=== PATIENT | male | born 1985 | race Caucasian/White ===

== ENCOUNTER 2017-04-20 00:50 | Outpatient (CLI) | payer SELFPAY | END 2017-04-20 00:51 | disposition critical access hospital (66) | LOC: EMS 00:50 | PROVIDERS: ATTEND Surgery | DX: R51 Headache (principal); M79.605 Pain in left leg; M79.604 Pain in right leg; R56.9 Unspecified convulsions | CPT/HCPCS: A0425; A0429 ==

== ENCOUNTER 2017-04-20 01:04 | Emergency (ER) | payer SELFPAY ==
[2017-04-20] MEDS ORDERED: THIAMINE INJ 100 MG in SODIUM CHLORIDE 0.9% 50 ML IV STA (01:14)
[2017-04-20] MEDS ORDERED: FOLIC ACID INJ 1 MG, THIAMINE INJ 100 MG, MAGNESIUM SULFATE 2 GM, MULTIVITAMIN 10 ML in... IV STA ×5 (01:14)
[2017-04-20] MEDS ORDERED: ONDANSETRON 4 MG/2 ML VIAL IVP STA (01:26)
[2017-04-20] MEDS ORDERED: THIAMINE 100 MG/1 ML 2 ML MDV ONE (01:37)
[2017-04-20] MEDS ORDERED: SODIUM CHLORIDE 0.9% 1,000 ML IV ONE (01:38)
[2017-04-20] MEDS ORDERED: ONDANSETRON 4 MG/2 ML VIAL ONE (01:38)
[2017-04-20] MEDS ORDERED: MAGNESIUM SULFATE 2 GRAM 50 ML IV ONE (01:44)
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
[2017-04-20] MEDS ORDERED: DIVALPROEX DR 125 MG TABLET PO STA (06:18)
[2017-04-20 06:58] LABS: BASOPHILS # (AUTO) 0.1 10^3/uL (0.0-0.1); BASOPHILS % (AUTO) 0.8 %; EOSINOPHILS # (AUTO) 0.1 10^3/uL (0.0-0.7); EOSINOPHILS % (AUTO) 1.4 %; HCT - HEMATOCRIT 43.3 % (42.0-52.0); HGB - HEMOGLOBIN 14.2 g/dL (14.0-18.0); LYMPHOCYTES # (AUTO) 2.9 10^3/uL (1.5-3.5); LYMPHOCYTES % (AUTO) 41.4 %; MEAN CORPUSCULAR HEMOGLOBIN 31.8 pg (27.0-31.0); MEAN CORPUSCULAR HGB CONC 32.8 g/dL (32.0-36.0); MEAN CORPUSCULAR VOLUME 96.8 fL (80.0-94.0); MEAN PLATELET VOLUME 7.3 fL (7.4-11.4); MONOCYTES # (AUTO) 0.6 10^3/uL (0.0-1.0); MONOCYTES % (AUTO) 9.3 %; NEUTROPHILS # (AUTO) 3.3 10^3/uL (1.5-6.6); NEUTROPHILS % (AUTO) 47.1 %; NUCLEATED RED BLOOD CELLS AUTO 0.2 /100WBC; RED BLOOD COUNT 4.48 10^6/uL (4.70-6.10); RED CELL DISTRIBUTION WIDTH 14.3 % (12.0-15.0); UNCORRECTED WHITE BLOOD COUNT 6.9 x10^3/uL; WHITE BLOOD COUNT 6.9 x10^3/uL (4.8-10.8)
[2017-04-20 07:06] LABS: ALBUMIN/GLOBULIN RATIO 1.5 (1.0-2.2); BILIRUBIN,TOTAL 0.3 mg/dL (0.2-1.0); BUN - BLOOD UREA NITROGEN 10 mg/dL (6-20); CALCIUM 8.3 mg/dL (8.5-10.3); CARBON DIOXIDE - CO2 25 mmol/L (21-32); CHLORIDE 108 mmol/L (101-111); CREATININE 0.7 mg/dL (0.6-1.2); GFR - MDRD 131 (>89); GLUCOSE 87 mg/dL (70-100); LIPASE 30 U/L (22-51); POTASSIUM 3.6 mmol/L (3.5-5.0); SALICYLATE < 6.0 mg/dL; SODIUM 144 mmol/L (135-145)
[2017-04-20 07:13] LABS: ACETAMINOPHEN < 10 ug/mL (10-30)
--- NOTE | 2017-04-20 13:28 | ED Physician Documentation ---
ED Addendum - Addendum Addendum: 04/20/17 13:26 He is allowed to sleep through the morning. He is awake and alert and conversant. No withdrawal symptoms at this time. He denies self-harm ideation, though is generally disgruntled about life, being homeless, without his cell phone, etc. He will be given taxi-voucher to [facility] to try to get further resources and help.
[2017-04-20 13:32] VITALS: BP 143/87
== END 2017-04-20 13:33 | disposition home or self-care (01) ==
LOC: EDUNIT# → ED 01:04
DX: F10.129 Alcohol abuse with intoxication, unspecified (principal); F17.200 Nicotine dependence, unspecified, uncomplicated
CPT/HCPCS: 36415; 80053; 80306; 80307; 80320; 80329; 83690; 84443; 85025; 96365; 96366; 96375; 99284; 99285; J3411

== ENCOUNTER 2017-07-07 18:14 | Outpatient (CLI) | payer MEDICAID | END 2017-07-07 18:15 | disposition critical access hospital (66) | LOC: EMS 18:14 | PROVIDERS: ATTEND Surgery | DX: R56.9 Unspecified convulsions (principal); Z59.0 Homelessness | CPT/HCPCS: A0425; A0429 ==

== ENCOUNTER 2017-07-07 18:48 | Emergency (ER) | payer MEDICAID ==
--- NOTE | 2017-07-07 19:13 | ED Physician Documentation ---
PD HPI SEIZURE <Torey Varela - Last Filed: 07/08/17 07:28> - History obtained from History obtained from: Patient - History of Present Illness Timing - onset: Today Witnessed: Unwitnessed (he awoke on ground after last being aware of standing up. Feels achy and had urinary incontinence. So he is sure he had a seizure ( which is reasonable). History of seizures, both regular and also with withdrawal in the past. He has been drinking today and does not feel in withdrawal.) Number of seizures: Multiple (he believes he had 2 seizures today.) Description of seizure activity: Generalized, Incontinent Injury during seizure: No: Head injury Associated symptoms: No: Headache, Chest pain, Dyspnea, Nausea / vomiting History of seizures: Known seizure disorder, Prior EtOH wdrawal sz. No: Prior TBI Contributing factors: Out of meds (had been on Depakote and ran out a month ago. ), Substance abuse (alcohol) Similar symptoms before: Diagnosis (seizures) Recently seen: Not recently seen <Torey Flores - Last Filed: 07/08/17 07:31> - Stated complaint Stated Complaint: SZ - Chief complaint Chief Complaint: Neuro Review of Systems Constitutional: denies: Fever Nose: denies: Rhinorrhea / runny nose, Congestion Throat: denies: Sore throat Cardiac: denies: Chest pain / pressure, Palpitations Respiratory: denies: Dyspnea, Cough GI: reports: Abdominal Pain (epigastric with eating.), Nausea, Bloody / black stool (he says he has had dark stools the past week or two.). denies: Vomiting , Diarrhea : denies: Dysuria, Frequency Skin: denies: Abrasion (s), Laceration (s) Musculoskeletal: denies: Neck pain, Back pain Neurologic: denies: Altered mental status, Headache Psychiatric: denies: Depressed, Suicidal Endocrine: denies: Weight loss Immunocompromised: denies: Immunocompromised <Torey Flores - Last Filed: 07/08/17 07:31> PD PAST MEDICAL HISTORY <Torey Varela - Last Filed: 07/08/17 07:28> - Past Medical History Cardiovascular: None Respiratory: None Neuro: Seizure disorder Endocrine/Autoimmune: None GI: None : None HEENT: Glaucoma Psych: None Musculoskeletal: None Derm: None - Past Surgical History Past Surgical History: Yes - Living Situation Living Situation: reports: Alone Living Arrangement: reports: Homeless (lives in [place] in tent, but has campstove and sleeping bag. ) - Social History Does the pt smoke?: Yes Smoking Status: Current every day smoker Does the pt drink ETOH?: Yes ETOH Use: Other (drinks heavily daily.) Does the pt have substance abuse?: No - Immunizations Immunizations are current?: Yes - POLST Patient has POLST: No <FloresTorey - Last Filed: 07/08/17 07:31> - Present Medications Home Medications: Ambulatory Orders Medication Instructions Recorded Confirmed Divalproex Sodium [Depakote] 500 mg PO BID #60 tablet. 04/20/17 07/07/17 Divalproex Sodium [Depakote] 500 mg PO BID #60 tablet. 07/07/17 Famotidine [Pepcid] 20 mg PO ONCE #30 tablet 07/07/17 Promethazine [Phenergan] 25 - 50 mg PO Q6H PRN #30 tab 07/07/17 chlordiazePOXIDE [Librium] 25 mg PO Q6H PRN #30 capsule 07/07/17 - Allergies Allergies/Adverse Reactions: Allergies Allergy/AdvReac Type Severity Reaction Status Date / Time iodine Allergy Severe Respiratory Verified 04/20/17 01:16 Penicillins Allergy Unknown unk Verified 04/20/17 01:16 eggs AdvReac Intermediate Emesis Uncoded 07/07/17 19:03 PD ED PE NORMAL - Vitals Vital signs reviewed: Yes - General General: Alert and oriented X 3, Well developed/nourished, Other (unkempt) - HEENT HEENT: Atraumatic, Ears normal, Pharynx benign - Neck Neck: Supple, no meningeal sign, No adenopathy - Cardiac Cardiac: RRR, No murmur - Respiratory Respiratory: Clear bilaterally - Abdomen Abdomen: Normal bowel sounds, Soft, Non distended, No organomegaly, Other ( tender epigastric without guarding) - Rectal Rectal: Deferred, Pt declined - Back Back: No CVA TTP - Derm Derm: Normal color, Warm and dry - Extremities Extremities: No deformity, No tenderness to palpate, Normal ROM s pain, No edema - Neuro Neuro: Alert and oriented X 3, No motor deficit. No: Normal speech (slight slurring and heavy smell of alcohol on breath. ) <Torey Flores - Last Filed: 07/08/17 07:31> - Vitals Vitals: Vital Signs - 24 hr 07/07/17 07/07/17 07/08/17 18:59 20:43 00:42 Temperature 37.2 C Heart Rate 81 81 69 Respiratory 16 21 20 Rate Blood Pressure 136/95 H 111/55 L 116/62 O2 Saturation 94 96 99 07/08/17 07/08/17 05:16 06:29 Temperature 37.2 C Heart Rate 64 56 L Respiratory 18 12 Rate Blood Pressure 127/77 112/72 O2 Saturation 96 97 Oxygen O2 Source Room air - Labs Labs: Laboratory Tests 07/07/17 07/07/17 19:53 19:53 WBC 5.2 RBC 4.64 L Hgb 15.6 Hct 44.7 MCV 96.4 H MCH 33.7 H MCHC 35.0 RDW 15.2 H Plt Count 179 MPV 6.8 L Neut # 2.9 Lymph # 1.8 [place] # 0.4 Eos # 0.1 Baso # 0.1 Absolute Nucleated RBC 0.00 Nucleated RBCs 0.1 Sodium 136 Potassium 3.6 Chloride 99 L Carbon Dioxide 26 Anion Gap 11.0 BUN 8 Creatinine 0.9 Estimated GFR (MDRD) 98 Glucose 96 Calcium 8.7 Magnesium 1.9 Total Bilirubin 1.6 H AST 144 H ALT 51 Alkaline Phosphatase 87 Total Protein 6.6 L Albumin 3.8 Globulin 2.8 Albumin/Globulin Ratio 1.4 Lipase 31 Ethyl Alcohol 241.4 Procedures - IVC sono (time) 0525 Bedside IVC sono: IVC measures (cm) (1.18), IVC collapsed c insp (cm) (complete) , Significant dehydration <AveryToery Echevarria - Last Filed: 07/08/17 07:28> PD MEDICAL DECISION MAKING - ED course Complexity details: reviewed old records, reviewed results, re-evaluated patient , considered differential, d/w patient <AveryTorey - Last Filed: 07/08/17 07:28> - ED course Complexity details: reviewed results, considered differential (history of seizures. Is intoxicated and not apparent withdrawal at this time. Has been off meds for a month. Given dose of Valproate here in ED. Will give him Rx for it. He has taken Librium in the past to help with alcohol cessation and asks for Rx for that, which I will give. He sleeps in the ED mainly. Will allow him to rest. CBC is good, so not apparent significant GI bleed. Will Rx Famotidine.), d /w patient <Torey Flores - Last Filed: 07/08/17 07:31> - ED course ED course: 31-year-old male who presented to the emergency department with a seizure earlier and they was intoxicated he did spend the night in the emergency department and he has metabolized his alcohol appears to be in some early signs of withdrawal and is administered 1 mg of Ativan intravenously as well as 4 mg of Zofran intravenously prior to discharge from the emergency department. He is road tested and does poorly with a lot of dizziness and ataxia. He is brought back to his bed and his volume is checked by interrogation of the IVC with the bedside ultrasound and he is still significantly dehydrated after a liter given as a banana bag. A second liter is hung. (Torey Varela) Departure <Torey Varela - Last Filed: 07/08/17 07:28> - Departure Record reviewed to determine appropriate education?: Yes <FloresTorey - Last Filed: 07/08/17 07:31> - Departure Disposition: 01 Home, Self Care Clinical Impression: Seizure Alcohol intoxication Qualifiers: Complication of substance-induced condition: uncomplicated Qualified Code(s): F10.120 - Alcohol abuse with intoxication, uncomplicated Gastritis Qualifiers: Gastritis type: alcoholic Chronicity: acute Gastritis bleeding: with bleeding Qualified Code(s): K29.21 - Alcoholic gastritis with bleeding Condition: Stable Instructions: ED Gastritis, ED Alcohol Intoxication Follow-Up: [facility] [Provider Group] [facility] [Provider Group] Prescriptions: Divalproex Sodium [Depakote] 500 mg PO BID #60 tablet. chlordiazePOXIDE [Librium] 25 mg PO Q6H PRN #30 capsule PRN Reason: Anxiety Famotidine [Pepcid] 20 mg PO ONCE #30 tablet Promethazine [Phenergan] 25 - 50 mg PO Q6H PRN #30 tab PRN Reason: Nausea / Vomiting Comments: Stop alcohol use. Use Librium every 4-6 hours as needed for withdrawal symptoms and taper down the use of it over several days to week. I presume you have some stomach irritation called gastritis and use famotidine daily for a month. Add promethazine if needed for nausea. Continue your usual seizure medicine and I wrote a prescription for the Depakote. Follow-up with local clinic, call for soonest appointment.
[2017-07-07] MEDS ORDERED: ONDANSETRON 4 MG/2 ML VIAL IVP STA (19:44)
[2017-07-07] MEDS ORDERED: SODIUM CHLORIDE 0.9% 1,000 ML IV ONE (19:44)
[2017-07-07] MEDS ORDERED: FAMOTIDINE 20 MG/50 ML 50 ML IV ONE ×2 (19:45→19:56)
[2017-07-07] MEDS ORDERED: MULTIVITAMIN 10 ML in SODIUM CHLORIDE 0.9% 1,000 ML IV STA (19:45)
[2017-07-07] MEDS ORDERED: THIAMINE INJ 100 MG, FOLIC ACID INJ 1 MG in SODIUM CHLORIDE 0.9% 100ML 100 ML IV STA (19:45)
[2017-07-07] MEDS ORDERED: MAGNESIUM SULFATE 2 GRAM 50 ML IV STA (19:45)
[2017-07-07] MEDS ORDERED: VALPROATE INJ 500 MG in SODIUM CHLORIDE 0.9% 100ML 100 ML IV STA (19:46)
[2017-07-07] MEDS ORDERED: ONDANSETRON 4 MG/2 ML VIAL ONE (19:56)
[2017-07-07 20:02] LABS: BASOPHILS # (AUTO) 0.1 10^3/uL (0.0-0.1); BASOPHILS % (AUTO) 1.2 %; EOSINOPHILS # (AUTO) 0.1 10^3/uL (0.0-0.7); EOSINOPHILS % (AUTO) 1.9 %; HCT - HEMATOCRIT 44.7 % (42.0-52.0); HGB - HEMOGLOBIN 15.6 g/dL (14.0-18.0); LYMPHOCYTES # (AUTO) 1.8 10^3/uL (1.5-3.5); LYMPHOCYTES % (AUTO) 33.9 %; MEAN CORPUSCULAR HEMOGLOBIN 33.7 pg (27.0-31.0); MEAN CORPUSCULAR VOLUME 96.4 fL (80.0-94.0); MEAN PLATELET VOLUME 6.8 fL (7.4-11.4); MONOCYTES # (AUTO) 0.4 10^3/uL (0.0-1.0); MONOCYTES % (AUTO) 7.2 %; NEUTROPHILS # (AUTO) 2.9 10^3/uL (1.5-6.6); NEUTROPHILS % (AUTO) 55.8 %; NUCLEATED RED BLOOD CELLS AUTO 0.1 /100WBC; RED BLOOD COUNT 4.64 10^6/uL (4.70-6.10); RED CELL DISTRIBUTION WIDTH 15.2 % (12.0-15.0); UNCORRECTED WHITE BLOOD COUNT 5.2 x10^3/uL; WHITE BLOOD COUNT 5.2 x10^3/uL (4.8-10.8)
[2017-07-07 20:20] LABS: ALBUMIN/GLOBULIN RATIO 1.4 (1.0-2.2); BILIRUBIN,TOTAL 1.6 mg/dL (0.2-1.0); CALCIUM 8.7 mg/dL (8.5-10.3); CREATININE 0.9 mg/dL (0.6-1.2); MAGNESIUM 1.9 mg/dL (1.7-2.8); POTASSIUM 3.6 mmol/L (3.5-5.0); TOTAL PROTEIN 6.6 g/dL (6.7-8.2)
[2017-07-07] MEDS ORDERED: THIAMINE 100 MG/1 ML 2 ML MDV ONE (20:30)
[2017-07-07] MEDS ORDERED: MAGNESIUM SULFATE 2 GRAM 50 ML IV ONE (20:30)
[2017-07-08] MEDS ORDERED: ONDANSETRON 4 MG/2 ML VIAL IVP STA (05:20)
[2017-07-08] MEDS ORDERED: LORazepam 2 MG/ML SYRINGE IVP STA ×2 (05:20→08:11)
[2017-07-08] MEDS ORDERED: LORazepam 2 MG/ML SYRINGE ONE ×2 (05:26→08:27)
[2017-07-08] MEDS ORDERED: ONDANSETRON 4 MG/2 ML VIAL ONE (05:26)
[2017-07-08] MEDS ORDERED: SODIUM CHLORIDE 0.9% 1,000 ML IV ONE ×2 (05:49→07:07)
[2017-07-08 09:15] VITALS: BP 119/54
== END 2017-07-08 09:16 | disposition home or self-care (01) ==
LOC: EDUNIT# → ED 18:48
DX: R56.9 Unspecified convulsions (principal); F10.129 Alcohol abuse with intoxication, unspecified; K29.20 Alcoholic gastritis without bleeding; Z59.0 Homelessness; F17.200 Nicotine dependence, unspecified, uncomplicated
CPT/HCPCS: 36415; 80053; 80320; 83690; 83735; 85025; 96365; 96375; 96376; 99284; 99285; J2060; J3411

== ENCOUNTER 2017-10-02 21:34 | Outpatient (CLI) | payer MEDICAID | END 2017-10-02 21:35 | disposition critical access hospital (66) | LOC: EMS 21:34 | PROVIDERS: ATTEND Surgery | DX: R56.9 Unspecified convulsions (principal) | CPT/HCPCS: A0425; A0429 ==

== ENCOUNTER 2017-10-02 21:50 | Emergency (ER) | payer MEDICAID ==
[2017-10-02 22:19] LABS: BASOPHILS % (AUTO) 0.7 %; EOSINOPHILS # (AUTO) 0.2 10^3/uL (0.0-0.7); HCT - HEMATOCRIT 42.6 % (42.0-52.0); HGB - HEMOGLOBIN 14.8 g/dL (14.0-18.0); LYMPHOCYTES % (AUTO) 35.8 %; MEAN CORPUSCULAR HEMOGLOBIN 34.4 pg (27.0-31.0); MEAN CORPUSCULAR HGB CONC 34.7 g/dL (32.0-36.0); MEAN CORPUSCULAR VOLUME 99.3 fL (80.0-94.0); MEAN PLATELET VOLUME 7.8 fL (7.4-11.4); MONOCYTES # (AUTO) 0.6 10^3/uL (0.0-1.0); MONOCYTES % (AUTO) 10.7 %; NEUTROPHILS # (AUTO) 2.7 10^3/uL (1.5-6.6); NEUTROPHILS % (AUTO) 48.8 %; RED BLOOD COUNT 4.29 10^6/uL (4.70-6.10); RED CELL DISTRIBUTION WIDTH 13.5 % (12.0-15.0); UNCORRECTED WHITE BLOOD COUNT 5.6 x10^3/uL; WHITE BLOOD COUNT 5.6 x10^3/uL (4.8-10.8)
[2017-10-02 22:30] LABS: ALBUMIN/GLOBULIN RATIO 1.5 (1.0-2.2); BILIRUBIN,TOTAL 0.9 mg/dL (0.2-1.0); CALCIUM 9.1 mg/dL (8.5-10.3); CREATININE 0.7 mg/dL (0.6-1.2); POTASSIUM 3.4 mmol/L (3.5-5.0); TOTAL PROTEIN 7.2 g/dL (6.7-8.2)
--- NOTE | 2017-10-02 22:38 | CT Preliminary Report ---
Exam: CT HEAD W/O IMPRESSION: 1. No acute intracranial process. 2. New mild left frontal scalp swelling without calvarial fracture. [facility] SITE ID: [id number]
--- NOTE | 2017-10-02 22:43 | CT Report ---
EXAM: CT HEAD EXAM DATE: 10/02/2017 10:28 PM. CLINICAL HISTORY: Seizure. COMPARISON: None. TECHNIQUE: Multiaxial CT images were obtained from the foramen magnum to the vertex. Reformats: Coron al. IV contrast: None. In accordance with CT protocol optimization, one or more of the following dose reduction techniques w ere utilized for this exam: automated exposure control, adjustment of mA and/or KV based on patient s ize, or use of iterative reconstructive technique. FINDINGS: Parenchyma: No intraparenchymal hemorrhage. No evidence of mass, midline shift, or CT findings of inf arction. Garcia-white differentiation is distinct. Extraaxial Spaces: Normal for age. No subdural or epidural collections identified. Ventricles: Normal in size and position. Sinuses and Orbits: Left maxillary sinus mucosal thickening is again seen. The orbits and mastoid sin uses are unremarkable. Bones: New mild left frontal scalp swelling is noted without an underlying calvarial fracture. IMPRESSION: 1. No acute intracranial process. 2. New mild left frontal scalp swelling without calvarial fracture. [facility] Referring Provider Line: [phone] SITE ID: [id number]
[2017-10-02] MEDS ORDERED: LORazepam 2 MG/ML SYRINGE ONE (23:29)
[2017-10-02] MEDS: LORazepam 2 MG/ML SYRINGE IVP STA (23:29)
[2017-10-02] MEDS: DIVALPROEX ER 250 MG TABLET PO SCH (23:44)
--- NOTE | 2017-10-03 00:43 | ED Physician Documentation ---
PD HPI SEIZURE - Stated complaint Stated Complaint: SZ - Chief complaint Chief Complaint: Neuro - History obtained from History obtained from: Patient, EMS - History of Present Illness Timing - onset: Today Witnessed: Witnessed Number of seizures: Single, Lasted minutes Description of seizure activity: Generalized, Tonic clonic Injury during seizure: Fell, Head injury Associated symptoms: None History of seizures: Known seizure disorder Contributing factors: Off meds, Out of meds, Substance abuse Similar symptoms before: Work up / diagnostics, Treatment Recently seen: Not recently seen - Additional information Additional information: Patient is a 31 year old male with a history of seizure disorder who is being brought in for having a seizure. [facility] a witnessed tonic clonic seizure. Patient states that he has not taken his depakote for a long time. Patient admits to drinking daily Review of Systems Constitutional: denies: Fever, Chills Eyes: denies: Decreased vision Nose: denies: Congestion Throat: denies: Dental pain / toothache Cardiac: denies: Chest pain / pressure Respiratory: denies: Cough, Wheezing GI: denies: Nausea, Vomiting : denies: Incontinent Skin: reports: Abrasion (s) Musculoskeletal: denies: Neck pain, Back pain Neurologic: reports: Seizure. denies: Generalized weakness Immunocompromised: denies: Immunocompromised PD PAST MEDICAL HISTORY - Past Medical History Cardiovascular: None Respiratory: None Neuro: Seizure disorder Endocrine/Autoimmune: None GI: None : None HEENT: Glaucoma Psych: None Musculoskeletal: None Derm: None - Past Surgical History Past Surgical History: Yes General: Other - Present Medications Home Medications: Ambulatory Orders Medication Instructions Recorded Confirmed Divalproex ER [Depakote ER] 500 mg PO DAILY #30 tablet 10/03/17 - Allergies Allergies/Adverse Reactions: Allergies Allergy/AdvReac Type Severity Reaction Status Date / Time iodine Allergy Severe Respiratory Verified 04/20/17 01:16 Penicillins Allergy Unknown unk Verified 09/23/17 20:09 eggs AdvReac Intermediate Emesis Uncoded 07/07/17 19:03 - Social History Does the pt smoke?: Yes Smoking Status: Current every day smoker Does the pt drink ETOH?: Yes Does the pt have substance abuse?: No - Immunizations Immunizations are current?: Yes - POLST Patient has POLST: No PD ED PE NORMAL - Vitals Vital signs reviewed: Yes - General General: Alert and oriented X 3, No acute distress - HEENT HEENT: PERRL, Moist mucous membranes, Dentition benign - Neck Neck: Supple, no meningeal sign, No bony TTP - Cardiac Cardiac: RRR, No murmur - Respiratory Respiratory: No respiratory distress - Abdomen Abdomen: Soft, Non distended - Derm Derm: Normal color - Extremities Extremities: No deformity - Neuro Neuro: Alert and oriented X 3, No motor deficit Eye Opening: Spontaneous Motor: Obeys Commands Verbal: Oriented GCS Score: 15 PD ED PE EXPANDED - General General: Disheveled, poorly kept Results - Vitals Vitals: Vital Signs - 24 hr 10/02/17 10/02/17 10/02/17 21:57 23:28 23:45 Temperature 36.7 C Heart Rate 101 H 85 96 Respiratory 18 16 16 Rate Blood Pressure 135/80 H 119/80 122/69 O2 Saturation 94 95 97 Oxygen O2 Source Room air - EKG (time done) 2204 Rate: Rate (enter#) (87) Rhythm: NSR Moran: Normal Intervals: Normal GA QRS: Normal Ischemia: Normal ST segments - Labs Labs: Laboratory Tests 10/02/17 10/02/17 10/02/17 22:11 22:11 22:11 WBC 5.6 RBC 4.29 L Hgb 14.8 Hct 42.6 MCV 99.3 H MCH 34.4 H MCHC 34.7 RDW 13.5 Plt Count 205 MPV 7.8 Neut # 2.7 Lymph # 2.0 [place] # 0.6 Eos # 0.2 Baso # 0.0 Absolute Nucleated RBC 0.00 Nucleated RBC % 0.0 Sodium 136 Potassium 3.4 L Chloride 102 Carbon Dioxide 23 Anion Gap 11.0 BUN 6 Creatinine 0.7 Estimated GFR (MDRD) 131 Glucose 95 Calcium 9.1 Total Bilirubin 0.9 AST 132 H ALT 64 H Alkaline Phosphatase 85 Total Protein 7.2 Albumin 4.3 Globulin 2.9 Albumin/Globulin Ratio 1.5 Last Dose Date UNK Last Dose Time UNK Valproic Acid < 10.0 - Rads (name of study) ct head Radiology: Final report received (no acute intracranial pathology) PD MEDICAL DECISION MAKING - ED course Complexity details: reviewed old records, reviewed results, re-evaluated patient , considered differential, d/w patient ED course: Patient was seen and examined at bedside. Patient had no seizure activity. iv access was gained and labs were drawn. patient was sent for imaging. when patient returned the results were reviewed. Patient was treated with depakote and ativan. Patient required no further work up and was stable for discharge with outpatient follow up. Departure - Departure Disposition: 01 Home, Self Care Clinical Impression: Seizure Condition: Good Instructions: ED Seizure Recurrent Follow-Up: primary,care provider [Other] Prescriptions: Divalproex ER [Depakote ER] 500 mg PO DAILY #30 tablet Comments: Your symptoms today are being caused by not taking your medications. It is important to take your medications as prescribed. You should also refrain from drinking so excessively. You may return to the emergency department at any time if necessary for new, worsening or uncontrollable symptoms.
[2017-10-03] MEDS: chlordiazePOXIDE 25 MG CAPSULE PO STA (01:08)
[2017-10-03 01:09] VITALS: BP 116/57
[2017-10-03] MEDS ORDERED: chlordiazePOXIDE 25 MG CAPSULE PO ONE (01:12)
== END 2017-10-03 01:20 | disposition home or self-care (01) ==
LOC: EDUNIT# → ED 21:50
DX: G40.909 Epilepsy, unspecified, not intractable, without status epilepticus (principal); T42.6X6A Underdosing of other antiepileptic and sedative-hypnotic drugs, initial encounter; F17.200 Nicotine dependence, unspecified, uncomplicated; Z91.14 Patient's other noncompliance with medication regimen
CPT/HCPCS: 36415; 70450; 80053; 80164; 85025; 93005; 96374; 99285

== ENCOUNTER 2017-10-18 12:12 | Outpatient (CLI) | payer MEDICAID | END 2017-10-18 12:13 | disposition critical access hospital (66) | LOC: EMS 12:12 | PROVIDERS: ATTEND Surgery | DX: R56.9 Unspecified convulsions (principal) | CPT/HCPCS: A0425; A0429 ==

== ENCOUNTER 2017-10-18 12:29 | Observation (INO) | payer MEDICAID ==
--- NOTE | 2017-10-18 13:25 | ED Physician Documentation ---
PD HPI SEIZURE - Stated complaint Stated Complaint: SEIZURE - History obtained from History obtained from: Patient - History of Present Illness Timing - onset: How many hours ago (1), Today Witnessed: Witnessed (Patient reportedly had seizure at bus stop, some report of witnessed, but was self limited and when awoke, he called EMS himself. He had been drinking today, which he does regularly but denies withdrawal or other medications. He does have history of seizures since teenage, and has been on Depakote in the past with moderate to good improvement if he takes it regularly , but still with some seizures periodically despite meds. More seizures if doesn 't take meds. He says he has not had Rx for the past 2 weeks.) Number of seizures: Single, Lasted minutes. No: Still seizing Description of seizure activity: Generalized Injury during seizure: Bit tongue. No: Fell, Head injury, Neck injury Associated symptoms: Headache. No: Vision changes, Chest pain, Palpitations History of seizures: Known seizure disorder, Other (chronic alcohol use) Contributing factors: Out of meds, Substance abuse (alcohol). No: Low blood sugar, Head injury Similar symptoms before: Diagnosis (seizure disorder, also has had seizures if without alcohol for short period. He says he has only has 1 prior long sober period of 6 months in the past, otherwise regular alcoholism.) Recently seen: Emergency Dept Review of Systems Constitutional: denies: Fever, Chills Nose: denies: Rhinorrhea / runny nose, Congestion Throat: reports: Dental pain / toothache. denies: Sore throat, Swollen tonsils Cardiac: denies: Chest pain / pressure, Palpitations Respiratory: denies: Dyspnea, Cough GI: denies: Abdominal Pain, Vomiting, Diarrhea Skin: denies: Rash, Lesions, Abrasion (s), Laceration (s) Musculoskeletal: denies: Neck pain, Back pain Neurologic: reports: Generalized weakness, Seizure (about every 1-2 weeks), Headache. denies: Altered mental status Endocrine: denies: Weight loss Immunocompromised: denies: Immunocompromised PD PAST MEDICAL HISTORY - Past Medical History Cardiovascular: None Respiratory: None Neuro: Seizure disorder Endocrine/Autoimmune: None GI: None : None HEENT: Glaucoma Psych: None Musculoskeletal: None Derm: None - Past Surgical History Past Surgical History: Yes General: Other - Present Medications Home Medications: Ambulatory Orders Medication Instructions Recorded Confirmed Divalproex ER [Depakote ER] 500 mg PO DAILY #30 tablet 10/03/17 - Allergies Allergies/Adverse Reactions: Allergies Allergy/AdvReac Type Severity Reaction Status Date / Time iodine Allergy Severe Respiratory Verified 10/18/17 13:38 Penicillins Allergy Unknown unk Verified 10/18/17 13:38 eggs AdvReac Intermediate Emesis Uncoded 10/18/17 13:38 - Living Situation Living Situation: reports: With friend(s) Living Arrangement: reports: At home, Homeless (sometimes) - Social History Does the pt smoke?: Yes Smoking Status: Current every day smoker Does the pt drink ETOH?: Yes Does the pt have substance abuse?: No Substance Use and Type: Marijuana - Immunizations Immunizations are current?: Yes - POLST Patient has POLST: No PD ED PE NORMAL - Vitals Vital signs reviewed: Yes - General General: No acute distress, Other (unkempt and unshaven. Poor dentition. Right upper gum with some swelling and tenderness at molar area. ) - HEENT HEENT: Pharynx benign, Other (abrasion mild left lateral tip of tongue). No: Dentition benign - Neck Neck: Supple, no meningeal sign, No adenopathy - Cardiac Cardiac: RRR, No murmur - Respiratory Respiratory: Clear bilaterally - Abdomen Abdomen: Soft, Non tender - Male Male : Deferred - Rectal Rectal: Deferred - Back Back: No CVA TTP - Derm Derm: Normal color, Warm and dry, No rash - Extremities Extremities: No deformity, No tenderness to palpate, Normal ROM s pain, No calf tenderness / cord - Neuro Neuro: Alert and oriented X 3, No motor deficit, Normal speech Eye Opening: Spontaneous Motor: Obeys Commands Verbal: Oriented GCS Score: 15 - Psych Psych: Normal mood Results - Vitals Vitals: Vital Signs - 24 hr 10/18/17 10/18/17 10/18/17 12:30 14:05 15:15 Temperature 36.5 C Heart Rate 88 71 94 Respiratory 16 13 20 Rate Blood Pressure 138/75 H 118/75 144/69 H O2 Saturation 99 96 94 10/18/17 16:02 Temperature Heart Rate 77 Respiratory 16 Rate Blood Pressure 104/77 O2 Saturation 95 Oxygen O2 Source Room air - Labs Labs: Laboratory Tests 10/18/17 10/18/17 10/18/17 12:40 12:40 12:40 WBC 6.3 RBC 5.00 Hgb 16.9 Hct 49.4 MCV 99.0 H MCH 33.9 H MCHC 34.2 RDW 13.5 Plt Count 263 MPV 7.5 Neut # 3.3 Lymph # 2.3 [place] # 0.5 Eos # 0.2 Baso # 0.1 Absolute Nucleated RBC 0.00 Nucleated RBC % 0.1 PT INR Sodium 142 Potassium 3.8 Chloride 102 Carbon Dioxide 28 Anion Gap 12.0 BUN 6 Creatinine 0.9 Estimated GFR (MDRD) 98 Glucose 93 Lactic Acid Calcium 9.1 Magnesium 2.5 Total Bilirubin 0.5 AST 165 H ALT 67 H Alkaline Phosphatase 99 Total Creatine Kinase Total Protein 8.3 H Albumin 4.5 Globulin 3.8 Albumin/Globulin Ratio 1.2 Lipase 41 TSH 1.88 Last Dose Date Last Dose Time Urine Opiates Screen Ur Oxycodone Screen Urine Methadone Screen Ur Propoxyphene Screen Ur Barbiturates Screen Valproic Acid Ur Tricyclics Screen Ur Phencyclidine Scrn Ur Amphetamine Screen U Methamphetamines Scrn U Benzodiazepines Scrn Urine Cocaine Screen U Cannabinoids Screen Ethyl Alcohol 406.3 Serum Ketones 10/18/17 10/18/17 10/18/17 12:40 12:40 14:04 WBC RBC Hgb Hct MCV MCH MCHC RDW Plt Count MPV Neut # Lymph # [place] # Eos # Baso # Absolute Nucleated RBC Nucleated RBC % PT 10.1 INR 0.9 Sodium Potassium Chloride Carbon Dioxide Anion Gap BUN Creatinine Estimated GFR (MDRD) Glucose Lactic Acid Calcium Magnesium Total Bilirubin AST ALT Alkaline Phosphatase Total Creatine Kinase Total Protein Albumin Globulin Albumin/Globulin Ratio Lipase TSH Last Dose Date UNKNOWN Last Dose Time UNKNOWN Urine Opiates Screen NEGATIVE Ur Oxycodone Screen NEGATIVE Urine Methadone Screen NEGATIVE Ur Propoxyphene Screen NEGATIVE Ur Barbiturates Screen NEGATIVE Valproic Acid < 10.0 Ur Tricyclics Screen NEGATIVE Ur Phencyclidine Scrn NEGATIVE Ur Amphetamine Screen NEGATIVE U Methamphetamines Scrn NEGATIVE U Benzodiazepines Scrn POSITIVE H Urine Cocaine Screen NEGATIVE U Cannabinoids Screen POSITIVE H Ethyl Alcohol Serum Ketones 10/18/17 10/18/17 15:19 15:19 WBC RBC Hgb Hct MCV MCH MCHC RDW Plt Count MPV Neut # Lymph # [place] # Eos # Baso # Absolute Nucleated RBC Nucleated RBC % PT INR Sodium Potassium Chloride Carbon Dioxide Anion Gap BUN Creatinine Estimated GFR (MDRD) Glucose Lactic Acid 1.8 Calcium Magnesium Total Bilirubin AST ALT Alkaline Phosphatase Total Creatine Kinase 186 Total Protein Albumin Globulin Albumin/Globulin Ratio Lipase TSH Last Dose Date Last Dose Time Urine Opiates Screen Ur Oxycodone Screen Urine Methadone Screen Ur Propoxyphene Screen Ur Barbiturates Screen Valproic Acid Ur Tricyclics Screen Ur Phencyclidine Scrn Ur Amphetamine Screen U Methamphetamines Scrn U Benzodiazepines Scrn Urine Cocaine Screen U Cannabinoids Screen Ethyl Alcohol Serum Ketones NEGATIVE PD MEDICAL DECISION MAKING - ED course Complexity details: reviewed results, re-evaluated patient (has been out of meds for couple weeks, so will be none in blood. Gave IV dose Keppra as it works a bit faster. COnsider whether to continue Depakote or change to different. He was doing okay in the ED and SW talked with him to do intake for alcohol treatment center. No beds available until tomorrow. He was still feeling okay and then had generalized seizure in ED lasting about a minute and stopped without treatment. Given Ativan IV. He awakens after several minutes, and slowly back to conversant. Repeated seizure in ED about an hour later. I talked with [facility] Neuro, who suggested to remain with Depakote for him, and he was given IV dose here. Given repeated seizures, I talked with Hospitalist to have him admitted here for antiepileptic meds and see if stabilizes. To be wary of impending alcohol withdrawal as well. ), considered differential, d/w patient Departure - Departure Disposition: ED Place in Observation Clinical Impression: Recurrent seizures, Alcoholism, Dental infection Alcohol intoxication Qualifiers: Complication of substance-induced condition: uncomplicated Qualified Code(s): F10.120 - Alcohol abuse with intoxication, uncomplicated Condition: Stable Record reviewed to determine appropriate education?: Yes Discharge Date/Time: 10/18/17 17:59
[2017-10-18] MEDS ORDERED: LORazepam 2 MG/ML VIAL IVP STA ×2 (13:42→16:01)
[2017-10-18] MEDS ORDERED: levETIRAcetam INJ 500 MG in SODIUM CHLORIDE 0.9% 100ML 100 ML IV STA (13:42)
[2017-10-18] MEDS ORDERED: SODIUM CHLORIDE 0.9% 1,000 ML IV ONE (13:42)
[2017-10-18 13:54] LABS: BASOPHILS # (AUTO) 0.1 10^3/uL (0.0-0.1); BASOPHILS % (AUTO) 1.2 %; EOSINOPHILS # (AUTO) 0.2 10^3/uL (0.0-0.7); EOSINOPHILS % (AUTO) 2.9 %; HCT - HEMATOCRIT 49.4 % (42.0-52.0); HGB - HEMOGLOBIN 16.9 g/dL (14.0-18.0); LYMPHOCYTES # (AUTO) 2.3 10^3/uL (1.5-3.5); MEAN CORPUSCULAR HEMOGLOBIN 33.9 pg (27.0-31.0); MEAN CORPUSCULAR HGB CONC 34.2 g/dL (32.0-36.0); MEAN PLATELET VOLUME 7.5 fL (7.4-11.4); MONOCYTES # (AUTO) 0.5 10^3/uL (0.0-1.0); MONOCYTES % (AUTO) 7.5 %; NEUTROPHILS # (AUTO) 3.3 10^3/uL (1.5-6.6); NEUTROPHILS % (AUTO) 51.4 %; NUCLEATED RED BLOOD CELLS AUTO 0.1 /100WBC; RED CELL DISTRIBUTION WIDTH 13.5 % (12.0-15.0); UNCORRECTED WHITE BLOOD COUNT 6.3 x10^3/uL; WHITE BLOOD COUNT 6.3 x10^3/uL (4.8-10.8)
[2017-10-18] MEDS ORDERED: LORazepam 2 MG/ML SYRINGE ONE ×2 (14:00→16:06)
[2017-10-18 14:02] LABS: ALBUMIN/GLOBULIN RATIO 1.2 (1.0-2.2); BILIRUBIN,TOTAL 0.5 mg/dL (0.2-1.0); CALCIUM 9.1 mg/dL (8.5-10.3); CREATININE 0.9 mg/dL (0.6-1.2); MAGNESIUM 2.5 mg/dL (1.7-2.8); POTASSIUM 3.8 mmol/L (3.5-5.0); TOTAL PROTEIN 8.3 g/dL (6.7-8.2)
[2017-10-18] MEDS ORDERED: VALPROATE INJ 500 MG in SODIUM CHLORIDE 0.9% 100ML 100 ML IV STA (16:48)
[2017-10-18] MEDS ORDERED: SODIUM CHLORIDE FLUSH 0.9% 10 ML SYRINGE IVP PRN (16:53)
[2017-10-18] MEDS ORDERED: ONDANSETRON 4 MG/2 ML VIAL IVP PRN (16:53)
--- NOTE | 2017-10-18 16:53 | HISTORY & PHYSICAL EXAMINATION ---
Chief Complaint - Chief Complaint Chief Complaint: seizure History of Present Illness - Admitted From Admitted From:: ER - History of Present Illness HPI Comment/Other: This is a 31-year-old male with a significant past medical history of alcohol abuse, and seizure, who present ER for evaluation of seizure. Pt is alert but medicated with Ativan, now he is at sleep, he could not answer any question. Per medical record, pt had several visits in ER with similar problem: alcohol intoxication and seizure. [facility] Pt was out of his seizure medication Depakote for quite long time. Social work was consulted. Pt was on alcohol detox program, he is now waiting for the bed. UDS reveal pt's alcohol level is over 400, positive for Benzo and Marijuana. ER provider called [facility] for consulting. The consumer services consultant recommend that pt may continue to use Depakote to control the seizure. Other lab value reveal elevated liver enzyme. Vital is stable now. Pt is admitted in observation for treatment of seizure and transferred to alcohol detox program. History - Past Medical History Cardiovascular: reports: None Respiratory: reports: None Neuro: reports: Seizure disorder Endocrine/Autoimmune: reports: None GI: reports: None : reports: None HEENT: reports: Glaucoma Psych: reports: None, Other Musculoskeletal: reports: None Derm: reports: None MRSA Hx?: Yes - Past Surgical History General: reports: Other Neuro: reports: Other - POLST Patient has POLST: No Meds/Allgy - Home Medications Home Medications: Ambulatory Orders Medication Instructions Recorded Confirmed Divalproex ER [Depakote ER] 500 mg PO DAILY #30 tablet 10/03/17 - Allergies Allergies/Adverse Reactions: Allergies Allergy/AdvReac Type Severity Reaction Status Date / Time iodine Allergy Severe Respiratory Verified 10/18/17 13:38 Penicillins Allergy Unknown unk Verified 10/18/17 13:38 eggs AdvReac Intermediate Emesis Uncoded 10/18/17 13:38 Exam - Vital Signs Reviewed Vital Signs: Yes Vital Signs: Vital Signs x48h Temp Pulse Resp BP Pulse Ox 10/18/17 16:02 77 16 104/77 95 10/18/17 15:15 94 20 144/69 H 94 10/18/17 14:05 71 13 118/75 96 10/18/17 12:30 36.5 C 88 16 138/75 H 99 - Physical Exam General Appearance: positive: No acute distress, Alert Eyes Bilateral: positive: Normal inspection, PERRL, No lid inflammation, Conjunctivae nml ENT: positive: ENT inspection nml, Pharynx nml, No signs of dehydration. negative: Purulent nasal drainage, Pharyngeal erythema Neck: positive: Nml inspection, Thyroid nml, No JVD, Trachea midline. negative : Thyromegaly, Lymphadenopathy (R), Lymphadenopathy (L), Stiff neck, Swelling/ bruising, Tracheal deviation Respiratory: positive: Chest non-tender, No respiratory distress, Breath sounds nml. negative: Wheezes, Rales, Rhonchi Cardiovascular: positive: Regular rate & rhythm, No murmur, No gallop. negative : Irregularly irregular, Extrasystoles, Tachycardia, Bradycardia, Systolic murmur, Diastolic murmur Peripheral Pulses: positive: 2+ Abdomen: positive: Non-tender, No organomegaly, Nml bowel sounds, No distention. negative: Tenderness, Guarding, Rebound Back: positive: Nml inspection. negative: CVA tenderness (R), CVA tenderness (L ) Skin: positive: Color nml, No rash, Warm, Dry. negative: Pallor Extremities: positive: Non-tender, Full ROM, Nml appearance. negative: Calf tenderness, Joint swelling, Gabby's sign/cords Neurologic/Psychiatric: negative: Sensory loss, Facial droop, Slurred/abnml speech Conclusion/Plan - Problem List (1) Alcohol intoxication Conclusion/Plan: Alcohol level over 400 in UDS CIWA protocol Multiple vit B12 IVF NC check Ammonia check Ketone check lactic acid Neuro check daily lab, vital check NPO now, pt can advance diet as needed Qualifiers: Complication of substance-induced condition: uncomplicated (2) Seizure Conclusion/Plan: ER consulted with neurologist and recommend continue with Depakote Pt has already IV 500mg Depakote in ER continue Depakote 500 mg PO BID Ativan 2mg Q2H PRN for seizure seizure precaution vital monitor (3) DVT prophylaxis Conclusion/Plan: SCD and Lovenox - Lab Results Fish Bones: 10/18/17 12:40 10/18/17 12:40 Issues/Core Measures - Anticipated LOS Anticipated Stay Length: Less than 2 midnights (expect less than 2 midnights)
[2017-10-18] MEDS ORDERED: LORazepam 2 MG/ML SYRINGE IVP PRN ×2 (17:17→17:30)
[2017-10-18] MEDS ORDERED: LORazepam 2 MG/ML VIAL IVP PRN (17:24)
[2017-10-18 17:58] LABS: INR 0.9 (0.8-1.2); PT - PROTHROMBIN TIME 10.1 secs (9.9-12.6)
[2017-10-18] MEDS: LORazepam 2 MG/ML VIAL IVP PRN ×2 (18:53→21:31)
[2017-10-18] MEDS: SODIUM CHLORIDE FLUSH 0.9% 10 ML SYRINGE IVP SCH (18:54)
[2017-10-18] MEDS: SODIUM CHLORIDE 0.9% 1,000 ML IV SCH ×2 (19:44→22:11)
--- NOTE | 2017-10-18 21:18 | CT Preliminary Report ---
Exam: CT HEAD W/O IMPRESSION: 1. Negative noncontrast CT scan of the head. No acute abnormality. (Note, MRI is more sensitive in th e evaluation of patients with seizures.) 2. Opacification of partially visualized left maxillary antrum. This is unchanged. [facility] SITE ID: [id number]
--- NOTE | 2017-10-18 21:20 | CT Report ---
EXAM: CT HEAD EXAM DATE: 10/18/2017 07:13 PM. CLINICAL HISTORY: TIA, and headache. 5 seizures today. COMPARISON: CT scan of the head 10/02/2017, 09/23/2017. TECHNIQUE: Multiaxial CT images were obtained from the foramen magnum to the vertex. Reformats: Coron al. IV contrast: None. In accordance with CT protocol optimization, one or more of the following dose reduction techniques w ere utilized for this exam: automated exposure control, adjustment of mA and/or KV based on patient s ize, or use of iterative reconstructive technique. FINDINGS: Parenchyma: No intraparenchymal hemorrhage. No evidence of mass, midline shift, or CT findings of inf arction. Garcia-white differentiation is distinct. Extraaxial Spaces: Normal for age. No subdural or epidural collections identified. Ventricles: Normal in size and position. Sinuses and Orbits: Diffuse opacification of partially visualized left maxillary antrum is noted. Min imal mucosal thickening is seen in left ethmoid and inferior frontal sinuses. The mastoid air cells a re clear. Visualized orbits are symmetric and unremarkable Bones: No evidence of fracture or calvarial defect. Other: None. IMPRESSION: 1. Negative noncontrast CT scan of the head. No acute abnormality. (Note, MRI is more sensitive in th e evaluation of patients with seizures.) 2. Opacification of partially visualized left maxillary antrum. This is unchanged. [facility] Referring Provider Line: [phone] SITE ID: [id number]
[2017-10-18] MEDS: DIVALPROEX DR 250 MG TABLET PO SCH (21:30)
[2017-10-19] MEDS: ACETAMINOPHEN 325 MG TABLET PO PRN ×2 (05:04→15:48)
[2017-10-19] MEDS: LORazepam 2 MG/ML VIAL IVP PRN ×4 (05:05→15:49)
[2017-10-19 05:27] LABS: BASOPHILS # (AUTO) 0.1 10^3/uL (0.0-0.1); BASOPHILS % (AUTO) 0.6 %; EOSINOPHILS # (AUTO) 0.2 10^3/uL (0.0-0.7); EOSINOPHILS % (AUTO) 2.1 %; HCT - HEMATOCRIT 44.5 % (42.0-52.0); HGB - HEMOGLOBIN 14.9 g/dL (14.0-18.0); LYMPHOCYTES # (AUTO) 1.3 10^3/uL (1.5-3.5); LYMPHOCYTES % (AUTO) 13.4 %; MEAN CORPUSCULAR HEMOGLOBIN 34.1 pg (27.0-31.0); MEAN CORPUSCULAR HGB CONC 33.5 g/dL (32.0-36.0); MEAN CORPUSCULAR VOLUME 101.7 fL (80.0-94.0); MEAN PLATELET VOLUME 7.2 fL (7.4-11.4); MONOCYTES # (AUTO) 0.7 10^3/uL (0.0-1.0); MONOCYTES % (AUTO) 7.4 %; NEUTROPHILS # (AUTO) 7.5 10^3/uL (1.5-6.6); NEUTROPHILS % (AUTO) 76.5 %; RED BLOOD COUNT 4.38 10^6/uL (4.70-6.10); RED CELL DISTRIBUTION WIDTH 13.7 % (12.0-15.0); UNCORRECTED WHITE BLOOD COUNT 9.8 x10^3/uL; WHITE BLOOD COUNT 9.8 x10^3/uL (4.8-10.8)
[2017-10-19 05:29] LABS: ALBUMIN/GLOBULIN RATIO 1.2 (1.0-2.2); CALCIUM 8.5 mg/dL (8.5-10.3); CREATININE 0.7 mg/dL (0.6-1.2); MAGNESIUM 1.8 mg/dL (1.7-2.8); PHOSPHORUS 3.2 mg/dL (2.5-4.6); POTASSIUM 3.9 mmol/L (3.5-5.0); TOTAL PROTEIN 6.6 g/dL (6.7-8.2)
[2017-10-19] MEDS: SODIUM CHLORIDE 0.9% 1,000 ML IV SCH (05:45)
[2017-10-19] MEDS: SODIUM CHLORIDE FLUSH 0.9% 10 ML SYRINGE IVP SCH ×3 (05:46→15:49)
[2017-10-19] MEDS ORDERED: LACTULOSE 10 GM /15 ML UDC PO SCH (08:00)
[2017-10-19] MEDS ORDERED: PRENATAL VITAMIN TABLET PO SCH (08:00)
[2017-10-19] MEDS: DIVALPROEX DR 250 MG TABLET PO SCH ×2 (08:43→16:23)
[2017-10-19] MEDS ORDERED: THIAMINE 100 MG TABLET PO SCH (09:00)
[2017-10-19] MEDS ORDERED: NICOTINE 7 MG PATCH TOP SCH (09:00)
[2017-10-19] MEDS ORDERED: ENOXAPARIN 40 MG/0.4 ML SYRINGE SUBQ SCH (09:00)
[2017-10-19] MEDS ORDERED: POLYETHYLENE GLYCOL 3350 17 GM PACKET PO SCH (09:00)
[2017-10-19] MEDS ORDERED: FAMOTIDINE 20 MG TABLET PO SCH (09:00)
[2017-10-19] MEDS ORDERED: NICOTINE 21 MG PATCH TOP SCH (10:00)
[2017-10-19 15:36] VITALS: BP 136/77
--- NOTE | 2017-10-19 16:12 | Discharge Plan ---
Discharge Plan Disposition: 01 Home, Self Care Condition: Stable Prescriptions: Divalproex Sodium [Depakote] 500 mg PO BID #20 tablet. Lactulose [Constulose] 10 gm PO DAILY #4 solution Vitamin [Trinatal Rx 1] 1 tab PO DAILYWM #10 tablet Thiamine [Vitamin B-1] 100 mg PO DAILY #10 tablet Diet: Regular Activity Restrictions: Activity as Tolerated Shower Restrictions: No Weight Bearing: Full Weight Instruction Topics: Alcoholism Get Help, Epilepsy Self Care, Epilepsy Meds Additional Instructions or Follow Up instructions: May see PCP in one week, and see neurologist in two weeks No Smoking: If you smoke, Please STOP! Call for help.
--- NOTE | 2017-10-19 16:24 | DISCHARGE SUMMARY ---
Discharge Summary Discharge Date: 10/19/17 Discharging Provider: HARMON Condition at Discharge: Stable Discharge Disposition: 01 Home, Self Care Discharge Facility Name: [facility] - DIAGNOSES Admission Diagnoses: (1) Alcohol intoxication (2) Seizure (3) medical non-compliance Discharge Diagnoses with Status of Each Condition: (1) Alcohol intoxication pt is accepted by [facility] now. pt is transferred to the program. Pt's vital stable, lab test unremarkable. pt is prescribed vitamin and B1, and Lactulose (2) Seizure no seizure in hospital. Pt is prescribed Depakote. Pt is advised to follow up PCP and neurologist for further management. (3) medical non-compliance pt is advised and educated for medical compliance - HPI History of Present Illness: please refer from my HPI on 10/18/17 as the following: This is a 31-year-old male with a significant past medical history of alcohol abuse, and seizure, who present ER for evaluation of seizure. Pt is alert but medicated with Ativan, now he is at sleep, he could not answer any question. Per medical record, pt had several visits in ER with similar problem: alcohol intoxication and seizure. Pt [facility] in [facility]. Pt was out of his seizure medication Depakote for quite long time. Social work was consulted. Pt was on alcohol detox program, he is now waiting for the bed. UDS reveal pt's alcohol level is over 400, positive for Benzo and Marijuana. ER provider called [facility] for consulting. The design sales consultant recommend that pt may continue to use Depakote to control the seizure. Other lab value reveal elevated liver enzyme. Vital is stable now. Pt is admitted in observation for treatment of seizure and transferred to alcohol detox program. - HOSPITAL COURSE Hospital Course: Pt is admitted for seizure and alcoholic intoxication. Pt has hx of seizure and medical non-compliance, and homeless unfortunately. Pt was treated with Depakote. no seizure was found in the hospital. Pt's vital is stable, lab value is unremarkable. Pt was accepted by alcoholic detox program this afternoon and transferred to this facility. - ALLERGIES Allergies/Adverse Reactions: Allergies Allergy/AdvReac Type Severity Reaction Status Date / Time iodine Allergy Severe Respiratory Verified 10/18/17 13:38 Penicillins Allergy Unknown unk Verified 10/18/17 13:38 eggs AdvReac Intermediate Emesis Uncoded 10/18/17 13:38 - MEDICATIONS Home Medications: Ambulatory Orders Medication Instructions Recorded Confirmed Divalproex Sodium [Depakote] 500 mg PO BID #20 tablet. 10/19/17 Lactulose [Constulose] 10 gm PO DAILY #4 solution 10/19/17 Vitamin [Trinatal Rx 1] 1 tab PO DAILYWM #10 tablet 10/19/17 Thiamine [Vitamin B-1] 100 mg PO DAILY #10 tablet 10/19/17 - PHYSICAL EXAM AT DISCHARGE General Appearance: positive: No acute distress, Alert. negative: Lethargic Eyes Bilateral: positive: Normal inspection, PERRL, EOMI, No lid inflammation, Conjunctivae nml ENT: positive: ENT inspection nml, Pharynx nml, No signs of dehydration. negative: Purulent nasal drainage, Pharyngeal erythema, Oral lesions, Dry mucous membranes Neck: positive: Nml inspection, Thyroid nml, No JVD, Trachea midline. negative : Thyromegaly, Lymphadenopathy (R), Lymphadenopathy (L), Stiff neck, Kernig's sign, Carotid bruit, Swelling/bruising, Tracheal deviation Respiratory: positive: Chest non-tender, No respiratory distress, Breath sounds nml. negative: Wheezes, Rales, Rhonchi Cardiovascular: positive: Regular rate & rhythm, No murmur, No gallop. negative : Irregularly irregular, Extrasystoles, Tachycardia, Bradycardia, Systolic murmur, Diastolic murmur, Decreased pulse(s), Crepitus Peripheral Pulses: positive: 2+ Abdomen: positive: Non-tender, No organomegaly, Nml bowel sounds, No distention. negative: Tenderness, Guarding, Rebound, Abnml bowel sounds Back: positive: Nml inspection. negative: CVA tenderness (R), CVA tenderness (L ) Skin: positive: Color nml, No rash, Warm, Dry. negative: Cyanosis, Diaphoresis , Pallor Extremities: positive: Non-tender, Full ROM, Nml appearance. negative: Calf tenderness, Joint swelling, Gabby's sign/cords Neurologic/Psychiatric: positive: Oriented x3, Motor nml, Sensation nml. negative: Weakness, Sensory loss, Facial droop, Slurred/abnml speech, Depressed mood/affect - LABS Result Diagrams: 10/19/17 04:58 10/19/17 04:58 - FOLLOW UP Follow Up: Pt is accepted by alcohol detox program. Pt is advised and encouraged to avoid alcohol. Pt is advised to follow up PCP and neurologist. Pt is also advised for medical compliance.
== END 2017-10-19 16:50 | disposition home or self-care (01) ==
LOC: EDUNIT# → ED 12:29 → OBS 16:53
PROVIDERS: ADMIT Nurse Practitioner Gerontology; ATTEND Nurse Practitioner Gerontology
DX: F10.129 Alcohol abuse with intoxication, unspecified (principal); R56.9 Unspecified convulsions; Y90.8 Blood alcohol level of 240 mg/100 ml or more; Z59.0 Homelessness; F17.200 Nicotine dependence, unspecified, uncomplicated; T42.6X6A Underdosing of other antiepileptic and sedative-hypnotic drugs, initial encounter; Z91.19 Patient's noncompliance with other medical treatment and regimen; H40.9 Unspecified glaucoma; Z86.14 Personal history of Methicillin resistant Staphylococcus aureus infection; Z72.89 Other problems related to lifestyle; Z79.899 Other long term (current) drug therapy
CPT/HCPCS: 36415; 70450; 80053; 80164; 80306; 80320; 82009; 82140; 82550; 83605; 83690; 83735; 84100; 84443; 85025; 85610; 96361; 96365; 96367; 96372; 96375; 96376; 99284; 99285; A9270; G0378; J1650; J2060

== ENCOUNTER 2017-11-21 12:16 | Outpatient (CLI) | payer MEDICAID | END 2017-11-21 12:17 | disposition critical access hospital (66) | LOC: EMS 12:16 | PROVIDERS: ATTEND Surgery | DX: M25.571 Pain in right ankle and joints of right foot (principal); M54.2 Cervicalgia; W17.81XA Fall down embankment (hill), initial encounter; Y93.H9 Activity, other involving exterior property and land maintenance, building and construction; Y92.007 Garden or yard of unspecified non-institutional (private) residence as the place of occurrence of the external cause | CPT/HCPCS: A0425; A0429 ==

== ENCOUNTER 2017-11-21 12:51 | Emergency (ER) | payer MEDICAID ==
[2017-11-21] MEDS ORDERED: SODIUM CHLORIDE 0.9% 1,000 ML IV ONE (12:58)
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
[2017-11-21] MEDS ORDERED: MORPHINE 2 MG/ML SYRINGE IVP STA (13:19)
[2017-11-21 13:20] LABS: BASOPHILS # (AUTO) 0.1 10^3/uL (0.0-0.1); EOSINOPHILS # (AUTO) 0.2 10^3/uL (0.0-0.7); EOSINOPHILS % (AUTO) 2.1 %; HGB - HEMOGLOBIN 17.1 g/dL (14.0-18.0); LYMPHOCYTES # (AUTO) 2.2 10^3/uL (1.5-3.5); LYMPHOCYTES % (AUTO) 30.5 %; MEAN CORPUSCULAR HEMOGLOBIN 33.6 pg (27.0-31.0); MEAN CORPUSCULAR HGB CONC 34.2 g/dL (32.0-36.0); MEAN CORPUSCULAR VOLUME 98.2 fL (80.0-94.0); MEAN PLATELET VOLUME 7.5 fL (7.4-11.4); MONOCYTES # (AUTO) 0.3 10^3/uL (0.0-1.0); MONOCYTES % (AUTO) 4.5 %; NEUTROPHILS # (AUTO) 4.5 10^3/uL (1.5-6.6); NEUTROPHILS % (AUTO) 61.9 %; PLT - PLATELET COUNT 315 10^3/uL (130-450); RED BLOOD COUNT 5.08 10^6/uL (4.70-6.10); RED CELL DISTRIBUTION WIDTH 12.9 % (12.0-15.0); WHITE BLOOD COUNT 7.2 x10^3/uL (4.8-10.8)
[2017-11-21 13:29] LABS: PT - PROTHROMBIN TIME 10.8 secs (9.9-12.6)
[2017-11-21 13:31] LABS: ALBUMIN 4.7 g/dL (3.2-5.5); ALBUMIN/GLOBULIN RATIO 1.5 (1.0-2.2); BILIRUBIN,TOTAL 0.8 mg/dL (0.2-1.0); CALCIUM 9.1 mg/dL (8.5-10.3); CREATININE 0.8 mg/dL (0.6-1.2); TOTAL PROTEIN 7.9 g/dL (6.7-8.2)
--- NOTE | 2017-11-21 14:17 | CT Report ---
EXAM: CT HEAD EXAM DATE: 11/21/2017 01:52 PM. CLINICAL HISTORY: Head inj, trauma, etoh. COMPARISON: None. TECHNIQUE: Multiaxial CT images were obtained from the foramen magnum to the vertex. Reformats: Coron al. IV contrast: None. In accordance with CT protocol optimization, one or more of the following dose reduction techniques w ere utilized for this exam: automated exposure control, adjustment of mA and/or KV based on patient s ize, or use of iterative reconstructive technique. FINDINGS: Parenchyma: No intraparenchymal hemorrhage. No evidence of mass, midline shift, or CT findings of inf arction. Garcia-white differentiation is distinct. Extraaxial Spaces: Normal for age. No subdural or epidural collections identified. Ventricles: Normal in size and position. Sinuses and Orbits: Imaged paranasal sinuses, orbits, and mastoids show no significant abnormality. Bones: No evidence of fracture or calvarial defect. Other: None. IMPRESSION: No acute intracranial abnormality. [facility] Referring Provider Line: [phone] SITE ID: [id number]
--- NOTE | 2017-11-21 14:19 | CT Report ---
EXAM: CT CERVICAL SPINE WITHOUT CONTRAST DATE: 11/21/2017 01:52 PM. HISTORY: Neck pain trauma. COMPARISONS: None. TECHNIQUE: Thin-section axial images were acquired of the cervical spine without contrast. Post-proce ssing: Coronal and sagittal reformats. Other: None. In accordance with CT protocol optimization, one or more of the following dose reduction techniques w ere utilized for this exam: automated exposure control, adjustment of mA and/or KV based on patient s ize, or use of iterative reconstructive technique. FINDINGS: Alignment: No scoliosis or spondylolisthesis. Bones: No fracture or bone lesion. Interspace Levels/Facets: C1-C2: Unremarkable. C2-C3: Unremarkable. C3-C4: Unremarkable. C4-C5: Unremarkable. C5-C6: Unremarkable. C6-C7: Unremarkable. C7-T1: Unremarkable. Musculature: Normal. No fatty atrophy. Other: The paravertebral and prevertebral soft tissues are unremarkable. The lung apices are clear. IMPRESSION: 1. No evidence for acute fracture or dislocation of the cervical spine. No soft tissue swelling noted . [facility] Referring Provider Line: [phone] SITE ID: [id number]
--- NOTE | 2017-11-21 14:32 | CT Report ---
EXAM: CT ABDOMEN AND PELVIS EXAM DATE: 11/21/2017 01:56 PM. CLINICAL HISTORY: Abd pain, trauma, contrast allergy. COMPARISONS: None. TECHNIQUE: Routine helical CT imaging was performed through the abdomen and pelvis. IV contrast: None . Enteric contrast: No. Reconstructions: Coronal and sagittal. In accordance with CT protocol optimization, one or more of the following dose reduction techniques w ere utilized for this exam: automated exposure control, adjustment of mA and/or KV based on patient s ize, or use of iterative reconstructive technique. FINDINGS: Lung Bases: Atelectasis of the lung bases. No pleural effusions. Liver: No focal liver lesions seen on noncontrast evaluation. No evidence for traumatic hepatic injur y. Gallbladder/Bile Ducts: Unremarkable. Spleen: Normal. Pancreas: Normal. Adrenal Glands: Normal. Kidneys: Normal. No masses or hydronephrosis. Peritoneal Cavity/Bowel: Normal. No free fluid, free air or adenopathy. No masses or acute inflammato ry process. The appendix is well visualized and normal. Pelvic Organs: Normal. The bladder and visualized pelvic organs are within normal limits. Vasculature: No aneurysms or other significant abnormality. Bones: Likely 1 cm bone island in the left iliac wing. No other suspicious osseous lesions. No acute fracture lines are seen Other: None. IMPRESSION: 1. No acute abnormality in the abdomen or pelvis. No evidence for traumatic injury. [facility] Referring Provider Line: [phone] SITE ID: [id number]
--- NOTE | 2017-11-21 14:38 | XRAY Report ---
EXAM: LEFT ELBOW RADIOGRAPHY EXAM DATE: 11/21/2017 01:55 PM. CLINICAL HISTORY: Injury with pain COMPARISON: None. TECHNIQUE: 3 views. FINDINGS: Bones: Normal. No fractures or bone lesions. Joints: Normal. No effusion. No subluxation. Soft Tissues: Normal. No soft tissue swelling. IMPRESSION: No fracture or subluxation. [facility] Referring Provider Line: [phone] SITE ID: [id number]
--- NOTE | 2017-11-21 14:40 | XRAY Report ---
EXAM: RIGHT ANKLE RADIOGRAPHY EXAM DATE: 11/21/2017 01:55 PM. CLINICAL HISTORY: Ankle pain. COMPARISON: None. TECHNIQUE: 3 views. FINDINGS: Bones: Normal. No fractures or bone lesions. Joints: Normal. No effusion. No subluxations. The ankle mortise is normally aligned. Soft Tissues: There is soft tissue swelling around the ankle. IMPRESSION: No fracture or subluxation. [facility] Referring Provider Line: [phone] SITE ID: [id number]
--- NOTE | 2017-11-21 14:42 | XRAY Report ---
EXAM: LEFT WRIST RADIOGRAPHY EXAM DATE: 11/21/2017 01:55 PM. CLINICAL HISTORY: Wrist inj. COMPARISON: None. TECHNIQUE: 4 views. FINDINGS: Bones: Normal. No fractures or bone lesions. Joints: Normal. No subluxations. Soft Tissues: Normal. No soft tissue swelling. IMPRESSION: No fracture or subluxation. [facility] Referring Provider Line: [phone] SITE ID: [id number]
--- NOTE | 2017-11-21 14:45 | XRAY Report ---
EXAM: RIGHT FOOT RADIOGRAPHY EXAM DATE: 11/21/2017 01:55 PM. CLINICAL HISTORY: Foot pain trauma. COMPARISON: None. TECHNIQUE: 3 views. FINDINGS: Bones: There is an accessory navicular ossicle. No cortical step-off or acute fracture. Joints: Normal. No subluxations. Soft Tissues: There is medial hindfoot and midfoot soft tissue swelling. IMPRESSION: No acute fracture. [facility] Referring Provider Line: [phone] SITE ID: [id number]
--- NOTE | 2017-11-21 14:54 | XRAY Report ---
EXAM: CHEST RADIOGRAPHY EXAM DATE: 11/21/2017 01:55 PM. CLINICAL HISTORY: Chest pain trauma. COMPARISON: None. TECHNIQUE: 2 views. FINDINGS: Lungs/Pleura: No focal opacities evident. No pleural effusion. No pneumothorax. Normal volumes. Mediastinum: Heart and mediastinal contours are unremarkable. Other: Thoracic spine is not well seen. IMPRESSION: No acute cardiopulmonary abnormality. [facility] Referring Provider Line: [phone] SITE ID: [id number]
[2017-11-21 16:03] VITALS: BP 128/74
== END 2017-11-21 16:04 | disposition home or self-care (01) ==
LOC: EDUNIT# → ED 12:51
DX: S93.401A Sprain of unspecified ligament of right ankle, initial encounter (principal); S63.502A Unspecified sprain of left wrist, initial encounter; S50.02XA Contusion of left elbow, initial encounter; S50.01XA Contusion of right elbow, initial encounter; M54.2 Cervicalgia; W17.81XA Fall down embankment (hill), initial encounter; Y93.H1 Activity, digging, shoveling and raking; F10.129 Alcohol abuse with intoxication, unspecified; R03.0 Elevated blood-pressure reading, without diagnosis of hypertension; G40.909 Epilepsy, unspecified, not intractable, without status epilepticus; Z59.0 Homelessness; F17.200 Nicotine dependence, unspecified, uncomplicated
CPT/HCPCS: 36415; 70450; 71046; 72125; 73080; 73110; 73610; 73630; 74176; 80053; 80320; 83690; 85025; 85610; 96361; 96374; 99283; 99284; J2270

== ENCOUNTER 2017-11-29 18:45 | Outpatient (CLI) | payer MEDICAID | END 2017-11-29 18:46 | disposition critical access hospital (66) | LOC: EMS 18:45 | PROVIDERS: ATTEND Surgery | DX: R56.9 Unspecified convulsions (principal); Z72.89 Other problems related to lifestyle | CPT/HCPCS: A0425; A0429 ==

== ENCOUNTER 2018-04-13 21:12 | Outpatient (CLI) | payer MEDICAID | END 2018-04-13 21:13 | disposition critical access hospital (66) | LOC: EMS 21:12 | PROVIDERS: ATTEND Surgery | DX: R56.9 Unspecified convulsions (principal); M54.9 Dorsalgia, unspecified; M25.522 Pain in left elbow; W18.39XA Other fall on same level, initial encounter; Y92.480 Sidewalk as the place of occurrence of the external cause | CPT/HCPCS: A0425; A0429 ==

== ENCOUNTER 2018-04-13 21:32 | Emergency (ER) | payer MEDICAID ==
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
[2018-04-13] MEDS ORDERED: SODIUM CHLORIDE 0.9% 1,000 ML IV STA (22:51)
--- NOTE | 2018-04-13 23:45 | XRAY Preliminary Report ---
Exam: XR LUMBAR SPINE 2 VIEW IMPRESSION: No acute bony abnormality. [facility] SITE ID: [id number]
--- NOTE | 2018-04-13 23:46 | XRAY Report ---
EXAM: LUMBOSACRAL SPINE RADIOGRAPHY EXAM DATE: 04/13/2018 11:33 PM. CLINICAL HISTORY: Upper lumbar back pain post fall COMPARISONS: Noncontrast CT abdomen/pelvis 11/21/2017. TECHNIQUE: 2 views. FINDINGS: Alignment: Minimal left convex curvature centered at L4-L5. No spondylolisthesis. Bones: Five bke-cyl-wavdarm lumbar vertebral bodies are present. No fractures or bone lesions. Disks: Normal. Disk space heights are maintained. Facets: No significant degenerative changes. Sacroiliac Joints: Unremarkable. Soft Tissues: Normal. The visualized bowel gas pattern is normal. IMPRESSION: No acute bony abnormality. [facility] Referring Provider Line: [phone] SITE ID: [id number]
--- NOTE | 2018-04-13 23:52 | CT Preliminary Report ---
Exam: CT CERVICAL SPINE W/O IMPRESSION: Normal cervical spine CT. [facility] SITE ID: [id number]
--- NOTE | 2018-04-13 23:55 | CT Report ---
EXAM: CT CERVICAL SPINE WITHOUT CONTRAST DATE: 04/13/2018 11:37 PM. HISTORY: Fall, neck pain. COMPARISONS: Cervical spine CT from 11/21/2017. TECHNIQUE: Thin-section axial images were acquired of the cervical spine without contrast. Post-proce ssing: Coronal and sagittal reformats. Other: None. In accordance with CT protocol optimization, one or more of the following dose reduction techniques w ere utilized for this exam: automated exposure control, adjustment of mA and/or KV based on patient s ize, or use of iterative reconstructive technique. FINDINGS: Alignment: No scoliosis or spondylolisthesis. Bones: No fracture or bone lesion. Interspace Levels/Facets: C1-C2: Unremarkable. C2-C3: Unremarkable. C3-C4: Unremarkable. C4-C5: Unremarkable. C5-C6: Unremarkable. C6-C7: Unremarkable. C7-T1: Unremarkable. Musculature: Normal. No fatty atrophy. Other: The paravertebral and prevertebral soft tissues are unremarkable. The lung apices are clear. IMPRESSION: Normal cervical spine CT. [facility] Referring Provider Line: [phone] SITE ID: [id number]
[2018-04-14 00:31] LABS: BASOPHILS % (AUTO) 0.4 %; EOSINOPHILS # (AUTO) 0.1 10^3/uL (0.0-0.7); EOSINOPHILS % (AUTO) 1.7 %; HGB - HEMOGLOBIN 15.7 g/dL (14.0-18.0); LYMPHOCYTES % (AUTO) 35.1 %; MEAN CORPUSCULAR HGB CONC 33.7 g/dL (32.0-36.0); MEAN CORPUSCULAR VOLUME 97.7 fL (80.0-94.0); MEAN PLATELET VOLUME 7.5 fL (7.4-11.4); MONOCYTES # (AUTO) 0.4 10^3/uL (0.0-1.0); MONOCYTES % (AUTO) 6.9 %; NEUTROPHILS # (AUTO) 3.2 10^3/uL (1.5-6.6); NEUTROPHILS % (AUTO) 55.9 %; PLT - PLATELET COUNT 178 10^3/uL (130-450); RED BLOOD COUNT 4.75 10^6/uL (4.70-6.10); RED CELL DISTRIBUTION WIDTH 14.4 % (12.0-15.0); WHITE BLOOD COUNT 5.7 x10^3/uL (4.8-10.8)
[2018-04-14 00:41] LABS: CALCIUM 8.5 mg/dL (8.5-10.3); CREATININE 0.7 mg/dL (0.6-1.2)
[2018-04-14] MEDS ORDERED: DIVALPROEX DR 125 MG TABLET PO STA (01:32)
[2018-04-14 05:12] VITALS: BP 119/58
[2018-04-14] MEDS ORDERED: DIVALPROEX DR 250 MG TABLET PO STA (05:24)
== END 2018-04-14 05:48 | disposition home or self-care (01) ==
LOC: EDUNIT# → ED 21:32
DX: F10.229 Alcohol dependence with intoxication, unspecified (principal); F17.200 Nicotine dependence, unspecified, uncomplicated
CPT/HCPCS: 36415; 72100; 72125; 80048; 80320; 85025; 96360; 96361; 99284; A9270

== ENCOUNTER 2018-05-07 | Outpatient (CLI) | END 2018-05-07 17:19 | disposition critical access hospital (66) | CPT/HCPCS: A0425; A0429 ==

== ENCOUNTER 2018-05-07 17:55 | Emergency (ER) | payer MEDICAID ==
[2018-05-07 19:41] LABS: BASOPHILS % (AUTO) 0.8 %; EOSINOPHILS # (AUTO) 0.2 10^3/uL (0.0-0.7); EOSINOPHILS % (AUTO) 3.2 %; HGB - HEMOGLOBIN 15.8 g/dL (14.0-18.0); LYMPHOCYTES # (AUTO) 1.7 10^3/uL (1.5-3.5); LYMPHOCYTES % (AUTO) 33.3 %; MEAN CORPUSCULAR HEMOGLOBIN 33.2 pg (27.0-31.0); MEAN CORPUSCULAR HGB CONC 33.6 g/dL (32.0-36.0); MEAN CORPUSCULAR VOLUME 98.8 fL (80.0-94.0); MEAN PLATELET VOLUME 7.3 fL (7.4-11.4); MONOCYTES # (AUTO) 0.5 10^3/uL (0.0-1.0); MONOCYTES % (AUTO) 9.3 %; NEUTROPHILS # (AUTO) 2.7 10^3/uL (1.5-6.6); NEUTROPHILS % (AUTO) 53.4 %; PLT - PLATELET COUNT 195 10^3/uL (130-450); RED BLOOD COUNT 4.75 10^6/uL (4.70-6.10); RED CELL DISTRIBUTION WIDTH 14.5 % (12.0-15.0)
[2018-05-07 20:02] LABS: ALBUMIN 4.1 g/dL (3.2-5.5); ALBUMIN/GLOBULIN RATIO 1.2 (1.0-2.2); ALKALINE PHOSPHATASE 99 IU/L (42-121); ALT ALANINE AMINOTRANSFERASE 101 IU/L (10-60); AST ASPARTATE AMINOTRANSFERASE 229 IU/L (10-42); BILIRUBIN,TOTAL 0.9 mg/dL (0.2-1.0); BUN - BLOOD UREA NITROGEN 6 mg/dL (6-20); CARBON DIOXIDE - CO2 24 mmol/L (21-32); CHLORIDE 102 mmol/L (101-111); CREATININE 0.9 mg/dL (0.6-1.2); GFR - MDRD 97 (>89); GLUCOSE 96 mg/dL (70-100); LIPASE 42 U/L (22-51); SALICYLATE < 6.0 mg/dL; SODIUM 139 mmol/L (135-145); TOTAL PROTEIN 7.6 g/dL (6.7-8.2)
[2018-05-07 20:07] LABS: ACETAMINOPHEN < 10 ug/mL (10-30)
--- NOTE | 2018-05-07 20:12 | ED Physician Documentation ---
History of Present Illness - Stated complaint Stated Complaint: SZ/ MHE - Chief complaint Chief Complaint: Neuro - History obtained from History obtained from: Patient - History of Present Illness Timing: Today - Additonal information Additional information: 7th [facility] ED visit since September,. the reason for his visit is frequently similar to tonight's. Patient tells me a family member recently and he was feeling suicidal with specific plan to use his knife to cut himself. He says he has a phone, but it can only call 911 and that he therefore went to the [facility] [place] to contact crisis line. He says he had a seizure while at the [facility] (amnestic for this, but was told he had a seizure), and someone called 911. Patient says "now I'm stuck here" (per patient). Review of Systems Constitutional: reports: Reviewed and negative Eyes: reports: Reviewed and negative Cardiac: reports: Reviewed and negative Respiratory: reports: Reviewed and negative GI: reports: Reviewed and negative Musculoskeletal: reports: Back pain (recurrent). denies: Neck pain Neurologic: reports: Focal weakness, Numbness (LLE), Seizure. denies: Headache , Head injury PD PAST MEDICAL HISTORY - Past Medical History Past Medical History: Yes Cardiovascular: None Respiratory: None Neuro: Seizure disorder Endocrine/Autoimmune: None GI: None : None HEENT: Glaucoma Psych: None Musculoskeletal: None Derm: None - Past Surgical History Past Surgical History: Yes General: Other Neuro: Other - Present Medications Home Medications: Ambulatory Orders Medication Instructions Recorded Confirmed Divalproex Sodium [Depakote] 500 mg PO BID 11/29/17 11/29/17 Divalproex Sodium [Depakote] 500 mg PO BID #60 tablet. 04/14/18 - Allergies Allergies/Adverse Reactions: Allergies Allergy/AdvReac Type Severity Reaction Status Date / Time iodine Allergy Severe Respiratory Verified 11/29/17 19:14 Penicillins Allergy Unknown unk Verified 11/29/17 19:14 eggs AdvReac Intermediate Emesis Uncoded 11/29/17 19:14 - Social History Does the pt smoke?: Yes Smoking Status: Current every day smoker Does the pt drink ETOH?: Yes Does the pt have substance abuse?: No - Immunizations Immunizations are current?: Yes - POLST Patient has POLST: No PD ED PE NORMAL - Vitals Vital signs reviewed: Yes - General General: Alert and oriented X 3, No acute distress, Other (disheveled, appears older than stated age) - HEENT HEENT: Atraumatic, PERRL, EOMI, Moist mucous membranes - Neck Neck: No bony TTP - Cardiac Cardiac: RRR, No murmur - Respiratory Respiratory: No respiratory distress, Clear bilaterally - Abdomen Abdomen: Soft, Non tender - Neuro Neuro: Alert and oriented X 3, net ui developer 2-12 intact, No motor deficit, No sensory deficit, Normal speech Eye Opening: Spontaneous Motor: Obeys Commands Verbal: Oriented GCS Score: 15 Results - Vitals Vitals: Vital Signs - 24 hr 05/07/18 05/07/18 05/07/18 17:57 20:08 21:12 Temperature 36.8 C Heart Rate 80 84 86 Respiratory 20 18 16 Rate Blood Pressure 151/95 H 129/73 133/83 H O2 Saturation 95 94 95 Oxygen O2 Source Room air - Labs Labs: Laboratory Tests 05/07/18 05/07/18 19:35 19:35 WBC 5.0 RBC 4.75 Hgb 15.8 Hct 46.9 MCV 98.8 H MCH 33.2 H MCHC 33.6 RDW 14.5 Plt Count 195 MPV 7.3 L Neut # (Auto) 2.7 Lymph # (Auto) 1.7 [place] # (Auto) 0.5 Eos # (Auto) 0.2 Baso # (Auto) 0.0 Absolute Nucleated RBC 0.00 Nucleated RBC % 0.1 Sodium 139 Potassium 3.4 L Chloride 102 Carbon Dioxide 24 Anion Gap 13.0 BUN 6 Creatinine 0.9 Estimated GFR (MDRD) 97 Glucose 96 Calcium 9.0 Total Bilirubin 0.9 AST 229 H ALT 101 H Alkaline Phosphatase 99 Total Protein 7.6 Albumin 4.1 Globulin 3.5 Albumin/Globulin Ratio 1.2 Lipase 42 Salicylates < 6.0 Acetaminophen < 10 L Ethyl Alcohol 278.3 PD MEDICAL DECISION MAKING - ED course Complexity details: reviewed old records, reviewed results, re-evaluated patient , considered differential, d/w patient ED course: Despite c/o numbness and weakness to LUE and LLE, I witnessed patient moving both LLE and LUE without apparent difficulty. His LTS is intact but reports subjective decrease in LLE. Within about an hour of my H+P, patient says sensation and strength have returned completely; additionally, he says he is not suicidal at this time and wants to be discharged. He says he will call 911 if he feels unsafe (if he is having feelings of harming self or others). I encouraged him to follow-up in outpatient setting. - Sepsis Event Vital Signs: Vital Signs - 24 hr 05/07/18 05/07/18 05/07/18 17:57 20:08 21:12 Temperature 36.8 C Heart Rate 80 84 86 Respiratory 20 18 16 Rate Blood Pressure 151/95 H 129/73 133/83 H O2 Saturation 95 94 95 Oxygen O2 Source Room air Departure - Departure Disposition: 01 Home, Self Care Clinical Impression: Alcoholism, Seizure Condition: Good Instructions: ED Alcohol Intoxication, ED Seizure Recurrent, ED Alcohol Abuse Follow-Up: [facility] [Provider Group] [facility] [Provider Group] Comments: Please call 911 at any time you are having thoughts of hurting yourself or others. Discharge Date/Time: 05/07/18 21:20
[2018-05-07 21:13] VITALS: BP 133/83
== END 2018-05-07 21:20 | disposition home or self-care (01) ==
LOC: EDUNIT# → ED 17:55
DX: F10.20 Alcohol dependence, uncomplicated (principal); G40.909 Epilepsy, unspecified, not intractable, without status epilepticus; F17.200 Nicotine dependence, unspecified, uncomplicated
CPT/HCPCS: 36415; 80053; 80307; 80320; 80329; 83690; 85025; 99283; 99284

== ENCOUNTER 2018-05-20 14:22 | Outpatient (CLI) | payer MEDICAID | END 2018-05-20 14:23 | disposition critical access hospital (66) | LOC: EMS 14:22 | PROVIDERS: ATTEND Surgery | DX: M54.2 Cervicalgia (principal); R07.81 Pleurodynia; M25.551 Pain in right hip; M25.552 Pain in left hip; W10.9XXA Fall (on) (from) unspecified stairs and steps, initial encounter; Y92.008 Other place in unspecified non-institutional (private) residence as the place of occurrence of the external cause | CPT/HCPCS: A0425; A0429; A0999 ==

== ENCOUNTER 2018-05-20 15:00 | Emergency (ER) | payer MEDICAID ==
[2018-05-20] MEDS ORDERED: DIVALPROEX ER 250 MG TABLET PO STA (15:16)
[2018-05-20 15:23] LABS: MUDS CUTOFF CONCENTRATIONS CUTOFF CONC BELOW:
--- NOTE | 2018-05-20 15:23 | ED Physician Documentation ---
PD HPI Fall - Stated complaint Stated Complaint: POSS SZ - Chief complaint Chief Complaint: Neuro - History obtained from History obtained from: Patient, EMS - History of Present Illness Mechanism of injury: Other (seizure) Fall distance: Standing position Where injury occurred: Other Timing - onset: Today Injury(ies) location: Neck, Chest, Abdomen, Back, Right Lower Extremity, Left Lower Extremity Quality of pain: Pain, Throbbing Associated symptoms: LOC, AMS, Amnesia, Neck pain. No: Weakness, Paresthesias, Dyspnea, Nausea / vomiting, Hematemesis, Abdominal distension Symptoms improve with: Rest, Position Worsens with: Movement, Palpation Contributing factors: Intoxicated. No: Anticoagulated Similar symptoms before: Diagnosis (seizure with alleged injury) Recently seen: Emergency Dept - Additional information Additional information: 32-year-old homeless male relates that he had a seizure today and fell down 17 steps. He states that he believes he injured both hips his back is ribs on both sides and his neck. He states he has pain everywhere and is moaning loudly in pain whenever he is examined. PD PAST MEDICAL HISTORY - Past Medical History Past Medical History: Yes Cardiovascular: None Respiratory: None Neuro: Seizure disorder Endocrine/Autoimmune: None GI: None : None HEENT: Glaucoma Psych: None Musculoskeletal: None Derm: None - Past Surgical History Past Surgical History: Yes General: Other Neuro: Other - Present Medications Home Medications: Ambulatory Orders Medication Instructions Recorded Confirmed Divalproex Sodium [Depakote] 500 mg PO BID 11/29/17 11/29/17 Divalproex Sodium [Depakote] 500 mg PO BID #60 tablet. 04/14/18 Divalproex Sodium [Depakote] 1,000 mg PO BID #30 tablet. 05/20/18 - Allergies Allergies/Adverse Reactions: Allergies Allergy/AdvReac Type Severity Reaction Status Date / Time iodine Allergy Severe Respiratory Verified 11/29/17 19:14 Penicillins Allergy Unknown unk Verified 11/29/17 19:14 eggs AdvReac Intermediate Emesis Uncoded 11/29/17 19:14 - Social History Does the pt smoke?: Yes Smoking Status: Current every day smoker Does the pt drink ETOH?: Yes Does the pt have substance abuse?: No - Immunizations Immunizations are current?: Yes - POLST Patient has POLST: No PD ED PE NORMAL - Vitals Vital signs reviewed: Yes (hypertensive) - General General: Alert and oriented X 3, Well developed/nourished, Other (32 y/o male on a clam shell in a hard collar complaining of pain everywhere with hysterical pain behavior and loud obnoxious cries of pain with light palpation anywhere. ) - HEENT HEENT: Atraumatic (full palpation of the scalp is without hematoma or area of tenderness. Seems like the only area the patient denies pain. ) - Neck Neck: Supple, no meningeal sign, Other (midline bony tenderness is exaggerated ) - Cardiac Cardiac: RRR, No murmur - Respiratory Respiratory: No respiratory distress, Clear bilaterally, Other (bony tenderness over the lower ribs bilaterally. Soft tissue tenderness below the ribs bilaterally. ) - Abdomen Abdomen: Soft, Other (tenderness is exagerated over the abdomen under the ribs. ) - Back Back: No CVA TTP, Other (point tenderness to the spine over the mid lumbar and lower thoracic area. ) - Neuro Neuro: No motor deficit, No sensory deficit, Normal speech Eye Opening: Spontaneous Motor: Obeys Commands Verbal: Oriented GCS Score: 15 - Psych Psych: Normal mood, Normal affect Results - Vitals Vitals: Vital Signs - 24 hr 05/20/18 05/20/18 05/20/18 16:49 19:00 21:45 Temperature 36.6 C Heart Rate 84 77 75 Respiratory 15 15 18 Rate Blood Pressure 129/75 116/72 121/72 O2 Saturation 93 95 96 05/21/18 03:29 Temperature Heart Rate 74 Respiratory 18 Rate Blood Pressure 136/85 H O2 Saturation 98 Oxygen O2 Source Room air - Labs Labs: Laboratory Tests 05/20/18 05/20/18 05/20/18 15:12 15:24 15:24 WBC 4.8 RBC 4.49 L Hgb 15.0 Hct 44.0 MCV 98.0 H MCH 33.5 H MCHC 34.1 RDW 14.5 Plt Count 150 MPV 7.1 L Neut # (Auto) 2.5 Lymph # (Auto) 1.8 [place] # (Auto) 0.4 Eos # (Auto) 0.1 Baso # (Auto) 0.1 Absolute Nucleated RBC 0.00 Nucleated RBC % 0.0 Sodium 140 Potassium 3.4 L Chloride 102 Carbon Dioxide 27 Anion Gap 11.0 BUN < 5 L Creatinine 0.8 Estimated GFR (MDRD) 111 Glucose 85 Calcium 8.5 Total Bilirubin 0.9 AST 171 H ALT 101 H Alkaline Phosphatase 98 Total Creatine Kinase 561 H CK-MB (CK-2) Total Protein 7.4 Albumin 4.4 Globulin 3.0 Albumin/Globulin Ratio 1.5 Lipase 53 H Urine Color LIGHT YELLOW Urine Clarity CLEAR Urine pH 6.0 Ur Specific [place] <=1.005 Urine Protein NEGATIVE Urine Glucose (UA) NEGATIVE Urine Ketones NEGATIVE Urine Occult Blood NEGATIVE Urine Nitrite NEGATIVE Urine Bilirubin NEGATIVE Urine Urobilinogen 0.2 (NORMAL) Ur Leukocyte Esterase NEGATIVE Ur Microscopic Review NOT INDICATED Urine Culture Comments NOT INDICATED Urine Opiates Screen NEGATIVE Ur Oxycodone Screen NEGATIVE Urine Methadone Screen NEGATIVE Ur Propoxyphene Screen NEGATIVE Ur Barbiturates Screen NEGATIVE Ur Tricyclics Screen NEGATIVE Ur Phencyclidine Scrn NEGATIVE Ur Amphetamine Screen NEGATIVE U Methamphetamines Scrn NEGATIVE U Benzodiazepines Scrn NEGATIVE Urine Cocaine Screen NEGATIVE U Cannabinoids Screen POSITIVE H Ethyl Alcohol 412.2 05/20/18 15:24 WBC RBC Hgb Hct MCV MCH MCHC RDW Plt Count MPV Neut # (Auto) Lymph # (Auto) Vance # (Auto) Eos # (Auto) Baso # (Auto) Absolute Nucleated RBC Nucleated RBC % Sodium Potassium Chloride Carbon Dioxide Anion Gap BUN Creatinine Estimated GFR (MDRD) Glucose Calcium Total Bilirubin AST ALT Alkaline Phosphatase Total Creatine Kinase CK-MB (CK-2) 2.9 Total Protein Albumin Globulin Albumin/Globulin Ratio Lipase Urine Color Urine Clarity Urine pH Ur Specific [place] Urine Protein Urine Glucose (UA) Urine Ketones Urine Occult Blood Urine Nitrite Urine Bilirubin Urine Urobilinogen Ur Leukocyte Esterase Ur Microscopic Review Urine Culture Comments Urine Opiates Screen Ur Oxycodone Screen Urine Methadone Screen Ur Propoxyphene Screen Ur Barbiturates Screen Ur Tricyclics Screen Ur Phencyclidine Scrn Ur Amphetamine Screen U Methamphetamines Scrn U Benzodiazepines Scrn Urine Cocaine Screen U Cannabinoids Screen Ethyl Alcohol - Rads (name of study) CT chest Radiology: Prelim report reviewed (Impression: 1. No significant acute abnormality within the chest.), EMP read indepedently, See rad report CT abdomen/pel Radiology: Prelim report reviewed, EMP read indepedently, See rad report CT cervical spine Radiology: Prelim report reviewed (Impression: No fracture or spondylolisthesis. ), EMP read indepedently, See rad report CT head without Radiology: Prelim report reviewed (Impression: 1. No acute intracranial process 2. left supraorbital hematoma.), EMP read indepedently, See rad report PD MEDICAL DECISION MAKING - ED course Complexity details: reviewed old records, reviewed results, re-evaluated patient , considered differential, d/w patient ED course: 32-year-old male with a presumed seizure resulting in a fall down 17 steps has exaggerated pain behavior that is hysterical with compression of any area of the patient's body. He is extremely intoxicated with a blood alcohol level of 412. He is administered Toradol 30 mg intravenously for pain control. A detailed radiographic examination of the patient's body head and neck are without evidence of significant injury. He is allowed to metabolize. - Sepsis Event Vital Signs: Vital Signs - 24 hr 05/20/18 05/20/18 05/20/18 16:49 19:00 21:45 Temperature 36.6 C Heart Rate 84 77 75 Respiratory 15 15 18 Rate Blood Pressure 129/75 116/72 121/72 O2 Saturation 93 95 96 05/21/18 03:29 Temperature Heart Rate 74 Respiratory 18 Rate Blood Pressure 136/85 H O2 Saturation 98 Oxygen O2 Source Room air Departure - Departure Disposition: 01 Home, Self Care Clinical Impression: Recurrent seizures Injury of head and neck Qualifiers: Encounter type: initial encounter Qualified Code(s): S09.90XA - Unspecified injury of head, initial encounter Alcohol intoxication Qualifiers: Complication of substance-induced condition: with unspecified complication Qualified Code(s): F10.929 - Alcohol use, unspecified with intoxication, unspecified Contusion, chest wall Qualifiers: Encounter type: initial encounter Laterality: unspecified laterality Qualified Code(s): S20.219A - Contusion of unspecified front wall of thorax, initial encounter Abdominal contusion Qualifiers: Encounter type: initial encounter Qualified Code(s): S30.1XXA - Contusion of abdominal wall, initial encounter Condition: Stable Instructions: ED Alcohol Intoxication, ED Head Injury Closed, ED Contusion Rib Follow-Up: [facility] [Provider Group] Prescriptions: Divalproex Sodium [Depakote] 1,000 mg PO BID #30 tablet. Discharge Date/Time: 05/21/18 03:30
[2018-05-20 15:27] LABS: BASOPHILS # (AUTO) 0.1 10^3/uL (0.0-0.1); BASOPHILS % (AUTO) 1.4 %; EOSINOPHILS # (AUTO) 0.1 10^3/uL (0.0-0.7); EOSINOPHILS % (AUTO) 2.9 %; LYMPHOCYTES # (AUTO) 1.8 10^3/uL (1.5-3.5); LYMPHOCYTES % (AUTO) 36.6 %; MEAN CORPUSCULAR HEMOGLOBIN 33.5 pg (27.0-31.0); MEAN CORPUSCULAR HGB CONC 34.1 g/dL (32.0-36.0); MEAN PLATELET VOLUME 7.1 fL (7.4-11.4); MONOCYTES # (AUTO) 0.4 10^3/uL (0.0-1.0); MONOCYTES % (AUTO) 8.1 %; NEUTROPHILS # (AUTO) 2.5 10^3/uL (1.5-6.6); PLT - PLATELET COUNT 150 10^3/uL (130-450); RED BLOOD COUNT 4.49 10^6/uL (4.70-6.10); RED CELL DISTRIBUTION WIDTH 14.5 % (12.0-15.0); WHITE BLOOD COUNT 4.8 x10^3/uL (4.8-10.8)
[2018-05-20 15:30] LABS: BILIRUBIN,URINE NEGATIVE (NEGATIVE); GLUCOSE, URINE (UA) NEGATIVE (NEGATIVE); KETONES,URINE (UA) NEGATIVE (NEGATIVE); LEUKOCYTE ESTERASE, URINE NEGATIVE (NEGATIVE); NITRITE,URINE NEGATIVE (NEGATIVE); OCCULT BLOOD,URINE NEGATIVE (NEGATIVE); PROTEIN,URINE NEGATIVE (NEGATIVE); UROBILINOGEN,URINE 0.2 (NORMAL) E.U./dL (NORMAL)
[2018-05-20 15:40] LABS: ALBUMIN 4.4 g/dL (3.2-5.5); ALBUMIN/GLOBULIN RATIO 1.5 (1.0-2.2); ALKALINE PHOSPHATASE 98 IU/L (42-121); ALT ALANINE AMINOTRANSFERASE 101 IU/L (10-60); AST ASPARTATE AMINOTRANSFERASE 171 IU/L (10-42); BILIRUBIN,TOTAL 0.9 mg/dL (0.2-1.0); BUN - BLOOD UREA NITROGEN < 5 mg/dL (6-20); CALCIUM 8.5 mg/dL (8.5-10.3); CARBON DIOXIDE - CO2 27 mmol/L (21-32); CHLORIDE 102 mmol/L (101-111); CK- CREATINE KINASE 561 IU/L (22-269); CREATININE 0.8 mg/dL (0.6-1.2); GFR - MDRD 111 (>89); GLUCOSE 85 mg/dL (70-100); LIPASE 53 U/L (22-51); SODIUM 140 mmol/L (135-145); TOTAL PROTEIN 7.4 g/dL (6.7-8.2)
[2018-05-20] MEDS ORDERED: KETOROLAC 60 MG/2 ML VIAL IVP STA (15:41)
[2018-05-20 15:48] LABS: CLARITY,URINE CLEAR (CLEAR)
[2018-05-20 15:51] LABS: AMPHETAMINE SCREEN,URINE NEGATIVE (NEGATIVE); BENZODIAZEPINES SCREEN, URINE NEGATIVE (NEGATIVE); COCAINE SCREEN URINE NEGATIVE (NEGATIVE); METHADONE SCREEN, URINE NEGATIVE (NEGATIVE); METHAMPHETAMINES SCREEN, URINE NEGATIVE (NEGATIVE); OPIATE SCREEN, URINE NEGATIVE (NEGATIVE); OXYCODONE SCREEN, URINE NEGATIVE (NEGATIVE); PROPOXYPHENE SCREEN, URINE NEGATIVE (NEGATIVE); TRICYCLIC ANTIDEPRESSANT,URINE NEGATIVE (NEGATIVE)
--- NOTE | 2018-05-20 16:00 | CT Report ---
Procedure Date: 05/20/2018 Accession Number: [id number] / [id number] Procedure: CT - Chest W/O CPT Code: FULL RESULT: EXAM: CT CHEST EXAM DATE: 05/20/2018 03:48 PM. CLINICAL HISTORY: Sz/fall down 17 steps bilateral chest pn spine pn. COMPARISONS: None. TECHNIQUE: Routine helical CT imaging was performed through the chest. IV contrast: None. Reconstructions: Coronal and sagittal. In accordance with CT protocol optimization, one or more of the following dose reduction techniques were utilized for this exam: automated exposure control, adjustment of mA and/or KV based on patient size, or use of iterative reconstructive technique. FINDINGS: Lungs/Pleura: There is mild dependent atelectasis. No consolidation or pleural effusion. Negative for pneumothorax. Mediastinum: The heart is normal in size. There is no pericardial effusion. Thoracic aorta is normal in caliber. No lymphadenopathy. Bones: No acute fracture is demonstrated. Spine appears in satisfactory alignment. Visualized Abdomen: Unremarkable. Other: None. IMPRESSION: 1. No significant acute abnormality within the chest. RADIA
--- NOTE | 2018-05-20 16:06 | CT Report ---
Procedure Date: 05/20/2018 Accession Number: [id number] / [id number] Procedure: CT - Abdomen/Pelvis W/O CPT Code: FULL RESULT: EXAM: CT ABDOMEN AND PELVIS EXAM DATE: 05/20/2018 03:48 PM. CLINICAL HISTORY: Seizure fall 17 steps LUQ pain lumbar pain. COMPARISONS: None. TECHNIQUE: Routine helical CT imaging was performed through the abdomen and pelvis. IV contrast: No. Enteric contrast: No. Reconstructions: Coronal and sagittal. In accordance with CT protocol optimization, one or more of the following dose reduction techniques were utilized for this exam: automated exposure control, adjustment of mA and/or KV based on patient size, or use of iterative reconstructive technique. FINDINGS: Lung Bases: Unremarkable. Liver: The liver parenchyma is low in density. The liver is normal in size and contour. Gallbladder/Bile Ducts: Unremarkable. Spleen: Normal in size and contour. Pancreas: Normal in contour. Adrenal Glands: Normal in size and contour. Kidneys: No urolithiasis or hydronephrosis. Kidneys normal in size. Peritoneal Cavity/Bowel: No abnormal fluid or gas collection. The bowel is normal in caliber. No hematoma. The appendix is well visualized and normal. Pelvic Organs: Normal. The bladder and visualized pelvic organs are within normal limits. Vasculature: No aneurysms or other significant abnormality. Bones: No fracture. Spine appears in satisfactory alignment. Other: None. IMPRESSION: 1. No significant acute abnormality in the abdomen or pelvis. 2. Steatosis of the liver. RADIA
--- NOTE | 2018-05-20 16:18 | CT Report ---
Procedure Date: 05/20/2018 Accession Number: [id number] / [id number] Procedure: CT - Head W/O CPT Code: FULL RESULT: EXAM: CT HEAD EXAM DATE: 05/20/2018 03:48 PM. CLINICAL HISTORY: Seizure fall head injury. COMPARISON: CT head 11/21/2017. TECHNIQUE: Multiaxial CT images were obtained from the foramen magnum to the vertex. Reformats: Coronal. IV contrast: None. In accordance with CT protocol optimization, one or more of the following dose reduction techniques were utilized for this exam: automated exposure control, adjustment of mA and/or KV based on patient size, or use of iterative reconstructive technique. FINDINGS: Parenchyma: No intraparenchymal hemorrhage. No evidence of mass, midline shift, or CT findings of infarction. Garcia-white differentiation is distinct. Extraaxial Spaces: Normal for age. No subdural or epidural collections identified. Ventricles: Normal in size and position. Sinuses and Orbits: Mucosal thickening in the inferior maxillary sinuses. Bones: No evidence of fracture or calvarial defect. Other: Left supraorbital hematoma. IMPRESSION: 1. No acute intracranial process 2. Left supraorbital hematoma RADIA
--- NOTE | 2018-05-20 16:21 | CT Report ---
Procedure Date: 05/20/2018 Accession Number: [id number] / [id number] Procedure: CT - Cervical Spine W/O CPT Code: FULL RESULT: EXAM: CT CERVICAL SPINE WITHOUT CONTRAST DATE: 05/20/2018 03:48 PM. HISTORY: Siezure fall neck pain. COMPARISONS: Cervical spine CT 04/13/2018. TECHNIQUE: Thin-section axial images were acquired of the cervical spine without contrast. Post-processing: Coronal and sagittal reformats. Other: None. In accordance with CT protocol optimization, one or more of the following dose reduction techniques were utilized for this exam: automated exposure control, adjustment of mA and/or KV based on patient size, or use of iterative reconstructive technique. FINDINGS: Alignment: No scoliosis or spondylolisthesis. Bones: No fracture or bone lesion. Interspace Levels/Facets: Preserved disk heights Musculature: Normal. No fatty atrophy. Other: The paravertebral and prevertebral soft tissues are unremarkable. The lung apices are clear. IMPRESSION: No fracture or spondylolisthesis RADIA
[2018-05-21] MEDS ORDERED: chlordiazePOXIDE 25 MG CAPSULE PO STA (03:25)
[2018-05-21 03:30] VITALS: BP 136/85
== END 2018-05-21 03:30 | disposition home or self-care (01) ==
LOC: EDUNIT# → ED 15:00
DX: G40.909 Epilepsy, unspecified, not intractable, without status epilepticus (principal); S09.90XA Unspecified injury of head, initial encounter; F10.129 Alcohol abuse with intoxication, unspecified; S20.219A Contusion of unspecified front wall of thorax, initial encounter; S30.1XXA Contusion of abdominal wall, initial encounter; S00.83XA Contusion of other part of head, initial encounter; Y90.8 Blood alcohol level of 240 mg/100 ml or more; F17.200 Nicotine dependence, unspecified, uncomplicated; Z59.0 Homelessness; W10.9XXA Fall (on) (from) unspecified stairs and steps, initial encounter
CPT/HCPCS: 70450; 71250; 72125; 74176; 80053; 80306; 80320; 81003; 82550; 82553; 83690; 85025; 96374; 99284; A9270; 81001; 87086

== ENCOUNTER 2018-08-18 17:25 | Outpatient (CLI) | payer MEDICAID | END 2018-08-18 17:26 | disposition short-term general hospital (02) | LOC: EMS 17:25 | PROVIDERS: ATTEND Surgery | DX: R10.9 Unspecified abdominal pain (principal); R11.2 Nausea with vomiting, unspecified; R19.5 Other fecal abnormalities | CPT/HCPCS: A0170; A0425; A0427; A0999 ==

== ENCOUNTER 2019-07-06 17:16 | Outpatient (CLI) | payer SELFPAY | END 2019-07-06 17:17 | disposition critical access hospital (66) | LOC: EMS 17:16 | PROVIDERS: ATTEND Surgery | DX: R10.9 Unspecified abdominal pain (principal) | CPT/HCPCS: A0425; A0429 ==

== ENCOUNTER 2019-07-06 17:31 | Observation (INO) | payer MEDICAID ==
[2019-07-06 17:59] LABS: BASOPHILS # (AUTO) 0.1 10^3/uL (0.0-0.1); BASOPHILS % (AUTO) 0.7 %; EOSINOPHILS # (AUTO) 0.1 10^3/uL (0.0-0.7); EOSINOPHILS % (AUTO) 0.7 %; HGB - HEMOGLOBIN 15.1 g/dL (14.0-18.0); LYMPHOCYTES % (AUTO) 41.8 %; MEAN CORPUSCULAR HEMOGLOBIN 30.2 pg (27.0-31.0); MEAN CORPUSCULAR HGB CONC 33.6 g/dL (32.0-36.0); MEAN PLATELET VOLUME 8.4 fL (7.4-11.4); MONOCYTES # (AUTO) 0.3 10^3/uL (0.0-1.0); MONOCYTES % (AUTO) 3.7 %; NEUTROPHILS # (AUTO) 3.8 10^3/uL (1.5-6.6); NEUTROPHILS % (AUTO) 52.8 %; PLT - PLATELET COUNT 432 10^3/uL (130-450); RED CELL DISTRIBUTION WIDTH 16.1 % (12.0-15.0); WHITE BLOOD COUNT 7.1 x10^3/uL (4.8-10.8)
[2019-07-06 18:10] LABS: BILIRUBIN,URINE NEGATIVE (NEGATIVE); CLARITY,URINE CLEAR (CLEAR); GLUCOSE, URINE (UA) NEGATIVE (NEGATIVE); KETONES,URINE (UA) NEGATIVE (NEGATIVE); LEUKOCYTE ESTERASE, URINE NEGATIVE (NEGATIVE); NITRITE,URINE NEGATIVE (NEGATIVE); OCCULT BLOOD,URINE NEGATIVE (NEGATIVE); PH,URINE 6.5 PH (5.0-7.5); PROTEIN,URINE NEGATIVE (NEGATIVE); UROBILINOGEN,URINE 0.2 (NORMAL) E.U./dL (NORMAL)
[2019-07-06 18:12] LABS: ALBUMIN 4.8 g/dL (3.2-5.5); ALBUMIN/GLOBULIN RATIO 1.3 (1.0-2.2); ALKALINE PHOSPHATASE 77 IU/L (42-121); ALT ALANINE AMINOTRANSFERASE 18 IU/L (10-60); AST ASPARTATE AMINOTRANSFERASE 29 IU/L (10-42); BILIRUBIN,TOTAL < 0.2 mg/dL (0.2-1.0); BUN - BLOOD UREA NITROGEN < 5 mg/dL (6-20); CALCIUM 9.4 mg/dL (8.5-10.3); CARBON DIOXIDE - CO2 22 mmol/L (21-32); CHLORIDE 104 mmol/L (101-111); CREATININE 0.8 mg/dL (0.6-1.2); GFR - MDRD 111 (>89); GLUCOSE 93 mg/dL (70-100); LIPASE 65 U/L (22-51); SODIUM 142 mmol/L (135-145); TOTAL PROTEIN 8.4 g/dL (6.7-8.2)
--- NOTE | 2019-07-06 19:58 | ED Physician Documentation ---
PD HPI ABD PAIN - Stated complaint Stated Complaint: ABD PX - Chief complaint Chief Complaint: Abd Pain - History obtained from History obtained from: Patient - History of Present Illness Timing - onset: How many days ago (3) Timing - duration: Days (3) Timing - details: Gradual onset, Still present (He states he has had 3 days of upper abdominal pain nausea and vomiting. The vomiting is been episodic. The pain is been steadily increasing and was severe enough today that it was doubling him over. He denied any diarrhea. He states his been unable to have any consistent fluid or food for 3 days but had been drinking alcohol still. His abdomen hurts more with any attempted food intake. He states he commonly has some chronic upper abdominal pain due to chronic pancreatitis. He states this feels like a flareup of that but also general pain as well.) Quality: Sharp, Pain Location: All over / everywhere (Some degree of pain diffusely), RUQ, Epigastric Radiation: Lower back. No: Chest Improved by: Laying still. No: Eating, Vomiting Worsened by: Eating, Moving, Palpation Associated symptoms: Nausea, Vomiting, Loss of appetite. No: Fever, Hematemesis, Diarrhea, Constipation, Chest pain Similar symptoms before: Diagnosis (pancreatitis and gastritis) Recently seen: Not recently seen Review of Systems Constitutional: denies: Fever Nose: denies: Rhinorrhea / runny nose, Congestion Throat: denies: Sore throat Cardiac: denies: Chest pain / pressure, Palpitations Respiratory: denies: Dyspnea, Cough GI: reports: Abdominal Pain, Nausea, Vomiting, Constipation. denies: Diarrhea, Hematemesis : denies: Dysuria Skin: denies: Rash Musculoskeletal: reports: Neck pain (chronic). denies: Back pain Psychiatric: denies: Depressed, Suicidal PD PAST MEDICAL HISTORY - Past Medical History Cardiovascular: None Respiratory: None Neuro: Seizure disorder Endocrine/Autoimmune: None GI: Pancreatitis (with cysts) : None HEENT: Glaucoma Psych: None Musculoskeletal: None Derm: None - Past Surgical History Past Surgical History: Yes General: Other Neuro: Other - Present Medications Home Medications: Ambulatory Orders Medication Instructions Recorded Confirmed Divalproex Sodium [Depakote] 500 mg PO BID 11/29/17 11/29/17 Divalproex Sodium [Depakote] 500 mg PO BID #60 tablet. 04/14/18 Divalproex Sodium [Depakote] 1,000 mg PO BID #30 tablet. 05/20/18 - Allergies Allergies/Adverse Reactions: Allergies Allergy/AdvReac Type Severity Reaction Status Date / Time iodine Allergy Severe Respiratory Verified 07/06/19 17:35 Penicillins Allergy Unknown unk Verified 07/06/19 17:35 eggs AdvReac Intermediate Emesis Uncoded 11/29/17 19:14 - Social History Does the pt smoke?: Yes Smoking Status: Current every day smoker Does the pt drink ETOH?: Yes Does the pt have substance abuse?: Yes Substance Use and Type: Marijuana - Immunizations Immunizations are current?: Yes - POLST Patient has POLST: No PD ED PE NORMAL - Vitals Vital signs reviewed: Yes - General General: Alert and oriented X 3, No acute distress, Well developed/nourished - HEENT HEENT: Pharynx benign - Neck Neck: Supple, no meningeal sign, No adenopathy - Cardiac Cardiac: RRR, No murmur - Respiratory Respiratory: Clear bilaterally - Abdomen Abdomen: Non distended, Other (Marked diffuse tenderness more in the upper abdomen but some diffusely. There is percussion as well as rebound tenderness.). No: Normal bowel sounds (decreased), Soft (firm but not distended) - Male Male : Deferred - Rectal Rectal: Deferred - Back Back: No CVA TTP - Derm Derm: Normal color, Warm and dry - Extremities Extremities: No edema, No calf tenderness / cord - Neuro Neuro: Alert and oriented X 3, No motor deficit, Normal speech Results - Vitals Vitals: Vital Signs - 24 hr 07/06/19 07/06/19 07/06/19 17:32 19:34 21:21 Temperature 36.9 C Heart Rate 112 H 89 86 Respiratory 19 22 18 Rate Blood Pressure 136/87 H 130/81 H 131/81 H O2 Saturation 96 98 96 Oxygen O2 Source Room air - Labs Labs: Laboratory Tests 07/06/19 07/06/19 07/06/19 17:50 17:50 17:50 WBC 7.1 RBC 5.00 Hgb 15.1 Hct 45.0 MCV 90.0 MCH 30.2 MCHC 33.6 RDW 16.1 H Plt Count 432 MPV 8.4 Neut # (Auto) 3.8 Lymph # (Auto) 3.0 [place] # (Auto) 0.3 Eos # (Auto) 0.1 Baso # (Auto) 0.1 Absolute Nucleated RBC 0.00 Nucleated RBC % 0.0 Sodium 142 Potassium 3.4 L Chloride 104 Carbon Dioxide 22 Anion Gap 16.0 H BUN < 5 L Creatinine 0.8 Estimated GFR (MDRD) 111 Glucose 93 Calcium 9.4 Magnesium 2.5 Total Bilirubin < 0.2 L AST 29 ALT 18 Alkaline Phosphatase 77 Total Protein 8.4 H Albumin 4.8 Globulin 3.7 Albumin/Globulin Ratio 1.3 Lipase 65 H Urine Color Urine Clarity Urine pH Ur Specific [place] Urine Protein Urine Glucose (UA) Urine Ketones Urine Occult Blood Urine Nitrite Urine Bilirubin Urine Urobilinogen Ur Leukocyte Esterase Ur Microscopic Review Urine Culture Comments Ethyl Alcohol 334.1 07/06/19 18:00 WBC RBC Hgb Hct MCV MCH MCHC RDW Plt Count MPV Neut # (Auto) Lymph # (Auto) [place] # (Auto) Eos # (Auto) Baso # (Auto) Absolute Nucleated RBC Nucleated RBC % Sodium Potassium Chloride Carbon Dioxide Anion Gap BUN Creatinine Estimated GFR (MDRD) Glucose Calcium Magnesium Total Bilirubin AST ALT Alkaline Phosphatase Total Protein Albumin Globulin Albumin/Globulin Ratio Lipase Urine Color YELLOW Urine Clarity CLEAR Urine pH 6.5 Ur Specific [place] <=1.005 Urine Protein NEGATIVE Urine Glucose (UA) NEGATIVE Urine Ketones NEGATIVE Urine Occult Blood NEGATIVE Urine Nitrite NEGATIVE Urine Bilirubin NEGATIVE Urine Urobilinogen 0.2 (NORMAL) Ur Leukocyte Esterase NEGATIVE Ur Microscopic Review NOT INDICATED Urine Culture Comments NOT INDICATED Ethyl Alcohol - Rads (name of study) abd CT Radiology: Prelim report reviewed (Inflammation around the pancreas. There is pancreatic cysts with one being 4 cm and another 2 cm. No free fluid.), EMP read contemporaneously, See rad report PD MEDICAL DECISION MAKING - ED course Complexity details: reviewed results, re-evaluated patient (He still having considerable pain and tenderness. He has had repeated doses of IV pain medicines and antiemetics. He is not nauseous at this time though he did feel nauseous with sips of water. I feel that he is not going to be able to maintain hydration or pain control given the still nausea with attempted oral intake and the degree of pain medicine needed. He does have pancreatic inflammation on CT scan even though his lipase is not very elevated. I would not doubt that it is on the upswing and was likely to be higher later. No other acute pathology seen. Given his symptoms, I would no doubt think there is some alcoholic gastritis as well.), considered differential, d/w patient Departure - Departure Disposition: ED Place in Observation Clinical Impression: Acute on chronic pancreatitis Vomiting Qualifiers: Vomiting type: unspecified Vomiting Intractability: non-intractable Nausea presence: with nausea Qualified Code(s): R11.2 - Nausea with vomiting, unspecified Abdominal pain Qualifiers: Abdominal location: generalized Qualified Code(s): R10.84 - Generalized abdominal pain Alcoholic gastritis Qualifiers: Chronicity: acute Gastritis bleeding: without bleeding Qualified Code(s): K29.20 - Alcoholic gastritis without bleeding Condition: Stable Record reviewed to determine appropriate education?: Yes
[2019-07-06] MEDS ORDERED: ONDANSETRON 4 MG/2 ML VIAL IVP STA (20:05)
[2019-07-06] MEDS ORDERED: SODIUM CHLORIDE 0.9% 1,000 ML IV ONE (20:05)
[2019-07-06] MEDS ORDERED: HYDROmorphone 1 MG/ML CARPUJECT IVP STA ×3 (20:05→22:30)
[2019-07-06] MEDS ORDERED: FAMOTIDINE 20 MG/2 ML VIAL IVP STA (20:05)
[2019-07-06] MEDS ORDERED: KETOROLAC 15 MG/ML VIAL IVP STA (20:06)
[2019-07-06] MEDS ORDERED: FOLIC ACID INJ 1 MG, THIAMINE INJ 100 MG, MAGNESIUM SULFATE 2 GM, MULTIVITAMIN 10 ML in... IV STA ×5 (20:06)
[2019-07-06] MEDS ORDERED: IOVERSOL 320 100 ML VIAL IVP ONE ×2 (20:20→23:42)
[2019-07-06 20:32] LABS: MAGNESIUM 2.5 mg/dL (1.7-2.8)
[2019-07-06] MEDS ORDERED: diphenhydrAMINE INJ 50 MG/ML VIAL IVP STA (20:43)
[2019-07-06] MEDS ORDERED: THIAMINE 100 MG/1 ML 2 ML MDV ONE ×2 (21:14→21:19)
--- NOTE | 2019-07-06 21:47 | CT Report ---
Reason: diffuse abd pain; h/o pancreatitis chronic Procedure Date: 07/06/2019 Accession Number: [id number] / [id number] Procedure: CT - Abdomen/Pelvis W CPT Code: FULL RESULT: EXAM: CT ABDOMEN AND PELVIS EXAM DATE: 07/06/2019 09:22 PM. CLINICAL HISTORY: Diffuse abdominal pain. History of pancreatitis. COMPARISONS: ABDOMEN/PELVIS W/O 05/20/2018 3:40 PM. TECHNIQUE: Routine helical CT imaging was performed through the abdomen and pelvis. IV contrast: 80 mL Optiray 320. Enteric contrast: No. Reconstructions: Coronal and sagittal. In accordance with CT protocol optimization, one or more of the following dose reduction techniques were utilized for this exam: automated exposure control, adjustment of mA and/or KV based on patient size, or use of iterative reconstructive technique. FINDINGS: ABDOMEN: Liver: No significant abnormality. Stomach/Distal Esophagus: Thickening as well as stranding is noted along the greater curvature of the stomach. Abutting the greater curvature of the stomach is a bilobed low-density collection measuring 4.7 x 2.9 x 2.2 cm (image 18 series 5). Surrounding inflammatory stranding is noted. These connect up to the pancreatic tail region (image 22 series 7). Gallbladder: No significant abnormality. Bile Ducts: No significant abnormality. Pancreas: There is an additional lesion within the pancreas tail, oriented inferiorly, measuring 2.3 cm with surrounding stranding and slight wall thickening. Possible internal debris. Remainder of the pancreas is without significant abnormality at this time. Spleen: No significant abnormality. Kidneys: No suspicious solid appearing lesion. No hydronephrosis. Adrenals: No significant abnormality. Bowel: No obstruction. Average fecal residual. Appendix: Normal. Lymph Nodes: No pathologically enlarged nodes. Vasculature: Normal caliber aorta. Fluid: No significant free fluid. Abdominal Wall: No significant abnormality. Other: There is stranding within the left anterior pararenal space, particularly in the left upper quadrant subdiaphragmatic location. PELVIS: Uterus and Ovaries: Surgically absent uterus. Ovaries are not visualized, possibly surgically absent as well. Bladder: No significant abnormality. Lymph Nodes: No pathologically enlarged nodes. Fluid: No significant free fluid. Other: None. BONES: No suspicious bony lesions. Small bone island within the right superior acetabulum. LOWER CHEST: No significant consolidation or effusion. IMPRESSION: 1. Stranding within the left anterior subphrenic space, probably secondary to pancreatitis. Correlation with lipase values would be helpful. 2. There is a bilobed cyst arising from the pancreas tail and involving the greater curvature of the stomach. This cyst measures 4.7 x 2.9 x 2.2 cm. 3. Additional cyst is noted within the pancreas tail oriented inferiorly, measuring 2.3 cm. There is some internal debris and wall thickening. Superimposed infection difficult to exclude with certainty. 4. There is no bowel obstruction. Appendix is normal. RADIA
[2019-07-06] MEDS ORDERED: PROMETHAZINE INJ 12.5 MG in SODIUM CHLORIDE 0.9% 50 ML IV STA (22:30)
[2019-07-06] MEDS ORDERED: ONDANSETRON 4 MG/2 ML VIAL IVP PRN (23:08)
[2019-07-06] MEDS ORDERED: SODIUM CHLORIDE FLUSH 0.9% 10 ML SYRINGE IVP PRN (23:08)
[2019-07-06 23:39] LABS: BASOPHILS % (AUTO) 0.6 %; EOSINOPHILS # (AUTO) 0.1 10^3/uL (0.0-0.7); EOSINOPHILS % (AUTO) 0.9 %; LYMPHOCYTES # (AUTO) 2.4 10^3/uL (1.5-3.5); LYMPHOCYTES % (AUTO) 36.1 %; MEAN CORPUSCULAR HGB CONC 32.7 g/dL (32.0-36.0); MEAN CORPUSCULAR VOLUME 91.5 fL (80.0-94.0); MEAN PLATELET VOLUME 8.3 fL (7.4-11.4); MONOCYTES # (AUTO) 0.3 10^3/uL (0.0-1.0); MONOCYTES % (AUTO) 4.8 %; NEUTROPHILS # (AUTO) 3.8 10^3/uL (1.5-6.6); NEUTROPHILS % (AUTO) 57.2 %; PLT - PLATELET COUNT 327 10^3/uL (130-450); RED BLOOD COUNT 4.34 10^6/uL (4.70-6.10); WHITE BLOOD COUNT 6.7 x10^3/uL (4.8-10.8)
--- NOTE | 2019-07-06 23:42 | HISTORY & PHYSICAL EXAMINATION ---
Chief Complaint - Chief Complaint Chief Complaint: abdominal pain, nausea and vomiting History of Present Illness - Admitted From Admitted From:: [facility] ED - History Obtained From Records Reviewed: yes History obtained from: patient - History of Present Illness HPI Comment/Other: Patient seen and examined on 07/06/19 at 23:00pm Patient is a 33 y/o who presents with complain of diffuse abdominal pain, nausea and vomiting. He has history of alcohol abuse and appears older than stated age. His symptoms have been going on for 5 days. He has been unable to hold anything down except alcohol and last drank alcohol earlier today. He last ate yesterday. He was trying to eat some fries but had to stop due to the pain. He has not had a bowel movement in 5 days. He currently rates his pain 5/10. At presentation to the ED it was 9/10/ He has required several doses of IV pain medication and anti-nausea medications to moderately control his pain. Work up in the ED included a CT of the abd/pelvis which raised concern for pancreatitis. His lactic acid was 65As a result of the persistence of his symptoms despite several doses of IV pain meds, he is being admitted for further management. He denied chest pain, LIDA, fever or chills. He moved to [facility] from [place] 5 days ago to be closer to his 19 y/o daughter. He resides in [place]. 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 History - Past Medical History Cardiovascular: reports: None Respiratory: reports: None Neuro: reports: Seizure disorder Endocrine/Autoimmune: reports: None GI: reports: Pancreatitis (with cysts) : reports: None HEENT: reports: Glaucoma Psych: reports: Bipolar disorder Musculoskeletal: reports: None, Chronic back pain Derm: reports: None MRSA Hx?: No - Past Surgical History General: reports: Other /APIARIST: reports: Other (bilateral hernia repair) Neuro: reports: Other - Family & Social History Family History Comment/Other: glaucoma and CVA on paternal side, cancer on maternal side of the family Social History Notes: Smokes about 8 smal cigars daily. has been smoking for 26 years. Drinks at least 3 big cans of beer daily. Denies illicit drug use. He moved to [facility] from [place] 5 days ago to be closer to his 19 y/o daughter. He resides in [place]. 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 - POLST Patient has POLST: No Meds/Allgy - Home Medications Home Medications: Ambulatory Orders Medication Instructions Recorded Confirmed Divalproex Sodium [Depakote] 500 mg PO BID 11/29/17 11/29/17 Divalproex Sodium [Depakote] 500 mg PO BID #60 tablet. 04/14/18 Divalproex Sodium [Depakote] 1,000 mg PO BID #30 tablet. 05/20/18 - Allergies Allergies/Adverse Reactions: Allergies Allergy/AdvReac Type Severity Reaction Status Date / Time iodine Allergy Severe Respiratory Verified 07/06/19 17:35 Penicillins Allergy Unknown unk Verified 07/06/19 17:35 eggs AdvReac Intermediate Emesis Uncoded 11/29/17 19:14 Review of Systems - Constitutional Constitutional: denies: Fatigue, Fever, Chills, Malaise - Eyes Eyes: denies: Pain, Amaurosis, Blurred vision, Vision loss, Dipolpia - Ears, Nose & Throat Ears, Nose & Throat: denies: Nasal pain, Nasal discharge, Dentures, Hoarseness - Cardiovascular Cariovascular: denies: Irregular heart rate, Palpitations, Chest pain, Edema, Lightheadedness, Syncope, Exertional dyspnea, Decr. exercise tolerance - Respiratory Respiratory: denies: Sputum production, Wheezing, Snoring, SOB at rest, SOB with exertion - Gastrointestinal Gastrointestinal: reports: Abdominal pain, Constipation, Nausea, Vomiting. denies: Abdominal distention, Diarrhea, Black stools, Bile emesis, Coffee grounds emesis, Reflux/heartburn - Genitourinary Genitourinary: denies: Dysuria, Frequency, Urgency, Hematuria - Musculoskeletal Musculoskeletal: reports: Back pain. denies: Muscle pain, Muscle aches, Stiffness - Integumentary Integumentary: denies: Rash, Pruritis, Lesions, Dryness - Neurological Neurological: denies: General weakness, Focal weakness, Headache, Dizziness, Numbness, Memory problems - Psychiatric Psychiatric: denies: Depression, Anxiety - Endocrine Endocrine: denies: Polyuria, Polydypsia - Hematologic/Lymphatic Hematologic/Lymphatic: denies: Anemia, Bruising, Petechiae Prior Level of Functionality: He is independent of activities of daily living. He moved to [facility] from [place] 5 days ago to be closer to his 19 y/o daughter. He resides in [place]. 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 Exam - Vital Signs Vital Signs: Vital Signs x48h Temp Pulse Resp BP Pulse Ox 07/06/19 21:21 86 18 131/81 H 96 07/06/19 19:34 89 22 130/81 H 98 07/06/19 17:32 36.9 C 112 H 19 136/87 H 96 - Physical Exam General Appearance: positive: Alert, Moderate distress, Other (disheveled) Eyes Bilateral: positive: Normal inspection, PERRL, EOMI ENT: positive: ENT inspection nml, Pharynx nml, Dry mucous membranes Neck: positive: Nml inspection, No JVD, Trachea midline Respiratory: positive: Chest non-tender, No respiratory distress, Breath sounds nml. negative: Wheezes, Rales, Rhonchi Cardiovascular: positive: Regular rate & rhythm, No murmur, No gallop Abdomen: positive: No organomegaly, Nml bowel sounds, No distention, Tenderness, Guarding, Rebound Back: positive: Nml inspection Skin: positive: Color nml, No rash, Warm Extremities: positive: Non-tender, Full ROM, Nml appearance Neurologic/Psychiatric: positive: Oriented x3, CN's nml (2-12), Motor nml, Sensation nml Conclusion/Plan - Problem List (1) Acute on chronic pancreatitis Conclusion/Plan: IV hydration with normal saline and banana bag Pain management with IV dilaudid Zofran IV for nausea NPO except for meds, sips and chips (2) Alcohol intoxication Conclusion/Plan: Patient receiving a banana bag. Will observe and when indicated place patient on CIWA Qualifiers: Complication of substance-induced condition: with unspecified complication Qualified Code(s): F10.929 - Alcohol use, unspecified with intoxication, unspecified (3) Seizure Conclusion/Plan: On Depakote (4) Bipolar disorder Conclusion/Plan: Not on any medication - Lab Results Fish Bones: 07/07/19 04:59 07/07/19 04:57 Core Measures - Anticipated LOS I expect patient to be DC'd or transferred within 96 hours.: Yes - DVT/VTE - Prophylaxis VTE/DVT Device ordered at admit?: Yes
[2019-07-06] MEDS ORDERED: SODIUM CHLORIDE 0.9% 1,000 ML IV SCH (23:45)
[2019-07-06 23:52] LABS: BUN - BLOOD UREA NITROGEN < 5 mg/dL (6-20); CALCIUM 7.8 mg/dL (8.5-10.3); CARBON DIOXIDE - CO2 23 mmol/L (21-32); CHLORIDE 107 mmol/L (101-111); CREATININE 0.7 mg/dL (0.6-1.2); GFR - MDRD 129 (>89); GLUCOSE 96 mg/dL (70-100); SODIUM 142 mmol/L (135-145)
[2019-07-07] MEDS: HYDROmorphone 1 MG/ML CARPUJECT IVP PRN ×5 (00:33→15:15)
[2019-07-07] MEDS: SODIUM CHLORIDE FLUSH 0.9% 10 ML SYRINGE IVP SCH ×2 (00:34→11:02)
[2019-07-07] MEDS: SODIUM CHLORIDE 0.9% 1,000 ML IV SCH ×2 (00:34→13:31)
[2019-07-07 05:10] LABS: BASOPHILS % (AUTO) 0.6 %; EOSINOPHILS # (AUTO) 0.1 10^3/uL (0.0-0.7); EOSINOPHILS % (AUTO) 1.7 %; HGB - HEMOGLOBIN 12.6 g/dL (14.0-18.0); LYMPHOCYTES # (AUTO) 2.7 10^3/uL (1.5-3.5); LYMPHOCYTES % (AUTO) 36.9 %; MEAN CORPUSCULAR HEMOGLOBIN 29.4 pg (27.0-31.0); MEAN CORPUSCULAR HGB CONC 31.7 g/dL (32.0-36.0); MEAN CORPUSCULAR VOLUME 92.5 fL (80.0-94.0); MEAN PLATELET VOLUME 8.5 fL (7.4-11.4); MONOCYTES # (AUTO) 0.6 10^3/uL (0.0-1.0); MONOCYTES % (AUTO) 8.1 %; NEUTROPHILS # (AUTO) 3.8 10^3/uL (1.5-6.6); NEUTROPHILS % (AUTO) 52.4 %; PLT - PLATELET COUNT 301 10^3/uL (130-450); RED BLOOD COUNT 4.29 10^6/uL (4.70-6.10); RED CELL DISTRIBUTION WIDTH 16.4 % (12.0-15.0); WHITE BLOOD COUNT 7.2 x10^3/uL (4.8-10.8)
[2019-07-07 05:32] LABS: CALCIUM 8.3 mg/dL (8.5-10.3); CREATININE 0.7 mg/dL (0.6-1.2); MAGNESIUM 2.6 mg/dL (1.7-2.8); PHOSPHORUS 3.3 mg/dL (2.5-4.6)
[2019-07-07] MEDS ORDERED: PANTOPRAZOLE 40 MG VIAL IVP SCH (07:00)
[2019-07-07] MEDS: LORazepam 2 MG/ML VIAL IVP PRN ×3 (08:32→09:57)
[2019-07-07] MEDS ORDERED: POLYETHYLENE GLYCOL 3350 17 GM PACKET PO SCH (09:00)
[2019-07-07] MEDS ORDERED: LORazepam 2 MG/ML VIAL IVP PRN ×2 (10:27→10:47)
--- NOTE | 2019-07-07 14:23 | Discharge Plan ---
Discharge Plan Problem Reviewed?: Yes Disposition: Home, Self Care Condition: Poor Prescriptions: Ondansetron HCl [Zofran] 4 mg PO Q6H PRN #15 tablet PRN Reason: Nausea / Vomiting oxyCODONE [Roxicodone] 5 mg PO Q4-6H PRN #20 tablet PRN Reason: Abdominal Pain Diet: Regular Activity Restrictions: No Restrictions Shower Restrictions: No (fall precaution) Instruction Topics: Pancreatitis, Addiction Alcohol Health Concerns: alcohol abuse, and pancreatitis. Plan of Treatment: educate and advise pt quit alcohol, and give pt some resource for quitting of alcohol. pt tolerate the regular diet. pt is prescribed zofran and Oxycodon PRN. Care Goals: stabilization and improvement of his medical conditions Assessment: assessment as the above. Additional Instructions or Follow Up instructions: you may followup your PCP in one week. Should your symptoms return or worsen, you may present ER, or call 911 for help No Smoking: If you smoke, Please STOP! Call for help.
[2019-07-07 15:42] VITALS: BP 135/79
--- NOTE | 2019-07-07 15:52 | DISCHARGE SUMMARY ---
Discharge Summary Discharge Date: 07/07/19 Discharging Provider: HARMON Condition at Discharge: Poor Discharge Disposition: 01 Home, Self Care Discharge Facility Name: home - DIAGNOSES Admission Diagnoses: (1) Acute on chronic pancreatitis (2) Alcohol intoxication (3) Seizure (4) Bipolar disorder Discharge Diagnoses with Status of Each Condition: 1) Acute on chronic pancreatitis resolved. Lipase is normal, pt report his abdominal is controlled. pt tolerate regular diet. pt request to be d/c to home today (2) Alcohol intoxication stable (3) Seizure stable/ no seizure in hospital stay (4) Bipolar disorder stable (5) medical non-compliance advise pt quit alcohol. pt report he will continue alcohol drinking. - HPI History of Present Illness: refer Dr. Weathers's HPI on 07/06/19 Patient seen and examined on 07/06/19 at 23:00pm Patient is a 33 y/o who presents with complain of diffuse abdominal pain, nausea and vomiting. He has history of alcohol abuse and appears older than stated age. His symptoms have been going on for 5 days. He has been unable to hold anything down except alcohol and last drank alcohol earlier today. He last ate yesterday. He was trying to eat some fries but had to stop due to the pain. He has not had a bowel movement in 5 days. He currently rates his pain 5/10. At presentation to the ED it was 9/10/ He has required several doses of IV pain medication and anti-nausea medications to moderately control his pain. Work up in the ED included a CT of the abd/pelvis which raised concern for pancreatitis. His lactic acid was 65As a result of the persistence of his symptoms despite several doses of IV pain meds, he is being admitted for further management. He denied chest pain, LIDA, fever or chills. He moved to [facility] from [place] 5 days ago to be closer to his 19 y/o daughter. He resides in [place]. 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 - HOSPITAL COURSE Hospital Course: pt was admitted for N/V and intractable abdominal pain. pt had over 300 high level alcohol in the test. pt was found to have slight increase of Lipase level. after treatment, pt's lipase is down to normal level. pt report his abdominal pain is resolved. pt tolerate the regular diet. pt request to be d/c to home today. 1) Acute on chronic pancreatitis resolved. Lipase is normal, pt report his abdominal is controlled. pt tolerate regular diet. pt request to be d/c to home today (2) Alcohol intoxication stable. pt request to be d/c. pt walk fast and steadily with nurse and me, pt did not present any alcohol withdrawal symptoms at this time. (3) Seizure stable/ no seizure in hospital stay (4) Bipolar disorder stable (5) medical non-compliance advise pt quit alcohol. But pt state he will continue alcohol drinking, he report he drunk alcohol when he was in his young age. - ALLERGIES Allergies/Adverse Reactions: Allergies Allergy/AdvReac Type Severity Reaction Status Date / Time iodine Allergy Severe Respiratory Verified 07/06/19 17:35 Penicillins Allergy Unknown unk Verified 07/06/19 17:35 eggs AdvReac Intermediate Emesis Uncoded 11/29/17 19:14 - MEDICATIONS Home Medications: Ambulatory Orders Medication Instructions Recorded Confirmed Cyanocobalamin (Vitamin B-12) 1,000 mcg PO DAILY 07/07/19 07/07/19 [Vitamin B-12] Folic Acid 1 mg PO DAILY 07/07/19 07/07/19 Gabapentin 300 mg PO TID 07/07/19 07/07/19 Levetiracetam [Keppra] 1,000 mg PO BID 07/07/19 07/07/19 Ondansetron HCl [Zofran] 4 mg PO Q6H PRN #15 tablet 07/07/19 Pantoprazole [Protonix] 40 mg PO DAILY 07/07/19 07/07/19 Senna [Senokot] 2 tab PO BID 07/07/19 07/07/19 Thiamine HCl [Vitamin B-1] 100 mg PO DAILY 07/07/19 07/07/19 oxyCODONE [Roxicodone] 5 mg PO Q4-6H PRN #20 tablet 07/07/19 traZODone [Desyrel] 50 mg PO DAILY PRN MDD 100 mg/24hr 07/07/19 07/07/19 - PHYSICAL EXAM AT DISCHARGE General Appearance: positive: No acute distress, Alert. negative: Lethargic Eyes Bilateral: positive: Normal inspection, PERRL, No lid inflammation, Conjunctivae nml ENT: positive: ENT inspection nml, Pharynx nml, No signs of dehydration. negative: Purulent nasal drainage, Pharyngeal erythema, Oral lesions Neck: positive: Nml inspection, Thyroid nml, No JVD, Trachea midline. negative: Thyromegaly, Lymphadenopathy (R), Lymphadenopathy (L), Stiff neck, Swelling/bruising, Tracheal deviation Respiratory: positive: Chest non-tender, No respiratory distress, Breath sounds nml. negative: Wheezes, Rales, Rhonchi Cardiovascular: positive: Regular rate & rhythm, No murmur, No gallop. negative: Irregularly irregular, Extrasystoles, Tachycardia, Bradycardia, JVD present, Systolic murmur, Diastolic murmur Peripheral Pulses: positive: 2+ Abdomen: positive: Non-tender, No organomegaly, Nml bowel sounds, No distention. negative: Tenderness, Guarding, Rebound Back: positive: Nml inspection. negative: CVA tenderness (R), CVA tenderness (L) Skin: positive: Color nml, No rash, Warm, Dry. negative: Cyanosis, Diaphoresis, Pallor Extremities: positive: Non-tender, Full ROM, Nml appearance. negative: Calf tenderness, Joint swelling, Gabby's sign/cords Neurologic/Psychiatric: positive: Oriented x3, Motor nml, Sensation nml, Mood/affect nml. negative: Weakness, Sensory loss, Facial droop, Slurred/abnml speech, Depressed mood/affect - LABS Result Diagrams: 07/07/19 04:59 07/07/19 04:57 - FOLLOW UP Follow Up: you may followup your PCP in one week. Should your symptoms return or worsen, you may present ER, or call 911 for help educate and advise pt quit alcohol, and give pt some resource for quitting of alcohol. pt tolerate the regular diet. pt is prescribed zofran PRN and Oxycodon PRN. - TIME SPENT Time Spent in Discharge (Minutes): 55
[2019-07-07] MEDS ORDERED: MULTIVITAMIN 10 ML, FOLIC ACID INJ 1 MG, THIAMINE INJ 100 MG, MAGNESIUM SULFATE 2 GM in... IV SCH ×5 (21:00)
== END 2019-07-07 16:15 | disposition home or self-care (01) ==
LOC: EDUNIT# → ED 17:31 → MS2 23:08
PROVIDERS: ADMIT Internal Medicine; ATTEND Nurse Practitioner
DX: K85.20 Alcohol induced acute pancreatitis without necrosis or infection (principal); K86.0 Alcohol-induced chronic pancreatitis; F10.129 Alcohol abuse with intoxication, unspecified; Y90.8 Blood alcohol level of 240 mg/100 ml or more; F31.9 Bipolar disorder, unspecified; F17.290 Nicotine dependence, other tobacco product, uncomplicated; G40.909 Epilepsy, unspecified, not intractable, without status epilepticus; G89.29 Other chronic pain; M54.9 Dorsalgia, unspecified; H40.9 Unspecified glaucoma; Z91.19 Patient's noncompliance with other medical treatment and regimen
CPT/HCPCS: 36415; 74177; 80048; 80053; 80320; 81003; 83690; 83735; 84100; 85025; 96361; 96365; 96375; 96376; 99284; 99285; A9270; G0378; J1170; J1200; J2060; J3411; J7040; Q9967; 81001; 87086

== ENCOUNTER 2019-07-08 18:56 | Outpatient (CLI) | payer MEDICAID | END 2019-07-08 18:57 | disposition critical access hospital (66) | LOC: EMS 18:56 | PROVIDERS: ATTEND Surgery | DX: R56.9 Unspecified convulsions (principal) | CPT/HCPCS: A0425; A0427; A0999 ==

== ENCOUNTER 2019-07-08 19:30 | Emergency (ER) | payer MEDICAID ==
[2019-07-08] MEDS ORDERED: FAMOTIDINE 20 MG/2 ML VIAL IVP STA (19:49)
--- NOTE | 2019-07-08 19:51 | ED Physician Documentation ---
History of Present Illness - Stated complaint Stated Complaint: SZ - Chief complaint Chief Complaint: Neuro - Additonal information Additional information: This is a 33-year-old male with a history of alcohol abuse, as well as a seizure disorder, who presents with abdominal pain and 2 seizures. Patient states that he was at [employer], and he began eating food very quickly, he began having abdominal pain and vomiting, his pain became severe so he asked someone to call 911. EMS arrived and he had 2 witnessed seizures, per EMS they seem somewhat exaggerated, and he had no postictal period, He did receive 5 mg of Versed IV. Patient states that he hit his head 5 times on the pavement at some point, and does complain of headaace. He also has a generalized abdominal discomfort. He states that he thinks the pain is from eating food too fast. He did drink alcohol today, unable to quantify exactly how much, but he says "not enough". 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) Neuro: Other - Present Medications Home Medications: Ambulatory Orders Medication Instructions Recorded Confirmed Cyanocobalamin (Vitamin B-12) 1,000 mcg PO DAILY 07/07/19 07/07/19 [Vitamin B-12] Folic Acid 1 mg PO DAILY 07/07/19 07/07/19 Gabapentin 300 mg PO TID 07/07/19 07/07/19 Levetiracetam [Keppra] 1,000 mg PO BID 07/07/19 07/07/19 Ondansetron HCl [Zofran] 4 mg PO Q6H PRN #15 tablet 07/07/19 Pantoprazole [Protonix] 40 mg PO DAILY 07/07/19 07/07/19 Senna [Senokot] 2 tab PO BID 07/07/19 07/07/19 Thiamine HCl [Vitamin B-1] 100 mg PO DAILY 07/07/19 07/07/19 oxyCODONE [Roxicodone] 5 mg PO Q4-6H PRN #20 tablet 07/07/19 traZODone [Desyrel] 50 mg PO DAILY PRN MDD 100 mg/24hr 07/07/19 07/07/19 - Allergies Allergies/Adverse Reactions: Allergies Allergy/AdvReac Type Severity Reaction Status Date / Time iodine Allergy Severe Respiratory Verified 07/08/19 19:40 Penicillins Allergy Unknown unk Verified 07/08/19 19:40 eggs AdvReac Intermediate Emesis Uncoded 07/08/19 19:40 - Social History Does the pt smoke?: Yes Smoking Status: Never smoker Does the pt drink ETOH?: Yes Does the pt have substance abuse?: Yes - Immunizations Immunizations are current?: Yes - POLST Patient has POLST: No PD ED PE NORMAL - Vitals Vital signs reviewed: Yes - General General: Other (Awake, alert, responding to questions. Slightly slurred speech.) - HEENT HEENT: Other (Disheveled appearance, tenderness over occiput, no step off or large hematoma.) - Neck Neck: Supple, no meningeal sign, No bony TTP - Cardiac Cardiac: RRR, No murmur - Respiratory Respiratory: Clear bilaterally - Abdomen Abdomen: Soft, Non distended, Other (Mild diffuse tenderness to palpation. 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, No motor deficit, No sensory deficit, Other (Slightly slurred speech) - Psych Psych: Other (No SI) Results - Vitals Vitals: Vital Signs - 24 hr 07/08/19 07/08/19 07/08/19 19:30 19:52 20:41 Temperature 36.0 C L Heart Rate 99 89 88 Respiratory 21 14 21 Rate Blood Pressure 126/74 119/80 119/63 O2 Saturation 95 95 94 07/08/19 07/08/19 07/09/19 21:24 23:00 00:57 Temperature Heart Rate 91 77 69 Respiratory 18 18 25 H Rate Blood Pressure 113/64 108/66 105/80 O2 Saturation 95 95 98 07/09/19 07/09/19 02:00 04:00 Temperature Heart Rate 74 65 Respiratory 21 22 Rate Blood Pressure 121/73 108/74 O2 Saturation 95 97 Oxygen O2 Source Room air - EKG (time done) 20:12 Other comments: Other comments - Labs Labs: Laboratory Tests 07/08/19 07/08/19 07/09/19 19:44 19:44 01:45 WBC 6.3 RBC 4.63 L Hgb 13.7 L Hct 42.1 MCV 90.9 MCH 29.6 MCHC 32.5 RDW 16.3 H Plt Count 320 MPV 8.8 Neut # (Auto) 3.6 Lymph # (Auto) 2.3 [place] # (Auto) 0.3 Eos # (Auto) 0.1 Baso # (Auto) 0.0 Absolute Nucleated RBC 0.00 Nucleated RBC % 0.0 Sodium 143 Potassium 3.4 L Chloride 104 Carbon Dioxide 23 Anion Gap 16.0 H BUN < 5 L Creatinine 0.6 Estimated GFR (MDRD) 154 Glucose 95 Calcium 9.0 Total Bilirubin 0.2 AST 25 ALT 15 Alkaline Phosphatase 73 Total Protein 7.4 Albumin 4.4 Globulin 3.0 Albumin/Globulin Ratio 1.5 Lipase 71 H Urine Color YELLOW Urine Clarity CLEAR Urine pH 6.0 Ur Specific [place] 1.010 Urine Protein NEGATIVE Urine Glucose (UA) NEGATIVE Urine Ketones NEGATIVE Urine Occult Blood MODERATE H Urine Nitrite NEGATIVE Urine Bilirubin NEGATIVE Urine Urobilinogen 0.2 (NORMAL) Ur Leukocyte Esterase NEGATIVE Urine RBC 0-5 Urine WBC 0-3 Ur Squamous Epith Cells RARE Squamous Urine Bacteria None Seen Urine Mucus Few Strands Ur Microscopic Review INDICATED Urine Culture Comments NOT INDICATED Urine Opiates Screen NEGATIVE Ur Oxycodone Screen NEGATIVE Urine Methadone Screen NEGATIVE Ur Propoxyphene Screen NEGATIVE Ur Barbiturates Screen POSITIVE H Ur Tricyclics Screen NEGATIVE Ur Phencyclidine Scrn NEGATIVE Ur Amphetamine Screen NEGATIVE U Methamphetamines Scrn NEGATIVE U Benzodiazepines Scrn POSITIVE H Urine Cocaine Screen NEGATIVE U Cannabinoids Screen POSITIVE H Ethyl Alcohol 313.6 - Rads (name of study) CT head Radiology: Other (No acute intracranial abnormality) PD MEDICAL DECISION MAKING - ED course Complexity details: considered differential (Pancreatitis, alcoholic gastritis, electrolyte abnormality, seizure, dysrhythmia, alcohol withdrawal seizure) ED course: Patient presents with abdominal pain, vomiting and possible seizures witnessed by EMS. On arrival he is awake, no neurologic deficit other than slightly slurred speech likely from alcohol intoxication. IV was inserted, labs are drawn, patient was placed on the monitor. CT scan of the head was obtained which shows no acute intracranial abnormality. Labs are notable for alcohol level of around 300. Given that he likely had several seizures, he was loaded with 1 g of Keppra IV. He has already received 5 mg of Versed in route. EKG shows no signs of dysrhyhmia or ischemia. Regarding his abdominal pain he has very mild generalized tenderness, more in the epigastrium, and a benign abdominal exam. He is a heavy drinker, and his pain is located in his epigastrium, this is likely alcoholic gastritis. Lipase is slightly elevated, likely secondary to his alcohol use. Patient was given famotidine, along with IV antiemetics and fluids. On repeat examination he has benign abdominal exam. GI cocktail given with further relief of symptoms. On re-evaluation at 1:30AM, he is awake, alert, with no slurred speech. His abdominal symptoms are greatly improved. He has no neurologic deficit. He has had no seizures while in the ED. I discussed the need to stop drinking, ideally in a supervised detox facility, and the risks to him if he continues, he states he will be pursuing rehab. I also discussed he needs to take his seizure medications without missing any doses. He denies SI. His vital signs are unremarkable. Patient will rest in the ED until ethanol is metabolized, and then he will discharge. He agrees with this plan and verbalized understanding of return precautions. Departure - Departure Disposition: 01 Home, Self Care Clinical Impression: Seizure Alcoholic gastritis Qualifiers: Chronicity: acute Gastritis bleeding: without bleeding Qualified Code(s): K29.20 - Alcoholic gastritis without bleeding Vomiting Qualifiers: Vomiting type: unspecified Vomiting Intractability: non-intractable Nausea presence: with nausea Qualified Code(s): R11.2 - Nausea with vomiting, unspecified Instructions: ED Seizure Recurrent Follow-Up: Your,PCP [Other] Comments: You were seen today for seizures as well as for abdominal pain and vomiting. It appears that you had some alcoholic gastritis, your alcohol intoxication probably contributed to your vomiting as well. Try to abstain from alcohol, and follow-up with your primary care provider. Return to the emergency department if you develop persistent vomiting or severe abdominal pain, or recurrent seizures, return to the ED. Discharge Date/Time: 07/09/19 04:24
[2019-07-08 19:55] LABS: BASOPHILS % (AUTO) 0.5 %; EOSINOPHILS # (AUTO) 0.1 10^3/uL (0.0-0.7); EOSINOPHILS % (AUTO) 1.1 %; HGB - HEMOGLOBIN 13.7 g/dL (14.0-18.0); LYMPHOCYTES # (AUTO) 2.3 10^3/uL (1.5-3.5); LYMPHOCYTES % (AUTO) 36.2 %; MEAN CORPUSCULAR HEMOGLOBIN 29.6 pg (27.0-31.0); MEAN CORPUSCULAR HGB CONC 32.5 g/dL (32.0-36.0); MEAN CORPUSCULAR VOLUME 90.9 fL (80.0-94.0); MEAN PLATELET VOLUME 8.8 fL (7.4-11.4); MONOCYTES # (AUTO) 0.3 10^3/uL (0.0-1.0); MONOCYTES % (AUTO) 4.4 %; NEUTROPHILS # (AUTO) 3.6 10^3/uL (1.5-6.6); NEUTROPHILS % (AUTO) 57.6 %; PLT - PLATELET COUNT 320 10^3/uL (130-450); RED BLOOD COUNT 4.63 10^6/uL (4.70-6.10); RED CELL DISTRIBUTION WIDTH 16.3 % (12.0-15.0); WHITE BLOOD COUNT 6.3 x10^3/uL (4.8-10.8)
[2019-07-08 20:06] LABS: ALBUMIN 4.4 g/dL (3.2-5.5); ALBUMIN/GLOBULIN RATIO 1.5 (1.0-2.2); ALKALINE PHOSPHATASE 73 IU/L (42-121); ALT ALANINE AMINOTRANSFERASE 15 IU/L (10-60); AST ASPARTATE AMINOTRANSFERASE 25 IU/L (10-42); BILIRUBIN,TOTAL 0.2 mg/dL (0.2-1.0); BUN - BLOOD UREA NITROGEN < 5 mg/dL (6-20); CARBON DIOXIDE - CO2 23 mmol/L (21-32); CHLORIDE 104 mmol/L (101-111); CREATININE 0.6 mg/dL (0.6-1.2); GFR - MDRD 154 (>89); GLUCOSE 95 mg/dL (70-100); LIPASE 71 U/L (22-51); SODIUM 143 mmol/L (135-145); TOTAL PROTEIN 7.4 g/dL (6.7-8.2)
--- NOTE | 2019-07-08 20:26 | CT Report ---
Reason: Seizure, head trauma Procedure Date: 07/08/2019 Accession Number: [id number] / [id number] Procedure: CT - HEAD WO CPT Code: FULL RESULT: EXAM: CT HEAD WITHOUT CONTRAST. EXAM DATE: 07/08/2019 08:05 PM. CLINICAL HISTORY: 33-year-old presenting after seizure-like activity with head trauma. Evaluate for intracranial pathology. COMPARISON: CT head 05/20/2018. TECHNIQUE: Multiaxial CT images were obtained from the foramen magnum to the vertex. Reformats: Sagittal and coronal. IV contrast: None. In accordance with CT protocol optimization, one or more of the following dose reduction techniques were utilized for this exam: automated exposure control, adjustment of mA and/or KV based on patient size, or use of iterative reconstructive technique. FINDINGS: Parenchyma: No intraparenchymal hemorrhage. No evidence of mass, midline shift, or CT findings of infarction. Garcia-white differentiation is distinct. Extraaxial Spaces: Normal for age. No subdural or epidural collections identified. Ventricles: Normal in size and position. Sinuses and Orbits: Imaged paranasal sinuses, orbits, and mastoids show no significant abnormality. Bones: No evidence of fracture or calvarial defect. Other: None. IMPRESSION: 1. No definite acute intracranial pathology seen; specifically, no acute infarct, acute intracranial hemorrhage, mass, hydrocephalus, or midline shift. 2. No definite calvarial fracture. RADIA
[2019-07-09] MEDS ORDERED: levETIRAcetam INJ 1,000 MG in SODIUM CHLORIDE 0.9% 100ML 100 ML IV STA (01:12)
[2019-07-09 02:09] LABS: MUDS CUTOFF CONCENTRATIONS CUTOFF CONC BELOW:
[2019-07-09 02:11] LABS: BILIRUBIN,URINE NEGATIVE (NEGATIVE); GLUCOSE, URINE (UA) NEGATIVE (NEGATIVE); KETONES,URINE (UA) NEGATIVE (NEGATIVE); LEUKOCYTE ESTERASE, URINE NEGATIVE (NEGATIVE); NITRITE,URINE NEGATIVE (NEGATIVE); OCCULT BLOOD,URINE MODERATE (NEGATIVE); PROTEIN,URINE NEGATIVE (NEGATIVE); UROBILINOGEN,URINE 0.2 (NORMAL) E.U./dL (NORMAL)
[2019-07-09 02:12] LABS: CLARITY,URINE CLEAR (CLEAR)
[2019-07-09 02:20] LABS: BACTERIA,URINE None Seen /HPF (None Seen); MUCUS,URINE Few Strands; RBC,URINE 0-5 /HPF (0-5); SQUAMOUS EPITHELIAL CELL,UR RARE Squamous (<= Few)
[2019-07-09 02:21] LABS: AMPHETAMINE SCREEN,URINE NEGATIVE (NEGATIVE); BENZODIAZEPINES SCREEN, URINE POSITIVE (NEGATIVE); COCAINE SCREEN URINE NEGATIVE (NEGATIVE); METHADONE SCREEN, URINE NEGATIVE (NEGATIVE); METHAMPHETAMINES SCREEN, URINE NEGATIVE (NEGATIVE); OPIATE SCREEN, URINE NEGATIVE (NEGATIVE); OXYCODONE SCREEN, URINE NEGATIVE (NEGATIVE); PROPOXYPHENE SCREEN, URINE NEGATIVE (NEGATIVE); TRICYCLIC ANTIDEPRESSANT,URINE NEGATIVE (NEGATIVE)
[2019-07-09] MEDS ORDERED: ONDANSETRON 4 MG/2 ML VIAL IVP STA (02:46)
[2019-07-09] MEDS ORDERED: MAG HYDROX/AL HYDROX/SIMETH 30 ML UDC PO STA (02:46)
[2019-07-09] MEDS ORDERED: LIDOCAINE VISCOUS 2% 15 ML UDC MM STA (02:46)
[2019-07-09 04:02] VITALS: BP 108/74
== END 2019-07-09 04:24 | disposition home or self-care (01) ==
LOC: EDUNIT# → ED 19:30
DX: G40.909 Epilepsy, unspecified, not intractable, without status epilepticus (principal); K29.20 Alcoholic gastritis without bleeding; F10.229 Alcohol dependence with intoxication, unspecified; Y90.8 Blood alcohol level of 240 mg/100 ml or more
CPT/HCPCS: 36415; 70450; 80053; 80306; 80320; 81001; 83690; 85025; 93005; 96365; 96375; 99284; A9270; 81003; 87086

== ENCOUNTER 2019-07-14 18:43 | Inpatient (IN) | payer MEDICAID ==
[2019-07-14] MEDS ORDERED: SODIUM CHLORIDE 0.9% 1,000 ML IV ONE ×3 (18:56→19:49)
[2019-07-14 19:19] LABS: GLUCOSE, URINE (UA) NEGATIVE (NEGATIVE); KETONES,URINE (UA) TRACE mg/dL (NEGATIVE); LEUKOCYTE ESTERASE, URINE NEGATIVE (NEGATIVE); NITRITE,URINE NEGATIVE (NEGATIVE); OCCULT BLOOD,URINE NEGATIVE (NEGATIVE); PROTEIN,URINE 100 mg/dL (NEGATIVE); UROBILINOGEN,URINE 1 (NORMAL) E.U./dL (NORMAL)
[2019-07-14 19:22] LABS: BILIRUBIN,URINE NEGATIVE (NEGATIVE); CLARITY,URINE CLEAR (CLEAR); ICTOTEST,URINE NEGATIVE
[2019-07-14 19:31] LABS: BACTERIA,URINE None Seen /HPF (None Seen); CASTS, URINE 3-5 Hyaline Casts /LPF; MUCUS,URINE Marked Strands; RBC,URINE None Seen /HPF (0-5); SQUAMOUS EPITHELIAL CELL,UR NONE SEEN (<= Few)
[2019-07-14 19:46] LABS: BASOPHILS % (AUTO) 0.6 %; EOSINOPHILS % (AUTO) 0.9 %; HGB - HEMOGLOBIN 13.9 g/dL (14.0-18.0); LYMPHOCYTES # (AUTO) 1.5 10^3/uL (1.5-3.5); LYMPHOCYTES % (AUTO) 32.4 %; MEAN CORPUSCULAR HEMOGLOBIN 29.4 pg (27.0-31.0); MEAN CORPUSCULAR HGB CONC 32.7 g/dL (32.0-36.0); MEAN CORPUSCULAR VOLUME 89.9 fL (80.0-94.0); MEAN PLATELET VOLUME 9.1 fL (7.4-11.4); MONOCYTES # (AUTO) 0.4 10^3/uL (0.0-1.0); MONOCYTES % (AUTO) 7.7 %; NEUTROPHILS # (AUTO) 2.7 10^3/uL (1.5-6.6); NEUTROPHILS % (AUTO) 58.2 %; PLT - PLATELET COUNT 238 10^3/uL (130-450); RED BLOOD COUNT 4.73 10^6/uL (4.70-6.10); RED CELL DISTRIBUTION WIDTH 16.9 % (12.0-15.0); WHITE BLOOD COUNT 4.7 x10^3/uL (4.8-10.8)
[2019-07-14] MEDS ORDERED: MORPHINE 2 MG/ML CARPUJECT IVP STA ×3 (19:49→21:51)
[2019-07-14] MEDS ORDERED: PANTOPRAZOLE 40 MG VIAL IVP STA (19:49)
[2019-07-14 20:00] LABS: ALBUMIN 4.2 g/dL (3.2-5.5); ALBUMIN/GLOBULIN RATIO 1.2 (1.0-2.2); BILIRUBIN,TOTAL 0.9 mg/dL (0.2-1.0); CALCIUM 9.2 mg/dL (8.5-10.3); CREATININE 0.9 mg/dL (0.6-1.2); TOTAL PROTEIN 7.8 g/dL (6.7-8.2)
--- NOTE | 2019-07-14 20:15 | ED Physician Documentation ---
PD HPI ABD PAIN - Stated complaint Stated Complaint: DIZZY/V/ABD PX - Chief complaint Chief Complaint: Abd Pain - History obtained from History obtained from: Patient - History of Present Illness Timing - onset: Today Timing - duration: Days (2) Timing - details: Gradual onset Pain level max: 7 Pain level now: 6 Quality: Aching, Pain Location: Epigastric Radiation: No: Chest, , Lower back, Left flank, Left shoulder, Right flank, Right shoulder, Upper back Improved by: Other (nothing) Worsened by: Eating, Moving, Palpation Associated symptoms: Nausea. No: Fever, Vomiting, Hematemesis, Diarrhea, Constipation, Melena, Hematochezia, Dysuria, Hematuria Recently seen: Not recently seen - Additional information Additional information: Patient with epigastric abdominal pain today. States he drinks up to a gallon of malt liquor a day. Today he was drinking hard alcohol, approximately a pint. Has had worsening abdominal pain throughout the day. No vomiting, but is unable to eat or drink currently. States he has had pancreatitis several times in the past. States that this feels similar. Nothing makes it better. Worse with alcohol Review of Systems Ten Systems: 10 systems reviewed and negative Constitutional: denies: Fever, Chills Nose: denies: Rhinorrhea / runny nose, Congestion GI: denies: Vomiting, Diarrhea, Hematemesis, Bloody / black stool : denies: Dysuria Skin: denies: Rash Musculoskeletal: denies: Neck pain, Back pain Neurologic: denies: Headache PD PAST MEDICAL HISTORY - Past Medical History Past Medical History: Yes Cardiovascular: None Respiratory: None Neuro: Seizure disorder Endocrine/Autoimmune: None GI: Pancreatitis : None HEENT: Glaucoma Psych: Bipolar disorder Musculoskeletal: None, Chronic back pain Derm: None - Past Surgical History Past Surgical History: Yes 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) Neuro: Other - Present Medications Home Medications: Ambulatory Orders Medication Instructions Recorded Confirmed Cyanocobalamin (Vitamin B-12) 1,000 mcg PO DAILY 07/07/19 07/07/19 [Vitamin B-12] Folic Acid 1 mg PO DAILY 07/07/19 07/07/19 Gabapentin 300 mg PO TID 07/07/19 07/07/19 Levetiracetam [Keppra] 1,000 mg PO BID 07/07/19 07/07/19 Ondansetron HCl [Zofran] 4 mg PO Q6H PRN #15 tablet 07/07/19 Pantoprazole [Protonix] 40 mg PO DAILY 07/07/19 07/07/19 Senna [Senokot] 2 tab PO BID 07/07/19 07/07/19 Thiamine HCl [Vitamin B-1] 100 mg PO DAILY 07/07/19 07/07/19 traZODone [Desyrel] 50 mg PO DAILY PRN MDD 100 mg/24hr 07/07/19 07/07/19 - Allergies Allergies/Adverse Reactions: Allergies Allergy/AdvReac Type Severity Reaction Status Date / Time iodine Allergy Severe Respiratory Verified 07/14/19 18:51 Penicillins Allergy Unknown unk Verified 07/14/19 18:51 eggs AdvReac Intermediate Emesis Uncoded 07/14/19 18:51 - Social History Does the pt smoke?: Yes Smoking Status: Current every day smoker Does the pt drink ETOH?: Yes Does the pt have substance abuse?: Yes - Immunizations Immunizations are current?: Yes - POLST Patient has POLST: No PD ED PE NORMAL - Vitals Vital signs reviewed: Yes - General General: Alert and oriented X 3, Other (appears in pain) - HEENT HEENT: PERRL, Moist mucous membranes, Pharynx benign - Neck Neck: Supple, no meningeal sign - Cardiac Cardiac: RRR, Strong equal pulses - Respiratory Respiratory: No respiratory distress, Clear bilaterally - Abdomen Abdomen: Soft, Non distended, Other (Diffusely tender palpation. No peritoneal signs. Worse in the epigastrium) - Back Back: No spinal TTP - Derm Derm: Warm and dry, No rash - Extremities Extremities: No edema - Neuro Neuro: Alert and oriented X 3 - Psych Psych: Normal mood, Normal affect Results - Vitals Vitals: Vital Signs - 24 hr 07/14/19 07/14/19 07/14/19 18:49 20:18 21:03 Temperature 37.0 C Heart Rate 107 H 92 89 Respiratory 19 14 14 Rate Blood Pressure 151/80 H 124/75 127/73 O2 Saturation 95 94 95 Oxygen O2 Source Room air - Labs Labs: Laboratory Tests 07/14/19 07/14/19 07/14/19 19:14 19:40 19:40 WBC 4.7 L RBC 4.73 Hgb 13.9 L Hct 42.5 MCV 89.9 MCH 29.4 MCHC 32.7 RDW 16.9 H Plt Count 238 MPV 9.1 Neut # (Auto) 2.7 Lymph # (Auto) 1.5 [place] # (Auto) 0.4 Eos # (Auto) 0.0 Baso # (Auto) 0.0 Absolute Nucleated RBC 0.00 Nucleated RBC % 0.0 Sodium 141 Potassium 3.7 Chloride 101 Carbon Dioxide 24 Anion Gap 16.0 H BUN 8 Creatinine 0.9 Estimated GFR (MDRD) 97 Glucose 103 H Calcium 9.2 Total Bilirubin 0.9 AST 34 ALT 20 Alkaline Phosphatase 74 Total Protein 7.8 Albumin 4.2 Globulin 3.6 Albumin/Globulin Ratio 1.2 Lipase 75 H Urine Color YELLOW Urine Clarity CLEAR Urine pH 6.0 Ur Specific [place] >=1.030 H Urine Protein 100 H Urine Glucose (UA) NEGATIVE Urine Ketones TRACE Urine Occult Blood NEGATIVE Urine Nitrite NEGATIVE Urine Bilirubin NEGATIVE Urine Urobilinogen 1 (NORMAL) Ur Leukocyte Esterase NEGATIVE Urine RBC None Seen Urine WBC 0-3 Ur Squamous Epith Cells NONE SEEN Urine Bacteria None Seen Urine Casts 3-5 Hyaline Casts Urine Mucus Marked Strands Ur Microscopic Review INDICATED Urine Culture Comments NOT INDICATED Ethyl Alcohol 07/14/19 19:40 WBC RBC Hgb Hct MCV MCH MCHC RDW Plt Count MPV Neut # (Auto) Lymph # (Auto) [place] # (Auto) Eos # (Auto) Baso # (Auto) Absolute Nucleated RBC Nucleated RBC % Sodium Potassium Chloride Carbon Dioxide Anion Gap BUN Creatinine Estimated GFR (MDRD) Glucose Calcium Total Bilirubin AST ALT Alkaline Phosphatase Total Protein Albumin Globulin Albumin/Globulin Ratio Lipase Urine Color Urine Clarity Urine pH Ur Specific [place] Urine Protein Urine Glucose (UA) Urine Ketones Urine Occult Blood Urine Nitrite Urine Bilirubin Urine Urobilinogen Ur Leukocyte Esterase Urine RBC Urine WBC Ur Squamous Epith Cells Urine Bacteria Urine Casts Urine Mucus Ur Microscopic Review Urine Culture Comments Ethyl Alcohol 248.2 PD MEDICAL DECISION MAKING - ED course Complexity details: reviewed results, re-evaluated patient, considered differential, d/w patient ED course: 33-year-old male with alcoholic gastritis and likely acute on chronic pancreatitis. Mild elevation of his lipase, but his pancreas may be burned out from the chronic pancreatitis. He was given 3 doses of IV pain medication along with Zofran, Protonix and a GI cocktail. Pain did improve but still unable to eat or drink. Therefore will place in observation. Given IV fluids and a banana bag. Discussed the case with Dr. Kim, hospitalist who accepts This document was made in part using voice recognition software. While efforts are made to proofread this document, sound alike and grammatical errors may occur. Departure - Departure Disposition: ED Place in Observation Clinical Impression: Alcoholism /alcohol abuse Alcoholic gastritis Qualifiers: Chronicity: acute Gastritis bleeding: without bleeding Qualified Code(s): K29.20 - Alcoholic gastritis without bleeding Pancreatitis, alcoholic, acute Qualifiers: Acute pancreatitis complication: no infection or necrosis Qualified Code(s): K85.20 - Alcohol induced acute pancreatitis without necrosis or infection Condition: Stable Discharge Date/Time: 07/14/19 22:30
[2019-07-14] MEDS ORDERED: FAMOTIDINE 20 MG TABLET PO STA (20:53)
[2019-07-14] MEDS ORDERED: MAG HYDROX/AL HYDROX/SIMETH 30 ML UDC PO STA (20:53)
[2019-07-14] MEDS ORDERED: SUCRALFATE 1 GM/10 ML UDC PO STA (20:53)
[2019-07-14] MEDS ORDERED: FOLIC ACID INJ 1 MG, THIAMINE INJ 100 MG, MAGNESIUM SULFATE 2 GM, MULTIVITAMIN 10 ML in... IV STA ×5 (21:50)
[2019-07-14] MEDS ORDERED: ONDANSETRON 4 MG/2 ML VIAL IVP STA (21:51)
[2019-07-14] MEDS ORDERED: THIAMINE 100 MG/1 ML 2 ML MDV ONE (22:05)
--- NOTE | 2019-07-14 23:26 | HISTORY & PHYSICAL EXAMINATION ---
Chief Complaint - Chief Complaint Chief Complaint: Nausea and vomiting History of Present Illness - Admitted From Admitted From:: Home - History Obtained From Records Reviewed: Yes History obtained from: Patient, EMR - History of Present Illness HPI Comment/Other: This is a 33 year old male with a past medical history significant for epilepsy and alcohol abuse who presents from home complaining of nausea and vomiting that began yesterday evening. He reports that he has multiple episodes non bloody emesis that began yesterday and is associated with severe epigastric abdominal pain. He has been unable to eat but has continued to drink alcohol as he is able to keep down liquids. He has not taken any of his home medications for the past two days. He reports his last drink was 3pm today. He normally drinks 5-9 beers a day but today he was drinking liquor. He was just admitted one week ago for similar symptoms. He reports prior history of alcohol withdrawal and episodes of pancreatitis. He did try to quite alcohol one month ago and he reports going through detox and that he was sober for about two weeks ago before beginning to drink again. In the ER, he was initially hypertensive and tachycardic. Labs were significant for a lipase of 75. He received a GI cocktail and morphine with some improvement in his pain but unfortunately he was unable to tolerate oral intake. He will be admitted for further management. History - Past Medical History Cardiovascular: reports: None Respiratory: reports: None Neuro: reports: Seizure disorder Endocrine/Autoimmune: reports: None GI: reports: Pancreatitis : reports: None HEENT: reports: Glaucoma Psych: reports: Depression, Anxiety, Bipolar disorder Musculoskeletal: reports: Chronic back pain Derm: reports: None MRSA Hx?: No - Past Surgical History General: reports: Other (Hernia repair as a child) - Family & Social History Family History Comment/Other: He reports a strong family history of alcoholism. There is a history of glaucome and stroke on his father's side. Also a history of malignancy on his mother's side. Living arrangement: At home Living Situation: Alone Social History Notes: He moved to [facility] about two weeks ago to be closer to his 19 year old daughter. He previously lived in [place] and would spend part of his time here on [facility] for his [employer] business but is now living here permanently. He smokes about 6 cigars a day and has been smoking for most of his life. He has been drinking alcohol since the age of 6. Usually drinks 5-9 beers a day. Uses marijuana every couple days. Has a prior history of cocaine, meth, and heroin use but denies recent use. - Substance History Use: Uses substance without health or social issues: Tobacco, Cannabis Dependence: Experiences withdrawal or developed tolerances: Alcohol - POLST Patient has POLST: No Meds/Allgy - Home Medications Home Medications: Ambulatory Orders Medication Instructions Recorded Confirmed Cyanocobalamin (Vitamin B-12) 1,000 mcg PO DAILY 07/07/19 07/07/19 [Vitamin B-12] Folic Acid 1 mg PO DAILY 07/07/19 07/07/19 Gabapentin 300 mg PO TID 07/07/19 07/07/19 Levetiracetam [Keppra] 1,000 mg PO BID 07/07/19 07/07/19 Ondansetron HCl [Zofran] 4 mg PO Q6H PRN #15 tablet 07/07/19 Pantoprazole [Protonix] 40 mg PO DAILY 07/07/19 07/07/19 Senna [Senokot] 2 tab PO BID 07/07/19 07/07/19 Thiamine HCl [Vitamin B-1] 100 mg PO DAILY 07/07/19 07/07/19 traZODone [Desyrel] 50 mg PO DAILY PRN MDD 100 mg/24hr 07/07/19 07/07/19 - Allergies Allergies/Adverse Reactions: Allergies Allergy/AdvReac Type Severity Reaction Status Date / Time iodine Allergy Severe Respiratory Verified 07/14/19 18:51 Penicillins Allergy Unknown unk Verified 07/14/19 18:51 acetaminophen [From Vicodin] Allergy Itching Verified 07/14/19 22:56 hydrocodone [From Vicodin] Allergy Itching Verified 07/14/19 22:56 eggs AdvReac Intermediate Emesis Uncoded 07/14/19 18:51 Review of Systems - Constitutional Constitutional: reports: Poor appetite. denies: Fatigue, Fever, Chills - Cardiovascular Cariovascular: denies: Chest pain, Exertional dyspnea, Decr. exercise tolerance - Respiratory Respiratory: denies: SOB at rest, SOB with exertion - Gastrointestinal Gastrointestinal: reports: Abdominal pain, Constipation, Nausea, Vomiting, Reflux/heartburn, Poor appetite. denies: Diarrhea, Black stools, Bloody stools, blood emesis - Genitourinary Genitourinary: denies: Dysuria, Frequency - Musculoskeletal Musculoskeletal: reports: Back pain - Neurological Neurological: denies: Focal weakness - All Other Systems All Other Systems: reports: Reviewed and negative Prior Level of Functionality: Independent with ADL's Exam - Vital Signs Reviewed Vital Signs: Yes Vital Signs: Vital Signs x48h Temp Pulse Pulse Resp BP BP Pulse Ox 07/14/19 22:53 36.6 C 86 20 138/85 H 96 07/14/19 22:29 37 C 85 16 138/86 H 95 07/14/19 21:03 89 14 127/73 95 07/14/19 20:18 92 14 124/75 94 07/14/19 18:49 37.0 C 107 H 19 151/80 H 95 - Physical Exam General Appearance: positive: Alert, Mild distress Eyes Bilateral: positive: Normal inspection, Conjunctivae nml, No scleral icterus ENT: positive: ENT inspection nml, No signs of dehydration Neck: positive: Nml inspection Respiratory: positive: No respiratory distress. negative: Wheezes, Rales, Rhonchi Cardiovascular: positive: Regular rate & rhythm, No murmur. negative: Tachycardia, Bradycardia Abdomen: positive: Nml bowel sounds, No distention, Tenderness (Epigastric), Guarding. negative: Rebound Skin: positive: Color nml, No rash, Warm, Dry Extremities: positive: Full ROM, No pedal edema Neurologic/Psychiatric: positive: Oriented x3, Motor nml, Sensation nml. negative: Disoriented to person, Disoriented to place, Disoriented to time, Weakness Conclusion/Plan - Problem List (1) Pancreatitis, alcoholic, acute Conclusion/Plan: His presenting symptoms of nausea, vomiting, and epigastric abdominal pain are consistent with pancreatitis. Lipase minimally elevated in the 70's. - Continue IV hydration with LR - Morphine IV for pain control - IV antiemetics - Clear liquid diet as tolerated Qualifiers: Acute pancreatitis complication: no infection or necrosis Qualified Code(s): K85.20 - Alcohol induced acute pancreatitis without necrosis or infection (2) Epilepsy Conclusion/Plan: He is on Keppra at home. Most recent seizure was two weeks ago and he reports seizures occurring monthly. Has not taken Keppra for past two days. - Administer dose of Keppra now and continue home dose - Monitor for seizures - Will need outpatient neurology follow up (3) Alcohol use disorder Conclusion/Plan: Severe alcohol use disorder. He continues to drink alcohol and has had a history of withdrawal. He is open to the idea of treatment for his alcohol use. Current ethyl alcohol level is 248. - Banana bag - Monitor for signs of withdrawal - He may benefit from Naltrexone in addition to psychosocial therapy - Social work consult - Lab Results Lab results reviewed: Yes Fish Bones: 07/14/19 19:40 07/14/19 19:40 Core Measures - Anticipated LOS I expect patient to be DC'd or transferred within 96 hours.: Yes - Issues Hospital Issues and Management Plan: Gastritis and mild pancreatitis. IV fluids, pain control and antiemetics. - DVT/VTE - Prophylaxis VTE/DVT Device ordered at admit?: Yes VTE/DVT Prophylaxis med ordered at admit?: Yes
[2019-07-14] MEDS: levETIRAcetam 250 MG TABLET PO SCH (23:45)
[2019-07-15] MEDS: LACTATED RINGERS 1,000 ML IV SCH ×3 (01:04→19:35)
[2019-07-15] MEDS: SODIUM CHLORIDE FLUSH 0.9% 10 ML SYRINGE IVP SCH ×3 (01:13→15:37)
[2019-07-15] MEDS: LORazepam 2 MG/ML VIAL IVP PRN ×5 (01:44→20:18)
[2019-07-15] MEDS: SODIUM CHLORIDE FLUSH 0.9% 10 ML SYRINGE IVP PRN ×2 (01:49→20:18)
[2019-07-15] MEDS: MORPHINE 2 MG/ML CARPUJECT IVP PRN ×5 (02:17→21:17)
[2019-07-15] MEDS: ONDANSETRON 4 MG/2 ML VIAL IVP PRN (05:38)
[2019-07-15 06:09] LABS: BASOPHILS % (AUTO) 0.4 %; EOSINOPHILS # (AUTO) 0.1 10^3/uL (0.0-0.7); EOSINOPHILS % (AUTO) 2.3 %; HGB - HEMOGLOBIN 11.7 g/dL (14.0-18.0); LYMPHOCYTES # (AUTO) 1.9 10^3/uL (1.5-3.5); LYMPHOCYTES % (AUTO) 39.5 %; MEAN CORPUSCULAR HEMOGLOBIN 29.9 pg (27.0-31.0); MEAN CORPUSCULAR HGB CONC 32.6 g/dL (32.0-36.0); MEAN CORPUSCULAR VOLUME 91.8 fL (80.0-94.0); MEAN PLATELET VOLUME 8.9 fL (7.4-11.4); MONOCYTES # (AUTO) 0.5 10^3/uL (0.0-1.0); MONOCYTES % (AUTO) 10.5 %; NEUTROPHILS # (AUTO) 2.3 10^3/uL (1.5-6.6); NEUTROPHILS % (AUTO) 47.1 %; PLT - PLATELET COUNT 155 10^3/uL (130-450); RED BLOOD COUNT 3.91 10^6/uL (4.70-6.10); RED CELL DISTRIBUTION WIDTH 16.6 % (12.0-15.0); WHITE BLOOD COUNT 4.8 x10^3/uL (4.8-10.8)
[2019-07-15] MEDS: PANTOPRAZOLE 40 MG TABLET PO SCH (06:12)
[2019-07-15 06:18] LABS: CALCIUM 7.7 mg/dL (8.5-10.3); CREATININE 0.6 mg/dL (0.6-1.2); MAGNESIUM 2.3 mg/dL (1.7-2.8); PHOSPHORUS 2.8 mg/dL (2.5-4.6)
[2019-07-15] MEDS: levETIRAcetam 250 MG TABLET PO SCH ×2 (08:08→20:17)
[2019-07-15] MEDS: GABAPENTIN 300 MG CAPSULE PO SCH ×3 (08:09→21:06)
[2019-07-15] MEDS: DOCUSATE SODIUM 250 MG CAPSULE PO SCH (08:09)
[2019-07-15] MEDS: SENNA 8.6 MG TABLET PO SCH (08:09)
--- NOTE | 2019-07-15 11:27 | PROVIDER PROGRESS NOTE ---
Subjective - Prog Note Date Prog Note Date: 07/15/19 - Subjective Pt reports feeling: No change Subjective: pt report he will try to eat clear liquid diet but finally he fail, he felt very nausea. he report he is willing to quit alcohol, consult for manager social media to get some help for pt. Otherwise pt denies chest pain, fever, chill, shortness of breath. Current Medications - Current Medications Current Medications: Active Medications Docusate Sodium (Colace 250mg Capsule) 250 - 500 mg PO DAILY [facility] Last Admin: 07/15/19 08:09 Dose: 250 mg Gabapentin (Neurontin) 300 mg PO TID [facility] Last Admin: 07/15/19 08:09 Dose: 300 mg Lactated Ringer's (Lr) 1,000 mls @ 100 mls/hr IV .Q10H [facility] Last Admin: 07/15/19 10:21 Dose: 100 mls/hr Multivitamins 10 ml/ Thiamine HCl 100 mg/ Folic Acid 1 mg/Potassium Chloride/Dextrose/Sod Cl 1,011.2 mls @ 100 mls/hr IV Q24H [facility] Levetiracetam (Keppra) 1,000 mg PO BID [facility] Last Admin: 07/15/19 08:08 Dose: 1,000 mg Lorazepam (Ativan Inj (Vial)) 1 mg IVP Q30M PRN; Protocol PRN Reason: CIWA >8 Last Admin: 07/15/19 08:48 Dose: 1 mg Morphine Sulfate (Morphine (Carpuject)) 2 mg IVP Q4HR PRN PRN Reason: PAIN Last Admin: 07/15/19 06:13 Dose: 2 mg Ondansetron HCl (Zofran Inj) 4 mg IVP Q6HR PRN PRN Reason: Nausea / Vomiting Last Admin: 07/15/19 05:38 Dose: 4 mg Pantoprazole Sodium (Protonix) 40 mg PO QDAC [facility] Last Admin: 07/15/19 06:12 Dose: 40 mg Senna (Senokot) 8.6 - 17.2 mg PO DAILY [facility] Last Admin: 07/15/19 08:09 Dose: 8.6 mg Sodium Chloride (Normal Saline Flush 0.9%) 10 ml IVP PRN PRN PRN Reason: NEEDED PER PROVIDER ORDERS Last Admin: 07/15/19 01:49 Dose: 10 ml Sodium Chloride (Normal Saline Flush 0.9%) 10 ml IVP 0100,0900,1700 [facility] Last Admin: 07/15/19 01:13 Dose: 10 ml Cyanocobalamin (Vitamin B-12) [Vitamin B-12] 1,000 mcg PO DAILY 07/07/19 Folic Acid 1 mg PO DAILY 07/07/19 Gabapentin 300 mg PO TID 07/07/19 Levetiracetam [Keppra] 1,000 mg PO BID 07/07/19 Pantoprazole [Protonix] 40 mg PO DAILY 07/07/19 Senna [Senokot] 1 tab PO DAILY 07/07/19 Thiamine HCl [Vitamin B-1] 100 mg PO DAILY 07/07/19 traZODone [Desyrel] 50 mg PO DAILY PRN MDD 100 mg/24hr 07/07/19 Objective - Vital Signs/Intake & Output Reviewed Vital Signs: Yes Vital Signs: Vital Signs x48h Temp Pulse Resp BP Pulse Ox 07/15/19 08:38 36.5 C 07/15/19 08:00 58 L 15 116/74 96 07/15/19 05:30 36.3 C L 59 L 16 124/70 95 Intake & Output: Intake & Output 07/12/19 07/13/19 07/14/19 07/15/19 23:59 23:59 23:59 23:59 Intake Total 1999 2313.533 Output Total 400 Balance 1999 1913.533 - Objective General Appearance: positive: No acute distress, Alert. negative: Lethargic Eyes Bilateral: positive: Normal inspection, PERRL, No lid inflammation, Conjunctivae nml ENT: positive: ENT inspection nml, Pharynx nml, No signs of dehydration. negative: Purulent nasal drainage, Pharyngeal erythema, Oral lesions Neck: positive: Nml inspection, Thyroid nml, No JVD, Trachea midline. negative: Thyromegaly, Lymphadenopathy (R), Lymphadenopathy (L), Stiff neck, Swelling/bruising, Tracheal deviation Respiratory: positive: Chest non-tender, No respiratory distress. negative: Wheezes, Rales, Rhonchi Cardiovascular: positive: Regular rate & rhythm, No murmur, No gallop. negati ve: Irregularly irregular, Extrasystoles, Tachycardia, Bradycardia, JVD present, Systolic murmur, Diastolic murmur Peripheral Pulses: 2+ Radial (R), 2+ Radial (L), 2+ Dorsalis pedis (R), 2+ Dorsalis pedis (L) Abdomen: positive: Non-tender, No organomegaly, Nml bowel sounds, No distention. negative: Tenderness, Guarding, Rebound Back: positive: Nml inspection. negative: CVA tenderness (R), CVA tenderness (L) Skin: positive: Color nml, No rash, Warm, Dry. negative: Cyanosis, Diaphoresis, Pallor Extremities: positive: Non-tender, Full ROM, Nml appearance. negative: Calf tenderness, Joint swelling, Gabby's sign/cords Neurologic/Psychiatric: negative: Weakness, Sensory loss, Facial droop, Slurred/abnml speech, Depressed mood/affect - Lab Results Fish Bones: 07/15/19 05:30 07/15/19 05:30 Other Labs: Lab Results x24hrs 07/15/19 07/15/19 07/14/19 Range/Units 05:30 05:30 19:40 WBC 4.8 (4.8-10.8) x10^3/uL RBC 3.91 L (4.70-6.10) 10^6/uL Hgb 11.7 L (14.0-18.0) g/dL Hct 35.9 L (42.0-52.0) % MCV 91.8 (80.0-94.0) fL MCH 29.9 (27.0-31.0) pg MCHC 32.6 (32.0-36.0) g/dL RDW 16.6 H (12.0-15.0) % Plt Count 155 (130-450) 10^3/uL MPV 8.9 (7.4-11.4) fL Neut # (Auto) 2.3 (1.5-6.6) 10^3/uL Lymph # (Auto) 1.9 (1.5-3.5) 10^3/uL Crowley # (Auto) 0.5 (0.0-1.0) 10^3/uL Eos # (Auto) 0.1 (0.0-0.7) 10^3/uL Baso # (Auto) 0.0 (0.0-0.1) 10^3/uL Absolute Nucleated RBC 0.00 x10^3/uL Nucleated RBC % 0.0 /100WBC Sodium 139 (135-145) mmol/L Potassium 3.6 (3.5-5.0) mmol/L Chloride 104 (101-111) mmol/L Carbon Dioxide 26 (21-32) mmol/L Anion Gap 9.0 (6-13) BUN 6 (6-20) mg/dL Creatinine 0.6 (0.6-1.2) mg/dL Estimated GFR (MDRD) 154 (>89) Glucose 78 (70-100) mg/dL Calcium 7.7 L (8.5-10.3) mg/dL Phosphorus 2.8 (2.5-4.6) mg/dL Magnesium 2.3 (1.7-2.8) mg/dL Total Bilirubin (0.2-1.0) mg/dL AST (10-42) IU/L ALT (10-60) IU/L Alkaline Phosphatase (42-121) IU/L Total Protein (6.7-8.2) g/dL Albumin (3.2-5.5) g/dL Globulin (2.1-4.2) g/dL Albumin/Globulin Ratio (1.0-2.2) Lipase (22-51) U/L Urine Color Urine Clarity (CLEAR) Urine pH (5.0-7.5) PH Ur Specific Ainsworth (1.002-1.030) Urine Protein (NEGATIVE) mg/dL Urine Glucose (UA) (NEGATIVE) mg/dL Urine Ketones (NEGATIVE) mg/dL Urine Occult Blood (NEGATIVE) Urine Nitrite (NEGATIVE) Urine Bilirubin (NEGATIVE) Urine Urobilinogen (NORMAL) E.U./dL Ur Leukocyte Esterase (NEGATIVE) Urine RBC (0-5) /HPF Urine WBC (0-3) /HPF Ur Squamous Epith Cells (<= Few) Urine Bacteria (None Seen) /HPF Urine Casts /LPF Urine Mucus Ur Microscopic Review Urine Culture Comments Ethyl Alcohol 248.2 mg/dL 07/14/19 07/14/19 07/14/19 Range/Units 19:40 19:40 19:14 WBC 4.7 L (4.8-10.8) x10^3/uL RBC 4.73 (4.70-6.10) 10^6/uL Hgb 13.9 L (14.0-18.0) g/dL Hct 42.5 (42.0-52.0) % MCV 89.9 (80.0-94.0) fL MCH 29.4 (27.0-31.0) pg MCHC 32.7 (32.0-36.0) g/dL RDW 16.9 H (12.0-15.0) % Plt Count 238 (130-450) 10^3/uL MPV 9.1 (7.4-11.4) fL Neut # (Auto) 2.7 (1.5-6.6) 10^3/uL Lymph # (Auto) 1.5 (1.5-3.5) 10^3/uL Crowley # (Auto) 0.4 (0.0-1.0) 10^3/uL Eos # (Auto) 0.0 (0.0-0.7) 10^3/uL Baso # (Auto) 0.0 (0.0-0.1) 10^3/uL Absolute Nucleated RBC 0.00 x10^3/uL Nucleated RBC % 0.0 /100WBC Sodium 141 (135-145) mmol/L Potassium 3.7 (3.5-5.0) mmol/L Chloride 101 (101-111) mmol/L Carbon Dioxide 24 (21-32) mmol/L Anion Gap 16.0 H (6-13) BUN 8 (6-20) mg/dL Creatinine 0.9 (0.6-1.2) mg/dL Estimated GFR (MDRD) 97 (>89) Glucose 103 H (70-100) mg/dL Calcium 9.2 (8.5-10.3) mg/dL Phosphorus (2.5-4.6) mg/dL Magnesium (1.7-2.8) mg/dL Total Bilirubin 0.9 (0.2-1.0) mg/dL AST 34 (10-42) IU/L ALT 20 (10-60) IU/L Alkaline Phosphatase 74 (42-121) IU/L Total Protein 7.8 (6.7-8.2) g/dL Albumin 4.2 (3.2-5.5) g/dL Globulin 3.6 (2.1-4.2) g/dL Albumin/Globulin Ratio 1.2 (1.0-2.2) Lipase 75 H (22-51) U/L Urine Color YELLOW Urine Clarity CLEAR (CLEAR) Urine pH 6.0 (5.0-7.5) PH Ur Specific Ainsworth >=1.030 H (1.002-1.030) Urine Protein 100 H (NEGATIVE) mg/dL Urine Glucose (UA) NEGATIVE (NEGATIVE) mg/dL Urine Ketones TRACE (NEGATIVE) mg/dL Urine Occult Blood NEGATIVE (NEGATIVE) Urine Nitrite NEGATIVE (NEGATIVE) Urine Bilirubin NEGATIVE (NEGATIVE) Urine Urobilinogen 1 (NORMAL) (NORMAL) E.U./dL Ur Leukocyte Esterase NEGATIVE (NEGATIVE) Urine RBC None Seen (0-5) /HPF Urine WBC 0-3 (0-3) /HPF Ur Squamous Epith Cells NONE SEEN (<= Few) Urine Bacteria None Seen (None Seen) /HPF Urine Casts 3-5 Hyaline Casts /LPF Urine Mucus Marked Strands Ur Microscopic Review INDICATED Urine Culture Comments NOT INDICATED Ethyl Alcohol mg/dL ABX Reporting Has patient been on IV antibiotics over the past 48 hours?: No Sepsis Event Note (H) - Evaluation Current Stage of Sepsis: Ruled out Assessment/Plan - Problem List (1) Pancreatitis, alcoholic, acute Impression: 07/15 pt has hx of alcoholic pancreatitis. he continue to drink alcohol. today Lipase is only 75, likely caused by withdrawal from alcohol continue clear diet PRN antiemetics continue treat underline alcohol withdrawal with CIWA, ativan PRN continue IVF (2) Epilepsy Conclusion/Plan: continue Keppra. pt has no seizure as far advise pt followup outpatient neurology (3) acute Alcohol withdrawal Conclusion/Plan: pt has long hx of alcohol abuse and alcohol withdrawal. today pt present hand tremor, agitation, and nausea, loss of appetite, can not swallow down. continue CIWA, Ativan PRN continue Banana bag manager social media consult. Qualifiers: Acute pancreatitis complication: no infection or necrosis Qualified Code(s): K85.20 - Alcohol induced acute pancreatitis without necrosis or infecti on
[2019-07-15] MEDS ORDERED: THIAMINE 100 MG/1 ML 2 ML MDV ONE ×2 (21:04→21:22)
[2019-07-15] MEDS ORDERED: D5.45NS W/20 MEQ KCL 1,000 ML IV ONE (21:07)
[2019-07-15] MEDS: MULTIVITAMIN 10 ML, THIAMINE INJ 100 MG, FOLIC ACID INJ 1 MG in D5.45NS W/20 MEQ KCL 1,... IV SCH (21:17)
[2019-07-16] MEDS: SODIUM CHLORIDE FLUSH 0.9% 10 ML SYRINGE IVP SCH ×3 (00:55→17:05)
[2019-07-16] MEDS: ONDANSETRON 4 MG/2 ML VIAL IVP PRN ×3 (00:55→18:34)
[2019-07-16] MEDS: SODIUM CHLORIDE FLUSH 0.9% 10 ML SYRINGE IVP PRN ×2 (00:59→05:33)
[2019-07-16] MEDS: LORazepam 2 MG/ML VIAL IVP PRN ×6 (00:59→21:37)
[2019-07-16] MEDS: MORPHINE 2 MG/ML CARPUJECT IVP PRN ×6 (01:03→19:51)
[2019-07-16] MEDS: PANTOPRAZOLE 40 MG TABLET PO SCH (06:25)
[2019-07-16] MEDS: GABAPENTIN 300 MG CAPSULE PO SCH ×3 (06:25→21:38)
[2019-07-16] MEDS: LACTATED RINGERS 1,000 ML IV SCH ×2 (06:53→16:59)
[2019-07-16] MEDS: SENNA 8.6 MG TABLET PO SCH (08:06)
[2019-07-16] MEDS: DOCUSATE SODIUM 250 MG CAPSULE PO SCH (08:06)
[2019-07-16] MEDS: levETIRAcetam 250 MG TABLET PO SCH (08:07)
[2019-07-16 08:17] LABS: BASOPHILS % (AUTO) 0.6 %; EOSINOPHILS # (AUTO) 0.2 10^3/uL (0.0-0.7); EOSINOPHILS % (AUTO) 3.2 %; HGB - HEMOGLOBIN 13.7 g/dL (14.0-18.0); LYMPHOCYTES # (AUTO) 1.5 10^3/uL (1.5-3.5); LYMPHOCYTES % (AUTO) 27.6 %; MEAN CORPUSCULAR HEMOGLOBIN 30.4 pg (27.0-31.0); MEAN CORPUSCULAR HGB CONC 32.8 g/dL (32.0-36.0); MEAN CORPUSCULAR VOLUME 92.9 fL (80.0-94.0); MEAN PLATELET VOLUME 8.8 fL (7.4-11.4); MONOCYTES # (AUTO) 0.6 10^3/uL (0.0-1.0); MONOCYTES % (AUTO) 10.5 %; NEUTROPHILS # (AUTO) 3.1 10^3/uL (1.5-6.6); NEUTROPHILS % (AUTO) 57.9 %; PLT - PLATELET COUNT 176 10^3/uL (130-450); WHITE BLOOD COUNT 5.3 x10^3/uL (4.8-10.8)
[2019-07-16] MEDS ORDERED: CALCIUM GLUCONATE 1,000 MG in SODIUM CHLORIDE 0.9% 50 ML IV ONE (08:30)
[2019-07-16 08:34] LABS: BUN - BLOOD UREA NITROGEN < 5 mg/dL (6-20); CALCIUM 8.9 mg/dL (8.5-10.3); CARBON DIOXIDE - CO2 28 mmol/L (21-32); CHLORIDE 105 mmol/L (101-111); CREATININE 0.6 mg/dL (0.6-1.2); GFR - MDRD 154 (>89); GLUCOSE 114 mg/dL (70-100); SODIUM 139 mmol/L (135-145)
[2019-07-16] MEDS ORDERED: MAGNESIUM HYDROXIDE 2,400 MG/30 ML UDC PO SCH (13:50)
[2019-07-16] MEDS ORDERED: LORazepam 2 MG/ML VIAL IVP STA (14:11)
[2019-07-16] MEDS ORDERED: LORazepam 2 MG/ML VIAL IVP PRN (14:13)
--- NOTE | 2019-07-16 14:23 | PROVIDER PROGRESS NOTE ---
Subjective - Prog Note Date Prog Note Date: 07/16/19 - Subjective Pt reports feeling: No change Subjective: pt was reported to have seizure. pt was immediately assessed. pt's air way was intact. seizure protocol was immediately initiated. Pt was given Ativan until seizure was stopped. PRN Ativan was ordered, keppra was changed to IV now. pt was hemodynamic stable s/p seizure. Current Medications - Current Medications Current Medications: Active Medications Docusate Sodium (Colace 250mg Capsule) 250 - 500 mg PO DAILY [facility] Last Admin: 07/16/19 08:06 Dose: 250 mg Gabapentin (Neurontin) 300 mg PO TID [facility] Last Admin: 07/16/19 13:32 Dose: 300 mg Lactated Ringer's (Lr) 1,000 mls @ 100 mls/hr IV .Q10H [facility] Last Infusion: 07/16/19 09:20 Dose: 100 mls/hr Multivitamins 10 ml/ Thiamine HCl 100 mg/ Folic Acid 1 mg/Potassium Chloride/Dextrose/Sod Cl 1,011.2 mls @ 100 mls/hr IV Q24H [facility] Last Infusion: 07/16/19 08:05 Dose: Infused Levetiracetam 1,000 mg/ Sodium (Chloride) 110 mls @ 400 mls/hr IV BID [facility] Lorazepam (Ativan Inj (Vial)) 1 mg IVP Q30M PRN; Protocol PRN Reason: CIWA >8 Last Admin: 07/16/19 12:00 Dose: 1 mg Lorazepam (Ativan Inj (Vial)) 2 mg IVP Q5M PRN PRN Reason: Seizure Magnesium Hydroxide (Milk Of Magnesia) 2,400 - 4,800 mg PO ONCE [facility] Stop: 07/16/19 14:50 Last Admin: 07/16/19 13:59 Dose: 4,800 mg Morphine Sulfate (Morphine (Carpuject)) 2 mg IVP Q3HR PRN PRN Reason: PAIN Last Admin: 07/16/19 12:49 Dose: 2 mg Ondansetron HCl (Zofran Inj) 4 mg IVP Q6HR PRN PRN Reason: Nausea / Vomiting Last Admin: 07/16/19 08:17 Dose: 4 mg Pantoprazole Sodium (Protonix) 40 mg PO QDAC [facility] Last Admin: 07/16/19 06:25 Dose: 40 mg Senna (Senokot) 8.6 - 17.2 mg PO DAILY [facility] Last Admin: 07/16/19 08:06 Dose: 17.2 mg Sodium Chloride (Normal Saline Flush 0.9%) 10 ml IVP PRN PRN PRN Reason: NEEDED PER PROVIDER ORDERS Last Admin: 07/16/19 05:33 Dose: 10 ml Sodium Chloride (Normal Saline Flush 0.9%) 10 ml IVP 0100,0900,1700 [facility] Last Admin: 07/16/19 08:17 Dose: 10 ml Cyanocobalamin (Vitamin B-12) [Vitamin B-12] 1,000 mcg PO DAILY 07/07/19 Folic Acid 1 mg PO DAILY 07/07/19 Gabapentin 300 mg PO TID 07/07/19 Levetiracetam [Keppra] 1,000 mg PO BID 07/07/19 Pantoprazole [Protonix] 40 mg PO DAILY 07/07/19 Senna [Senokot] 1 tab PO DAILY 07/07/19 Thiamine HCl [Vitamin B-1] 100 mg PO DAILY 07/07/19 traZODone [Desyrel] 50 mg PO DAILY PRN MDD 100 mg/24hr 07/07/19 Objective - Vital Signs/Intake & Output Reviewed Vital Signs: Yes Vital Signs: Vital Signs x48h Temp Pulse Resp BP BP Pulse Ox 07/16/19 14:18 37.3 C 65 16 141/84 H 96 07/16/19 14:15 67 16 149/82 H 98 07/16/19 07:30 36.5 C 57 L 18 123/74 96 Intake & Output: Intake & Output 07/13/19 07/14/19 07/15/19 07/16/19 23:59 23:59 23:59 23:59 Intake Total 1999 3790.199 1431.2 Output Total 2200 2600 Balance 1999 1590.199 -1168.8 - Objective General Appearance: positive: No acute distress, Alert. negative: Lethargic Eyes Bilateral: positive: Normal inspection, PERRL, No lid inflammation, Conjunctivae nml ENT: positive: ENT inspection nml, Pharynx nml, No signs of dehydration. nega tive: Purulent nasal drainage, Pharyngeal erythema, Oral lesions Neck: positive: Nml inspection, Thyroid nml, No JVD, Trachea midline. negative: Thyromegaly, Lymphadenopathy (R), Lymphadenopathy (L), Stiff neck, Swelling/bruising, Tracheal deviation Respiratory: positive: Chest non-tender, No respiratory distress, Breath sounds nml. negative: Wheezes, Rales, Rhonchi Cardiovascular: positive: Regular rate & rhythm, No murmur, No gallop. negative: Irregularly irregular, Extrasystoles, Tachycardia, Bradycardia, JVD present, Systolic murmur, Diastolic murmur Peripheral Pulses: 2+ Radial (R), 2+ Radial (L), 2+ Dorsalis pedis (R), 2+ Dorsalis pedis (L) Abdomen: positive: Non-tender, No organomegaly, Nml bowel sounds, No distention. negative: Tenderness, Guarding, Rebound Back: positive: Nml inspection. negative: CVA tenderness (R), CVA tenderness (L) Skin: positive: Color nml, No rash, Warm, Dry. negative: Cyanosis, Diaphoresis, Pallor Extremities: positive: Non-tender, Full ROM, Nml appearance. negative: Calf tenderness, Joint swelling, Gabby's sign/cords Neurologic/Psychiatric: positive: Motor nml, Sensation nml. negative: Weakness, Sensory loss, Facial droop, Slurred/abnml speech, Depressed mood/affect - Lab Results Fish Bones: 07/16/19 08:10 07/16/19 08:10 Other Labs: Lab Results x24hrs 07/16/19 07/16/19 07/16/19 Range/Units 11:07 08:10 08:10 WBC 5.3 (4.8-10.8) x10^3/uL RBC 4.50 L (4.70-6.10) 10^6/uL Hgb 13.7 L (14.0-18.0) g/dL Hct 41.8 L (42.0-52.0) % MCV 92.9 (80.0-94.0) fL MCH 30.4 (27.0-31.0) pg MCHC 32.8 (32.0-36.0) g/dL RDW 16.0 H (12.0-15.0) % Plt Count 176 (130-450) 10^3/uL MPV 8.8 (7.4-11.4) fL Neut # (Auto) 3.1 (1.5-6.6) 10^3/uL Lymph # (Auto) 1.5 (1.5-3.5) 10^3/uL [place] # (Auto) 0.6 (0.0-1.0) 10^3/uL Eos # (Auto) 0.2 (0.0-0.7) 10^3/uL Baso # (Auto) 0.0 (0.0-0.1) 10^3/uL Absolute Nucleated RBC 0.00 x10^3/uL Nucleated RBC % 0.0 /100WBC Sodium 139 (135-145) mmol/L Potassium 4.0 (3.5-5.0) mmol/L Chloride 105 (101-111) mmol/L Carbon Dioxide 28 (21-32) mmol/L Anion Gap 6.0 (6-13) BUN < 5 L (6-20) mg/dL Creatinine 0.6 (0.6-1.2) mg/dL Estimated GFR (MDRD) 154 (>89) Glucose 114 H (70-100) mg/dL POC Whole Bld Glucose 122 H (70 - 100) mg/dL Calcium 8.9 (8.5-10.3) mg/dL Lipase (22-51) U/L 07/16/19 07/16/19 07/15/19 Range/Units 07:27 05:21 21:13 WBC (4.8-10.8) x10^3/uL RBC (4.70-6.10) 10^6/uL Hgb (14.0-18.0) g/dL Hct (42.0-52.0) % MCV (80.0-94.0) fL MCH (27.0-31.0) pg MCHC (32.0-36.0) g/dL RDW (12.0-15.0) % Plt Count (130-450) 10^3/uL MPV (7.4-11.4) fL Neut # (Auto) (1.5-6.6) 10^3/uL Lymph # (Auto) (1.5-3.5) 10^3/uL [place] # (Auto) (0.0-1.0) 10^3/uL Eos # (Auto) (0.0-0.7) 10^3/uL Baso # (Auto) (0.0-0.1) 10^3/uL Absolute Nucleated RBC x10^3/uL Nucleated RBC % /100WBC Sodium (135-145) mmol/L Potassium (3.5-5.0) mmol/L Chloride (101-111) mmol/L Carbon Dioxide (21-32) mmol/L Anion Gap (6-13) BUN (6-20) mg/dL Creatinine (0.6-1.2) mg/dL Estimated GFR (MDRD) (>89) Glucose (70-100) mg/dL POC Whole Bld Glucose 136 H 117 H (70 - 100) mg/dL Calcium (8.5-10.3) mg/dL Lipase 29 (22-51) U/L ABX Reporting Has patient been on IV antibiotics over the past 48 hours?: No Sepsis Event Note (H) - Evaluation Current Stage of Sepsis: Ruled out Assessment/Plan - Problem List (1) Pancreatitis, alcoholic, acute Impression: 07/16 pt's lipase is down to normal. pt prefer full liquid diet, advance diet as pt tolerate 07/15 pt has hx of alcoholic pancreatitis. he continue to drink alcohol. today Lipase is only 75, likely caused by withdrawal from alcohol continue clear diet PRN antiemetics continue treat underline alcohol withdrawal with CIWA, ativan PRN continue IVF (2) acute seizure Conclusion/Plan: today afternoon, pt had once acute seizure. pt has hx of seizure on keppra. pt is hemodynamic stable s/p seizure IV of Ativan 2mg once. PRN Q5M ativan for seizure change PO Keppra to IV of Keppra advise pt followup neurologist and EEG study as out-pt continue neuro check continue Keppra. pt has no seizure as far advise pt followup outpatient neurology (3) acute Alcohol withdrawal Conclusion/Plan: improve, continue CIWA, continue Banana bag. pt has long hx of alcohol abuse and alcohol withdrawal. today pt present hand tremor, agitation, and nausea, loss of appetite, can not swallow down. continue CIWA, Ativan PRN continue Banana bag social work therapist consult. Qualifiers: Acute pancreatitis complication: no infection or necrosis Qualified Code(s ): K85.20 - Alcohol induced acute pancreatitis without necrosis or infection
[2019-07-16] MEDS ORDERED: levETIRAcetam INJ 1,000 MG in SODIUM CHLORIDE 0.9% 100ML 100 ML IV SCH (21:00)
[2019-07-16] MEDS: MULTIVITAMIN 10 ML, THIAMINE INJ 100 MG, FOLIC ACID INJ 1 MG in D5.45NS W/20 MEQ KCL 1,... IV SCH (22:14)
[2019-07-17] MEDS: LACTATED RINGERS 1,000 ML IV SCH ×3 (00:16→23:23)
[2019-07-17] MEDS: SODIUM CHLORIDE FLUSH 0.9% 10 ML SYRINGE IVP SCH ×3 (00:24→19:26)
[2019-07-17] MEDS: LORazepam 2 MG/ML VIAL IVP PRN ×3 (00:24→23:50)
[2019-07-17] MEDS: MORPHINE 2 MG/ML CARPUJECT IVP PRN ×3 (00:24→07:47)
[2019-07-17 05:35] LABS: BASOPHILS % (AUTO) 0.5 %; EOSINOPHILS # (AUTO) 0.1 10^3/uL (0.0-0.7); EOSINOPHILS % (AUTO) 1.8 %; HGB - HEMOGLOBIN 14.6 g/dL (14.0-18.0); LYMPHOCYTES # (AUTO) 1.6 10^3/uL (1.5-3.5); LYMPHOCYTES % (AUTO) 35.8 %; MEAN CORPUSCULAR HEMOGLOBIN 30.3 pg (27.0-31.0); MEAN CORPUSCULAR VOLUME 91.7 fL (80.0-94.0); MONOCYTES # (AUTO) 0.4 10^3/uL (0.0-1.0); MONOCYTES % (AUTO) 8.7 %; NEUTROPHILS # (AUTO) 2.3 10^3/uL (1.5-6.6); PLT - PLATELET COUNT 188 10^3/uL (130-450); RED BLOOD COUNT 4.82 10^6/uL (4.70-6.10); RED CELL DISTRIBUTION WIDTH 15.6 % (12.0-15.0); WHITE BLOOD COUNT 4.4 x10^3/uL (4.8-10.8)
[2019-07-17 05:52] LABS: BUN - BLOOD UREA NITROGEN < 5 mg/dL (6-20); CALCIUM 9.5 mg/dL (8.5-10.3); CARBON DIOXIDE - CO2 29 mmol/L (21-32); CHLORIDE 103 mmol/L (101-111); CREATININE 0.7 mg/dL (0.6-1.2); GFR - MDRD 129 (>89); GLUCOSE 119 mg/dL (70-100); LIPASE 26 U/L (22-51); SODIUM 141 mmol/L (135-145)
[2019-07-17] MEDS: GABAPENTIN 300 MG CAPSULE PO SCH ×3 (06:17→22:28)
[2019-07-17] MEDS: PANTOPRAZOLE 40 MG TABLET PO SCH (06:17)
[2019-07-17] MEDS: SENNA 8.6 MG TABLET PO SCH (09:11)
[2019-07-17] MEDS: ONDANSETRON 4 MG/2 ML VIAL IVP PRN ×3 (09:11→23:50)
[2019-07-17] MEDS: DOCUSATE SODIUM 250 MG CAPSULE PO SCH (09:11)
[2019-07-17] MEDS: levETIRAcetam INJ 1,000 MG in SODIUM CHLORIDE 0.9% 100ML 100 ML IV SCH ×2 (09:20→21:11)
[2019-07-17] MEDS ORDERED: diazePAM 5 MG TABLET PO SCH (11:48)
[2019-07-17] MEDS ORDERED: traZODone 50 MG TABLET PO PRN (11:49)
[2019-07-17] MEDS: NICOTINE 14 MG PATCH TOP SCH (12:04)
[2019-07-17] MEDS: PRENATAL VITAMIN TABLET PO SCH (12:04)
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
[2019-07-17] MEDS: lamoTRIgine 25 MG TABLET PO SCH (13:50)
--- NOTE | 2019-07-17 15:30 | MRI Report ---
Reason: seizures Procedure Date: 07/17/2019 Accession Number: [id number] / [id number] Procedure: MRI - Brain W/O CPT Code: FULL RESULT: EXAM: MRI BRAIN WITHOUT CONTRAST EXAM DATE: 07/17/2019 03:12 PM. CLINICAL HISTORY: 33-year-old with history of seizure. Evaluate for intracranial pathology. COMPARISON: CT head 07/08/2019, 05/20/2018. TECHNIQUE: Multiplanar, multisequence T1-weighted and fluid-sensitive MR sequences of the brain were performed. Sequences optimized for routine evaluation. Other: None. IV Contrast: None. FINDINGS: Brain Volume: Normal for age. Parenchyma/Dura: No mass, acute infarct or hemorrhage. No white matter lesions identified. Hippocampus: The hippocampi appear symmetric in size and signal intensity. The internal architecture appears intact. Ventricles/Cisterns: No hydrocephalus. No abnormal extra-axial fluid collection or hemorrhage. Orbits: Symmetric and unremarkable. Sella [place]: The pituitary gland, cavernous sinuses, suprasellar cistern and optic chiasm are unremarkable. IAC: Symmetric and unremarkable. Vasculature: Normal signal flow void is seen in the major arterial structures at the skull base. Sinuses: No acute appearing sinus disease. Bones: No focal pathologic appearing marrow signal changes. Other: Incidentally seen is a T2 hyperintense lesion within the inferior aspect of the left pinna measuring 8 x 8 mm (series 901, image 14) of unclear etiology, but may represent cyst. IMPRESSION: 1. No definite acute intracranial pathology seen; specifically, no acute infarct, acute intracranial hemorrhage, mass, hydrocephalus or midline shift. 2. No definite white matter lesion seen. 3. No qualitative MR evidence to suggest mesial temporal lobe sclerosis. RADIA
[2019-07-17] MEDS: HYDROmorphone 1 MG/ML CARPUJECT IVP PRN ×3 (16:54→23:50)
[2019-07-17] MEDS: SODIUM CHLORIDE FLUSH 0.9% 10 ML SYRINGE IVP PRN (21:13)
[2019-07-18] MEDS: SODIUM CHLORIDE FLUSH 0.9% 10 ML SYRINGE IVP SCH ×2 (01:02→08:12)
[2019-07-18] MEDS: GABAPENTIN 300 MG CAPSULE PO SCH ×2 (05:16→13:56)
[2019-07-18] MEDS: HYDROmorphone 1 MG/ML CARPUJECT IVP PRN ×4 (05:17→13:57)
[2019-07-18 05:32] LABS: CALCIUM 9.3 mg/dL (8.5-10.3); CREATININE 0.8 mg/dL (0.6-1.2); MAGNESIUM 2.2 mg/dL (1.7-2.8)
[2019-07-18 05:34] LABS: BASOPHILS % (AUTO) 0.4 %; EOSINOPHILS # (AUTO) 0.2 10^3/uL (0.0-0.7); EOSINOPHILS % (AUTO) 4.2 %; HGB - HEMOGLOBIN 14.2 g/dL (14.0-18.0); LYMPHOCYTES # (AUTO) 2.2 10^3/uL (1.5-3.5); LYMPHOCYTES % (AUTO) 45.3 %; MEAN CORPUSCULAR HEMOGLOBIN 29.1 pg (27.0-31.0); MEAN CORPUSCULAR HGB CONC 31.5 g/dL (32.0-36.0); MEAN CORPUSCULAR VOLUME 92.4 fL (80.0-94.0); MEAN PLATELET VOLUME 9.5 fL (7.4-11.4); MONOCYTES # (AUTO) 0.6 10^3/uL (0.0-1.0); MONOCYTES % (AUTO) 11.5 %; NEUTROPHILS # (AUTO) 1.8 10^3/uL (1.5-6.6); NEUTROPHILS % (AUTO) 38.4 %; PLT - PLATELET COUNT 188 10^3/uL (130-450); RED BLOOD COUNT 4.88 10^6/uL (4.70-6.10); RED CELL DISTRIBUTION WIDTH 15.6 % (12.0-15.0); WHITE BLOOD COUNT 4.8 x10^3/uL (4.8-10.8)
[2019-07-18] MEDS: PANTOPRAZOLE 40 MG TABLET PO SCH (06:47)
[2019-07-18 08:07] VITALS: BP 109/64
[2019-07-18] MEDS: DOCUSATE SODIUM 250 MG CAPSULE PO SCH (08:10)
[2019-07-18] MEDS: ONDANSETRON 4 MG/2 ML VIAL IVP PRN (08:10)
[2019-07-18] MEDS: lamoTRIgine 25 MG TABLET PO SCH (08:11)
[2019-07-18] MEDS: PRENATAL VITAMIN TABLET PO SCH (08:11)
[2019-07-18] MEDS: NICOTINE 14 MG PATCH TOP SCH (08:11)
[2019-07-18] MEDS ORDERED: levETIRAcetam 250 MG TABLET PO SCH (09:00)
[2019-07-18] MEDS ORDERED: FOLIC ACID 1 MG TABLET PO SCH (09:00)
[2019-07-18] MEDS ORDERED: LACTULOSE 10 GM /15 ML UDC PO SCH (09:00)
[2019-07-18] MEDS ORDERED: SENNA 8.6 MG TABLET PO SCH (09:00)
[2019-07-18] MEDS: LACTATED RINGERS 1,000 ML IV SCH (09:01)
--- NOTE | 2019-07-18 10:55 | Discharge Plan ---
Discharge Plan Problem Reviewed?: Yes Disposition: Home, Self Care Condition: Good Prescriptions: chlordiazePOXIDE [Librium] 25 mg PO Q6H #30 capsule HYDROmorphone [Dilaudid] 2 mg PO Q4H PRN #21 tablet PRN Reason: Pain Lactulose [Constulose] 10 gm PO DAILY #30 solution lamoTRIgine [LaMICtal] 50 mg PO DAILY #30 tablet Lipase/Protease/Amylase [Huy Guy 10,500 Unit Cap] 1 each PO TIDWM #90 capsule. Nicotine 14 mg Patch [Nicoderm] 1 patch TOP DAILY #30 patch Pnv with Ca#74/Iron/Folic Acid [ Low Iron Tablet] 1 each PO DAILY #30 tablet Diet: Regular Activity Restrictions: Activity as Tolerated Shower Restrictions: No Weight Bearing: Full Weight Health Concerns: Alcohol use Seizures Chronic pancreatitis Tobacco use Homelessness Elevated ammonia caused by alcohol use PTSD Plan of Treatment: Start Pancreatic enzymes to prevent your abdominal pain Start Librium only if you are interested in NOT drinking Please attempt to stop smoking since this can also irritate your pancreas Take dilaudid sparingly, for only a short time Please take the time to get the therapy that you need to stay healthy Your brain MRI shows no permanent damage, which is encouraging that you have not caused damage to the brain tissue Care Goals: Prevent further alcohol, drug and tobacco use Prevent illness Prevent acute pancreatitis Prevent hospital stays Get help for your addiction, rehab No Smoking: If you smoke, Please STOP! Call for help.
[2019-07-18] MEDS: LORazepam 2 MG/ML VIAL IVP PRN (11:02)
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
== END 2019-07-18 14:46 | disposition home or self-care (01) | DRG 896 ==
LOC: ED 18:43 → MS2 21:58 → OBSVTOIN 07-15 10:38
PROVIDERS: ADMIT Internal Medicine; ATTEND Nurse Practitioner
DX: F10.231 Alcohol dependence with withdrawal delirium (principal); K85.20 Alcohol induced acute pancreatitis without necrosis or infection; K86.0 Alcohol-induced chronic pancreatitis; G40.909 Epilepsy, unspecified, not intractable, without status epilepticus; T42.6X6A Underdosing of other antiepileptic and sedative-hypnotic drugs, initial encounter; Z91.138 Patient's unintentional underdosing of medication regimen for other reason; F43.12 Post-traumatic stress disorder, chronic; F41.0 Panic disorder [episodic paroxysmal anxiety]; F31.9 Bipolar disorder, unspecified; F17.210 Nicotine dependence, cigarettes, uncomplicated; F17.290 Nicotine dependence, other tobacco product, uncomplicated; Y90.8 Blood alcohol level of 240 mg/100 ml or more; Z59.0 Homelessness; Z87.898 Personal history of other specified conditions; Z87.820 Personal history of traumatic brain injury
CPT/HCPCS: 36415; 70551; 80048; 80053; 80320; 81001; 82140; 83690; 83735; 84100; 85025; 96361; 96365; 96366; 96367; 96375; 96376; 99285; A9270; G0378; J1170; J2060; J3411; J7040; J7120; 81003; 87086

== ENCOUNTER 2019-07-22 11:09 | Outpatient (CLI) | payer MEDICAID | END 2019-07-22 11:10 | disposition critical access hospital (66) | LOC: EMS 11:09 | PROVIDERS: ATTEND Surgery | DX: K92.0 Hematemesis (principal); R50.9 Fever, unspecified | CPT/HCPCS: A0425; A0427; A0999 ==

== ENCOUNTER 2019-07-22 11:42 | Emergency (ER) | payer MEDICAID ==
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
[2019-07-22] MEDS ORDERED: HYDROmorphone 2 MG/ML VIAL IVP STA (13:24)
[2019-07-22] MEDS ORDERED: FAMOTIDINE 20 MG/2 ML VIAL IVP STA (13:24)
[2019-07-22] MEDS ORDERED: SODIUM CHLORIDE 0.9% 1,000 ML IV ONE (13:24)
[2019-07-22] MEDS ORDERED: LORazepam 2 MG/ML VIAL IVP STA (13:25)
[2019-07-22 13:48] LABS: BASOPHILS % (AUTO) 0.6 %; EOSINOPHILS # (AUTO) 0.1 10^3/uL (0.0-0.7); EOSINOPHILS % (AUTO) 0.9 %; HGB - HEMOGLOBIN 13.5 g/dL (14.0-18.0); LYMPHOCYTES % (AUTO) 28.8 %; MEAN CORPUSCULAR HEMOGLOBIN 30.1 pg (27.0-31.0); MEAN CORPUSCULAR HGB CONC 33.1 g/dL (32.0-36.0); MEAN CORPUSCULAR VOLUME 90.9 fL (80.0-94.0); MEAN PLATELET VOLUME 8.7 fL (7.4-11.4); MONOCYTES # (AUTO) 0.5 10^3/uL (0.0-1.0); MONOCYTES % (AUTO) 6.6 %; NEUTROPHILS # (AUTO) 4.3 10^3/uL (1.5-6.6); NEUTROPHILS % (AUTO) 62.8 %; PLT - PLATELET COUNT 238 10^3/uL (130-450); RED BLOOD COUNT 4.49 10^6/uL (4.70-6.10); RED CELL DISTRIBUTION WIDTH 15.9 % (12.0-15.0); WHITE BLOOD COUNT 6.8 x10^3/uL (4.8-10.8)
[2019-07-22 14:02] LABS: ALBUMIN 4.1 g/dL (3.2-5.5); ALBUMIN/GLOBULIN RATIO 1.3 (1.0-2.2); BILIRUBIN,TOTAL 0.6 mg/dL (0.2-1.0); CREATININE 0.7 mg/dL (0.6-1.2); MAGNESIUM 2.1 mg/dL (1.7-2.8); TOTAL PROTEIN 7.2 g/dL (6.7-8.2)
[2019-07-22] MEDS ORDERED: LIDOCAINE VISCOUS 2% 15 ML UDC MM STA (14:15)
[2019-07-22] MEDS ORDERED: MAG HYDROX/AL HYDROX/SIMETH 30 ML UDC PO STA (14:15)
[2019-07-22 15:34] VITALS: BP 130/75
[2019-07-22] MEDS ORDERED: HYDROmorphone 1 MG/ML CARPUJECT IVP STA (15:39)
[2019-07-22] MEDS ORDERED: ONDANSETRON 4 MG/2 ML VIAL IVP STA (15:39)
== END 2019-07-22 16:22 | disposition home or self-care (01) ==
LOC: ED 11:42
DX: R10.10 Upper abdominal pain, unspecified (principal); K92.0 Hematemesis; F10.20 Alcohol dependence, uncomplicated; F17.200 Nicotine dependence, unspecified, uncomplicated; Z59.0 Homelessness
CPT/HCPCS: 36415; 80053; 80320; 83690; 83735; 85025; 86850; 86900; 86901; 96361; 96374; 96375; 99284; 99285; A9270; J1170; J2060

== ENCOUNTER 2019-07-23 18:48 | Outpatient (CLI) | payer MEDICAID | END 2019-07-23 18:49 | disposition critical access hospital (66) | LOC: EMS 18:48 | PROVIDERS: ATTEND Surgery | DX: R46.89 Other symptoms and signs involving appearance and behavior (principal); Z72.89 Other problems related to lifestyle | CPT/HCPCS: A0425; A0429 ==

== ENCOUNTER 2019-07-23 19:22 | Emergency (ER) | payer MEDICAID ==
[2019-07-23 20:16] LABS: BILIRUBIN,URINE NEGATIVE (NEGATIVE); GLUCOSE, URINE (UA) NEGATIVE (NEGATIVE); KETONES,URINE (UA) NEGATIVE (NEGATIVE); LEUKOCYTE ESTERASE, URINE NEGATIVE (NEGATIVE); NITRITE,URINE NEGATIVE (NEGATIVE); OCCULT BLOOD,URINE NEGATIVE (NEGATIVE); PH,URINE 6.5 PH (5.0-7.5); PROTEIN,URINE NEGATIVE (NEGATIVE); UROBILINOGEN,URINE 0.2 (NORMAL) E.U./dL (NORMAL)
[2019-07-23 20:18] LABS: BASOPHILS # (AUTO) 0.1 10^3/uL (0.0-0.1); EOSINOPHILS % (AUTO) 0.6 %; HGB - HEMOGLOBIN 13.3 g/dL (14.0-18.0); LYMPHOCYTES # (AUTO) 2.5 10^3/uL (1.5-3.5); LYMPHOCYTES % (AUTO) 52.6 %; MEAN CORPUSCULAR HEMOGLOBIN 30.2 pg (27.0-31.0); MEAN CORPUSCULAR HGB CONC 33.1 g/dL (32.0-36.0); MEAN CORPUSCULAR VOLUME 91.4 fL (80.0-94.0); MONOCYTES # (AUTO) 0.3 10^3/uL (0.0-1.0); NEUTROPHILS # (AUTO) 1.9 10^3/uL (1.5-6.6); NEUTROPHILS % (AUTO) 39.6 %; PLT - PLATELET COUNT 265 10^3/uL (130-450); WHITE BLOOD COUNT 4.8 x10^3/uL (4.8-10.8)
[2019-07-23 20:22] LABS: CLARITY,URINE CLEAR (CLEAR)
[2019-07-23] MEDS ORDERED: HALOPERIDOL 5 MG/ML VIAL IVP ONE (20:24)
[2019-07-23] MEDS ORDERED: SODIUM CHLORIDE 0.9% 1,000 ML IV ONE (20:24)
[2019-07-23] MEDS ORDERED: FAMOTIDINE 20 MG/2 ML VIAL IVP STA (20:24)
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
[2019-07-23 20:35] LABS: ALBUMIN 4.4 g/dL (3.2-5.5); ALBUMIN/GLOBULIN RATIO 1.3 (1.0-2.2); ALKALINE PHOSPHATASE 70 IU/L (42-121); ALT ALANINE AMINOTRANSFERASE 25 IU/L (10-60); AST ASPARTATE AMINOTRANSFERASE 32 IU/L (10-42); BILIRUBIN,TOTAL 0.5 mg/dL (0.2-1.0); BUN - BLOOD UREA NITROGEN < 5 mg/dL (6-20); CARBON DIOXIDE - CO2 27 mmol/L (21-32); CHLORIDE 104 mmol/L (101-111); CREATININE 0.7 mg/dL (0.6-1.2); GFR - MDRD 129 (>89); GLUCOSE 88 mg/dL (70-100); LIPASE 56 U/L (22-51); SODIUM 144 mmol/L (135-145); TOTAL PROTEIN 7.8 g/dL (6.7-8.2)
[2019-07-24 07:05] VITALS: BP 119/75
== END 2019-07-24 07:07 | disposition home or self-care (01) ==
LOC: EDUNIT# → ED 19:22
DX: K29.20 Alcoholic gastritis without bleeding (principal); F10.129 Alcohol abuse with intoxication, unspecified; F17.200 Nicotine dependence, unspecified, uncomplicated
CPT/HCPCS: 36415; 80053; 80320; 81001; 81003; 83690; 85025; 87086; 96361; 96374; 96375; 99284

== ENCOUNTER 2019-07-29 13:30 | Outpatient (CLI) | payer MEDICAID | END 2019-07-29 13:31 | disposition critical access hospital (66) | LOC: EMS 13:30 | PROVIDERS: ATTEND Surgery | DX: R10.10 Upper abdominal pain, unspecified (principal) | CPT/HCPCS: A0425; A0427; A0999 ==

== ENCOUNTER 2019-07-29 13:48 | Emergency (ER) | payer MEDICAID ==
[2019-07-29] MEDS ORDERED: SODIUM CHLORIDE 0.9% 1,000 ML IV ONE (13:52)
[2019-07-29] MEDS ORDERED: HYDROmorphone 1 MG/ML CARPUJECT IVP STA ×3 (13:52→16:22)
--- NOTE | 2019-07-29 13:54 | ED Physician Documentation ---
PD HPI ABD PAIN - Stated complaint Stated Complaint: ABD PX - History obtained from History obtained from: Patient - History of Present Illness Timing - onset: Yesterday (Is a 33-year-old gentleman who has some problems with alcoholism, because of that he has recurrent pancreatitis and says he has had pseudocyst in the past. He has never had abdominal surgery or needed any pseudocyst strain. Since yesterday he has had upper abdominal pain radiating to the back similar to prior episodes of pancreatitis. Said he did not drink yesterday but did drink today and had some pizza which did not help. He had a soft pale bowel movement this morning. He received fentanyl on the way here by EMS which helped somewhat.) Review of Systems Ten Systems: 10 systems reviewed and negative Constitutional: denies: Fever, Chills Cardiac: denies: Chest pain / pressure, Palpitations Respiratory: denies: Dyspnea, Cough GI: reports: Abdominal Pain, Diarrhea. 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 Neuro: Other - Present Medications Home Medications: Ambulatory Orders Medication Instructions Recorded Confirmed Cyanocobalamin (Vitamin B-12) 1,000 mcg PO DAILY 07/07/19 07/14/19 [Vitamin B-12] Folic Acid 1 mg PO DAILY 07/07/19 07/14/19 Gabapentin 300 mg PO TID 07/07/19 07/14/19 Levetiracetam [Keppra] 1,000 mg PO BID 07/07/19 07/14/19 Ondansetron HCl [Zofran] 4 mg PO Q6H PRN #15 tablet 07/07/19 07/14/19 Pantoprazole [Protonix] 40 mg PO DAILY 07/07/19 07/14/19 Senna [Senokot] 1 tab PO DAILY 07/07/19 07/14/19 Thiamine HCl [Vitamin B-1] 100 mg PO DAILY 07/07/19 07/14/19 traZODone [Desyrel] 50 mg PO DAILY PRN MDD 100 mg/24hr 07/07/19 07/15/19 HYDROmorphone [Dilaudid] 2 mg PO Q4H PRN #21 tablet 07/18/19 Lactulose [Constulose] 10 gm PO DAILY #30 solution 07/18/19 Lipase/Protease/Amylase [Pancreaze 1 each PO TIDWM #90 capsule. 07/18/19 Dr Chao,500 Unit Cap] Nicotine 14 mg Patch [Nicoderm] 1 patch TOP DAILY #30 patch 07/18/19 Pnv with Ca#74/Iron/Folic Acid 1 each PO DAILY #30 tablet 07/18/19 [ Low Iron Tablet] chlordiazePOXIDE [Librium] 25 mg PO Q6H #30 capsule 07/18/19 lamoTRIgine [LaMICtal] 50 mg PO DAILY #30 tablet 07/18/19 Famotidine 20 mg PO DAILY #30 tablet 07/22/19 LORazepam [Ativan] 1 mg PO Q6H PRN #25 tablet 07/22/19 Ondansetron Odt [Zofran] 4 mg TL Q6H PRN #20 tablet 07/22/19 Oxycodone HCl/Acetaminophen 1 each PO Q6H PRN #20 tablet 07/22/19 [Endocet 7.5-325 mg Tablet] Famotidine 20 mg PO DAILY #30 tablet 07/24/19 LORazepam [Ativan] 1 mg PO Q6H PRN #25 tablet 07/24/19 Oxycodone HCl 5 mg PO TID PRN #12 capsule 07/24/19 Promethazine [Phenergan] 25 mg PO Q6H PRN #20 tab 07/24/19 Lorazepam [Ativan] 1 mg PO TID PRN #10 tablet 07/29/19 Omeprazole 20 mg PO DAILY #30 capsule. 07/29/19 Ondansetron Odt [Zofran] 4 mg TL Q6H PRN #10 tablet 07/29/19 Oxycodone HCl/Acetaminophen 1 - 2 each PO Q6H PRN #14 tablet 07/29/19 [Percocet 5-325 mg Tablet] - Allergies Allergies/Adverse Reactions: Allergies Allergy/AdvReac Type Severity Reaction Status Date / Time iodine Allergy Severe Respiratory Verified 07/29/19 14:00 Penicillins Allergy Unknown unk Verified 07/29/19 14:00 acetaminophen [From Vicodin] Allergy Itching Verified 07/29/19 14:00 hydrocodone [From Vicodin] Allergy Itching Verified 07/29/19 14:00 egg AdvReac Intermediate Emesis Verified 07/29/19 14:00 - Social History Does the pt smoke?: Yes Smoking Status: Current every day smoker Does the pt drink ETOH?: Yes Does the pt have substance abuse?: Yes - Family History Family history: reports: Non contributory - Immunizations Immunizations are current?: Yes - POLST Patient has POLST: No PD ED PE NORMAL - Vitals Vital signs reviewed: Yes - General General: Alert and oriented X 3, Other (Somewhat disheveled man who appears uncomfortable and is clutching his stomach) - HEENT HEENT: PERRL, EOMI - Neck Neck: Supple, no meningeal sign, No bony TTP - Cardiac Cardiac: RRR, No murmur - Respiratory Respiratory: No respiratory distress, Clear bilaterally - Abdomen Abdomen: Other (Severe diffuse tenderness, almost a rigid abdomen on initial evaluation) - Back Back: No CVA TTP, No spinal TTP - Derm Derm: Normal color, Warm and dry - Extremities Extremities: No edema, No calf tenderness / cord - Neuro Neuro: Alert and oriented X 3, 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, Normal speech Results - Vitals Vitals: Vital Signs - 24 hr 07/29/19 07/29/19 13:48 16:21 Temperature 37.1 C 37.1 C Heart Rate 100 77 Respiratory 20 16 Rate Blood Pressure 162/91 H 130/83 H O2 Saturation 96 96 Oxygen O2 Source Room air - Labs Labs: Laboratory Tests 07/29/19 07/29/19 07/29/19 14:08 14:08 14:08 WBC 10.0 RBC 4.55 L Hgb 13.9 L Hct 42.3 MCV 93.0 MCH 30.5 MCHC 32.9 RDW 15.9 H Plt Count 305 MPV 8.8 Neut # (Auto) 6.9 H Lymph # (Auto) 2.2 [place] # (Auto) 0.6 Eos # (Auto) 0.1 Baso # (Auto) 0.1 Absolute Nucleated RBC 0.00 Nucleated RBC % 0.0 PT 11.1 INR 1.0 Sodium 140 Potassium 3.7 Chloride 108 Carbon Dioxide 21 Anion Gap 11.0 BUN 8 Creatinine 0.6 Estimated GFR (MDRD) 154 Glucose 97 Calcium 9.1 Magnesium 1.9 Total Bilirubin 0.4 AST 18 ALT 16 Alkaline Phosphatase 72 Total Protein 7.0 Albumin 3.9 Globulin 3.1 Albumin/Globulin Ratio 1.3 Lipase 51 Ethyl Alcohol 128.0 - Rads (name of study) CT A/P Radiology: EMP read contemporaneously (--Interval increase in size of a bilobed pancreatic/peripancreatic fluid collection now measures 4.8 x 2.8 cm, previously measured 3.9 x 2.8 cm. This bilobed collection involves the pancreatic tail pare nchyma and extends to abut and may erode the adjacent greater curvature of the stomach. Inflammatory changes also extend from the pancreatic collection and gastric wall to abut hepatic flexure of the colon with mild wall thickening, likely reactive. Differential includes walled off necrosis , abscess or pseudocyst. Worsening gastric wall thickening in the region where the cystic collection abuts the stomach which is favored to be reactive. --Just inferior to the above described bilobed collection, there is a 2nd heterogeneous pancreatic collection which is not significantly changed in size from prior, again measuring 1.5 x 1.3 cm with heterogeneous internal contents suspicious for walled off necrosis. There may be a tiny tract between this cystic collection and the above described bilobed collection. Interval increased gastric wall edema/gastritis, like reactive. Inflammatory changes also extend to the hepatic flexure of the colon where there is mild wall thickening, also likely reactive. Differential includes walled off necrosis, pseudocyst or abscess. Recommend Gastroenterology consultation and possible EGD/ cyst gastrostomy placement. ) PD MEDICAL DECISION MAKING - ED course ED course: This is a young man with history of alcoholism and pancreatitis/gastritis who presents with an exacerbation of abdominal pain. Very tender on initial evaluation which improved after pain medications here. There is no biochemical evidence of active acute pancreatitis, CT as shown. Case discussed by phone with the on-call surgeon, Kit Go at 4:20 PM who recommended GI consultation and [place] was called at 4:25 PM. Subsequently I discussed the case with Dr. Agustin, GI in [place] who said that generally the pseudocysts are not drained unless they are greater than 5 cm. Given that his labs are normal and his pain is controllable she did not feel the need for urgent transfer to acute facility capable of doing this, but he probably should eventually establish care with a facility such as [facility] or [facility]. Ideally he will stop drinking in the interim. He was feeling okay after this, we discussed admission but he agreed to a trial of outpatient management. Departure - Departure Disposition: 01 Home, Self Care Clinical Impression: Pancreatic pseudocyst Alcoholic gastritis Qualifiers: Chronicity: acute Gastritis bleeding: without bleeding Qualified Code(s): K29.20 - Alcoholic gastritis without bleeding Condition: Good Record reviewed to determine appropriate education?: Yes Instructions: ED Gastritis Prescriptions: Lorazepam [Ativan] 1 mg PO TID PRN #10 tablet PRN Reason: Anxiety Omeprazole 20 mg PO DAILY #30 capsule. Ondansetron Odt [Zofran] 4 mg TL Q6H PRN #10 tablet PRN Reason: Nausea / Vomiting Oxycodone HCl/Acetaminophen [Percocet 5-325 mg Tablet] 1 - 2 each PO Q6H PRN #14 tablet PRN Reason: pain Comments: The gastroenterology doctor with whom I spoke devendra did not feel that you needed your pancreatic cyst drained at this juncture, but may needed in the future. It is imperative to stop drinking. You should talk with your primary care physician about a referral to [facility] or [facility] to establish care in case you need your cyst drained in the future. Return for new or worsening symptoms, I will asked the 7th grade social studies teacher to coordinate with you for a ride and to [facility] as you may arrive after 6.
[2019-07-29] MEDS ORDERED: IOVERSOL 320 100 ML VIAL IVP ONE ×3 (14:11→15:05)
[2019-07-29] MEDS ORDERED: diphenhydrAMINE INJ 50 MG/ML VIAL IVP STA (14:17)
[2019-07-29 14:20] LABS: BASOPHILS # (AUTO) 0.1 10^3/uL (0.0-0.1); BASOPHILS % (AUTO) 0.7 %; EOSINOPHILS # (AUTO) 0.1 10^3/uL (0.0-0.7); EOSINOPHILS % (AUTO) 0.9 %; HGB - HEMOGLOBIN 13.9 g/dL (14.0-18.0); LYMPHOCYTES # (AUTO) 2.2 10^3/uL (1.5-3.5); LYMPHOCYTES % (AUTO) 22.3 %; MEAN CORPUSCULAR HEMOGLOBIN 30.5 pg (27.0-31.0); MEAN CORPUSCULAR HGB CONC 32.9 g/dL (32.0-36.0); MEAN PLATELET VOLUME 8.8 fL (7.4-11.4); MONOCYTES # (AUTO) 0.6 10^3/uL (0.0-1.0); MONOCYTES % (AUTO) 6.1 %; NEUTROPHILS # (AUTO) 6.9 10^3/uL (1.5-6.6); NEUTROPHILS % (AUTO) 69.6 %; PLT - PLATELET COUNT 305 10^3/uL (130-450); RED BLOOD COUNT 4.55 10^6/uL (4.70-6.10); RED CELL DISTRIBUTION WIDTH 15.9 % (12.0-15.0)
[2019-07-29 14:27] LABS: PT - PROTHROMBIN TIME 11.1 secs (9.9-12.6)
[2019-07-29 14:40] LABS: ALBUMIN 3.9 g/dL (3.2-5.5); ALBUMIN/GLOBULIN RATIO 1.3 (1.0-2.2); BILIRUBIN,TOTAL 0.4 mg/dL (0.2-1.0); CALCIUM 9.1 mg/dL (8.5-10.3); CREATININE 0.6 mg/dL (0.6-1.2); MAGNESIUM 1.9 mg/dL (1.7-2.8)
[2019-07-29] MEDS ORDERED: PANTOPRAZOLE 40 MG VIAL IVP STA (14:42)
[2019-07-29] MEDS ORDERED: THIAMINE INJ 100 MG in SODIUM CHLORIDE 0.9% 50 ML IV STA (14:42)
[2019-07-29] MEDS ORDERED: LIDOCAINE VISCOUS 2% 15 ML UDC MM STA (15:03)
[2019-07-29] MEDS ORDERED: MAG HYDROX/AL HYDROX/SIMETH 30 ML UDC PO STA (15:03)
--- NOTE | 2019-07-29 16:08 | CT Report ---
Reason: IV only, upper abd pain, pancreatitis with pseudoc Procedure Date: 07/29/2019 Accession Number: [id number] / [id number] Procedure: CT - Abdomen/Pelvis W CPT Code: FULL RESULT: EXAM: CT ABDOMEN AND PELVIS EXAM DATE: 07/29/2019 03:00 PM. CLINICAL HISTORY: Upper abdominal pain with history of pancreatitis and pseudocyst formation. COMPARISONS: ABDOMEN/PELVIS W/ 07/06/2019 9:05 PM. TECHNIQUE: Routine helical CT imaging was performed through the abdomen and pelvis. IV contrast: 90 cc Optiray 320. Enteric contrast: No. Reconstructions: Coronal and sagittal. In accordance with CT protocol optimization, one or more of the following dose reduction techniques were utilized for this exam: automated exposure control, adjustment of mA and/or KV based on patient size, or use of iterative reconstructive technique. FINDINGS: Pancreas/stomach: --Interval increase in size of a bilobed pancreatic/peripancreatic fluid collection now measures 4.8 x 2.8 cm, previously measured 3.9 x 2.8 cm. This bilobed collection involves the pancreatic tail parenchyma and extends to abut and may erode the adjacent greater curvature of the stomach. Inflammatory changes also extend from the pancreatic collection and gastric wall to abut hepatic flexure of the colon with mild wall thickening, likely reactive. Differential includes walled off necrosis , abscess or pseudocyst. Worsening gastric wall thickening in the region where the cystic collection abuts the stomach which is favored to be reactive. --Just inferior to the above described bilobed collection, there is a 2nd heterogeneous pancreatic collection which is not significantly changed in size from prior, again measuring 1.5 x 1.3 cm with heterogeneous internal contents suspicious for walled off necrosis. There may be a tiny tract between this cystic collection and the above described bilobed collection. Images chest: Unremarkable. Liver: Unremarkable. Gallbladder: Unremarkable. Biliary: Unremarkable. Spleen: Unremarkable. Adrenal glands: Unremarkable. Kidneys: Unremarkable. Urinary bladder: Unremarkable. Reproductive organs: Unremarkable. Bowel: Unremarkable. Appendix: Unremarkable. Miscellaneous: Trace ascites. No extraluminal gas. Aorta: No significant aortic atherosclerosis. Normal in caliber. Lymph nodes: No pathologically enlarged lymph nodes identified. Bones: No acute fracture. No suspicious osseous lesions. Sidewalls: Small fat-containing right inguinal hernia. IMPRESSION: 1. Again 2 pancreatic/peripancreatic cystic collections, as detailed above. The largest collection is bilobed and again extends from the pancreatic tail parenchyma to abut and possibly invade the greater curvature of the stomach. Interval increased gastric wall edema/gastritis, like reactive. Inflammatory changes also extend to the hepatic flexure of the colon where there is mild wall thickening, also likely reactive. Differential includes walled off necrosis, pseudocyst or abscess. Recommend Gastroenterology consultation and possible EGD/ cyst gastrostomy placement. 2. The 2nd smaller pancreatic parenchymal collection is not significantly changed in size and demonstrates heterogeneous internal components which may represent walled off necrosis. There may be a tract connecting to the above described bilobed. RADIA
[2019-07-29 16:21] VITALS: BP 130/83
== END 2019-07-29 18:06 | disposition home or self-care (01) ==
LOC: EDUNIT# → ED 13:48
DX: K86.3 Pseudocyst of pancreas (principal); K29.20 Alcoholic gastritis without bleeding; F17.200 Nicotine dependence, unspecified, uncomplicated
CPT/HCPCS: 36415; 74177; 80053; 80320; 83690; 83735; 85025; 85610; 96361; 96365; 96375; 96376; 99284; A9270; J1170; J1200; J3411; J7040; Q9967

== ENCOUNTER 2019-07-30 21:05 | Outpatient (CLI) | payer MEDICAID | END 2019-07-30 21:06 | disposition critical access hospital (66) | LOC: EMS 21:05 | PROVIDERS: ATTEND Surgery | DX: R07.9 Chest pain, unspecified (principal); R11.0 Nausea; R42 Dizziness and giddiness | CPT/HCPCS: A0425; A0429; A0999 ==

== ENCOUNTER 2019-07-30 21:21 | Emergency (ER) | payer MEDICAID ==
--- NOTE | 2019-07-30 21:45 | ED Physician Documentation ---
PD HPI CHEST PAIN - Stated complaint Stated Complaint: CP - Chief complaint Chief Complaint: Cardiac - History obtained from History obtained from: Patient, EMS - History of Present Illness Timing - onset: Enter time (15:00), Today Timing - onset during: Exertion Timing - details: Gradual onset, Waxing and waning Pain level now: 7 Quality: Sharp, Pain Location: Left chest Radiation: Left upper extremity Improved by: Rest Worsened by: Movement (LUE (shoulder)), Palpation Associated symptoms: Nausea, Feeling faint / dizzy. No: Shortness of air, Vomiting Recently seen: Emergency Dept - Additional information Additional information: T+R from this ED yesterday for abdominal pain. DERECK form reflects 41 ED visits to EDs in [place] and [place] over past 12 months. 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 Review of Systems Constitutional: reports: Reviewed and negative Cardiac: reports: Chest pain / pressure. denies: Palpitations, Pedal edema, Calf pain Respiratory: reports: Reviewed and negative GI: reports: Abdominal Pain, Nausea. 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 Neuro: Other - Present Medications Home Medications: Ambulatory Orders Medication Instructions Recorded Confirmed Cyanocobalamin (Vitamin B-12) 1,000 mcg PO DAILY 07/07/19 07/14/19 [Vitamin B-12] Folic Acid 1 mg PO DAILY 07/07/19 07/14/19 Gabapentin 300 mg PO TID 07/07/19 07/14/19 Levetiracetam [Keppra] 1,000 mg PO BID 07/07/19 07/14/19 Ondansetron HCl [Zofran] 4 mg PO Q6H PRN #15 tablet 07/07/19 07/14/19 Pantoprazole [Protonix] 40 mg PO DAILY 07/07/19 07/14/19 Senna [Senokot] 1 tab PO DAILY 07/07/19 07/14/19 Thiamine HCl [Vitamin B-1] 100 mg PO DAILY 07/07/19 07/14/19 traZODone [Desyrel] 50 mg PO DAILY PRN MDD 100 mg/24hr 07/07/19 07/15/19 HYDROmorphone [Dilaudid] 2 mg PO Q4H PRN #21 tablet 07/18/19 Lactulose [Constulose] 10 gm PO DAILY #30 solution 07/18/19 Lipase/Protease/Amylase [Pancreaze 1 each PO TIDWM #90 capsule. 07/18/19 Dr Chao,500 Unit Cap] Nicotine 14 mg Patch [Nicoderm] 1 patch TOP DAILY #30 patch 07/18/19 Pnv with Ca#74/Iron/Folic Acid 1 each PO DAILY #30 tablet 07/18/19 [ Low Iron Tablet] chlordiazePOXIDE [Librium] 25 mg PO Q6H #30 capsule 07/18/19 lamoTRIgine [LaMICtal] 50 mg PO DAILY #30 tablet 07/18/19 Famotidine 20 mg PO DAILY #30 tablet 07/22/19 LORazepam [Ativan] 1 mg PO Q6H PRN #25 tablet 07/22/19 Ondansetron Odt [Zofran] 4 mg TL Q6H PRN #20 tablet 07/22/19 Oxycodone HCl/Acetaminophen 1 each PO Q6H PRN #20 tablet 07/22/19 [Endocet 7.5-325 mg Tablet] Famotidine 20 mg PO DAILY #30 tablet 07/24/19 LORazepam [Ativan] 1 mg PO Q6H PRN #25 tablet 07/24/19 Oxycodone HCl 5 mg PO TID PRN #12 capsule 07/24/19 Promethazine [Phenergan] 25 mg PO Q6H PRN #20 tab 07/24/19 Lorazepam [Ativan] 1 mg PO TID PRN #10 tablet 07/29/19 Omeprazole 20 mg PO DAILY #30 capsule. 07/29/19 Ondansetron Odt [Zofran] 4 mg TL Q6H PRN #10 tablet 07/29/19 Oxycodone HCl/Acetaminophen 1 - 2 each PO Q6H PRN #14 tablet 07/29/19 [Percocet 5-325 mg Tablet] - Allergies Allergies/Adverse Reactions: Allergies Allergy/AdvReac Type Severity Reaction Status Date / Time iodine Allergy Severe Respiratory Verified 07/30/19 21:29 Penicillins Allergy Unknown unk Verified 07/30/19 21:29 acetaminophen [From Vicodin] Allergy Itching Verified 07/30/19 21:29 hydrocodone [From Vicodin] Allergy Itching Verified 07/30/19 21:29 egg AdvReac Intermediate Emesis Verified 07/30/19 21:29 - Social History Does the pt smoke?: Yes Smoking Status: Current every day smoker Does the pt drink ETOH?: Yes Does the pt have substance abuse?: Yes - Immunizations Immunizations are current?: Yes - POLST Patient has POLST: No PD ED PE NORMAL - Vitals Vital signs reviewed: Yes - General General: No acute distress, Well developed/nourished, Other (asleep, wakens briefly with gentle tactile combined with verbal stimulus, falls back asleep rapidly. NAD) - HEENT HEENT: Moist mucous membranes - Neck Neck: Supple, no meningeal sign - Cardiac Cardiac: RRR, No murmur - Respiratory Respiratory: No respiratory distress, Clear bilaterally - Abdomen Abdomen: Soft, Non tender, Non distended - Derm Derm: Normal color, Warm and dry - Extremities Extremities: No edema Results - Vitals Vitals: Vital Signs - 24 hr 07/30/19 07/30/19 21:26 23:23 Temperature 36.6 C Heart Rate 91 72 Respiratory 16 12 Rate Blood Pressure 189/52 H 107/58 L O2 Saturation 94 95 Oxygen O2 Source Room air - EKG (time done) No standard instances Rate: Rate (enter#) (91) Rhythm: NSR [place]: Normal Intervals: Normal AR QRS: Normal Ischemia: Normal ST segments - Labs Labs: Laboratory Tests 07/30/19 07/30/19 07/30/19 21:47 21:47 21:47 WBC 5.9 RBC 4.24 L Hgb 12.6 L Hct 39.8 L MCV 93.9 MCH 29.7 MCHC 31.7 L RDW 15.9 H Plt Count 276 MPV 8.6 Neut # (Auto) 3.1 Lymph # (Auto) 2.3 [place] # (Auto) 0.3 Eos # (Auto) 0.1 Baso # (Auto) 0.1 Absolute Nucleated RBC 0.00 Nucleated RBC % 0.0 Sodium 144 Potassium 3.3 L Chloride 107 Carbon Dioxide 24 Anion Gap 13.0 BUN 6 Creatinine 0.8 Estimated GFR (MDRD) 111 Glucose 95 Calcium 8.8 Total Bilirubin 0.4 AST 19 ALT 13 Alkaline Phosphatase 67 Total Protein 6.6 L Albumin 3.7 Globulin 2.9 Albumin/Globulin Ratio 1.3 Lipase 46 Ethyl Alcohol 213.6 - Rads (name of study) CXR Radiology: Prelim report reviewed, See rad report PD MEDICAL DECISION MAKING - ED course Complexity details: reviewed old records, reviewed results, re-evaluated patient, considered differential, d/w patient ED course: Slept during ED stay and no apparent distress on initial H+P and on reevaluation. Test results d/w patient. Departure - Departure Disposition: 01 Home, Self Care Clinical Impression: Alcoholism, Chest pain Condition: Good Instructions: ED Chest Pain Atypical Unkn Cause, ED Alcohol Abuse Discharge Date/Time: 07/31/19 00:19
[2019-07-30 21:57] LABS: BASOPHILS # (AUTO) 0.1 10^3/uL (0.0-0.1); BASOPHILS % (AUTO) 1.2 %; EOSINOPHILS # (AUTO) 0.1 10^3/uL (0.0-0.7); EOSINOPHILS % (AUTO) 2.2 %; HGB - HEMOGLOBIN 12.6 g/dL (14.0-18.0); LYMPHOCYTES # (AUTO) 2.3 10^3/uL (1.5-3.5); LYMPHOCYTES % (AUTO) 38.2 %; MEAN CORPUSCULAR HEMOGLOBIN 29.7 pg (27.0-31.0); MEAN CORPUSCULAR HGB CONC 31.7 g/dL (32.0-36.0); MEAN CORPUSCULAR VOLUME 93.9 fL (80.0-94.0); MEAN PLATELET VOLUME 8.6 fL (7.4-11.4); MONOCYTES # (AUTO) 0.3 10^3/uL (0.0-1.0); MONOCYTES % (AUTO) 5.7 %; NEUTROPHILS # (AUTO) 3.1 10^3/uL (1.5-6.6); NEUTROPHILS % (AUTO) 52.4 %; PLT - PLATELET COUNT 276 10^3/uL (130-450); RED BLOOD COUNT 4.24 10^6/uL (4.70-6.10); RED CELL DISTRIBUTION WIDTH 15.9 % (12.0-15.0); WHITE BLOOD COUNT 5.9 x10^3/uL (4.8-10.8)
[2019-07-30] MEDS ORDERED: predniSONE 20 MG TABLET PO STA (22:04)
[2019-07-30 22:13] LABS: ALBUMIN 3.7 g/dL (3.2-5.5); ALBUMIN/GLOBULIN RATIO 1.3 (1.0-2.2); BILIRUBIN,TOTAL 0.4 mg/dL (0.2-1.0); CALCIUM 8.8 mg/dL (8.5-10.3); CREATININE 0.8 mg/dL (0.6-1.2); TOTAL PROTEIN 6.6 g/dL (6.7-8.2)
--- NOTE | 2019-07-30 22:16 | XRAY Report ---
Reason: chest pain Procedure Date: 07/30/2019 Accession Number: [id number] / [id number] Procedure: XR - Chest 2 View X-Ray CPT Code: 36703 FULL RESULT: EXAM: CHEST RADIOGRAPHY EXAM DATE: 07/30/2019 10:04 PM. CLINICAL HISTORY: Chest pain. COMPARISON: CHEST 2 VIEW 11/21/2017 1:55 PM. TECHNIQUE: 2 views. FINDINGS: Lungs/Pleura: Minimal bronchial wall thickening centrally. Minimal reticulation at the bases. No lobar lung consolidation. No pleural effusion. No pneumothorax. Mediastinum: Cardiac silhouette size appears unremarkable. Other: None. IMPRESSION: 1. Minimal bronchial wall thickening centrally, suggesting airways disease. 2. Minimal reticulation at the lung bases, which may represent small amount of atelectasis, scarring, or pneumonitis. No lobar consolidation or pleural effusions. RADIA
[2019-07-30 23:23] VITALS: BP 107/58
== END 2019-07-31 00:19 | disposition home or self-care (01) ==
LOC: EDUNIT# → ED 21:21
DX: R07.9 Chest pain, unspecified (principal); F10.20 Alcohol dependence, uncomplicated; F17.200 Nicotine dependence, unspecified, uncomplicated
CPT/HCPCS: 36415; 71046; 80053; 80320; 83690; 84484; 85025; 85610; 85730; 93005; 99284

== ENCOUNTER 2019-08-15 20:19 | Outpatient (CLI) | payer MEDICAID | END 2019-08-15 20:20 | disposition critical access hospital (66) | LOC: EMS 20:19 | PROVIDERS: ATTEND Surgery | DX: R56.9 Unspecified convulsions (principal); R25.1 Tremor, unspecified | CPT/HCPCS: A0425; A0429; A0999 ==

== ENCOUNTER 2019-08-15 20:52 | Emergency (ER) | payer MEDICAID ==
[2019-08-15 21:05] LABS: MUDS CUTOFF CONCENTRATIONS CUTOFF CONC BELOW:
[2019-08-15] MEDS ORDERED: levETIRAcetam INJ 1,000 MG in SODIUM CHLORIDE 0.9% 100ML 100 ML IV STA (21:09)
[2019-08-15] MEDS ORDERED: SODIUM CHLORIDE 0.9% 1,000 ML IV ONE (21:11)
[2019-08-15] MEDS ORDERED: PANTOPRAZOLE 40 MG VIAL IVP STA (21:11)
[2019-08-15] MEDS ORDERED: ONDANSETRON 4 MG/2 ML VIAL IVP STA (21:12)
[2019-08-15] MEDS ORDERED: FAMOTIDINE 20 MG TABLET PO STA (21:12)
[2019-08-15] MEDS ORDERED: HYDROmorphone 1 MG/ML CARPUJECT IVP STA ×2 (21:12→23:24)
[2019-08-15 21:16] LABS: BASOPHILS # (AUTO) 0.1 10^3/uL (0.0-0.1); BASOPHILS % (AUTO) 0.9 %; EOSINOPHILS # (AUTO) 0.1 10^3/uL (0.0-0.7); EOSINOPHILS % (AUTO) 0.9 %; HGB - HEMOGLOBIN 14.7 g/dL (14.0-18.0); LYMPHOCYTES # (AUTO) 3.1 10^3/uL (1.5-3.5); LYMPHOCYTES % (AUTO) 39.7 %; MEAN CORPUSCULAR HEMOGLOBIN 29.6 pg (27.0-31.0); MEAN CORPUSCULAR VOLUME 89.7 fL (80.0-94.0); MEAN PLATELET VOLUME 8.8 fL (7.4-11.4); MONOCYTES # (AUTO) 0.6 10^3/uL (0.0-1.0); MONOCYTES % (AUTO) 7.5 %; NEUTROPHILS % (AUTO) 50.9 %; PLT - PLATELET COUNT 271 10^3/uL (130-450); RED BLOOD COUNT 4.97 10^6/uL (4.70-6.10); RED CELL DISTRIBUTION WIDTH 15.5 % (12.0-15.0); WHITE BLOOD COUNT 7.8 x10^3/uL (4.8-10.8)
[2019-08-15 21:17] LABS: AMPHETAMINE SCREEN,URINE NEGATIVE (NEGATIVE); BENZODIAZEPINES SCREEN, URINE POSITIVE (NEGATIVE); COCAINE SCREEN URINE NEGATIVE (NEGATIVE); METHAMPHETAMINES SCREEN, URINE NEGATIVE (NEGATIVE); OPIATE SCREEN, URINE NEGATIVE (NEGATIVE)
[2019-08-15 21:18] LABS: METHADONE SCREEN, URINE NEGATIVE (NEGATIVE); OXYCODONE SCREEN, URINE NEGATIVE (NEGATIVE); PROPOXYPHENE SCREEN, URINE NEGATIVE (NEGATIVE); TRICYCLIC ANTIDEPRESSANT,URINE NEGATIVE (NEGATIVE)
[2019-08-15 21:30] LABS: ALBUMIN 4.4 g/dL (3.2-5.5); ALBUMIN/GLOBULIN RATIO 1.2 (1.0-2.2); ALKALINE PHOSPHATASE 81 IU/L (42-121); ALT ALANINE AMINOTRANSFERASE 19 IU/L (10-60); AST ASPARTATE AMINOTRANSFERASE 33 IU/L (10-42); BILIRUBIN,TOTAL < 0.2 mg/dL (0.2-1.0); BUN - BLOOD UREA NITROGEN 6 mg/dL (6-20); CALCIUM 9.6 mg/dL (8.5-10.3); CARBON DIOXIDE - CO2 26 mmol/L (21-32); CHLORIDE 104 mmol/L (101-111); CREATININE 0.7 mg/dL (0.6-1.2); GFR - MDRD 129 (>89); GLUCOSE 95 mg/dL (70-100); LIPASE 60 U/L (22-51); SODIUM 144 mmol/L (135-145)
--- NOTE | 2019-08-15 21:33 | ED Physician Documentation ---
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) Similar symptoms before: Diagnosis (Alcoholism, recurrent seizures) Recently seen: Other (Seen here regularly for similar) Review of Systems Ten Systems: 10 systems reviewed and negative Constitutional: denies: Fever, Chills Cardiac: denies: Chest pain / pressure Respiratory: denies: Cough GI: denies: Diarrhea, Hematemesis, Bloody / black stool Skin: denies: Rash Musculoskeletal: denies: Neck pain, Back pain PD PAST MEDICAL HISTORY - Past Medical History Cardiovascular: None Respiratory: None Neuro: Seizure disorder Endocrine/Autoimmune: None GI: Pancreatitis : None HEENT: Glaucoma Psych: Depression, Anxiety, Bipolar disorder Musculoskeletal: Chronic back pain Derm: None - Past Surgical History Past Surgical History: Yes 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 Neuro: Other - Present Medications Home Medications: Ambulatory Orders Medication Instructions Recorded Confirmed Cyanocobalamin (Vitamin B-12) 1,000 mcg PO DAILY 07/07/19 07/14/19 [Vitamin B-12] Folic Acid 1 mg PO DAILY 07/07/19 07/14/19 Gabapentin 300 mg PO TID 07/07/19 07/14/19 Levetiracetam [Keppra] 1,000 mg PO BID 07/07/19 07/14/19 Pantoprazole [Protonix] 40 mg PO DAILY 07/07/19 07/14/19 Senna [Senokot] 1 tab PO DAILY 07/07/19 07/14/19 Thiamine HCl [Vitamin B-1] 100 mg PO DAILY 07/07/19 07/14/19 traZODone [Desyrel] 50 mg PO DAILY PRN MDD 100 mg/24hr 07/07/19 07/15/19 HYDROmorphone [Dilaudid] 2 mg PO Q4H PRN #21 tablet 07/18/19 Lactulose [Constulose] 10 gm PO DAILY #30 solution 07/18/19 Lipase/Protease/Amylase [Pancreaze 1 each PO TIDWM #90 capsule. 07/18/19 10,500 Unit Cap] Nicotine 14 mg Patch [Nicoderm] 1 patch TOP DAILY #30 patch 07/18/19 Pnv with Ca#74/Iron/Folic Acid 1 each PO DAILY #30 tablet 07/18/19 [ Low Iron Tablet] chlordiazePOXIDE [Librium] 25 mg PO Q6H #30 capsule 07/18/19 lamoTRIgine [LaMICtal] 50 mg PO DAILY #30 tablet 07/18/19 Ondansetron Odt [Zofran] 4 mg TL Q6H PRN #20 tablet 07/22/19 Famotidine 20 mg PO DAILY #30 tablet 07/24/19 Promethazine [Phenergan] 25 mg PO Q6H PRN #20 tab 07/24/19 Lorazepam [Ativan] 1 mg PO TID PRN #10 tablet 07/29/19 Omeprazole 20 mg PO DAILY #30 capsule. 07/29/19 Oxycodone HCl/Acetaminophen 1 - 2 each PO Q6H PRN #14 tablet 07/29/19 [Percocet 5-325 mg Tablet] Famotidine [Pepcid] 20 mg PO BID #60 tablet 08/15/19 Levetiracetam [Keppra] 1,000 mg PO BID #60 tablet 08/15/19 Sucralfate [Carafate] 1 gm PO ACHS #60 tablet 08/15/19 - Allergies Allergies/Adverse Reactions: Allergies Allergy/AdvReac Type Severity Reaction Status Date / Time iodine Allergy Severe Respiratory Verified 08/15/19 20:59 Penicillins Allergy Unknown unk Verified 08/15/19 20:59 acetaminophen [From Vicodin] Allergy Itching Verified 08/15/19 20:59 hydrocodone [From Vicodin] Allergy Itching Verified 08/15/19 20:59 egg AdvReac Intermediate Emesis Verified 08/15/19 20:59 - Social History Does the pt smoke?: Yes Smoking Status: Current every day smoker Does the pt drink ETOH?: Yes Does the pt have substance abuse?: Yes - Immunizations Immunizations are current?: Yes - POLST Patient has POLST: No PD ED PE NORMAL - Vitals Vital signs reviewed: Yes - General General: Alert and oriented X 3, No acute distress, Other (Disheveled) - HEENT HEENT: PERRL, Moist mucous membranes - Neck Neck: Supple, no meningeal sign - Cardiac Cardiac: RRR, Strong equal pulses - Respiratory Respiratory: No respiratory distress, Clear bilaterally - Abdomen Abdomen: Soft, Non distended, Other (Diffusely tender to palpation. 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, No motor deficit, No sensory deficit, Normal speech Eye Opening: Spontaneous Motor: Obeys Commands Verbal: Oriented GCS Score: 15 - Psych Psych: Normal mood, Normal affect Results - Vitals Vitals: Vital Signs - 24 hr 08/15/19 08/15/19 08/15/19 20:55 21:20 21:31 Temperature 36.7 C Heart Rate 95 87 97 Respiratory 20 15 15 Rate Blood Pressure 137/107 H 137/107 H 139/39 H O2 Saturation 95 97 95 08/15/19 08/15/19 08/15/19 22:02 22:18 22:34 Temperature Heart Rate 97 87 81 Respiratory 26 H 16 17 Rate Blood Pressure 145/101 H 145/101 H 145/92 H O2 Saturation 97 95 94 08/15/19 23:00 Temperature 36.5 C Heart Rate 92 Respiratory 15 Rate Blood Pressure 144/104 H O2 Saturation 95 Oxygen O2 Source Room air - Labs Labs: Laboratory Tests 08/15/19 08/15/19 08/15/19 21:00 21:08 21:08 WBC 7.8 RBC 4.97 Hgb 14.7 Hct 44.6 MCV 89.7 MCH 29.6 MCHC 33.0 RDW 15.5 H Plt Count 271 MPV 8.8 Neut # (Auto) 4.0 Lymph # (Auto) 3.1 [place] # (Auto) 0.6 Eos # (Auto) 0.1 Baso # (Auto) 0.1 Absolute Nucleated RBC 0.00 Nucleated RBC % 0.0 Sodium 144 Potassium 3.4 L Chloride 104 Carbon Dioxide 26 Anion Gap 14.0 H BUN 6 Creatinine 0.7 Estimated GFR (MDRD) 129 Glucose 95 Calcium 9.6 Total Bilirubin < 0.2 L AST 33 ALT 19 Alkaline Phosphatase 81 Total Protein 8.0 Albumin 4.4 Globulin 3.6 Albumin/Globulin Ratio 1.2 Lipase 60 H Urine Opiates Screen NEGATIVE Ur Oxycodone Screen NEGATIVE Urine Methadone Screen NEGATIVE Ur Propoxyphene Screen NEGATIVE Ur Barbiturates Screen NEGATIVE Ur Tricyclics Screen NEGATIVE Ur Phencyclidine Scrn NEGATIVE Ur Amphetamine Screen NEGATIVE U Methamphetamines Scrn NEGATIVE U Benzodiazepines Scrn POSITIVE H Urine Cocaine Screen NEGATIVE U Cannabinoids Screen NEGATIVE Ethyl Alcohol 292.2 - Rads (name of study) CT abd/pelvis Radiology: Prelim report reviewed, EMP read contemporaneously, See rad report (Decreased inflammation adjacent to the pancreatic and peripancreatic pockets of fluid. ) PD MEDICAL DECISION MAKING - ED course Complexity details: reviewed results, re-evaluated patient, considered bhavya alves, d/w patient ED course: 33-year-old male presents to the emergency department with alcoholic gastritis and recurrent seizures after running out of his Keppra. Given a gram of Keppra here. We will restart his Keppra at home. His pancreas appears less inflamed than prior CT scan. The lidia-pancreatic pockets of fluid are still present, but stable. No hematemesis. No dark or bloody stools. Pain well controlled. Will follow up with his doctor for further care. Counseled regarding alcohol cessation. He states he has a plan for rehab. Patient counseled regarding signs and symptoms for which I believe and urgent re-evaluation would be necessary. Patient with good understanding of and agreement to plan and is comfortable going home at this time This document was made in part using voice recognition software. While efforts are made to proofread this document, sound alike and grammatical errors may occur. Departure - Departure Disposition: 01 Home, Self Care Clinical Impression: Alcoholism, Alcohol abuse, Pancreatic pseudocyst, Upper abdominal pain, Recurre nt seizures Chronic pancreatitis Qualifiers: Pancreatitis type: unspecified pancreatitis type Qualified Code(s): K86.1 - Ot her chronic pancreatitis Condition: Stable Instructions: ED Seizure Recurrent Follow-Up: Tracy Beckford ARNP [Primary Care Provider] - Within 3 Days Prescriptions: Famotidine [Pepcid] 20 mg PO BID #60 tablet Levetiracetam [Keppra] 1,000 mg PO BID #60 tablet Sucralfate [Carafate] 1 gm PO ACHS #60 tablet Comments: Continue your medications at home. Follow-up with your doctor for further care. Return if you worsen. You should follow-up for repeat imaging of your pancreatic pseudocyst within 4 to 6 weeks with your doctor. As we discussed, you need to quit drinking alcohol.
[2019-08-15] MEDS ORDERED: diphenhydrAMINE INJ 50 MG/ML VIAL IVP STA (22:26)
[2019-08-15] MEDS ORDERED: IOVERSOL 320 100 ML VIAL IVP ONE ×2 (22:39→23:01)
--- NOTE | 2019-08-15 23:12 | CT Report ---
Reason: abd pain, vomiting Procedure Date: 08/15/2019 Accession Number: [id number] / [id number] Procedure: CT - Abdomen/Pelvis W CPT Code: FULL RESULT: EXAM: CT ABDOMEN AND PELVIS EXAM DATE: 08/15/2019 10:58 PM. CLINICAL HISTORY: Abd pain, vomiting. COMPARISONS: ABDOMEN/PELVIS W/ 07/29/2019 2:55 PM ABDOMEN/PELVIS W/ 07/06/2019 9:05 PM. TECHNIQUE: Routine helical CT imaging was performed through the abdomen and pelvis. IV contrast: OPTI 320 100ML. Enteric contrast: No. Reconstructions: Coronal and sagittal. In accordance with CT protocol optimization, one or more of the following dose reduction techniques were utilized for this exam: automated exposure control, adjustment of mA and/or KV based on patient size, or use of iterative reconstructive technique. FINDINGS: Lung Bases: Unremarkable. Liver: Normal. No masses. Gallbladder/Bile Ducts: Unremarkable. Spleen: Normal. Pancreas: Similar size and distribution of the multilobulated peripancreatic pockets of fluid measuring approximately 5.3 x 3.8 x 2.6 cm in greatest dimensions. Pockets of fluid arise from the tail the pancreas and extend anteriorly adjacent to the posterior wall of the body of the stomach. The fat stranding adjacent to these pockets of fluid has decreased. Adrenal Glands: Normal. Kidneys: Normal. No masses or hydronephrosis. Peritoneal Cavity/Bowel: Normal. No free fluid, free air or adenopathy. No masses or acute inflammatory process. The appendix is not visualized; however, no inflammatory changes at the base of the cecum. Pelvic Organs: Normal. The bladder and visualized pelvic organs are within normal limits. Vasculature: No pseudoaneurysm formation, portal vein or splenic vein thrombosis, or other significant abnormality. Bones: No significant abnormality. Other: None. IMPRESSION: Decreased inflammation adjacent to the pancreatic and peripancreatic pockets of fluid. RADIA
[2019-08-15 23:43] VITALS: BP 126/81
== END 2019-08-16 00:08 | disposition home or self-care (01) ==
LOC: EDUNIT# → ED 20:52
DX: G40.909 Epilepsy, unspecified, not intractable, without status epilepticus (principal); T42.6X6A Underdosing of other antiepileptic and sedative-hypnotic drugs, initial encounter; Z91.138 Patient's unintentional underdosing of medication regimen for other reason; K29.20 Alcoholic gastritis without bleeding; F10.288 Alcohol dependence with other alcohol-induced disorder; K86.1 Other chronic pancreatitis; K86.3 Pseudocyst of pancreas; F17.200 Nicotine dependence, unspecified, uncomplicated
CPT/HCPCS: 36415; 74177; 80053; 80306; 80320; 83690; 85025; 96365; 96375; 99283; 99285; A9270; J1170; J1200; Q9967

== ENCOUNTER 2019-08-17 10:00 | Emergency (ER) | payer MEDICAID ==
[2019-08-17] MEDS ORDERED: LORazepam 2 MG/ML VIAL IVP STA ×2 (11:26→15:07)
[2019-08-17] MEDS ORDERED: ONDANSETRON 4 MG/2 ML VIAL IVP STA ×2 (11:26→15:07)
[2019-08-17] MEDS ORDERED: SODIUM CHLORIDE 0.9% 1,000 ML IV ONE (11:26)
--- NOTE | 2019-08-17 11:33 | ED Physician Documentation ---
PD HPI SEIZURE - Stated complaint Stated Complaint: SEIZURES/SOA - Chief complaint Chief Complaint: Neuro - History obtained from History obtained from: Patient - History of Present Illness Witnessed: Unwitnessed Injury during seizure: None History of seizures: Known seizure disorder Contributing factors: Substance abuse Recently seen: Emergency Dept (He was seen in the emergency department here 2 days ago with similar presentation.) - Additional information Additional information: The patient is a homeless 33-year-old male with history of alcoholism, who presents stating that he had a seizure this morning while lying on the ground in the sy. There was no one else present to witness the seizure. The patient denies any injuries. He is concerned about alcohol withdrawal, reporting that he has had "bad DTs" in the past. He has a history of seizure disorder, and has been prescribed Keppra. He was seen here 2 days ago with a similar presentation, and was given a prescription for Keppra which he has not yet filled. He reports nausea, uncontrollable shaking, and headache. He has a history of pancreatitis, and reports abdominal discomfort. he denies the recent use of any other drugs besides alcohol. His last alcohol intake was last night. Review of Systems Constitutional: reports: Myalgias. denies: Fever Eyes: denies: Decreased vision Ears: denies: Tinnitus/ringing Nose: denies: Congestion Throat: denies: Sore throat Cardiac: denies: Chest pain / pressure Respiratory: reports: Cough. denies: Dyspnea GI: reports: Abdominal Pain, Nausea. denies: Vomiting, Diarrhea : denies: Dysuria Skin: denies: Rash Musculoskeletal: denies: Back pain Neurologic: reports: Headache, Other (Tremulousness). 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 Neuro: Other - Present Medications Home Medications: Ambulatory Orders Medication Instructions Recorded Confirmed Cyanocobalamin (Vitamin B-12) 1,000 mcg PO DAILY 07/07/19 07/14/19 [Vitamin B-12] Folic Acid 1 mg PO DAILY 07/07/19 07/14/19 Gabapentin 300 mg PO TID 07/07/19 07/14/19 Levetiracetam [Keppra] 1,000 mg PO BID 07/07/19 07/14/19 Pantoprazole [Protonix] 40 mg PO DAILY 07/07/19 07/14/19 Senna [Senokot] 1 tab PO DAILY 07/07/19 07/14/19 Thiamine HCl [Vitamin B-1] 100 mg PO DAILY 07/07/19 07/14/19 traZODone [Desyrel] 50 mg PO DAILY PRN MDD 100 mg/24hr 07/07/19 07/15/19 HYDROmorphone [Dilaudid] 2 mg PO Q4H PRN #21 tablet 07/18/19 Lactulose [Constulose] 10 gm PO DAILY #30 solution 07/18/19 Lipase/Protease/Amylase [Pancreaze 1 each PO TIDWM #90 capsule. 07/18/19 10,500 Unit Cap] Nicotine 14 mg Patch [Nicoderm] 1 patch TOP DAILY #30 patch 07/18/19 Pnv with Ca#74/Iron/Folic Acid 1 each PO DAILY #30 tablet 07/18/19 [ Low Iron Tablet] chlordiazePOXIDE [Librium] 25 mg PO Q6H #30 capsule 07/18/19 lamoTRIgine [LaMICtal] 50 mg PO DAILY #30 tablet 07/18/19 Ondansetron Odt [Zofran] 4 mg TL Q6H PRN #20 tablet 07/22/19 Famotidine 20 mg PO DAILY #30 tablet 07/24/19 Promethazine [Phenergan] 25 mg PO Q6H PRN #20 tab 07/24/19 Lorazepam [Ativan] 1 mg PO TID PRN #10 tablet 07/29/19 Omeprazole 20 mg PO DAILY #30 capsule. 07/29/19 Oxycodone HCl/Acetaminophen 1 - 2 each PO Q6H PRN #14 tablet 07/29/19 [Percocet 5-325 mg Tablet] Famotidine [Pepcid] 20 mg PO BID #60 tablet 08/15/19 Levetiracetam [Keppra] 1,000 mg PO BID #60 tablet 08/15/19 Sucralfate [Carafate] 1 gm PO ACHS #60 tablet 08/15/19 LORazepam [Ativan] 1 mg PO TID PRN #15 tablet 08/17/19 Promethazine [Phenergan] 25 mg PO Q6H PRN #10 tab 08/17/19 Azithromycin [Zithromax] 250 mg PO DAILY #6 tablet 08/18/19 - Allergies Allergies/Adverse Reactions: Allergies Allergy/AdvReac Type Severity Reaction Status Date / Time iodine Allergy Severe Respiratory Verified 08/17/19 10:07 Penicillins Allergy Unknown unk Verified 08/17/19 10:07 acetaminophen [From Vicodin] Allergy Itching Verified 08/17/19 10:07 hydrocodone [From Vicodin] Allergy Itching Verified 08/17/19 10:07 egg AdvReac Intermediate Emesis Verified 08/17/19 10:07 - Social History Does the pt smoke?: Yes Smoking Status: Current every day smoker Does the pt drink ETOH?: Yes ETOH Use: Beer Does the pt have substance abuse?: Yes - Immunizations Immunizations are current?: Yes - POLST Patient has POLST: No PD ED PE NORMAL - Vitals Vital signs reviewed: Yes (tachycardic) - General General: Alert and oriented X 3, Well developed/nourished, Other (tremulousness) - HEENT HEENT: Atraumatic, PERRL, EOMI, Pharynx benign - Neck Neck: Supple, no meningeal sign, No bony TTP, No adenopathy, No JVD - Cardiac Cardiac: Other (rapid rate, regular rhythm.) - Respiratory Respiratory: No respiratory distress, Clear bilaterally - Abdomen Abdomen: Soft, Non tender, No organomegaly - Back Back: No CVA TTP - Derm Derm: No rash - Extremities Extremities: No edema, No calf tenderness / cord - Neuro Neuro: Alert and oriented X 3, No motor deficit, No sensory deficit, Other ( Tremulousness, which appears to be more discernible when he is aware of my observing him, and less so when he is resting comfortably without knowledge of being observed.) Results - Vitals Vitals: Vital Signs - 24 hr 08/17/19 08/17/19 08/17/19 10:04 11:02 12:44 Temperature 36.7 C Heart Rate 121 H 79 91 Respiratory 16 18 18 Rate Blood Pressure 110/78 138/87 H 130/86 H O2 Saturation 131 H 98 97 08/17/19 08/17/19 08/17/19 14:00 16:00 17:45 Temperature 36.9 C Heart Rate 65 75 71 Respiratory 20 18 16 Rate Blood Pressure 139/82 H 140/84 H 136/91 H O2 Saturation 96 95 99 Oxygen O2 Source Room air - Labs Labs: Laboratory Tests 08/17/19 08/17/19 08/17/19 10:30 10:30 13:07 WBC 5.4 RBC 5.43 Hgb 16.5 Hct 48.9 MCV 90.1 MCH 30.4 MCHC 33.7 RDW 15.6 H Plt Count 272 MPV 9.6 Neut # (Auto) 3.3 Lymph # (Auto) 1.6 [place] # (Auto) 0.4 Eos # (Auto) 0.1 Baso # (Auto) 0.1 Absolute Nucleated RBC 0.00 Nucleated RBC % 0.0 Sodium 139 Potassium 4.4 Chloride 103 Carbon Dioxide 26 Anion Gap 10.0 BUN < 5 L Creatinine 0.7 Estimated GFR (MDRD) 129 Glucose 83 Calcium 9.7 Total Bilirubin 0.6 AST 35 ALT 18 Alkaline Phosphatase 87 Total Protein 8.2 Albumin 4.6 Globulin 3.6 Albumin/Globulin Ratio 1.3 Lipase 47 Urine Color YELLOW Urine Clarity CLEAR Urine pH 7.5 Ur Specific [place] 1.010 Urine Protein NEGATIVE Urine Glucose (UA) NEGATIVE Urine Ketones NEGATIVE Urine Occult Blood NEGATIVE Urine Nitrite NEGATIVE Urine Bilirubin NEGATIVE Urine Urobilinogen 0.2 (NORMAL) Ur Leukocyte Esterase NEGATIVE Ur Microscopic Review NOT INDICATED Urine Culture Comments NOT INDICATED Urine Opiates Screen NEGATIVE Ur Oxycodone Screen NEGATIVE Urine Methadone Screen NEGATIVE Ur Propoxyphene Screen NEGATIVE Ur Barbiturates Screen NEGATIVE Ur Tricyclics Screen NEGATIVE Ur Phencyclidine Scrn NEGATIVE Ur Amphetamine Screen NEGATIVE U Methamphetamines Scrn NEGATIVE U Benzodiazepines Scrn POSITIVE H Urine Cocaine Screen NEGATIVE U Cannabinoids Screen POSITIVE H Ethyl Alcohol 71.5 PD MEDICAL DECISION MAKING - ED course Complexity details: reviewed old records, reviewed results, re-evaluated patient, considered differential, d/w patient ED course: The patient's presentation is consistent with possible seizure, related to alcohol abuse. There was no witness, so details of seizure are unobtainable. The patient is a known seizure disorder, and has not been taking his seizure medication. He also has had decreased alcohol intake over the past 2 days because of nausea. CBC, chemistry panel, and urinalysis are unremarkable, with normal white blood cell count, normal electrolytes, and normal lipase. Tox screen is positive for cannabis and benzodiazepines (Ativan was administered in the emergency department). Alcohol level is 71.5. Treatment in the emergency department included administration of normal saline 1 L IV, lorazepam 1 mg IV, Zofran 4 mg IV 2, banana bag IV, and lastly lorazepam 1 mg orally prior to discharge. The patient's symptoms improved with the above treatment. He is being discharged with prescription for Librium and Phenergan. I advised him to fill the previously written prescription for Keppra. I discussed with him the importance of outpatient follow-up, as well as potentially worrisome signs or symptoms that should prompt reevaluation in the emergency department. Departure - Departure Disposition: 01 Home, Self Care Clinical Impression: Seizure, Alcohol abuse Condition: Stable Instructions: ED Seizure Alcohol Withdrawal Prescriptions: LORazepam [Ativan] 1 mg PO TID PRN #15 tablet PRN Reason: withdrawal symptoms Promethazine [Phenergan] 25 mg PO Q6H PRN #10 tab PRN Reason: Nausea / Vomiting Comments: You can use Phenergan as prescribed as needed for nausea. You can use Ativan as prescribed if needed for withdrawal symptoms. Take Keppra as previously prescribed. Follow-up with primary physician within 1 week. Call to schedule appointment. Return to the emergency department if you develop increasing abdominal pain, persistent vomiting, or otherwise worsening symptoms. Discharge Date/Time: 08/17/19 17:58
[2019-08-17 11:34] LABS: BASOPHILS # (AUTO) 0.1 10^3/uL (0.0-0.1); BASOPHILS % (AUTO) 0.9 %; EOSINOPHILS # (AUTO) 0.1 10^3/uL (0.0-0.7); HGB - HEMOGLOBIN 16.5 g/dL (14.0-18.0); LYMPHOCYTES # (AUTO) 1.6 10^3/uL (1.5-3.5); LYMPHOCYTES % (AUTO) 29.4 %; MEAN CORPUSCULAR HEMOGLOBIN 30.4 pg (27.0-31.0); MEAN CORPUSCULAR HGB CONC 33.7 g/dL (32.0-36.0); MEAN CORPUSCULAR VOLUME 90.1 fL (80.0-94.0); MEAN PLATELET VOLUME 9.6 fL (7.4-11.4); MONOCYTES # (AUTO) 0.4 10^3/uL (0.0-1.0); MONOCYTES % (AUTO) 6.5 %; NEUTROPHILS # (AUTO) 3.3 10^3/uL (1.5-6.6); PLT - PLATELET COUNT 272 10^3/uL (130-450); RED BLOOD COUNT 5.43 10^6/uL (4.70-6.10); RED CELL DISTRIBUTION WIDTH 15.6 % (12.0-15.0); WHITE BLOOD COUNT 5.4 x10^3/uL (4.8-10.8)
[2019-08-17 12:06] LABS: ALBUMIN 4.6 g/dL (3.2-5.5); ALBUMIN/GLOBULIN RATIO 1.3 (1.0-2.2); ALKALINE PHOSPHATASE 87 IU/L (42-121); ALT ALANINE AMINOTRANSFERASE 18 IU/L (10-60); AST ASPARTATE AMINOTRANSFERASE 35 IU/L (10-42); BILIRUBIN,TOTAL 0.6 mg/dL (0.2-1.0); BUN - BLOOD UREA NITROGEN < 5 mg/dL (6-20); CALCIUM 9.7 mg/dL (8.5-10.3); CARBON DIOXIDE - CO2 26 mmol/L (21-32); CHLORIDE 103 mmol/L (101-111); CREATININE 0.7 mg/dL (0.6-1.2); GFR - MDRD 129 (>89); GLUCOSE 83 mg/dL (70-100); LIPASE 47 U/L (22-51); SODIUM 139 mmol/L (135-145); TOTAL PROTEIN 8.2 g/dL (6.7-8.2)
[2019-08-17 13:17] LABS: MUDS CUTOFF CONCENTRATIONS CUTOFF CONC BELOW:
[2019-08-17 13:19] LABS: BILIRUBIN,URINE NEGATIVE (NEGATIVE); GLUCOSE, URINE (UA) NEGATIVE (NEGATIVE); KETONES,URINE (UA) NEGATIVE (NEGATIVE); LEUKOCYTE ESTERASE, URINE NEGATIVE (NEGATIVE); NITRITE,URINE NEGATIVE (NEGATIVE); OCCULT BLOOD,URINE NEGATIVE (NEGATIVE); PH,URINE 7.5 PH (5.0-7.5); PROTEIN,URINE NEGATIVE (NEGATIVE); UROBILINOGEN,URINE 0.2 (NORMAL) E.U./dL (NORMAL)
[2019-08-17 13:23] LABS: CLARITY,URINE CLEAR (CLEAR)
[2019-08-17 13:31] LABS: AMPHETAMINE SCREEN,URINE NEGATIVE (NEGATIVE); BENZODIAZEPINES SCREEN, URINE POSITIVE (NEGATIVE); COCAINE SCREEN URINE NEGATIVE (NEGATIVE); METHADONE SCREEN, URINE NEGATIVE (NEGATIVE); METHAMPHETAMINES SCREEN, URINE NEGATIVE (NEGATIVE); OPIATE SCREEN, URINE NEGATIVE (NEGATIVE); OXYCODONE SCREEN, URINE NEGATIVE (NEGATIVE); PROPOXYPHENE SCREEN, URINE NEGATIVE (NEGATIVE); TRICYCLIC ANTIDEPRESSANT,URINE NEGATIVE (NEGATIVE)
[2019-08-17] MEDS ORDERED: FOLIC ACID INJ 1 MG, THIAMINE INJ 100 MG, MAGNESIUM SULFATE 2 GM, MULTIVITAMIN 10 ML in... IV STA ×5 (15:07)
[2019-08-17 17:46] VITALS: BP 136/91
[2019-08-17] MEDS ORDERED: LORazepam 1 MG TABLET PO STA (17:51)
== END 2019-08-17 17:58 | disposition home or self-care (01) ==
LOC: ED 10:00
DX: G40.909 Epilepsy, unspecified, not intractable, without status epilepticus (principal); F10.10 Alcohol abuse, uncomplicated; Y90.3 Blood alcohol level of 60-79 mg/100 ml; T42.6X6A Underdosing of other antiepileptic and sedative-hypnotic drugs, initial encounter; Z91.128 Patient's intentional underdosing of medication regimen for other reason; Z59.0 Homelessness; F17.200 Nicotine dependence, unspecified, uncomplicated
CPT/HCPCS: 36415; 80053; 80306; 80320; 81003; 83690; 85025; 96361; 96374; 96375; 96376; 99284; J2060; J3411; J8499; 81001; 87086

== ENCOUNTER 2019-08-18 06:16 | Outpatient (CLI) | payer MEDICAID | END 2019-08-18 06:17 | disposition critical access hospital (66) | LOC: EMS 06:16 | PROVIDERS: ATTEND Surgery | DX: R56.9 Unspecified convulsions (principal); R52 Pain, unspecified; R53.83 Other fatigue | CPT/HCPCS: A0425; A0429; A0999 ==

== ENCOUNTER 2019-08-18 06:33 | Emergency (ER) | payer MEDICAID ==
[2019-08-18] MEDS ORDERED: chlordiazePOXIDE 25 MG CAPSULE PO STA (06:45)
--- NOTE | 2019-08-18 06:47 | ED Physician Documentation ---
PD HPI SEIZURE - Stated complaint Stated Complaint: POSS SEIZURE - Chief complaint Chief Complaint: Neuro - History obtained from History obtained from: Patient, EMS - History of Present Illness Timing - onset: Today (just prior to arrival) Witnessed: Witnessed (per EMS pt was shaking all over and had no postictal phase.) Number of seizures: Single Description of seizure activity: Generalized, Other (EMS suspects this was a pseudoseizure) Injury during seizure: None Associated symptoms: Headache, Other (abdominal pain, pt has chronic abdominal pain with hx of pancreatitis, had a CT scan 3 days ago that was negative for any acute abnormality as well has labs 1 day ago that were normal) History of seizures: Other (reports hx of seizures on keppra but has been out of meds for 4 days and not filled his prescriptions given here) Contributing factors: Out of meds Treatment 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: Other (none) Similar symptoms before: Diagnosis (hx of seizures) Recently seen: Emergency Dept (multiple times this week, t his is his 3rd visit) - Treatment prior to arrival Treatment prior to arrival: none Review of Systems Ten Systems: 10 systems reviewed and negative Constitutional: denies: Fever Cardiac: reports: Reviewed and negative Respiratory: reports: Reviewed and negative GI: reports: Abdominal Pain Skin: reports: Reviewed and negative Musculoskeletal: reports: Reviewed and negative Neurologic: reports: Focal weakness, Seizure, Headache Psychiatric: reports: Reviewed and negative Endocrine: reports: Reviewed and negative PD PAST MEDICAL HISTORY - Past Medical History Past Medical History: Yes Cardiovascular: None Respiratory: None Neuro: Seizure disorder Endocrine/Autoimmune: None GI: Pancreatitis : None HEENT: Glaucoma Psych: Depression, Anxiety, Bipolar disorder Musculoskeletal: Chronic back pain Derm: None - Past Surgical History Past Surgical History: Yes 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 Neuro: Other - Present Medications Home Medications: Ambulatory Orders Medication Instructions Recorded Confirmed Cyanocobalamin (Vitamin B-12) 1,000 mcg PO DAILY 07/07/19 07/14/19 [Vitamin B-12] Folic Acid 1 mg PO DAILY 07/07/19 07/14/19 Gabapentin 300 mg PO TID 07/07/19 07/14/19 Levetiracetam [Keppra] 1,000 mg PO BID 07/07/19 07/14/19 Pantoprazole [Protonix] 40 mg PO DAILY 07/07/19 07/14/19 Senna [Senokot] 1 tab PO DAILY 07/07/19 07/14/19 Thiamine HCl [Vitamin B-1] 100 mg PO DAILY 07/07/19 07/14/19 traZODone [Desyrel] 50 mg PO DAILY PRN MDD 100 mg/24hr 07/07/19 07/15/19 HYDROmorphone [Dilaudid] 2 mg PO Q4H PRN #21 tablet 07/18/19 Lactulose [Constulose] 10 gm PO DAILY #30 solution 07/18/19 Lipase/Protease/Amylase [Pancreaze 1 each PO TIDWM #90 capsule. 07/18/19 10,500 Unit Cap] Nicotine 14 mg Patch [Nicoderm] 1 patch TOP DAILY #30 patch 07/18/19 Pnv with Ca#74/Iron/Folic Acid 1 each PO DAILY #30 tablet 07/18/19 [ Low Iron Tablet] chlordiazePOXIDE [Librium] 25 mg PO Q6H #30 capsule 07/18/19 lamoTRIgine [LaMICtal] 50 mg PO DAILY #30 tablet 07/18/19 Ondansetron Odt [Zofran] 4 mg TL Q6H PRN #20 tablet 07/22/19 Famotidine 20 mg PO DAILY #30 tablet 07/24/19 Promethazine [Phenergan] 25 mg PO Q6H PRN #20 tab 07/24/19 Lorazepam [Ativan] 1 mg PO TID PRN #10 tablet 07/29/19 Omeprazole 20 mg PO DAILY #30 capsule. 07/29/19 Oxycodone HCl/Acetaminophen 1 - 2 each PO Q6H PRN #14 tablet 07/29/19 [Percocet 5-325 mg Tablet] Famotidine [Pepcid] 20 mg PO BID #60 tablet 08/15/19 Levetiracetam [Keppra] 1,000 mg PO BID #60 tablet 08/15/19 Sucralfate [Carafate] 1 gm PO ACHS #60 tablet 08/15/19 LORazepam [Ativan] 1 mg PO TID PRN #15 tablet 08/17/19 Promethazine [Phenergan] 25 mg PO Q6H PRN #10 tab 08/17/19 - Allergies Allergies/Adverse Reactions: Allergies Allergy/AdvReac Type Severity Reaction Status Date / Time iodine Allergy Severe Respiratory Verified 08/17/19 10:07 Penicillins Allergy Unknown unk Verified 08/17/19 10:07 acetaminophen [From Vicodin] Allergy Itching Verified 08/17/19 10:07 hydrocodone [From Vicodin] Allergy Itching Verified 08/17/19 10:07 egg AdvReac Intermediate Emesis Verified 08/17/19 10:07 - Social History Does the pt smoke?: Yes Smoking Status: Current every day smoker Does the pt drink ETOH?: Yes Does the pt have substance abuse?: Yes - Immunizations Immunizations are current?: Yes - POLST Patient has POLST: No PD ED PE NORMAL - Vitals Vital signs reviewed: Yes - General General: Alert and oriented X 3, No acute distress - HEENT HEENT: Atraumatic, Pharynx benign - Neck Neck: Supple, no meningeal sign, No JVD - Cardiac Cardiac: RRR, No murmur - Respiratory Respiratory: No respiratory distress - Abdomen Abdomen: Soft, Non tender, Non distended - Male Male : Deferred - Rectal Rectal: Deferred - Derm Derm: Normal color, Warm and dry, No rash - Extremities Extremities: No deformity, No tenderness to palpate - Neuro Neuro: Alert and oriented X 3, Normal speech, Other (tremors in all extremities, has R leg drift on R side) Eye Opening: Spontaneous Motor: Obeys Commands Verbal: Oriented GCS Score: 15 Results - Vitals Vitals: Vital Signs - 24 hr 08/18/19 08/18/19 06:35 06:40 Temperature 37.0 C Heart Rate 67 70 Respiratory 13 12 Rate Blood Pressure 149/89 H 149/89 H O2 Saturation 95 96 Oxygen O2 Source Room air PD MEDICAL DECISION MAKING - ED course Complexity details: reviewed old records, reviewed results, re-evaluated patient, considered differential, d/w patient ED course: ddx- epileptic seizure, alcohol withdrawal seizure, alcohol withdrawal, nonepileptic psychogenic pseudoseizure. 33 y/o M with hx and exam as documented, not postictal in the ED despite report of possible seizure. He is awake alert and oriented. He has not filled any prescriptions provided yesterday. Reports at least 3 days since last drink. He is tremulous here but not hypertensive or tachycardic and CIWA is a 7. I gave him a dose of oral librium for withdrawal. He has a leg drift on the R side but excellent tone and reflexes, I suspect this may be volitional but will need reassessment. I do not feel that repeat labs are needed since they were done 24 hours ago and nothing about his complaints or exam have changed. However did order him meds for a headache as well as the librium and ordered him a loading dose of his Keppra and will reassess. Blood sugar is 184.
[2019-08-18] MEDS ORDERED: KETOROLAC 30 MG/ML VIAL IVP STA (06:56)
[2019-08-18] MEDS ORDERED: METOCLOPRAMIDE 10 MG/2 ML VIAL IVP STA (06:56)
[2019-08-18] MEDS ORDERED: diphenhydrAMINE INJ 50 MG/ML VIAL IVP STA (06:56)
[2019-08-18] MEDS ORDERED: levETIRAcetam INJ 1,000 MG in SODIUM CHLORIDE 0.9% 100ML 100 ML IV STA (06:57)
[2019-08-18] MEDS ORDERED: FOLIC ACID INJ 1 MG, THIAMINE INJ 100 MG, MAGNESIUM SULFATE 2 GM, MULTIVITAMIN 10 ML in... IV STA ×5 (07:19)
[2019-08-18] MEDS ORDERED: DEXAMETHASONE 10 MG/ML VIAL IVP STA (07:19)
--- NOTE | 2019-08-18 07:19 | ED Physician Documentation ---
PD HPI SEIZURE - Stated complaint Stated Complaint: POSS SEIZURE - Chief complaint Chief Complaint: Neuro - History obtained from History obtained from: Patient - History of Present Illness Timing - onset: Yesterday Witnessed: Witnessed Number of seizures: Multiple, Lasted - seconds, Recovered between seizure Description of seizure activity: Other (complex partial). No: Postictal, Apneic, Pulseless Injury during seizure: None Associated symptoms: Headache, Dyspnea, Nausea / vomiting, Other (aura with siezure (feels fuzzy prior)) History of seizures: Known seizure disorder, Prior EtOH wdrawal sz Contributing factors: Off meds, EtOH withdrawal Similar symptoms before: Diagnosis (siezure, pseudo-seizure) Recently seen: Emergency Dept (6 visits last month 42 this year.l) - Additional information Additional information: 33-year-old homeless male with a history of seizure disorder, alcohol abuse and chronic pancreatitis is withdrawing from alcohol and last night he left the emergency department with a prescription for Librium and he did not fill this prescription as he [facility] a [facility] or get the fill prescription filled and spend the night outside. He states that he became quite tremulous and has had recurrent seizures.His seizures are characterized by shaking and he is partially conscious during this but unable to speak. He normally takes Keppra and he has not been taking his Keppra for the past 4 days. He was prescribed Keppra yesterday along with the Librium. Yesterday his blood alcohol level was 71 lowest we recorded here in the past several years. His blood alcohol is usually in the 290-400 range. Review of Systems Constitutional: reports: Myalgias, Fatigue. denies: Fever Eyes: denies: Decreased vision Ears: reports: Other (muffled hearing in the left). denies: Ear pain Nose: reports: Congestion Throat: denies: Sore throat Cardiac: denies: Chest pain / pressure, Palpitations Respiratory: reports: Dyspnea, Cough GI: reports: Abdominal Pain, Nausea, Vomiting : denies: Dysuria, Frequency Skin: denies: Rash Musculoskeletal: denies: Neck pain, Back pain, Extremity pain Neurologic: reports: Seizure, Headache. 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 Neuro: Other - Present Medications Home Medications: Ambulatory Orders Medication Instructions Recorded Confirmed Cyanocobalamin (Vitamin B-12) 1,000 mcg PO DAILY 07/07/19 07/14/19 [Vitamin B-12] Folic Acid 1 mg PO DAILY 07/07/19 07/14/19 Gabapentin 300 mg PO TID 07/07/19 07/14/19 Levetiracetam [Keppra] 1,000 mg PO BID 07/07/19 07/14/19 Pantoprazole [Protonix] 40 mg PO DAILY 07/07/19 07/14/19 Senna [Senokot] 1 tab PO DAILY 07/07/19 07/14/19 Thiamine HCl [Vitamin B-1] 100 mg PO DAILY 07/07/19 07/14/19 traZODone [Desyrel] 50 mg PO DAILY PRN MDD 100 mg/24hr 07/07/19 07/15/19 HYDROmorphone [Dilaudid] 2 mg PO Q4H PRN #21 tablet 07/18/19 Lactulose [Constulose] 10 gm PO DAILY #30 solution 07/18/19 Lipase/Protease/Amylase [Pancreaze 1 each PO TIDWM #90 capsule. 07/18/19 10,500 Unit Cap] Nicotine 14 mg Patch [Nicoderm] 1 patch TOP DAILY #30 patch 07/18/19 Pnv with Ca#74/Iron/Folic Acid 1 each PO DAILY #30 tablet 07/18/19 [ Low Iron Tablet] chlordiazePOXIDE [Librium] 25 mg PO Q6H #30 capsule 07/18/19 lamoTRIgine [LaMICtal] 50 mg PO DAILY #30 tablet 07/18/19 Ondansetron Odt [Zofran] 4 mg TL Q6H PRN #20 tablet 07/22/19 Famotidine 20 mg PO DAILY #30 tablet 07/24/19 Promethazine [Phenergan] 25 mg PO Q6H PRN #20 tab 07/24/19 Lorazepam [Ativan] 1 mg PO TID PRN #10 tablet 07/29/19 Omeprazole 20 mg PO DAILY #30 capsule. 07/29/19 Oxycodone HCl/Acetaminophen 1 - 2 each PO Q6H PRN #14 tablet 07/29/19 [Percocet 5-325 mg Tablet] Famotidine [Pepcid] 20 mg PO BID #60 tablet 08/15/19 Levetiracetam [Keppra] 1,000 mg PO BID #60 tablet 08/15/19 Sucralfate [Carafate] 1 gm PO ACHS #60 tablet 08/15/19 LORazepam [Ativan] 1 mg PO TID PRN #15 tablet 08/17/19 Promethazine [Phenergan] 25 mg PO Q6H PRN #10 tab 08/17/19 Azithromycin [Zithromax] 250 mg PO DAILY #6 tablet 08/18/19 - Allergies Allergies/Adverse Reactions: Allergies Allergy/AdvReac Type Severity Reaction Status Date / Time iodine Allergy Severe Respiratory Verified 08/17/19 10:07 Penicillins Allergy Unknown unk Verified 08/17/19 10:07 acetaminophen [From Vicodin] Allergy Itching Verified 08/17/19 10:07 hydrocodone [From Vicodin] Allergy Itching Verified 08/17/19 10:07 egg AdvReac Intermediate Emesis Verified 08/17/19 10:07 - Social History Does the pt smoke?: Yes Smoking Status: Current every day smoker Does the pt drink ETOH?: Yes Does the pt have substance abuse?: Yes - Immunizations Immunizations are current?: Yes - POLST Patient has POLST: No PD ED PE NORMAL - Vitals Vital signs reviewed: Yes (hypertensive) - General General: Alert and oriented X 3, No acute distress, Well developed/nourished - HEENT HEENT: Atraumatic, PERRL, EOMI, Other (The left TM is inflamed flattened landmarks. 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, No motor deficit, No sensory deficit, Normal speech Eye Opening: Spontaneous Motor: Obeys Commands Verbal: Oriented GCS Score: 15 - Psych Psych: Normal mood, Normal affect Results - Vitals Vitals: Vital Signs - 24 hr 08/18/19 08/18/19 08/18/19 06:35 06:40 07:11 Temperature 37.0 C Heart Rate 67 70 53 L Respiratory 13 12 12 Rate Blood Pressure 149/89 H 149/89 H 138/88 H O2 Saturation 95 96 99 08/18/19 08/18/19 08/18/19 07:30 08:14 08:58 Temperature 36.7 C Heart Rate 71 56 L 55 L Respiratory 18 18 18 Rate Blood Pressure 139/88 H 141/90 H 132/91 H O2 Saturation 96 100 100 08/18/19 08/18/19 08/18/19 09:00 09:30 10:09 Temperature Heart Rate 56 L 59 L 83 Respiratory 16 16 16 Rate Blood Pressure 135/86 H 131/87 H 134/81 H O2 Saturation 100 99 100 Oxygen O2 Source Room air - Labs Labs: Laboratory Tests 08/18/19 08/18/19 08/18/19 06:35 06:35 08:59 WBC 5.9 RBC 5.06 Hgb 15.4 Hct 46.1 MCV 91.1 MCH 30.4 MCHC 33.4 RDW 15.6 H Plt Count 255 MPV 9.8 Neut # (Auto) 3.7 Lymph # (Auto) 1.5 [place] # (Auto) 0.4 Eos # (Auto) 0.2 Baso # (Auto) 0.0 Absolute Nucleated RBC 0.00 Nucleated RBC % 0.0 Sodium 135 Potassium 4.0 Chloride 100 L Carbon Dioxide 24 Anion Gap 11.0 BUN 7 Creatinine 0.8 Estimated GFR (MDRD) 111 Glucose 201 H Calcium 9.3 Total Bilirubin 1.5 H AST 32 ALT 18 Alkaline Phosphatase 76 Total Protein 7.3 Albumin 4.1 Globulin 3.2 Albumin/Globulin Ratio 1.3 Lipase 70 H Urine Color YELLOW Urine Clarity HAZY Urine pH 7.5 Ur Specific Desha 1.015 Urine Protein NEGATIVE Urine Glucose (UA) NEGATIVE Urine Ketones 15 H Urine Occult Blood NEGATIVE Urine Nitrite NEGATIVE Urine Bilirubin NEGATIVE Urine Urobilinogen 0.2 (NORMAL) Ur Leukocyte Esterase NEGATIVE Urine RBC 0-5 Urine WBC 0-3 Ur Squamous Epith Cells NONE SEEN Amorphous Sediment Few Urine Bacteria Rare Urine Mucus Few Strands Ur Microscopic Review INDICATED Urine Culture Comments NOT INDICATED Urine Opiates Screen NEGATIVE Ur Oxycodone Screen NEGATIVE Urine Methadone Screen NEGATIVE Ur Propoxyphene Screen NEGATIVE Ur Barbiturates Screen NEGATIVE Ur Tricyclics Screen NEGATIVE Ur Phencyclidine Scrn NEGATIVE Ur Amphetamine Screen NEGATIVE U Methamphetamines Scrn NEGATIVE U Benzodiazepines Scrn POSITIVE H Urine Cocaine Screen NEGATIVE U Cannabinoids Screen POSITIVE H Ethyl Alcohol < 5.0 PD MEDICAL DECISION MAKING - ED course Complexity details: reviewed old records, reviewed results, re-evaluated patient, considered differential, d/w patient ED course: 33-year-old male with history of chronic pancreatitis alcohol related and complex partial seizure disorder is withdrawing from alcohol and having more seizures. He has not filled his medications including the Librium prescribed for alcohol withdrawal and his Keppra. This morning he appears sober he is tremulous but is not overdramatic with his presentation. Prior to my arrival he was evaluated bedside by Dr. Nava and given a cocktail of medications for headache including Toradol Reglan and Benadryl. On my evaluation here this morning the patient does appear to be going through alcohol withdrawal he has not eaten for the past 4days he has been drinking water. He has left otitis on exam is a tender epigastrium. A banana bag is administered he is given Decadron and Rocephin additionally. Departure - Departure Disposition: 01 Home, Self Care Clinical Impression: Recurrent seizures Alcohol withdrawal Qualifiers: Complication of substance-induced condition: with unspecified complication Qualified Code(s): F10.239 - Alcohol dependence with withdrawal, unspecified Condition: Stable Instructions: ED Withdrawal Alcohol Follow-Up: [facility] [Provider Group] Prescriptions: Azithromycin [Zithromax] 250 mg PO DAILY #6 tablet Comments: Abstain from alcohol and use the librium to get through the alcohol withdrawal. Today we have identified an infection in the left middle ear and you will need antibiotic in addition to the medications prescribed yesterday.
[2019-08-18 07:30] LABS: BASOPHILS % (AUTO) 0.7 %; EOSINOPHILS # (AUTO) 0.2 10^3/uL (0.0-0.7); EOSINOPHILS % (AUTO) 2.7 %; HGB - HEMOGLOBIN 15.4 g/dL (14.0-18.0); LYMPHOCYTES # (AUTO) 1.5 10^3/uL (1.5-3.5); LYMPHOCYTES % (AUTO) 26.2 %; MEAN CORPUSCULAR HEMOGLOBIN 30.4 pg (27.0-31.0); MEAN CORPUSCULAR HGB CONC 33.4 g/dL (32.0-36.0); MEAN CORPUSCULAR VOLUME 91.1 fL (80.0-94.0); MEAN PLATELET VOLUME 9.8 fL (7.4-11.4); MONOCYTES # (AUTO) 0.4 10^3/uL (0.0-1.0); NEUTROPHILS # (AUTO) 3.7 10^3/uL (1.5-6.6); NEUTROPHILS % (AUTO) 63.1 %; PLT - PLATELET COUNT 255 10^3/uL (130-450); RED BLOOD COUNT 5.06 10^6/uL (4.70-6.10); RED CELL DISTRIBUTION WIDTH 15.6 % (12.0-15.0); WHITE BLOOD COUNT 5.9 x10^3/uL (4.8-10.8)
[2019-08-18] MEDS ORDERED: cefTRIAXone 1 GM in SODIUM CHLORIDE 0.9% MINIBAG 100 ML IV STA (07:39)
[2019-08-18 07:40] LABS: ALBUMIN 4.1 g/dL (3.2-5.5); ALBUMIN/GLOBULIN RATIO 1.3 (1.0-2.2); ALKALINE PHOSPHATASE 76 IU/L (42-121); ALT ALANINE AMINOTRANSFERASE 18 IU/L (10-60); AST ASPARTATE AMINOTRANSFERASE 32 IU/L (10-42); BILIRUBIN,TOTAL 1.5 mg/dL (0.2-1.0); BUN - BLOOD UREA NITROGEN 7 mg/dL (6-20); CALCIUM 9.3 mg/dL (8.5-10.3); CARBON DIOXIDE - CO2 24 mmol/L (21-32); CHLORIDE 100 mmol/L (101-111); CREATININE 0.8 mg/dL (0.6-1.2); GFR - MDRD 111 (>89); GLUCOSE 201 mg/dL (70-100); LIPASE 70 U/L (22-51); SODIUM 135 mmol/L (135-145); TOTAL PROTEIN 7.3 g/dL (6.7-8.2)
[2019-08-18] MEDS ORDERED: THIAMINE 100 MG/1 ML 2 ML MDV ONE (07:49)
[2019-08-18 09:05] LABS: MUDS CUTOFF CONCENTRATIONS CUTOFF CONC BELOW:
[2019-08-18 09:08] LABS: GLUCOSE, URINE (UA) NEGATIVE (NEGATIVE); KETONES,URINE (UA) 15 mg/dL (NEGATIVE); LEUKOCYTE ESTERASE, URINE NEGATIVE (NEGATIVE); NITRITE,URINE NEGATIVE (NEGATIVE); OCCULT BLOOD,URINE NEGATIVE (NEGATIVE); PH,URINE 7.5 PH (5.0-7.5); PROTEIN,URINE NEGATIVE (NEGATIVE); UROBILINOGEN,URINE 0.2 (NORMAL) E.U./dL (NORMAL)
[2019-08-18 09:12] LABS: BILIRUBIN,URINE NEGATIVE (NEGATIVE); CLARITY,URINE HAZY (CLEAR); ICTOTEST,URINE NEGATIVE
[2019-08-18 09:16] LABS: AMORPHOUS SEDIMENT,UR Few /LPF; BACTERIA,URINE Rare /HPF (None Seen); MUCUS,URINE Few Strands; RBC,URINE 0-5 /HPF (0-5); SQUAMOUS EPITHELIAL CELL,UR NONE SEEN (<= Few)
[2019-08-18 09:18] LABS: AMPHETAMINE SCREEN,URINE NEGATIVE (NEGATIVE); BENZODIAZEPINES SCREEN, URINE POSITIVE (NEGATIVE); COCAINE SCREEN URINE NEGATIVE (NEGATIVE); METHADONE SCREEN, URINE NEGATIVE (NEGATIVE); METHAMPHETAMINES SCREEN, URINE NEGATIVE (NEGATIVE); OPIATE SCREEN, URINE NEGATIVE (NEGATIVE); TRICYCLIC ANTIDEPRESSANT,URINE NEGATIVE (NEGATIVE)
[2019-08-18 09:19] LABS: OXYCODONE SCREEN, URINE NEGATIVE (NEGATIVE); PROPOXYPHENE SCREEN, URINE NEGATIVE (NEGATIVE)
[2019-08-18] MEDS ORDERED: LORazepam 2 MG/ML VIAL IVP STA (10:32)
[2019-08-18 10:58] VITALS: BP 136/78
== END 2019-08-18 10:58 | disposition home or self-care (01) ==
LOC: EDUNIT# → ED 06:33
DX: F10.239 Alcohol dependence with withdrawal, unspecified (principal); G40.909 Epilepsy, unspecified, not intractable, without status epilepticus; T42.6X6A Underdosing of other antiepileptic and sedative-hypnotic drugs, initial encounter; H66.92 Otitis media, unspecified, left ear; F17.200 Nicotine dependence, unspecified, uncomplicated
CPT/HCPCS: 36415; 80053; 80306; 80320; 81001; 83690; 85025; 96365; 96367; 96368; 96375; 99284; 99285; A9270; J1200; J2060; J2765; J3411; 81003; 87086

== ENCOUNTER 2019-08-20 12:40 | Outpatient (CLI) | payer MEDICAID | END 2019-08-20 12:41 | disposition critical access hospital (66) | LOC: EMS 12:40 | PROVIDERS: ATTEND Surgery | DX: R55 Syncope and collapse (principal); R41.82 Altered mental status, unspecified | CPT/HCPCS: A0425; A0427; A0999 ==

== ENCOUNTER 2019-08-20 12:46 | Emergency (ER) | payer MEDICAID ==
[2019-08-20] MEDS ORDERED: SODIUM CHLORIDE 0.9% 1,000 ML IV ONE (12:51)
[2019-08-20] MEDS ORDERED: THIAMINE INJ 100 MG in SODIUM CHLORIDE 0.9% 50 ML IV STA (12:51)
--- NOTE | 2019-08-20 12:55 | ED Physician Documentation ---
History of Present Illness - Stated complaint Stated Complaint: POSS SZ - History obtained from History obtained from: EMS - History of Present Illness Timing: Today (33-year-old gentleman with history of seizure disorder and alcoholism. Also pancreatitis. He is been having issues with etoh withdrawal and seizures lately. He is obtunded on arrival so no history is available for according to paramedics he was on the bus, he said that he wanted to go to the hospital, and then became unconscious. No reported seizure activity. 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 Neuro: Other - Present Medications Home Medications: Ambulatory Orders Medication Instructions Recorded Confirmed Cyanocobalamin (Vitamin B-12) 1,000 mcg PO DAILY 07/07/19 07/14/19 [Vitamin B-12] Folic Acid 1 mg PO DAILY 07/07/19 07/14/19 Gabapentin 300 mg PO TID 07/07/19 07/14/19 Levetiracetam [Keppra] 1,000 mg PO BID 07/07/19 07/14/19 Pantoprazole [Protonix] 40 mg PO DAILY 07/07/19 07/14/19 Senna [Senokot] 1 tab PO DAILY 07/07/19 07/14/19 Thiamine HCl [Vitamin B-1] 100 mg PO DAILY 07/07/19 07/14/19 traZODone [Desyrel] 50 mg PO DAILY PRN MDD 100 mg/24hr 07/07/19 07/15/19 HYDROmorphone [Dilaudid] 2 mg PO Q4H PRN #21 tablet 07/18/19 Lactulose [Constulose] 10 gm PO DAILY #30 solution 07/18/19 Lipase/Protease/Amylase [Pancreaze 1 each PO TIDWM #90 capsule. 07/18/19 10,500 Unit Cap] Nicotine 14 mg Patch [Nicoderm] 1 patch TOP DAILY #30 patch 07/18/19 Pnv with Ca#74/Iron/Folic Acid 1 each PO DAILY #30 tablet 07/18/19 [ Low Iron Tablet] chlordiazePOXIDE [Librium] 25 mg PO Q6H #30 capsule 07/18/19 lamoTRIgine [LaMICtal] 50 mg PO DAILY #30 tablet 07/18/19 Ondansetron Odt [Zofran] 4 mg TL Q6H PRN #20 tablet 07/22/19 Famotidine 20 mg PO DAILY #30 tablet 07/24/19 Promethazine [Phenergan] 25 mg PO Q6H PRN #20 tab 07/24/19 Lorazepam [Ativan] 1 mg PO TID PRN #10 tablet 07/29/19 Omeprazole 20 mg PO DAILY #30 capsule. 07/29/19 Oxycodone HCl/Acetaminophen 1 - 2 each PO Q6H PRN #14 tablet 07/29/19 [Percocet 5-325 mg Tablet] Famotidine [Pepcid] 20 mg PO BID #60 tablet 08/15/19 Levetiracetam [Keppra] 1,000 mg PO BID #60 tablet 08/15/19 Sucralfate [Carafate] 1 gm PO ACHS #60 tablet 08/15/19 LORazepam [Ativan] 1 mg PO TID PRN #15 tablet 08/17/19 Promethazine [Phenergan] 25 mg PO Q6H PRN #10 tab 08/17/19 Azithromycin [Zithromax] 250 mg PO DAILY #6 tablet 08/18/19 - Allergies Allergies/Adverse Reactions: Allergies Allergy/AdvReac Type Severity Reaction Status Date / Time iodine Allergy Severe Respiratory Verified 08/20/19 12:51 Penicillins Allergy Unknown unk Verified 08/20/19 12:51 acetaminophen [From Vicodin] Allergy Itching Verified 08/20/19 12:51 hydrocodone [From Vicodin] Allergy Itching Verified 08/20/19 12:51 egg AdvReac Intermediate Emesis Verified 08/20/19 12:51 - Social History Does the pt smoke?: Yes Smoking Status: Current every day smoker Does the pt drink ETOH?: Yes Does the pt have substance abuse?: Yes - Immunizations Immunizations are current?: Yes - POLST Patient has POLST: No PD ED PE NORMAL - Vitals Vital signs reviewed: Yes - General General: Other (He is laying quietly with his eyes open, he can say his name but otherwise is unable to provide any history, unable to verbalize where he is.) - HEENT HEENT: PERRL - Neck Neck: No bony TTP (But maintained in a collar pending imaging given potential intoxication and altered mental status) - Cardiac Cardiac: RRR, No murmur - Respiratory Respiratory: No respiratory distress, Clear bilaterally - Abdomen Abdomen: Other (Severe diffuse tenderness) - Back Back: No CVA TTP, No spinal TTP - Derm Derm: Normal color, Warm and dry - Extremities Extremities: No edema, No calf tenderness / cord - Neuro Eye Opening: Spontaneous Motor: Obeys Commands Verbal: Inappropriate GCS Score: 13 Results - Vitals Vitals: Vital Signs - 24 hr 08/20/19 08/20/19 08/20/19 13:00 13:18 14:06 Temperature 36.4 C L Heart Rate 94 93 81 Respiratory 14 18 16 Rate Blood Pressure 129/84 H 127/81 H 117/78 O2 Saturation 97 97 08/20/19 14:52 Temperature Heart Rate 82 Respiratory 18 Rate Blood Pressure 120/81 H O2 Saturation 100 Oxygen O2 Source Room air - Labs Labs: Laboratory Tests 08/20/19 08/20/19 08/20/19 13:00 13:00 14:02 WBC 10.0 RBC 5.12 Hgb 15.6 Hct 47.5 MCV 92.8 MCH 30.5 MCHC 32.8 RDW 15.9 H Plt Count 224 MPV 8.9 Neut # (Auto) 6.7 H Lymph # (Auto) 2.6 [place] # (Auto) 0.5 Eos # (Auto) 0.1 Baso # (Auto) 0.1 Absolute Nucleated RBC 0.00 Nucleated RBC % 0.0 Sodium 143 Potassium 3.1 L Chloride 103 Carbon Dioxide 25 Anion Gap 15.0 H BUN 5 L Creatinine 0.7 Estimated GFR (MDRD) 129 Glucose 106 H Calcium 8.7 Phosphorus 3.1 Magnesium 1.9 Total Bilirubin 0.5 AST 30 ALT 20 Alkaline Phosphatase 68 Total Protein 7.0 Albumin 4.0 Globulin 3.0 Albumin/Globulin Ratio 1.3 Lipase 58 H Urine Opiates Screen NEGATIVE Ur Oxycodone Screen NEGATIVE Urine Methadone Screen NEGATIVE Ur Propoxyphene Screen NEGATIVE Ur Barbiturates Screen NEGATIVE Ur Tricyclics Screen NEGATIVE Ur Phencyclidine Scrn NEGATIVE Ur Amphetamine Screen NEGATIVE U Methamphetamines Scrn NEGATIVE U Benzodiazepines Scrn POSITIVE H Urine Cocaine Screen NEGATIVE U Cannabinoids Screen POSITIVE H Ethyl Alcohol 305.6 PD MEDICAL DECISION MAKING - ED course ED course: 33-year-old gentleman presents after being obtunded on the bus. No evidence of seizure activity,Came back to normal mental status here. Work-up demonstrates that he was likely just intoxicated. Scanned for potential trauma but CT of the head, C-spine, abdomen, and single view x-ray of the chest interpreted contemporaneously by me show no acute abnormalities. Known chronic abnormalities in the pancreas. Requested discharge so he can go to detox. Offered social work consultation to help him get there which he declined. Departure - Departure Disposition: 01 Home, Self Care Clinical Impression: Alcoholism, Pancreatic pseudocyst Injury of head and neck Qualifiers: Encounter type: initial encounter Qualified Code(s): S09.90XA - Unspecified injury of head, initial encounter Alcohol intoxication Qualifiers: Complication of substance-induced condition: with delirium Qualified Code(s): F10.921 - Alcohol use, unspecified with intoxication delirium Condition: Good Record reviewed to determine appropriate education?: Yes Instructions: ED Alcohol Intoxication Comments: Go directly to the detox facility. Return for new worsening symptoms. Discharge Date/Time: 08/20/19 15:07
[2019-08-20 13:07] LABS: BASOPHILS # (AUTO) 0.1 10^3/uL (0.0-0.1); BASOPHILS % (AUTO) 0.5 %; EOSINOPHILS # (AUTO) 0.1 10^3/uL (0.0-0.7); HGB - HEMOGLOBIN 15.6 g/dL (14.0-18.0); LYMPHOCYTES # (AUTO) 2.6 10^3/uL (1.5-3.5); LYMPHOCYTES % (AUTO) 25.6 %; MEAN CORPUSCULAR HEMOGLOBIN 30.5 pg (27.0-31.0); MEAN CORPUSCULAR HGB CONC 32.8 g/dL (32.0-36.0); MEAN CORPUSCULAR VOLUME 92.8 fL (80.0-94.0); MEAN PLATELET VOLUME 8.9 fL (7.4-11.4); MONOCYTES # (AUTO) 0.5 10^3/uL (0.0-1.0); MONOCYTES % (AUTO) 5.2 %; NEUTROPHILS # (AUTO) 6.7 10^3/uL (1.5-6.6); NEUTROPHILS % (AUTO) 67.2 %; PLT - PLATELET COUNT 224 10^3/uL (130-450); RED BLOOD COUNT 5.12 10^6/uL (4.70-6.10); RED CELL DISTRIBUTION WIDTH 15.9 % (12.0-15.0)
[2019-08-20 13:19] LABS: ALBUMIN/GLOBULIN RATIO 1.3 (1.0-2.2); BILIRUBIN,TOTAL 0.5 mg/dL (0.2-1.0); CALCIUM 8.7 mg/dL (8.5-10.3); CREATININE 0.7 mg/dL (0.6-1.2); MAGNESIUM 1.9 mg/dL (1.7-2.8); PHOSPHORUS 3.1 mg/dL (2.5-4.6)
[2019-08-20] MEDS ORDERED: diphenhydrAMINE INJ 50 MG/ML VIAL IVP STA (13:19)
[2019-08-20] MEDS ORDERED: IOVERSOL 320 100 ML VIAL IVP ONE ×2 (13:20→14:09)
[2019-08-20] MEDS ORDERED: POTASSIUM CHLOR 10 MEQ/100 ML 10 MEQ/100 ML BAG IV STA (13:24)
--- NOTE | 2019-08-20 13:42 | XRAY Report ---
Reason: altered, poss head inj Procedure Date: 08/20/2019 Accession Number: [id number] / [id number] Procedure: XR - Chest 1 View X-Ray CPT Code: 88406 FULL RESULT: EXAM: CHEST RADIOGRAPHY EXAM DATE: 08/20/2019 01:31 PM. CLINICAL HISTORY: Altered mental status. Possible closed head injury. COMPARISON: CHEST 2 VIEW 07/30/2019 9:50 PM. TECHNIQUE: 1 view. FINDINGS: Lungs/Pleura: No focal opacities evident. No pleural effusion. No pneumothorax. Mediastinum: Within exam limitations, the cardiomediastinal contour is normal. Other: None. IMPRESSION: Normal single view chest. RADIA
[2019-08-20 14:06] LABS: MUDS CUTOFF CONCENTRATIONS CUTOFF CONC BELOW:
--- NOTE | 2019-08-20 14:12 | CT Report ---
Reason: altered, poss head inj Procedure Date: 08/20/2019 Accession Number: [id number] / [id number] Procedure: CT - HEAD WO CPT Code: FULL RESULT: EXAM: CT HEAD EXAM DATE: 08/20/2019 01:44 PM. CLINICAL HISTORY: Altered, possible head injury. COMPARISON: HEAD W/O 07/08/2019 8:03 PM. TECHNIQUE: Multiaxial CT images were obtained from the foramen magnum to the vertex. Reformats: Sagittal and coronal. IV contrast: None. In accordance with CT protocol optimization, one or more of the following dose reduction techniques were utilized for this exam: automated exposure control, adjustment of mA and/or KV based on patient size, or use of iterative reconstructive technique. FINDINGS: Parenchyma: No intraparenchymal hemorrhage. No evidence of mass, midline shift, or CT findings of infarction. Garcia-white differentiation is distinct. Extraaxial Spaces: Normal for age. No subdural or epidural collections identified. Ventricles: Normal in size and position. Sinuses and Orbits: Imaged paranasal sinuses, orbits, and mastoids show no significant abnormality. Bones: No evidence of fracture or calvarial defect. Other: None. IMPRESSION: No acute intracranial hemorrhage or calvarial fracture identified. RADIA
[2019-08-20 14:17] LABS: AMPHETAMINE SCREEN,URINE NEGATIVE (NEGATIVE); BENZODIAZEPINES SCREEN, URINE POSITIVE (NEGATIVE); COCAINE SCREEN URINE NEGATIVE (NEGATIVE); METHADONE SCREEN, URINE NEGATIVE (NEGATIVE); METHAMPHETAMINES SCREEN, URINE NEGATIVE (NEGATIVE); OPIATE SCREEN, URINE NEGATIVE (NEGATIVE); OXYCODONE SCREEN, URINE NEGATIVE (NEGATIVE); PROPOXYPHENE SCREEN, URINE NEGATIVE (NEGATIVE); TRICYCLIC ANTIDEPRESSANT,URINE NEGATIVE (NEGATIVE)
--- NOTE | 2019-08-20 14:18 | CT Report ---
Reason: altered, poss head inj Procedure Date: 08/20/2019 Accession Number: [id number] / [id number] Procedure: CT - CERVICAL SPINE WO CPT Code: FULL RESULT: EXAM: CT CERVICAL SPINE WITHOUT CONTRAST DATE: 08/20/2019 01:58 PM. HISTORY: Altered, poss head inj. COMPARISONS: HEAD W/O 07/08/2019 8:03 PM. TECHNIQUE: Thin-section axial images were acquired of the cervical spine without contrast. Post-processing: Coronal and sagittal reformats. Other: None. In accordance with CT protocol optimization, one or more of the following dose reduction techniques were utilized for this exam: automated exposure control, adjustment of mA and/or KV based on patient size, or use of iterative reconstructive technique. FINDINGS: Alignment: No scoliosis or spondylolisthesis. Bones: No fracture or bone lesion. Interspace Levels/Facets: C1-C2: Unremarkable. C2-C3: Unremarkable. C3-C4: Unremarkable. C4-C5: Unremarkable. C5-C6: Unremarkable. C6-C7: Unremarkable. C7-T1: Unremarkable. Musculature: Normal. No fatty atrophy. Other: The paravertebral and prevertebral soft tissues are unremarkable. The lung apices are clear. IMPRESSION: No fracture or spondylolisthesis identified RADIA
--- NOTE | 2019-08-20 14:19 | CT Report ---
Reason: IV only, abd TTP Procedure Date: 08/20/2019 Accession Number: [id number] / [id number] Procedure: CT - Abdomen/Pelvis W CPT Code: FULL RESULT: EXAM: CT ABDOMEN AND PELVIS EXAM DATE: 08/20/2019 01:49 PM. CLINICAL HISTORY: Abdominal pain COMPARISONS: ABDOMEN/PELVIS W/ 08/15/2019 10:49 PM, 07/29/2019 ABDOMEN/PELVIS W/ 07/29/2019 2:55 PM. TECHNIQUE: Routine helical CT imaging was performed through the abdomen and pelvis. IV contrast: OPTI 320 100ML. Enteric contrast: No. Reconstructions: Coronal and sagittal. In accordance with CT protocol optimization, one or more of the following dose reduction techniques were utilized for this exam: automated exposure control, adjustment of mA and/or KV based on patient size, or use of iterative reconstructive technique. FINDINGS: Lung Bases: Unremarkable. Liver: Normal. No masses. Gallbladder/Bile Ducts: Unremarkable. Spleen: Normal. Pancreas: There has been little change in the bilobed sharply marginated fluid collection arising from the pancreatic tail and extending into the anterior peripancreatic retroperitoneal compartment; no symptom change in overall dimensions which are 5.6 x 3.5 cm diameter. Dating back to the 07/29/2019 exam, there has been continued improvement of the peripancreatic inflammatory changes. Adrenal Glands: Normal. Kidneys: Normal. No masses or hydronephrosis. Peritoneal Cavity/Bowel: There is nonspecific mild small intestinal dilatation in the central pelvis without obvious obstruction. The appendix is well visualized and normal. Pelvic Organs: Normal. The bladder and visualized pelvic organs are within normal limits. Vasculature: No aneurysms or other significant abnormality. Bones: No significant abnormality. Other: None. IMPRESSION: 1. No significant change in the above described bilobed peripancreatic fluid collection arising from the pancreatic tail. Dating back to the 07/29/2019 examination, there has been continued improvement in the peripancreatic inflammatory changes. 2. Findings consistent with mild ileus. No evidence of definite bowel obstruction. RADIA
[2019-08-20] MEDS ORDERED: oxyCODONE 5 MG TABLET PO STA (14:29)
[2019-08-20] MEDS ORDERED: MAG HYDROX/AL HYDROX/SIMETH 30 ML UDC PO STA (14:29)
[2019-08-20] MEDS ORDERED: LIDOCAINE VISCOUS 2% 15 ML UDC MM STA (14:30)
[2019-08-20] MEDS ORDERED: PANTOPRAZOLE 40 MG VIAL IVP STA (14:30)
[2019-08-20 14:52] VITALS: BP 120/81
== END 2019-08-20 15:07 | disposition home or self-care (01) ==
LOC: EDUNIT# → ED 12:46
DX: F10.221 Alcohol dependence with intoxication delirium (principal); S09.90XA Unspecified injury of head, initial encounter; W19.XXXA Unspecified fall, initial encounter; Y92.811 Bus as the place of occurrence of the external cause; K86.3 Pseudocyst of pancreas; G40.909 Epilepsy, unspecified, not intractable, without status epilepticus; F17.200 Nicotine dependence, unspecified, uncomplicated
CPT/HCPCS: 36415; 70450; 71045; 72125; 74177; 80053; 80306; 80320; 83690; 83735; 84100; 85025; 96365; 96366; 96368; 96375; 99281; 99285; A9270; J1200; J3411; J7040; Q9967

== ENCOUNTER 2019-08-27 00:10 | Outpatient (CLI) | payer MEDICAID | END 2019-08-27 00:11 | disposition critical access hospital (66) | LOC: EMS 00:10 | PROVIDERS: ATTEND Surgery | DX: R10.30 Lower abdominal pain, unspecified (principal) | CPT/HCPCS: A0425; A0427; A0999 ==

== ENCOUNTER 2019-08-27 00:27 | Emergency (ER) | payer MEDICAID ==
--- NOTE | 2019-08-27 00:33 | ED Physician Documentation ---
PD HPI ABD PAIN - Stated complaint Stated Complaint: ABD PX - History obtained from History obtained from: Patient - History of Present Illness Timing - onset: How many days ago (4) Timing - duration: Hours (3) Timing - details: Gradual onset Pain level now: 6 Quality: Other (Severe) Location: Epigastric, LUQ Radiation: Left flank Associated symptoms: Nausea, Vomiting. No: Fever Similar symptoms before: Diagnosis (Pancreatitis) Recently seen: Emergency Dept (7 days ago) - Additional information Additional information: This is a 33-year-old man with long-standing history of alcoholism who presents with complaints of severe abdominal pains under his heart wrapping around into his back and kidneys. The pains been there for 4 days but over the past 3 hours is gotten progressively more severe so he called the ambulance. He was given 100 mcg of fentanyl in route and his pain is still a 6 out of 10. He also took a Phenergan orally at the [place] about 3 hours ago because of the nausea and vomiting. He stopped drinking about "52 hours" ago. He had a pork and rice dinner and reports a history of pancreatitis 7 times over the past year. He says he has been taking his prescribed Keppra and famotidine. He does not have a primary care provider but is been receiving the Keppra from emergency departments. He does feel like he cannot get a good breath because of the pain denies history of asthma. No fever. 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 1 week ago the patient was seen here in the emergency department and went to a detox center. He said he left there because he had a seizure and he decided since they were not going to help him that he would just have to help himself. That is why he quit drinking cold turkey 52 hours ago. 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 Neuro: Other - Present Medications Home Medications: Ambulatory Orders Medication Instructions Recorded Confirmed Cyanocobalamin (Vitamin B-12) 1,000 mcg PO DAILY 07/07/19 07/14/19 [Vitamin B-12] Folic Acid 1 mg PO DAILY 07/07/19 07/14/19 Gabapentin 300 mg PO TID 07/07/19 07/14/19 Levetiracetam [Keppra] 1,000 mg PO BID 07/07/19 07/14/19 Pantoprazole [Protonix] 40 mg PO DAILY 07/07/19 07/14/19 Senna [Senokot] 1 tab PO DAILY 07/07/19 07/14/19 Thiamine HCl [Vitamin B-1] 100 mg PO DAILY 07/07/19 07/14/19 traZODone [Desyrel] 50 mg PO DAILY PRN MDD 100 mg/24hr 07/07/19 07/15/19 HYDROmorphone [Dilaudid] 2 mg PO Q4H PRN #21 tablet 07/18/19 Lactulose [Constulose] 10 gm PO DAILY #30 solution 07/18/19 Lipase/Protease/Amylase [Pancreaze 1 each PO TIDWM #90 capsule. 07/18/19 10,500 Unit Cap] Nicotine 14 mg Patch [Nicoderm] 1 patch TOP DAILY #30 patch 07/18/19 Pnv with Ca#74/Iron/Folic Acid 1 each PO DAILY #30 tablet 07/18/19 [ Low Iron Tablet] chlordiazePOXIDE [Librium] 25 mg PO Q6H #30 capsule 07/18/19 lamoTRIgine [LaMICtal] 50 mg PO DAILY #30 tablet 07/18/19 Ondansetron Odt [Zofran] 4 mg TL Q6H PRN #20 tablet 07/22/19 Famotidine 20 mg PO DAILY #30 tablet 07/24/19 Promethazine [Phenergan] 25 mg PO Q6H PRN #20 tab 07/24/19 Lorazepam [Ativan] 1 mg PO TID PRN #10 tablet 07/29/19 Omeprazole 20 mg PO DAILY #30 capsule. 07/29/19 Oxycodone HCl/Acetaminophen 1 - 2 each PO Q6H PRN #14 tablet 07/29/19 [Percocet 5-325 mg Tablet] Famotidine [Pepcid] 20 mg PO BID #60 tablet 08/15/19 Levetiracetam [Keppra] 1,000 mg PO BID #60 tablet 08/15/19 Sucralfate [Carafate] 1 gm PO ACHS #60 tablet 08/15/19 LORazepam [Ativan] 1 mg PO TID PRN #15 tablet 08/17/19 Promethazine [Phenergan] 25 mg PO Q6H PRN #10 tab 08/17/19 Azithromycin [Zithromax] 250 mg PO DAILY #6 tablet 08/18/19 - Allergies Allergies/Adverse Reactions: Allergies Allergy/AdvReac Type Severity Reaction Status Date / Time iodine Allergy Severe Respiratory Verified 08/27/19 00:34 Penicillins Allergy Unknown unk Verified 08/27/19 00:34 acetaminophen [From Vicodin] Allergy Itching Verified 08/27/19 00:34 hydrocodone [From Vicodin] Allergy Itching Verified 08/27/19 00:34 egg AdvReac Intermediate Emesis Verified 08/27/19 00:34 - Social History Does the pt smoke?: Yes Smoking Status: Current every day smoker Does the pt drink ETOH?: Yes Does the pt have substance abuse?: Yes - Immunizations Immunizations are current?: Yes - POLST Patient has POLST: No PD ED PE NORMAL - Vitals Vital signs reviewed: Yes - General General: Alert and oriented X 3, Well developed/nourished, Other (Thin 33-year-old man is holding an emesis bag and sitting upright with his knees drawn up towards his chest and pain.) - HEENT HEENT: Atraumatic, PERRL, Other (No scleral icterus. Dry mucous membranes.) - Neck Neck: No adenopathy, Thyroid normal - Cardiac Cardiac: RRR, No murmur, Strong equal pulses - Respiratory Respiratory: No respiratory distress, Clear bilaterally - Abdomen Abdomen: Normal bowel sounds, Other (Patient is holding the abdominal muscles very tight and will not allow me to palpate even slightly because of the pain.) - Derm Derm: Normal color, Warm and dry, No rash - Extremities Extremities: No edema - Neuro Neuro: Alert and oriented X 3, Other (No gross neurological deficits.) Results - Vitals Vitals: Vital Signs - 24 hr 08/27/19 08/27/19 08/27/19 00:31 00:59 01:20 Temperature 36.7 C Heart Rate 74 79 75 Respiratory 18 17 18 Rate Blood Pressure 133/91 H 130/98 H 136/96 H O2 Saturation 97 97 97 08/27/19 08/27/19 02:06 03:19 Temperature Heart Rate 73 58 L Respiratory 17 17 Rate Blood Pressure 130/72 130/79 O2 Saturation 100 96 Oxygen O2 Source Room air - Labs Labs: Laboratory Tests 08/27/19 08/27/19 08/27/19 00:45 00:45 03:15 WBC 8.8 RBC 4.86 Hgb 14.1 Hct 44.6 MCV 91.8 MCH 29.0 MCHC 31.6 L RDW 15.4 H Plt Count 313 MPV 9.3 Neut # (Auto) 4.7 Lymph # (Auto) 2.7 [place] # (Auto) 1.2 H Eos # (Auto) 0.1 Baso # (Auto) 0.1 Absolute Nucleated RBC 0.00 Nucleated RBC % 0.0 Sodium 138 Potassium 3.8 Chloride 102 Carbon Dioxide 25 Anion Gap 11.0 BUN 11 Creatinine 0.8 Estimated GFR (MDRD) 111 Glucose 112 H Calcium 9.8 Total Bilirubin 0.8 AST 20 ALT 16 Alkaline Phosphatase 85 Total Protein 7.7 Albumin 4.2 Globulin 3.5 Albumin/Globulin Ratio 1.2 Lipase 54 H Urine Color YELLOW Urine Clarity CLEAR Urine pH 6.5 Ur Specific [place] 1.010 Urine Protein NEGATIVE Urine Glucose (UA) NEGATIVE Urine Ketones NEGATIVE Urine Occult Blood NEGATIVE Urine Nitrite NEGATIVE Urine Bilirubin NEGATIVE Urine Urobilinogen 0.2 (NORMAL) Ur Leukocyte Esterase TRACE H Urine RBC None Seen Urine WBC 0-3 Ur Squamous Epith Cells MOD Squamous H Urine Bacteria Rare Ur Microscopic Review INDICATED Urine Culture Comments NOT INDICATED Ethyl Alcohol < 5.0 PD MEDICAL DECISION MAKING - ED course ED course: Patient's lipase is 54 which is pretty chronic for him. CBC and BMP are normal. His alcohol level was negative. He received 2 mg of morphine and 4 mg of Zofran and ambulated to the bathroom. Urine was contaminated but no acute findings. When I went back in the room to talk to him he was still seated in that position with his legs pulled up and grimacing and grunting in pain. He just had a CT scan done 1 week ago that showed resolving inflammation around the pancreas with the same lipase number. He is not been drinking. He is good to receive Toradol 30 mg IV and then reevaluate. 0445: I just walked past the room and the patient was sleeping on the exam gurney in no distress. He will be discharged and encouraged to seek outpatient follow-up. Departure - Departure Disposition: Home, Self Care Clinical Impression: Abdominal pain Qualifiers: Abdominal location: left upper quadrant Qualified Code(s): R10.12 - Left upper quadrant pain Instructions: ED Abdominal Pain Unkn Cause Follow-Up: [facility] [Provider Group] Comments: Continue to maintain your abstinence. I would highly encourage outpatient follow-up with a primary care provider.
[2019-08-27] MEDS ORDERED: ONDANSETRON 4 MG/2 ML VIAL IVP STA (01:03)
[2019-08-27] MEDS ORDERED: MORPHINE 2 MG/ML CARPUJECT IVP STA (01:03)
[2019-08-27] MEDS ORDERED: SODIUM CHLORIDE 0.9% 1,000 ML IV ONE (01:03)
[2019-08-27 01:10] LABS: BASOPHILS # (AUTO) 0.1 10^3/uL (0.0-0.1); BASOPHILS % (AUTO) 0.6 %; EOSINOPHILS # (AUTO) 0.1 10^3/uL (0.0-0.7); EOSINOPHILS % (AUTO) 1.5 %; HGB - HEMOGLOBIN 14.1 g/dL (14.0-18.0); LYMPHOCYTES # (AUTO) 2.7 10^3/uL (1.5-3.5); LYMPHOCYTES % (AUTO) 30.7 %; MEAN CORPUSCULAR HGB CONC 31.6 g/dL (32.0-36.0); MEAN CORPUSCULAR VOLUME 91.8 fL (80.0-94.0); MEAN PLATELET VOLUME 9.3 fL (7.4-11.4); MONOCYTES # (AUTO) 1.2 10^3/uL (0.0-1.0); MONOCYTES % (AUTO) 13.2 %; NEUTROPHILS # (AUTO) 4.7 10^3/uL (1.5-6.6); NEUTROPHILS % (AUTO) 53.8 %; PLT - PLATELET COUNT 313 10^3/uL (130-450); RED BLOOD COUNT 4.86 10^6/uL (4.70-6.10); RED CELL DISTRIBUTION WIDTH 15.4 % (12.0-15.0); WHITE BLOOD COUNT 8.8 x10^3/uL (4.8-10.8)
[2019-08-27 01:20] LABS: ALBUMIN 4.2 g/dL (3.2-5.5); ALBUMIN/GLOBULIN RATIO 1.2 (1.0-2.2); ALKALINE PHOSPHATASE 85 IU/L (42-121); ALT ALANINE AMINOTRANSFERASE 16 IU/L (10-60); AST ASPARTATE AMINOTRANSFERASE 20 IU/L (10-42); BILIRUBIN,TOTAL 0.8 mg/dL (0.2-1.0); BUN - BLOOD UREA NITROGEN 11 mg/dL (6-20); CALCIUM 9.8 mg/dL (8.5-10.3); CARBON DIOXIDE - CO2 25 mmol/L (21-32); CHLORIDE 102 mmol/L (101-111); CREATININE 0.8 mg/dL (0.6-1.2); GFR - MDRD 111 (>89); GLUCOSE 112 mg/dL (70-100); LIPASE 54 U/L (22-51); SODIUM 138 mmol/L (135-145); TOTAL PROTEIN 7.7 g/dL (6.7-8.2)
[2019-08-27 03:19] LABS: BILIRUBIN,URINE NEGATIVE (NEGATIVE); GLUCOSE, URINE (UA) NEGATIVE (NEGATIVE); KETONES,URINE (UA) NEGATIVE (NEGATIVE); LEUKOCYTE ESTERASE, URINE TRACE (NEGATIVE); NITRITE,URINE NEGATIVE (NEGATIVE); OCCULT BLOOD,URINE NEGATIVE (NEGATIVE); PH,URINE 6.5 PH (5.0-7.5); PROTEIN,URINE NEGATIVE (NEGATIVE); UROBILINOGEN,URINE 0.2 (NORMAL) E.U./dL (NORMAL)
[2019-08-27 03:21] LABS: CLARITY,URINE CLEAR (CLEAR)
[2019-08-27 03:30] LABS: BACTERIA,URINE Rare /HPF (None Seen); RBC,URINE None Seen /HPF (0-5); SQUAMOUS EPITHELIAL CELL,UR MOD Squamous (<= Few)
[2019-08-27] MEDS ORDERED: KETOROLAC 30 MG/ML VIAL IVP STA (03:48)
[2019-08-27 05:17] VITALS: BP 108/65
== END 2019-08-27 05:22 | disposition home or self-care (01) ==
LOC: ED 00:27
DX: R10.12 Left upper quadrant pain (principal); R11.2 Nausea with vomiting, unspecified; R74.8 Abnormal levels of other serum enzymes; F10.21 Alcohol dependence, in remission; Z87.19 Personal history of other diseases of the digestive system; G40.909 Epilepsy, unspecified, not intractable, without status epilepticus; F17.200 Nicotine dependence, unspecified, uncomplicated
CPT/HCPCS: 36415; 80053; 80320; 81001; 81003; 83690; 85025; 87086; 96361; 96374; 96375; 99284

== ENCOUNTER 2019-08-27 14:16 | Emergency (ER) | payer MEDICAID ==
[2019-08-27 16:02] LABS: ALBUMIN 4.4 g/dL (3.2-5.5); ALBUMIN/GLOBULIN RATIO 1.3 (1.0-2.2); ALKALINE PHOSPHATASE 82 IU/L (42-121); ALT ALANINE AMINOTRANSFERASE 15 IU/L (10-60); AST ASPARTATE AMINOTRANSFERASE 21 IU/L (10-42); BILIRUBIN,TOTAL 0.7 mg/dL (0.2-1.0); BUN - BLOOD UREA NITROGEN 9 mg/dL (6-20); CALCIUM 9.5 mg/dL (8.5-10.3); CARBON DIOXIDE - CO2 25 mmol/L (21-32); CHLORIDE 100 mmol/L (101-111); CREATININE 0.8 mg/dL (0.6-1.2); GFR - MDRD 111 (>89); GLUCOSE 92 mg/dL (70-100); LIPASE 47 U/L (22-51); SODIUM 137 mmol/L (135-145); TOTAL PROTEIN 7.8 g/dL (6.7-8.2)
[2019-08-27 16:11] LABS: BASOPHILS # (AUTO) 0.1 10^3/uL (0.0-0.1); BASOPHILS % (AUTO) 0.8 %; EOSINOPHILS # (AUTO) 0.1 10^3/uL (0.0-0.7); EOSINOPHILS % (AUTO) 0.6 %; HGB - HEMOGLOBIN 14.4 g/dL (14.0-18.0); LYMPHOCYTES % (AUTO) 22.4 %; MEAN CORPUSCULAR VOLUME 94.2 fL (80.0-94.0); MEAN PLATELET VOLUME 9.4 fL (7.4-11.4); MONOCYTES # (AUTO) 0.8 10^3/uL (0.0-1.0); MONOCYTES % (AUTO) 9.4 %; NEUTROPHILS # (AUTO) 5.8 10^3/uL (1.5-6.6); NEUTROPHILS % (AUTO) 66.6 %; PLT - PLATELET COUNT 334 10^3/uL (130-450); RED BLOOD COUNT 4.64 10^6/uL (4.70-6.10); RED CELL DISTRIBUTION WIDTH 15.5 % (12.0-15.0); WHITE BLOOD COUNT 8.7 x10^3/uL (4.8-10.8)
[2019-08-27 16:18] LABS: PT - PROTHROMBIN TIME 11.6 secs (9.9-12.6)
[2019-08-27] MEDS ORDERED: THIAMINE INJ 100 MG in SODIUM CHLORIDE 0.9% 50 ML IV STA (17:17)
[2019-08-27] MEDS ORDERED: LORazepam 2 MG/ML VIAL IVP STA (17:17)
[2019-08-27] MEDS ORDERED: SODIUM CHLORIDE 0.9% 1,000 ML IV ONE (17:17)
[2019-08-27] MEDS ORDERED: ONDANSETRON 4 MG/2 ML VIAL IVP STA (17:17)
[2019-08-27] MEDS ORDERED: MORPHINE 2 MG/ML CARPUJECT IVP STA (17:18)
--- NOTE | 2019-08-27 17:20 | ED Physician Documentation ---
PD HPI ALTERED MENTAL STATUS - Stated complaint Stated Complaint: ABD PX - Chief complaint Chief Complaint: Neuro - History obtained from History obtained from: Patient - History of Present Illness Timing - onset: Other (This is a 33-year-old gentleman with history of alcoholism, also history of pancreatitis and pseudocyst. He quit alcohol 72 hours ago and has had trouble with abdominal pains and seizures since then. He had several seizures today including one in the waiting room he feels shaky. Describes left-sided and left flank pain. No vomiting. He is somewhat constipated.) Review of Systems Ten Systems: 10 systems reviewed and negative Constitutional: reports: Fatigue. 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 Neuro: Other - Present Medications Home Medications: Ambulatory Orders Medication Instructions Recorded Confirmed Cyanocobalamin (Vitamin B-12) 1,000 mcg PO DAILY 07/07/19 07/14/19 [Vitamin B-12] Folic Acid 1 mg PO DAILY 07/07/19 07/14/19 Gabapentin 300 mg PO TID 07/07/19 07/14/19 Levetiracetam [Keppra] 1,000 mg PO BID 07/07/19 07/14/19 Pantoprazole [Protonix] 40 mg PO DAILY 07/07/19 07/14/19 Senna [Senokot] 1 tab PO DAILY 07/07/19 07/14/19 Thiamine HCl [Vitamin B-1] 100 mg PO DAILY 07/07/19 07/14/19 traZODone [Desyrel] 50 mg PO DAILY PRN MDD 100 mg/24hr 07/07/19 07/15/19 HYDROmorphone [Dilaudid] 2 mg PO Q4H PRN #21 tablet 07/18/19 Lactulose [Constulose] 10 gm PO DAILY #30 solution 07/18/19 Lipase/Protease/Amylase [Pancreaze 1 each PO TIDWM #90 capsule. 07/18/19 10,500 Unit Cap] Nicotine 14 mg Patch [Nicoderm] 1 patch TOP DAILY #30 patch 07/18/19 Pnv with Ca#74/Iron/Folic Acid 1 each PO DAILY #30 tablet 07/18/19 [ Low Iron Tablet] chlordiazePOXIDE [Librium] 25 mg PO Q6H #30 capsule 07/18/19 lamoTRIgine [LaMICtal] 50 mg PO DAILY #30 tablet 07/18/19 Ondansetron Odt [Zofran] 4 mg TL Q6H PRN #20 tablet 07/22/19 Famotidine 20 mg PO DAILY #30 tablet 07/24/19 Promethazine [Phenergan] 25 mg PO Q6H PRN #20 tab 07/24/19 Lorazepam [Ativan] 1 mg PO TID PRN #10 tablet 07/29/19 Omeprazole 20 mg PO DAILY #30 capsule. 07/29/19 Oxycodone HCl/Acetaminophen 1 - 2 each PO Q6H PRN #14 tablet 07/29/19 [Percocet 5-325 mg Tablet] Famotidine [Pepcid] 20 mg PO BID #60 tablet 08/15/19 Levetiracetam [Keppra] 1,000 mg PO BID #60 tablet 08/15/19 Sucralfate [Carafate] 1 gm PO ACHS #60 tablet 08/15/19 LORazepam [Ativan] 1 mg PO TID PRN #15 tablet 08/17/19 Promethazine [Phenergan] 25 mg PO Q6H PRN #10 tab 08/17/19 Azithromycin [Zithromax] 250 mg PO DAILY #6 tablet 08/18/19 Lorazepam [Ativan] 1 mg PO TID PRN #10 tablet 08/27/19 - Allergies Allergies/Adverse Reactions: Allergies Allergy/AdvReac Type Severity Reaction Status Date / Time iodine Allergy Severe Respiratory Verified 08/27/19 00:34 Penicillins Allergy Unknown unk Verified 08/27/19 00:34 acetaminophen [From Vicodin] Allergy Itching Verified 08/27/19 00:34 hydrocodone [From Vicodin] Allergy Itching Verified 08/27/19 00:34 egg AdvReac Intermediate Emesis Verified 08/27/19 00:34 - Social History Does the pt smoke?: Yes Smoking Status: Current every day smoker Does the pt drink ETOH?: Yes Does the pt have substance abuse?: Yes - Immunizations Immunizations are current?: Yes - POLST Patient has POLST: No PD ED PE NORMAL - Vitals Vital signs reviewed: Yes - General General: Alert and oriented X 3, Other (He is tremulous including tongue tremors.) - HEENT HEENT: PERRL, EOMI - Neck Neck: Supple, no meningeal sign, No bony TTP - Cardiac Cardiac: RRR, No murmur - Respiratory Respiratory: No respiratory distress, Clear bilaterally - Abdomen Abdomen: Other (Moderate left-sided abdominal tenderness without surgical signs) - Back Back: No CVA TTP, No spinal TTP - Derm Derm: Normal color, Warm and dry - Neuro Neuro: Alert and oriented X 3, No motor deficit, No sensory deficit, Normal speech Results - Vitals Vitals: Vital Signs - 24 hr 08/27/19 08/27/19 08/27/19 14:41 15:56 19:00 Temperature 36.6 C Heart Rate 86 84 64 Respiratory 18 18 17 Rate Blood Pressure 144/102 H 151/66 H 152/89 H O2 Saturation 99 98 96 Oxygen O2 Source Room air - Labs Labs: Laboratory Tests 08/27/19 08/27/19 08/27/19 15:40 15:40 15:40 WBC 8.7 RBC 4.64 L Hgb 14.4 Hct 43.7 MCV 94.2 H MCH 31.0 MCHC 33.0 RDW 15.5 H Plt Count 334 MPV 9.4 Neut # (Auto) 5.8 Lymph # (Auto) 2.0 [place] # (Auto) 0.8 Eos # (Auto) 0.1 Baso # (Auto) 0.1 Absolute Nucleated RBC 0.00 Nucleated RBC % 0.0 PT 11.6 INR 1.0 Sodium 137 Potassium 4.0 Chloride 100 L Carbon Dioxide 25 Anion Gap 12.0 BUN 9 Creatinine 0.8 Estimated GFR (MDRD) 111 Glucose 92 Calcium 9.5 Total Bilirubin 0.7 AST 21 ALT 15 Alkaline Phosphatase 82 Total Protein 7.8 Albumin 4.4 Globulin 3.4 Albumin/Globulin Ratio 1.3 Lipase 47 Ethyl Alcohol < 5.0 PD MEDICAL DECISION MAKING - ED course ED course: 33-year-old gentleman presents with alcohol withdrawal. Because he had a seizure in the waiting room. He also claims of had a seizure in the room, but the tech saw this and he was conscious the whole time so it does not really fit. He is tremulous though. No evidence of biochemical pancreatitis. 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 In the interim, return anytime if worse or if new symptoms develop.
[2019-08-27] MEDS ORDERED: PANTOPRAZOLE 40 MG VIAL IVP STA (18:29)
[2019-08-27] MEDS ORDERED: KETOROLAC 30 MG/ML VIAL IVP STA (18:29)
[2019-08-27] MEDS ORDERED: MORPHINE 10 MG/ML VIAL IVP STA (18:29)
[2019-08-27] MEDS ORDERED: LORazepam 1 MG TABLET PO STA (19:45)
[2019-08-27 19:52] VITALS: BP 142/82
== END 2019-08-27 20:07 | disposition home or self-care (01) ==
LOC: ED 14:16
DX: K29.20 Alcoholic gastritis without bleeding (principal); F10.230 Alcohol dependence with withdrawal, uncomplicated; G40.909 Epilepsy, unspecified, not intractable, without status epilepticus; Z87.19 Personal history of other diseases of the digestive system; F17.200 Nicotine dependence, unspecified, uncomplicated; R74.8 Abnormal levels of other serum enzymes
CPT/HCPCS: 36415; 80053; 80320; 81001; 83690; 85025; 85610; 96361; 96365; 96374; 96375; 96376; 99283; 99284; J2060; J3411; J7040; J8499

== ENCOUNTER 2019-09-03 20:23 | Emergency (ER) | payer MEDICAID ==
--- NOTE | 2019-09-03 21:03 | ED Physician Documentation ---
History of Present Illness - Stated complaint Stated Complaint: SEIZURE/FALL - Chief complaint Chief Complaint: Neuro - Additonal information Additional information: This is a 33-year-old male who is known to me with a history of a seizure d isorder, Alcohol use, who presents with a seizure and fall. Patient states several hours ago he was working on a house, and he was working on a ladder around 10 feet off the ground, when he had a seizure and fell, he woke up on the ground. He has some pain in the back of his head and his neck. He denies any weakness or numbness or tingling. Patient states that he has been alcohol free for 9 days until today when he drank several beers. He states he has been compliant with his Antiepileptic medications. He denies any pain in his arms or leg aches chest or belly. No shortness of breath or chest pain. Review of Systems Constitutional: denies: Fever Eyes: denies: Loss of vision Cardiac: denies: Chest pain / pressure Respiratory: denies: Dyspnea GI: denies: Abdominal Pain Skin: denies: Laceration (s) Musculoskeletal: reports: Neck pain Neurologic: reports: Seizure Psychiatric: denies: Suicidal Immunocompromised: denies: Immunocompromised PD PAST MEDICAL HISTORY - Past Medical History Cardiovascular: None Respiratory: None Neuro: Seizure disorder Endocrine/Autoimmune: None GI: Pancreatitis : None HEENT: Glaucoma Psych: Depression, Anxiety, Bipolar disorder Musculoskeletal: Chronic back pain Derm: None - Past Surgical History Past Surgical History: Yes 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 Neuro: Other - Present Medications Home Medications: Ambulatory Orders Medication Instructions Recorded Confirmed Cyanocobalamin (Vitamin B-12) 1,000 mcg PO DAILY 07/07/19 07/14/19 [Vitamin B-12] Folic Acid 1 mg PO DAILY 07/07/19 07/14/19 Gabapentin 300 mg PO TID 07/07/19 07/14/19 Levetiracetam [Keppra] 1,000 mg PO BID 07/07/19 07/14/19 Pantoprazole [Protonix] 40 mg PO DAILY 07/07/19 07/14/19 Senna [Senokot] 1 tab PO DAILY 07/07/19 07/14/19 Thiamine HCl [Vitamin B-1] 100 mg PO DAILY 07/07/19 07/14/19 traZODone [Desyrel] 50 mg PO DAILY PRN MDD 100 mg/24hr 07/07/19 07/15/19 HYDROmorphone [Dilaudid] 2 mg PO Q4H PRN #21 tablet 07/18/19 Lactulose [Constulose] 10 gm PO DAILY #30 solution 07/18/19 Lipase/Protease/Amylase [Pancreaze 1 each PO TIDWM #90 capsule. 07/18/19 10,500 Unit Cap] Nicotine 14 mg Patch [Nicoderm] 1 patch TOP DAILY #30 patch 07/18/19 Pnv with Ca#74/Iron/Folic Acid 1 each PO DAILY #30 tablet 07/18/19 [ Low Iron Tablet] chlordiazePOXIDE [Librium] 25 mg PO Q6H #30 capsule 07/18/19 lamoTRIgine [LaMICtal] 50 mg PO DAILY #30 tablet 07/18/19 Ondansetron Odt [Zofran] 4 mg TL Q6H PRN #20 tablet 07/22/19 Famotidine 20 mg PO DAILY #30 tablet 07/24/19 Promethazine [Phenergan] 25 mg PO Q6H PRN #20 tab 07/24/19 Lorazepam [Ativan] 1 mg PO TID PRN #10 tablet 07/29/19 Omeprazole 20 mg PO DAILY #30 capsule. 07/29/19 Oxycodone HCl/Acetaminophen 1 - 2 each PO Q6H PRN #14 tablet 07/29/19 [Percocet 5-325 mg Tablet] Famotidine [Pepcid] 20 mg PO BID #60 tablet 08/15/19 Levetiracetam [Keppra] 1,000 mg PO BID #60 tablet 08/15/19 Sucralfate [Carafate] 1 gm PO ACHS #60 tablet 08/15/19 LORazepam [Ativan] 1 mg PO TID PRN #15 tablet 08/17/19 Promethazine [Phenergan] 25 mg PO Q6H PRN #10 tab 08/17/19 Azithromycin [Zithromax] 250 mg PO DAILY #6 tablet 08/18/19 Lorazepam [Ativan] 1 mg PO TID PRN #10 tablet 08/27/19 - Allergies Allergies/Adverse Reactions: Allergies Allergy/AdvReac Type Severity Reaction Status Date / Time iodine Allergy Severe Respiratory Verified 08/27/19 00:34 Penicillins Allergy Unknown unk Verified 08/27/19 00:34 acetaminophen [From Vicodin] Allergy Itching Verified 08/27/19 00:34 hydrocodone [From Vicodin] Allergy Itching Verified 08/27/19 00:34 egg AdvReac Intermediate Emesis Verified 08/27/19 00:34 - Social History Does the pt smoke?: Yes Smoking Status: Current every day smoker Does the pt drink ETOH?: Yes Does the pt have substance abuse?: Yes - Immunizations Immunizations are current?: Yes - POLST Patient has POLST: No PD ED PE NORMAL - Vitals Vital signs reviewed: Yes - General General: Alert and oriented X 3, No acute distress - HEENT HEENT: Other (Tenderness in his posterior occiput, no large hematoma or laceration seen.) - Cardiac Cardiac: RRR, No murmur - Respiratory Respiratory: Clear bilaterally - Abdomen Abdomen: Normal bowel sounds, Soft, Non tender, Non distended - Derm Derm: Warm and dry - Extremities Extremities: No deformity - Neuro Neuro: Alert and oriented X 3 - Psych Psych: Normal mood, Normal affect Results - Vitals Vitals: Vital Signs - 24 hr 09/03/19 09/03/19 09/03/19 20:27 21:12 22:30 Temperature 36.6 C Heart Rate 91 83 77 Respiratory 16 14 20 Rate Blood Pressure 132/78 H 137/76 H 120/74 O2 Saturation 96 95 97 Oxygen O2 Source Room air - EKG (time done) 21:24 Other comments: Other comments (Rate 76, rhythm sinus, there is no significant ST segment elevation or depression, no abnormal T wave inversions.QTc 450) - Rads (name of study) CT head WO Radiology: Other CT cervical spine Radiology: Other (No acute fracture or dislocation) PD MEDICAL DECISION MAKING - ED course Complexity details: considered differential (Intracranial hemorrhage, seizure, dysrhythmia, fracture, contusion, concussion) ED course: On examination patient is well-appearing, he has no external signs of trauma other than some mild tenderness of his occiput. No obvious tongue or cheek laceration on my examination. Patient has a history of reporting or feigning seizures for secondary gain, but given his history I felt that head and neck imaging were prudent. EKG is obtained and shows no convincing signs of ischemia or dysrhythmia. CT of the head and neck are obtained and showed no acute intracranial abnormality or fracture. Patient was given an extra dose of his Keppra 1 mg of lorazepam, and I advised him to avoid alcohol, which is a known trigger for his seizures. On repeat evaluation he is continues to be neurologically intact with no focal findings, he feels overall well, and has had no seizures. He was given Tylenol and ibuprofen here in the emergency department for his mild headache. I discussed the results with him and recommended close follow-up with his PCP and neurologist. I also discussed strict return precautions with the patient, who agreed and was discharged. Departure - Departure Disposition: 01 Home, Self Care Clinical Impression: Seizure Condition: Good Instructions: ED Seizure Recurrent Follow-Up: Your,PCP [Other] (Follow-up with your primary care provider and your neurologist as soon as possible.) Comments: You were seen today for seizure. Your CT scans are normal. You were given an extra dose of your Keppra. Take your seizure medications as prescribed, and avoid alcohol or any other drug use. Return to the emergency department with any new or concerning symptoms And avoid doing anything that could cause you harm if you have further seizures, such as driving, climbing on ladders, or swimming unsupervised Discharge Date/Time: 09/03/19 22:30
[2019-09-03] MEDS ORDERED: levETIRAcetam 250 MG TABLET PO STA (21:14)
[2019-09-03] MEDS ORDERED: LORazepam 1 MG TABLET PO STA (21:14)
--- NOTE | 2019-09-03 21:51 | CT Report ---
Reason: Fall from ladder after seizure Procedure Date: 09/03/2019 Accession Number: [id number] / [id number] Procedure: CT - HEAD WO CPT Code: FULL RESULT: EXAM: CT HEAD EXAM DATE: 09/03/2019 09:35 PM. CLINICAL HISTORY: Fall from ladder after seizure. COMPARISON: CERVICAL SPINE W/O 08/20/2019 1:44 PM HEAD W/O 08/20/2019 1:44 PM. TECHNIQUE: Multiaxial CT images were obtained from the foramen magnum to the vertex. Reformats: Sagittal and coronal. IV contrast: None. In accordance with CT protocol optimization, one or more of the following dose reduction techniques were utilized for this exam: automated exposure control, adjustment of mA and/or KV based on patient size, or use of iterative reconstructive technique. FINDINGS: Parenchyma: No intraparenchymal hemorrhage. No evidence of mass, midline shift, or CT findings of infarction. Garcia-white differentiation is distinct. Extraaxial Spaces: Normal for age. No subdural or epidural collections identified. Ventricles: Normal in size and position. Sinuses and Orbits: Imaged paranasal sinuses, orbits, and mastoids show no significant abnormality. Bones: No evidence of fracture or calvarial defect. Other: None. IMPRESSION: Normal head CT. RADIA
--- NOTE | 2019-09-03 21:51 | CT Report ---
Reason: Fall from ladder after seizure Procedure Date: 09/03/2019 Accession Number: [id number] / [id number] Procedure: CT - CERVICAL SPINE WO CPT Code: FULL RESULT: EXAM: CT CERVICAL SPINE WITHOUT CONTRAST DATE: 09/03/2019 09:35 PM. HISTORY: Fall from ladder after seizure. COMPARISONS: CERVICAL SPINE W/O 08/20/2019 1:44 PM. TECHNIQUE: Thin-section axial images were acquired of the cervical spine without contrast. Post-processing: Coronal and sagittal reformats. Other: None. In accordance with CT protocol optimization, one or more of the following dose reduction techniques were utilized for this exam: automated exposure control, adjustment of mA and/or KV based on patient size, or use of iterative reconstructive technique. FINDINGS: Alignment: No subluxation is demonstrated. Straightening of the upper cervical spine is present. Bones: No acute displaced fracture or suspicious bony lesion is demonstrated. Interspace Levels/Facets: There is no significant bony central canal stenosis demonstrated. Other: The paravertebral and prevertebral soft tissues are unremarkable. The lung apices are clear. IMPRESSION: 1. No acute bony abnormality. Straitening of the upper cervical spine is noted, likely positional and/or related to muscle spasm. 2. Please refer to the report of the CT of the head dictated separately. RADIA
[2019-09-03] MEDS ORDERED: ACETAMINOPHEN 325 MG TABLET PO STA (22:13)
[2019-09-03] MEDS ORDERED: IBUPROFEN 600 MG TABLET PO STA (22:13)
[2019-09-03 22:31] VITALS: BP 120/74
== END 2019-09-03 22:30 | disposition home or self-care (01) ==
LOC: ED 20:23
DX: G40.909 Epilepsy, unspecified, not intractable, without status epilepticus (principal); R51 Headache; M54.2 Cervicalgia; W11.XXXA Fall on and from ladder, initial encounter; Y93.H9 Activity, other involving exterior property and land maintenance, building and construction; Y92.007 Garden or yard of unspecified non-institutional (private) residence as the place of occurrence of the external cause; Y99.0 Civilian activity done for income or pay; F17.200 Nicotine dependence, unspecified, uncomplicated
CPT/HCPCS: 70450; 72125; 93005; 99284; A9270; J8499

== ENCOUNTER 2019-09-04 11:44 | Outpatient (CLI) | payer MEDICAID | END 2019-09-04 11:45 | disposition critical access hospital (66) | LOC: EMS 11:44 | PROVIDERS: ATTEND Surgery | DX: R56.9 Unspecified convulsions (principal) | CPT/HCPCS: A0425; A0427; A0999 ==

== ENCOUNTER 2019-09-04 12:13 | Emergency (ER) | payer MEDICAID ==
[2019-09-04] MEDS ORDERED: DEXAMETHASONE 10 MG/ML VIAL IVP STA (13:30)
[2019-09-04] MEDS ORDERED: cefTRIAXone 1 GM in SODIUM CHLORIDE 0.9% MINIBAG 100 ML IV STA (13:30)
--- NOTE | 2019-09-04 13:35 | ED Physician Documentation ---
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 He was seen in the emergency department last night had CT of his head and neck and these were cleared and the patient ended up spending the night at the bus stop in the rain. He states that he went to go about his usual way this morning and he went to get something to eat and was getting ready to eat when he had an aura and then had a seizure. He was picked by medics he had 2 seizures in route and his seizures resolved before any medication was administered. The patient states that he has previously had alcohol withdrawal seizure as well and that he does not believe this has anything to do with alcohol withdrawal as he stopped drinking about 9 days ago and since then has had about 2 beers per day the past 2 days. He did spend the night in the rain did not sleep well. He has been taking his Keppra 1000 mg twice per day. He has had a slight cough for the past 2 weeks. Review of Systems Constitutional: reports: Fatigue. denies: Fever Eyes: denies: Decreased vision Ears: denies: Ear pain Nose: reports: Congestion. denies: Rhinorrhea / runny nose Throat: reports: Oral lesions / sores. denies: Sore throat Cardiac: denies: Chest pain / pressure, Palpitations Respiratory: reports: Cough. denies: Dyspnea GI: denies: Abdominal Pain, Nausea, Vomiting : denies: Dysuria, Frequency Skin: denies: Rash Musculoskeletal: denies: Neck pain, Back pain, Extremity pain Neurologic: reports: Seizure, Headache. 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 Neuro: Other - Present Medications Home Medications: Ambulatory Orders Medication Instructions Recorded Confirmed Cyanocobalamin (Vitamin B-12) 1,000 mcg PO DAILY 07/07/19 07/14/19 [Vitamin B-12] Folic Acid 1 mg PO DAILY 07/07/19 07/14/19 Gabapentin 300 mg PO TID 07/07/19 07/14/19 Levetiracetam [Keppra] 1,000 mg PO BID 07/07/19 07/14/19 Pantoprazole [Protonix] 40 mg PO DAILY 07/07/19 07/14/19 Senna [Senokot] 1 tab PO DAILY 07/07/19 07/14/19 Thiamine HCl [Vitamin B-1] 100 mg PO DAILY 07/07/19 07/14/19 traZODone [Desyrel] 50 mg PO DAILY PRN MDD 100 mg/24hr 07/07/19 07/15/19 HYDROmorphone [Dilaudid] 2 mg PO Q4H PRN #21 tablet 07/18/19 Lactulose [Constulose] 10 gm PO DAILY #30 solution 07/18/19 Lipase/Protease/Amylase [Pancreaze 1 each PO TIDWM #90 capsule. 07/18/19 10,500 Unit Cap] Nicotine 14 mg Patch [Nicoderm] 1 patch TOP DAILY #30 patch 07/18/19 Pnv with Ca#74/Iron/Folic Acid 1 each PO DAILY #30 tablet 07/18/19 [ Low Iron Tablet] chlordiazePOXIDE [Librium] 25 mg PO Q6H #30 capsule 07/18/19 lamoTRIgine [LaMICtal] 50 mg PO DAILY #30 tablet 07/18/19 Ondansetron Odt [Zofran] 4 mg TL Q6H PRN #20 tablet 07/22/19 Famotidine 20 mg PO DAILY #30 tablet 07/24/19 Promethazine [Phenergan] 25 mg PO Q6H PRN #20 tab 07/24/19 Lorazepam [Ativan] 1 mg PO TID PRN #10 tablet 07/29/19 Omeprazole 20 mg PO DAILY #30 capsule. 07/29/19 Oxycodone HCl/Acetaminophen 1 - 2 each PO Q6H PRN #14 tablet 07/29/19 [Percocet 5-325 mg Tablet] Famotidine [Pepcid] 20 mg PO BID #60 tablet 08/15/19 Levetiracetam [Keppra] 1,000 mg PO BID #60 tablet 08/15/19 Sucralfate [Carafate] 1 gm PO ACHS #60 tablet 08/15/19 LORazepam [Ativan] 1 mg PO TID PRN #15 tablet 08/17/19 Promethazine [Phenergan] 25 mg PO Q6H PRN #10 tab 08/17/19 Azithromycin [Zithromax] 250 mg PO DAILY #6 tablet 08/18/19 Lorazepam [Ativan] 1 mg PO TID PRN #10 tablet 08/27/19 Azithromycin [Zithromax] 250 mg PO DAILY #6 tablet 09/04/19 Mupirocin 1 gm TP BID #22 gm 09/04/19 - Allergies Allergies/Adverse Reactions: Allergies Allergy/AdvReac Type Severity Reaction Status Date / Time iodine Allergy Severe Respiratory Verified 09/04/19 12:17 Penicillins Allergy Unknown unk Verified 09/04/19 12:17 acetaminophen [From Vicodin] Allergy Itching Verified 09/04/19 12:17 hydrocodone [From Vicodin] Allergy Itching Verified 09/04/19 12:17 egg AdvReac Intermediate Emesis Verified 09/04/19 12:17 - Social History Does the pt smoke?: Yes Smoking Status: Current every day smoker Does the pt drink ETOH?: Yes Does the pt have substance abuse?: Yes - Immunizations Immunizations are current?: Yes - POLST Patient has POLST: No PD ED PE NORMAL - Vitals Vital signs reviewed: Yes (hypertensive) - General General: Alert and oriented X 3, No acute distress, Well developed/nourished - HEENT HEENT: Atraumatic, PERRL, EOMI, Moist mucous membranes, Pharynx benign, Other (both TM's are inflamed with rounding of the umbo worse on the right. There is an escar under the lower lip consistent with a staph skin infection . ) - Neck Neck: Supple, no meningeal sign, No bony TTP - Cardiac Cardiac: RRR, No murmur - Respiratory Respiratory: No respiratory distress, Clear bilaterally, Other (central chest wall tenderness. ) - Abdomen Abdomen: Soft, Non tender - Back Back: No CVA TTP, No spinal TTP - Derm Derm: Normal color, Warm and dry, No rash - Extremities Extremities: No deformity, No edema - Neuro Neuro: Alert and oriented X 3, line fixer 2-12 intact, No motor deficit, No sensory deficit, Normal speech Eye Opening: Spontaneous Motor: Obeys Commands Verbal: Oriented GCS Score: 15 - Psych Psych: Normal mood, Normal affect Results - Vitals Vitals: Vital Signs - 24 hr 09/04/19 09/04/19 12:17 13:45 Temperature 36.5 C Heart Rate 84 65 Respiratory 15 17 Rate Blood Pressure 142/92 H 127/88 H O2 Saturation 97 98 Oxygen O2 Source Room air PD MEDICAL DECISION MAKING - ED course Complexity details: reviewed old records, reviewed results, re-evaluated patient, considered differential, d/w patient ED course: 33-year-old homeless male who spent the night outside in the rain last night after a fall off of a ladder with a seizure has had recurrent seizure this morning despite taking his Keppra last night and this morning. He has had sleep deprivation and on examination he does have bilateral otitis. Here in the emergency department he is administered saline and he is administered dexamethasone 10 mg intravenously as well as Rocephin 1 g intravenously and Toradol 30 mg intravenously. I do not suspect this is alcohol withdrawal seizure given the patient's history and I suspect this is his primary seizure disorder triggered by sleep deprivation and otitis.Today a level of his Keppra is taken for laboratory evaluation. Departure - Departure Disposition: 01 Home, Self Care Clinical Impression: Recurrent seizures, Impetigo, Sleep deprivation seizure Otitis media Qualifiers: Otitis media type: suppurative Chronicity: acute Laterality: bilateral Recurrence: non-recurrent Spontaneous tympanic membrane rupture: without spontaneous rupture Qualified Code(s): H66.003 - Acute suppurative otitis media without spontaneous rupture of ear drum, bilateral Instructions: ED Otitis Media Acute Adult, ED Seizure Recurrent Follow-Up: [facility] [Provider Group] Prescriptions: Azithromycin [Zithromax] 250 mg PO DAILY #6 tablet Mupirocin 1 gm TP BID #22 gm
[2019-09-04] MEDS ORDERED: KETOROLAC 30 MG/ML VIAL IVP STA (13:45)
[2019-09-04 14:44] VITALS: BP 123/65
== END 2019-09-04 14:43 | disposition home or self-care (01) ==
LOC: EDUNIT# → ED 12:13
DX: G40.909 Epilepsy, unspecified, not intractable, without status epilepticus (principal); H66.003 Acute suppurative otitis media without spontaneous rupture of ear drum, bilateral; L01.00 Impetigo, unspecified; Z72.820 Sleep deprivation; Z59.0 Homelessness; F17.200 Nicotine dependence, unspecified, uncomplicated
CPT/HCPCS: 36415; 80177; 96365; 96375; 99283

== ENCOUNTER 2019-09-06 10:38 | Outpatient (CLI) | payer MEDICAID | END 2019-09-06 10:39 | disposition critical access hospital (66) | LOC: EMS 10:38 | PROVIDERS: ATTEND Surgery | DX: R56.9 Unspecified convulsions (principal) | CPT/HCPCS: A0425; A0427; A0999 ==

== ENCOUNTER 2019-09-06 10:54 | Emergency (ER) | payer MEDICAID ==
[2019-09-06] MEDS ORDERED: SODIUM CHLORIDE 0.9% 1,000 ML IV ONE (11:16)
[2019-09-06] MEDS ORDERED: MIDAZOLAM 2 MG/2 ML VIAL IVP STA (11:16)
[2019-09-06] MEDS ORDERED: FOLIC ACID INJ 1 MG, THIAMINE INJ 100 MG, MAGNESIUM SULFATE 2 GM, MULTIVITAMIN 10 ML in... IV STA ×5 (11:17)
--- NOTE | 2019-09-06 11:18 | ED Physician Documentation ---
PD HPI SEIZURE - Stated complaint Stated Complaint: BODY ACHES - Chief complaint Chief Complaint: Neuro - History obtained from History obtained from: Patient, EMS - History of Present Illness Timing - onset: Today (history of seizure today and called EMS. had been drinking. Had been trying to stop drinking and sober some days with use of benzos Rx from ER. Had had intake appt for alcohol rehab but missed it due to "had to go to work". Resumed drinking instead. States is having about 20 seizures per week the past couple of monhts. Is taking his Keppra. States had had less seizures on Depakote in the past, changed to Keppra in the past year. Had Neuro in [place] but unable to get there due to transportation. He states history of underlying seizures and also alcohol related seizures.) Witnessed: Witnessed Number of seizures: Multiple, Lasted minutes (1-2) Description of seizure activity: Generalized Injury during seizure: Other (general muscle aches. Having increased stomach pain the past few days with drinking again as well.). No: Head injury, Neck injury Associated symptoms: No: Headache, Palpitations History of seizures: Known seizure disorder, Prior EtOH wdrawal sz Contributing factors: Sleep deprivation. No: Off meds, Out of meds, Substance abuse, EtOH withdrawal (currently drinking, though says only had some alcohol today to keep from being shaky.), Fever Similar symptoms before: Diagnosis (states epileptic seizures since teens and also alcohol related.) Recently seen: Emergency Dept (has been to ER often with seizures, stomach pains, intoxication and withdrawal. Has had Social Work give info for programs several times. Has been given intake appts per old charts.) Review of Systems Constitutional: denies: Fever, Chills Nose: denies: Rhinorrhea / runny nose, Congestion Throat: denies: Sore throat Respiratory: denies: Cough GI: reports: Abdominal Pain, Nausea, Vomiting. denies: Diarrhea, Hematemesis, Bloody / black stool : denies: Dysuria, Frequency Neurologic: reports: Generalized weakness, Seizure ("about 20 per week", according to the patient), Headache. denies: Focal weakness, Numbness, Altered mental status, Head injury PD PAST MEDICAL HISTORY - Past Medical History Cardiovascular: None Respiratory: None Neuro: Seizure disorder Endocrine/Autoimmune: None GI: Pancreatitis : None HEENT: Glaucoma Psych: Depression, Anxiety, Bipolar disorder Musculoskeletal: Chronic back pain Derm: None - Past Surgical History Past Surgical History: Yes General: Other /RN MEDICAL INPATIENT SERVICES: Other Neuro: Other - Present Medications Home Medications: Ambulatory Orders Medication Instructions Recorded Confirmed Lipase/Protease/Amylase [Pancreaze 1 each PO TIDWM #90 capsule. 07/18/19 10,500 Unit Cap] Nicotine 14 mg Patch [Nicoderm] 1 patch TOP DAILY #30 patch 07/18/19 09/06/19 Pnv with Ca#74/Iron/Folic Acid 1 each PO DAILY #30 tablet 07/18/19 09/06/19 [ Low Iron Tablet] Famotidine 20 mg PO DAILY #30 tablet 07/24/19 09/06/19 Promethazine [Phenergan] 25 mg PO Q6H PRN #20 tab 07/24/19 09/06/19 Lorazepam [Ativan] 1 mg PO TID PRN #10 tablet 07/29/19 09/06/19 Omeprazole 20 mg PO DAILY #30 capsule. 07/29/19 09/06/19 Famotidine [Pepcid] 20 mg PO BID #60 tablet 08/15/19 09/06/19 Levetiracetam [Keppra] 1,000 mg PO BID #60 tablet 08/15/19 09/06/19 Sucralfate [Carafate] 1 gm PO ACHS #60 tablet 08/15/19 09/06/19 Divalproex ER [Depakote ER] 250 mg PO BID #30 tablet 09/06/19 Lidocaine Viscous 2% [Xylocaine 5 ml PO Q4H PRN #100 ml 09/06/19 Viscous 2%] chlordiazePOXIDE [Librium] 25 mg PO Q6H PRN #25 capsule 09/06/19 - Allergies Allergies/Adverse Reactions: Allergies Allergy/AdvReac Type Severity Reaction Status Date / Time iodine Allergy Severe Respiratory Verified 09/06/19 11:02 Penicillins Allergy Unknown unk Verified 09/06/19 11:02 acetaminophen [From Vicodin] Allergy Itching Verified 09/06/19 11:02 hydrocodone [From Vicodin] Allergy Itching Verified 09/06/19 11:02 egg AdvReac Intermediate Emesis Verified 09/06/19 11:02 - Social History Does the pt smoke?: Yes Smoking Status: Current every day smoker Does the pt drink ETOH?: Yes Does the pt have substance abuse?: Yes - Immunizations Immunizations are current?: Yes - POLST Patient has POLST: No Results - Vitals Vitals: Vital Signs - 24 hr 09/06/19 09/06/19 09/06/19 10:58 11:02 11:39 Temperature 36.6 C Heart Rate 88 80 83 Respiratory 18 18 18 Rate Blood Pressure 123/109 H 132/105 H 126/88 H O2 Saturation 95 94 100 09/06/19 09/06/19 09/06/19 12:13 12:42 13:43 Temperature Heart Rate 77 76 78 Respiratory 18 18 18 Rate Blood Pressure 127/83 H 117/77 110/69 O2 Saturation 95 93 93 09/06/19 09/06/19 14:32 15:38 Temperature 37.1 C Heart Rate 78 83 Respiratory 18 18 Rate Blood Pressure 114/73 116/87 H O2 Saturation 93 93 Oxygen O2 Source Room air - Labs Labs: Laboratory Tests 09/06/19 09/06/19 09/06/19 11:24 11:26 11:26 WBC 9.1 RBC 4.96 Hgb 14.7 Hct 46.4 MCV 93.5 MCH 29.6 MCHC 31.7 L RDW 15.8 H Plt Count 368 MPV 8.9 Neut # (Auto) 6.0 Lymph # (Auto) 2.5 Woodward # (Auto) 0.5 Eos # (Auto) 0.0 Baso # (Auto) 0.0 Absolute Nucleated RBC 0.00 Nucleated RBC % 0.0 Sodium 142 Potassium 3.2 L Chloride 105 Carbon Dioxide 23 Anion Gap 14.0 H BUN 7 Creatinine 0.7 Estimated GFR (MDRD) 129 Glucose 99 Calcium 9.1 Magnesium 2.2 Total Bilirubin 0.6 AST 33 ALT 17 Alkaline Phosphatase 65 Total Protein 7.4 Albumin 4.2 Globulin 3.2 Albumin/Globulin Ratio 1.3 Lipase 36 TSH Salicylates < 6.0 Urine Opiates Screen NEGATIVE Ur Oxycodone Screen NEGATIVE Urine Methadone Screen NEGATIVE Ur Propoxyphene Screen NEGATIVE Acetaminophen < 10 L Ur Barbiturates Screen NEGATIVE Ur Tricyclics Screen NEGATIVE Ur Phencyclidine Scrn NEGATIVE Ur Amphetamine Screen NEGATIVE U Methamphetamines Scrn NEGATIVE U Benzodiazepines Scrn NEGATIVE Urine Cocaine Screen NEGATIVE U Cannabinoids Screen NEGATIVE Ethyl Alcohol 208.6 09/06/19 11:26 WBC RBC Hgb Hct MCV MCH MCHC RDW Plt Count MPV Neut # (Auto) Lymph # (Auto) Woodward # (Auto) Eos # (Auto) Baso # (Auto) Absolute Nucleated RBC Nucleated RBC % Sodium Potassium Chloride Carbon Dioxide Anion Gap BUN Creatinine Estimated GFR (MDRD) Glucose Calcium Magnesium Total Bilirubin AST ALT Alkaline Phosphatase Total Protein Albumin Globulin Albumin/Globulin Ratio Lipase TSH 1.10 Salicylates Urine Opiates Screen Ur Oxycodone Screen Urine Methadone Screen Ur Propoxyphene Screen Acetaminophen Ur Barbiturates Screen Ur Tricyclics Screen Ur Phencyclidine Scrn Ur Amphetamine Screen U Methamphetamines Scrn U Benzodiazepines Scrn Urine Cocaine Screen U Cannabinoids Screen Ethyl Alcohol PD MEDICAL DECISION MAKING - ED course Complexity details: re-evaluated patient (he has not had seizure again here. He is feeling improved with meds. Able to eat and drink. Conversant. No real admission criteria. Discharged after few hours in ER and remaining stable. ), considered differential (patient states had much less seizures on Depakote in the past and requests Rx. Has new PCP appt with [facility] but not until September. I can give name of [facility] in [place], as he would be better able to take bus to there (he gets around mostly by [employer]). ), d/w patient ED course: Had true seizure lasting 1-2 minutes here in ER soon after arrival by EMS. Awakens after and is post-ictal for short period. Seems true seizure by my exam during it. Departure - Departure Disposition: 01 Home, Self Care Clinical Impression: Seizure, Alcoholism, Seizure disorder Gastritis Qualifiers: Gastritis type: unspecified gastritis Chronicity: chronic Gastritis bleeding: without bleeding Qualified Code(s): K29.50 - Unspecified chronic gastritis without bleeding Condition: Stable Record reviewed to determine appropriate education?: Yes Instructions: ED Gastritis, ED Seizure Recurrent Follow-Up: [facility] [Provider Group] Prescriptions: chlordiazePOXIDE [Librium] 25 mg PO Q6H PRN #25 capsule PRN Reason: Alcohol Withdrawal Divalproex ER [Depakote ER] 250 mg PO BID #30 tablet Lidocaine Viscous 2% [Xylocaine Viscous 2%] 5 ml PO Q4H PRN #100 ml PRN Reason: Pain Comments: Continue your famotidine acid reducing medicine as well as the Phenergan if needed for nausea. Use Librium 2-3 times daily as needed for alcohol withdrawal symptoms and avoid alcohol. Continue your Keppra for now and we can add Depakote twice daily. After 7 days of the Depakote, you can decrease the Keppra to 500 mg twice a day. Follow-up with the [facility]. I realized the appointment is still a ways out but called to see if they have sooner appointments. Follow-up with neurology as well. I gave a #4 a neurologist in [place] so it is a little closer than your prior one in [place]. Call to see if they accept your insurance and have appointments. KOREY Garcia-C Neurologist * Address: [address] [place] [id number] * Discharge Date/Time: 09/06/19 15:39
[2019-09-06] MEDS ORDERED: levETIRAcetam INJ 500 MG in SODIUM CHLORIDE 0.9% 100ML 100 ML IV STA (11:23)
[2019-09-06] MEDS ORDERED: MIDAZOLAM 2 MG/2 ML VIAL ONE (11:28)
[2019-09-06 11:31] LABS: MUDS CUTOFF CONCENTRATIONS CUTOFF CONC BELOW:
[2019-09-06 11:34] LABS: BASOPHILS % (AUTO) 0.4 %; EOSINOPHILS % (AUTO) 0.1 %; HGB - HEMOGLOBIN 14.7 g/dL (14.0-18.0); LYMPHOCYTES # (AUTO) 2.5 10^3/uL (1.5-3.5); LYMPHOCYTES % (AUTO) 27.2 %; MEAN CORPUSCULAR HEMOGLOBIN 29.6 pg (27.0-31.0); MEAN CORPUSCULAR HGB CONC 31.7 g/dL (32.0-36.0); MEAN CORPUSCULAR VOLUME 93.5 fL (80.0-94.0); MEAN PLATELET VOLUME 8.9 fL (7.4-11.4); MONOCYTES # (AUTO) 0.5 10^3/uL (0.0-1.0); MONOCYTES % (AUTO) 5.4 %; NEUTROPHILS % (AUTO) 66.5 %; PLT - PLATELET COUNT 368 10^3/uL (130-450); RED BLOOD COUNT 4.96 10^6/uL (4.70-6.10); RED CELL DISTRIBUTION WIDTH 15.8 % (12.0-15.0); WHITE BLOOD COUNT 9.1 x10^3/uL (4.8-10.8)
[2019-09-06 11:46] LABS: AMPHETAMINE SCREEN,URINE NEGATIVE (NEGATIVE); BENZODIAZEPINES SCREEN, URINE NEGATIVE (NEGATIVE); COCAINE SCREEN URINE NEGATIVE (NEGATIVE); METHADONE SCREEN, URINE NEGATIVE (NEGATIVE); METHAMPHETAMINES SCREEN, URINE NEGATIVE (NEGATIVE); OPIATE SCREEN, URINE NEGATIVE (NEGATIVE); OXYCODONE SCREEN, URINE NEGATIVE (NEGATIVE); PROPOXYPHENE SCREEN, URINE NEGATIVE (NEGATIVE); TRICYCLIC ANTIDEPRESSANT,URINE NEGATIVE (NEGATIVE)
[2019-09-06] MEDS ORDERED: MORPHINE 2 MG/ML CARPUJECT IVP STA (11:48)
[2019-09-06 11:51] LABS: ACETAMINOPHEN < 10 ug/mL (10-30); ALBUMIN 4.2 g/dL (3.2-5.5); ALBUMIN/GLOBULIN RATIO 1.3 (1.0-2.2); ALKALINE PHOSPHATASE 65 IU/L (42-121); ALT ALANINE AMINOTRANSFERASE 17 IU/L (10-60); AST ASPARTATE AMINOTRANSFERASE 33 IU/L (10-42); BILIRUBIN,TOTAL 0.6 mg/dL (0.2-1.0); BUN - BLOOD UREA NITROGEN 7 mg/dL (6-20); CALCIUM 9.1 mg/dL (8.5-10.3); CARBON DIOXIDE - CO2 23 mmol/L (21-32); CHLORIDE 105 mmol/L (101-111); CREATININE 0.7 mg/dL (0.6-1.2); GFR - MDRD 129 (>89); GLUCOSE 99 mg/dL (70-100); LIPASE 36 U/L (22-51); MAGNESIUM 2.2 mg/dL (1.7-2.8); SALICYLATE < 6.0 mg/dL; SODIUM 142 mmol/L (135-145); TOTAL PROTEIN 7.4 g/dL (6.7-8.2)
[2019-09-06] MEDS ORDERED: PROMETHAZINE INJ 12.5 MG in SODIUM CHLORIDE 0.9% 50 ML IV STA (14:55)
[2019-09-06] MEDS ORDERED: MORPHINE 10 MG/ML VIAL IVP STA (14:55)
[2019-09-06] MEDS ORDERED: LORazepam 2 MG/ML VIAL IVP STA (14:56)
[2019-09-06 15:39] VITALS: BP 116/87
== END 2019-09-06 15:39 | disposition home or self-care (01) ==
LOC: EDUNIT# → ED 10:54
DX: G40.909 Epilepsy, unspecified, not intractable, without status epilepticus (principal); F10.20 Alcohol dependence, uncomplicated; F17.200 Nicotine dependence, unspecified, uncomplicated
CPT/HCPCS: 36415; 80053; 80306; 80307; 80320; 80329; 83690; 83735; 84443; 85025; J2060; J3411; J7040

== ENCOUNTER 2019-09-10 14:57 | Outpatient (CLI) | payer MEDICAID | END 2019-09-10 14:58 | disposition short-term general hospital (02) | LOC: EMS 14:57 | PROVIDERS: ATTEND Surgery | DX: R44.0 Auditory hallucinations (principal) | CPT/HCPCS: A0425; A0429; A0999 ==

== ENCOUNTER 2019-09-11 14:55 | Outpatient (CLI) | payer MEDICAID | END 2019-09-11 14:56 | disposition critical access hospital (66) | LOC: EMS 14:55 | PROVIDERS: ATTEND Surgery | DX: R56.9 Unspecified convulsions (principal) | CPT/HCPCS: A0425; A0429; A0999 ==

== ENCOUNTER 2019-09-11 15:33 | Emergency (ER) | payer MEDICAID ==
--- NOTE | 2019-09-11 15:36 | ED Physician Documentation ---
History of Present Illness - Stated complaint Stated Complaint: SEIZURES - Additonal information Additional information: This is a 33-year-old male who is well-known to me, he has a history of alcohol use and a seizure disorder, he presents after a seizure. Patient says he was [place] music [place] the [place] and eating some food and next thing he remembers he woke up in the ambulance. Reportedly he had a tonic-clonic seizure and a bystander called 911. He states that he has some generalized achiness all over, denies specific pain. No confusion, weakness, or numbness. He states he drank a fortified beer this afternoon. 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 07/18/19 Dr Chao,500 Unit Cap] Nicotine 14 mg Patch [Nicoderm] 1 patch TOP DAILY #30 patch 07/18/19 09/06/19 Pnv with Ca#74/Iron/Folic Acid 1 each PO DAILY #30 tablet 07/18/19 09/06/19 [ Low Iron Tablet] Famotidine 20 mg PO DAILY #30 tablet 07/24/19 09/06/19 Promethazine [Phenergan] 25 mg PO Q6H PRN #20 tab 07/24/19 09/06/19 Lorazepam [Ativan] 1 mg PO TID PRN #10 tablet 07/29/19 09/06/19 Omeprazole 20 mg PO DAILY #30 capsule. 07/29/19 09/06/19 Famotidine [Pepcid] 20 mg PO BID #60 tablet 08/15/19 09/06/19 Levetiracetam [Keppra] 1,000 mg PO BID #60 tablet 08/15/19 09/06/19 Sucralfate [Carafate] 1 gm PO ACHS #60 tablet 08/15/19 09/06/19 Divalproex ER [Depakote ER] 250 mg PO BID #30 tablet 09/06/19 Lidocaine Viscous 2% [Xylocaine 5 ml PO Q4H PRN #100 ml 09/06/19 Viscous 2%] chlordiazePOXIDE [Librium] 25 mg PO Q6H PRN #25 capsule 09/06/19 - Allergies Allergies/Adverse Reactions: Allergies Allergy/AdvReac Type Severity Reaction Status Date / Time iodine Allergy Severe Respiratory Verified 09/11/19 15:51 Penicillins Allergy Unknown unk Verified 09/11/19 15:51 acetaminophen [From Vicodin] Allergy Itching Verified 09/11/19 15:51 hydrocodone [From Vicodin] Allergy Itching Verified 09/11/19 15:51 egg AdvReac Intermediate Emesis Verified 09/11/19 15:51 - Social History Does the pt smoke?: Yes Smoking Status: Current every day smoker Does the pt drink ETOH?: Yes Does the pt have substance abuse?: Yes - Immunizations Immunizations are current?: Yes - POLST Patient has POLST: No PD ED PE NORMAL - Vitals Vital signs reviewed: Yes - General General: Alert and oriented X 3, No acute distress - HEENT HEENT: Atraumatic, PERRL - Neck Neck: Supple, no meningeal sign - Cardiac Cardiac: RRR - Respiratory Respiratory: Clear bilaterally - Abdomen Abdomen: Soft, Non tender, Non distended - Derm Derm: Warm and dry - Extremities Extremities: No deformity - Neuro Neuro: Alert and oriented X 3, biomass production manager 2-12 intact, No motor deficit, No sensory deficit, Normal speech - Psych Psych: Normal mood, Normal affect Results - Vitals Vitals: Vital Signs - 24 hr 09/11/19 09/11/19 15:48 17:24 Temperature 36.5 C 36.8 C Heart Rate 89 88 Respiratory 15 18 Rate Blood Pressure 126/86 H 116/81 H O2 Saturation 96 100 Oxygen O2 Source Room air - EKG (time done) 16:03 Other comments: Other comments (Rate 90, rhythm sinus, there is slight less than 0.5 mm segment concave elevation in the anterior precordial leads with consistent with benign early repolarization. QTc 435) - Labs Labs: Laboratory Tests 09/11/19 09/11/19 16:17 16:17 WBC 6.1 RBC 4.90 Hgb 14.9 Hct 45.6 MCV 93.1 MCH 30.4 MCHC 32.7 RDW 15.4 H Plt Count 301 MPV 9.0 Neut # (Auto) 2.5 Lymph # (Auto) 2.9 Harney # (Auto) 0.4 Eos # (Auto) 0.1 Baso # (Auto) 0.1 Absolute Nucleated RBC 0.00 Nucleated RBC % 0.0 Sodium 142 Potassium 3.9 Chloride 109 Carbon Dioxide 24 Anion Gap 9.0 BUN 8 Creatinine 0.7 Estimated GFR (MDRD) 129 Glucose 89 Calcium 8.6 Total Bilirubin 0.4 AST 24 ALT 17 Alkaline Phosphatase 64 Total Protein 6.8 Albumin 4.0 Globulin 2.8 Albumin/Globulin Ratio 1.4 Lipase 53 H PD MEDICAL DECISION MAKING - ED course Complexity details: considered differential (Seizure, dysrhythmia, alcohol intoxication, electrolyte abnormality) ED course: On arrival, patient is awake, alert, with no neurologic deficits. EKG shows no convincing signs of ischemia or dysrhythmia. Patient did drink some alcohol earlier in the day, but he is clinically sober on my evaluation no gait ataxia, no slurred speech, and normal interactions with me and staff. Electrolytes and CBC, CMP unremarkable. Careful exam reveals no signs of trauma to patient's head or neck, he has some generalized soreness all over, but no signs of focal injury. He was given crystalloid bolus as well as a gram of Keppra. I discussed with him that his alcohol use is likely triggering his seizures, and that he needs to Quit drinking. He is well aware of this fact, but is appreciative for the concern. He is back to his baseline and feeling well, and appears safe for discharge. I recommend a follow-up with his neurologist and primary care provider, and return to the emergency department with any new or worsening symptoms. Patient agrees with this plan and was discharged. Departure - Departure Disposition: 01 Home, Self Care Clinical Impression: Seizure Condition: Stable Instructions: ED Seizure Recurrent Follow-Up: Your,PCP [Other] Comments: You were seen today for seizure, this appears to be triggered by your drinking. Please stop drinking, and take your seizure medications as prescribed. Avoid doing anything that could cause you harm if you are seizing, such as driving, heights, or swimming unsupervised. If you develop new or worsening symptoms please return to the emergency department Discharge Date/Time: 09/11/19 17:27
[2019-09-11] MEDS ORDERED: levETIRAcetam INJ 1,000 MG in SODIUM CHLORIDE 0.9% 100ML 100 ML IV STA (15:44)
[2019-09-11] MEDS ORDERED: ONDANSETRON 4 MG/2 ML VIAL IVP STA (15:45)
[2019-09-11] MEDS ORDERED: KETOROLAC 30 MG/ML VIAL IVP STA (15:45)
[2019-09-11] MEDS ORDERED: LACTATED RINGERS 1,000 ML IV STA (15:46)
[2019-09-11] MEDS ORDERED: SODIUM CHLORIDE 0.9% 1,000 ML IV ONE (15:46)
[2019-09-11 16:24] LABS: BASOPHILS # (AUTO) 0.1 10^3/uL (0.0-0.1); BASOPHILS % (AUTO) 0.8 %; EOSINOPHILS # (AUTO) 0.1 10^3/uL (0.0-0.7); EOSINOPHILS % (AUTO) 2.3 %; HGB - HEMOGLOBIN 14.9 g/dL (14.0-18.0); LYMPHOCYTES # (AUTO) 2.9 10^3/uL (1.5-3.5); MEAN CORPUSCULAR HEMOGLOBIN 30.4 pg (27.0-31.0); MEAN CORPUSCULAR HGB CONC 32.7 g/dL (32.0-36.0); MEAN CORPUSCULAR VOLUME 93.1 fL (80.0-94.0); MONOCYTES # (AUTO) 0.4 10^3/uL (0.0-1.0); MONOCYTES % (AUTO) 6.6 %; NEUTROPHILS # (AUTO) 2.5 10^3/uL (1.5-6.6); PLT - PLATELET COUNT 301 10^3/uL (130-450); RED CELL DISTRIBUTION WIDTH 15.4 % (12.0-15.0); WHITE BLOOD COUNT 6.1 x10^3/uL (4.8-10.8)
[2019-09-11 16:36] LABS: ALBUMIN/GLOBULIN RATIO 1.4 (1.0-2.2); BILIRUBIN,TOTAL 0.4 mg/dL (0.2-1.0); CALCIUM 8.6 mg/dL (8.5-10.3); CREATININE 0.7 mg/dL (0.6-1.2); TOTAL PROTEIN 6.8 g/dL (6.7-8.2)
[2019-09-11] MEDS ORDERED: ACETAMINOPHEN 325 MG TABLET PO STA (17:05)
[2019-09-11 17:24] VITALS: BP 116/81
== END 2019-09-11 17:27 | disposition home or self-care (01) ==
LOC: EDUNIT# → ED 15:33
DX: G40.909 Epilepsy, unspecified, not intractable, without status epilepticus (principal); R52 Pain, unspecified; F17.200 Nicotine dependence, unspecified, uncomplicated; Z72.89 Other problems related to lifestyle; Z79.899 Other long term (current) drug therapy
CPT/HCPCS: 36415; 80053; 83690; 85025; 93005; 96365; 96375; 99283; 99284; A9270; J7120

== ENCOUNTER 2019-09-18 18:22 | Outpatient (CLI) | payer MEDICAID | END 2019-09-18 18:23 | disposition critical access hospital (66) | LOC: EMS 18:22 | PROVIDERS: ATTEND Surgery | DX: R56.9 Unspecified convulsions (principal); R51 Headache; M54.2 Cervicalgia; M54.9 Dorsalgia, unspecified; Z59.0 Homelessness ==

== ENCOUNTER 2019-09-18 18:58 | Emergency (ER) | payer MEDICAID ==
--- NOTE | 2019-09-18 20:18 | ED Physician Documentation ---
History of Present Illness - Stated complaint Stated Complaint: SZ/FALL DOWN STAIRS - Chief complaint Chief Complaint: Neuro - Additonal information Additional information: THis is a 33 year old male with a seizure disorder and alcohol use, well-known to me from many visits to the ED for seizures and reported trauma after drinking, who presents with a seizure. He is transitioning to [facility] from [facility] and he states it seems to be helping. However several hours prior to arrival he states he was sitting at the top of some stairs and next thing he remembers he was at the bottom of the stairs. He has a headache, neck pain, and chest soreness. He did drink a beer in the afternoon. Review of Systems Constitutional: denies: Fever Eyes: denies: Loss of vision Cardiac: reports: Chest pain / pressure Respiratory: denies: Dyspnea GI: denies: Abdominal Pain : denies: Incontinent Musculoskeletal: reports: Neck pain Neurologic: reports: Seizure Psychiatric: reports: Other (alcohol use) Immunocompromised: denies: Immunocompromised PD PAST MEDICAL HISTORY - Past Medical History Cardiovascular: None Respiratory: None Neuro: Seizure disorder Endocrine/Autoimmune: None GI: Pancreatitis : None HEENT: Glaucoma Psych: Depression, Anxiety, Bipolar disorder Musculoskeletal: Chronic back pain Derm: None - Past Surgical History Past Surgical History: Yes 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 07/18/19 10,500 Unit Cap] Nicotine 14 mg Patch [Nicoderm] 1 patch TOP DAILY #30 patch 07/18/19 09/06/19 Pnv with Ca#74/Iron/Folic Acid 1 each PO DAILY #30 tablet 07/18/19 09/06/19 [ Low Iron Tablet] Famotidine 20 mg PO DAILY #30 tablet 07/24/19 09/06/19 Promethazine [Phenergan] 25 mg PO Q6H PRN #20 tab 07/24/19 09/06/19 Lorazepam [Ativan] 1 mg PO TID PRN #10 tablet 07/29/19 09/06/19 Omeprazole 20 mg PO DAILY #30 capsule. 07/29/19 09/06/19 Famotidine [Pepcid] 20 mg PO BID #60 tablet 08/15/19 09/06/19 Levetiracetam [Keppra] 1,000 mg PO BID #60 tablet 08/15/19 09/06/19 Sucralfate [Carafate] 1 gm PO ACHS #60 tablet 08/15/19 09/06/19 Divalproex ER [Depakote ER] 250 mg PO BID #30 tablet 09/06/19 Lidocaine Viscous 2% [Xylocaine 5 ml PO Q4H PRN #100 ml 09/06/19 Viscous 2%] chlordiazePOXIDE [Librium] 25 mg PO Q6H PRN #25 capsule 09/06/19 - Allergies Allergies/Adverse Reactions: Allergies Allergy/AdvReac Type Severity Reaction Status Date / Time iodine Allergy Severe Respiratory Verified 09/18/19 19:03 Penicillins Allergy Unknown unk Verified 09/18/19 19:03 acetaminophen [From Vicodin] Allergy Itching Verified 09/18/19 19:03 hydrocodone [From Vicodin] Allergy Itching Verified 09/18/19 19:03 egg AdvReac Intermediate Emesis Verified 09/18/19 19:03 - Social History Does the pt smoke?: Yes Smoking Status: Current every day smoker Does the pt drink ETOH?: Yes Does the pt have substance abuse?: Yes - Immunizations Immunizations are current?: Yes - POLST Patient has POLST: No PD ED PE NORMAL - Vitals Vital signs reviewed: Yes - General General: Alert and oriented X 3, No acute distress - HEENT HEENT: Atraumatic, PERRL - Neck Neck: No bony TTP, Other (c-collar in place) - Cardiac Cardiac: RRR - Respiratory Respiratory: No respiratory distress, Clear bilaterally, Other (No chest wall tenderness) - Abdomen Abdomen: Normal bowel sounds, Soft, Non tender, Non distended - Derm Derm: Warm and dry - Extremities Extremities: No deformity - Neuro Neuro: Alert and oriented X 3, meeting facilitator 2-12 intact, No motor deficit, No sensory deficit, Normal speech Results - Vitals Vitals: Vital Signs - 24 hr 09/18/19 09/18/19 09/18/19 19:01 19:37 21:18 Temperature 36.7 C Heart Rate 97 96 Respiratory 18 12 Rate Blood Pressure 128/76 113/61 114/67 O2 Saturation 95 93 09/18/19 22:07 Temperature Heart Rate 90 Respiratory 17 Rate Blood Pressure 115/84 H O2 Saturation 97 Oxygen O2 Source Room air - Labs Labs: Laboratory Tests 09/18/19 09/18/19 21:46 21:46 WBC 6.9 RBC 4.52 L Hgb 13.8 L Hct 41.5 L MCV 91.8 MCH 30.5 MCHC 33.3 RDW 15.6 H Plt Count 224 MPV 9.2 Neut # (Auto) 3.2 Lymph # (Auto) 3.0 Menard # (Auto) 0.5 Eos # (Auto) 0.2 Baso # (Auto) 0.0 Absolute Nucleated RBC 0.00 Nucleated RBC % 0.0 Sodium 144 Potassium 3.6 Chloride 107 Carbon Dioxide 28 Anion Gap 9.0 BUN 8 Creatinine 0.8 Estimated GFR (MDRD) 111 Glucose 101 H Calcium 8.7 Total Bilirubin 0.4 AST 25 ALT 17 Alkaline Phosphatase 76 Total Protein 6.7 Albumin 3.7 Globulin 3.0 Albumin/Globulin Ratio 1.2 Lipase 51 - Rads (name of study) CT head Radiology: Other (No acute intracranial abnormality) CT C spine WO Radiology: Other (No acute osseous abnormality) CXR Radiology: Other (No acute cardiopulmonary abnormality) PD MEDICAL DECISION MAKING - ED course Complexity details: considered differential (Fracture, contusion, PTX, ICH, seizure, electrolyte disturbance, alcohol use) ED course: Pt's exam does not show signs of external trauma. I discussed with him that he comes in quite frequently for reported trauma without obvious signs of trauma and has had countless CTs that have been negative. I do have concern that he is using the ED as a place to sleep, and is receiving lots of radiation. I discussed this with him. He has also had witnessed convulsive episodes in the ED in the past that were clearly not seizures. He is clinically sober with unremarkable vital signs at this time. He is adament that he has head, neck pain and chest soreness. CT head, C-spine and CXR negative for acute abnormality. He has no midline back tenderness or abdominal tenderness. He is well-appearing, sober, and after tylenol and a dose of his depakote he is feeling improved, is ambulatory, and was discharged with return precuations and instructions on seiz ure safety and alcohol cessation. Departure - Departure Disposition: 01 Home, Self Care Clinical Impression: Seizure Condition: Good Instructions: ED Seizure Recurrent Follow-Up: Your,PCP [Other] Comments: You were seen today for seizure. You need to stop drinking, and take your seizure meds as prescribed. You also should not be climbing on ladders, swimming alone, doing any activity that could cause you harm if you have a seizure. If you develop worsening symptoms return to the emergency department. It is very important that you follow-up with your neurologist and your primary care provider. Discharge Date/Time: 09/18/19 22:56
[2019-09-18] MEDS ORDERED: ACETAMINOPHEN 325 MG TABLET PO STA (21:15)
[2019-09-18 21:52] LABS: BASOPHILS % (AUTO) 0.6 %; EOSINOPHILS # (AUTO) 0.2 10^3/uL (0.0-0.7); EOSINOPHILS % (AUTO) 2.5 %; HGB - HEMOGLOBIN 13.8 g/dL (14.0-18.0); LYMPHOCYTES % (AUTO) 43.3 %; MEAN CORPUSCULAR HEMOGLOBIN 30.5 pg (27.0-31.0); MEAN CORPUSCULAR HGB CONC 33.3 g/dL (32.0-36.0); MEAN CORPUSCULAR VOLUME 91.8 fL (80.0-94.0); MEAN PLATELET VOLUME 9.2 fL (7.4-11.4); MONOCYTES # (AUTO) 0.5 10^3/uL (0.0-1.0); MONOCYTES % (AUTO) 6.7 %; NEUTROPHILS # (AUTO) 3.2 10^3/uL (1.5-6.6); NEUTROPHILS % (AUTO) 46.6 %; PLT - PLATELET COUNT 224 10^3/uL (130-450); RED BLOOD COUNT 4.52 10^6/uL (4.70-6.10); RED CELL DISTRIBUTION WIDTH 15.6 % (12.0-15.0); WHITE BLOOD COUNT 6.9 x10^3/uL (4.8-10.8)
--- NOTE | 2019-09-18 21:57 | CT Report ---
Reason: sz, head trauma Procedure Date: 09/18/2019 Accession Number: [id number] / [id number] Procedure: CT - HEAD WO CPT Code: Final Report FULL RESULT: EXAM: CT HEAD EXAM DATE: 09/18/2019 09:32 PM. CLINICAL HISTORY: Seizure. Head trauma. Fall down stairs today. COMPARISON: HEAD W/O 09/03/2019 9:30 PM. TECHNIQUE: Multiaxial CT images were obtained from the foramen magnum to the vertex. Reformats: Sagittal and coronal. IV contrast: None. In accordance with CT protocol optimization, one or more of the following dose reduction techniques were utilized for this exam: automated exposure control, adjustment of mA and/or KV based on patient size, or use of iterative reconstructive technique. FINDINGS: Parenchyma: No intraparenchymal hemorrhage. No evidence of mass, midline shift, or CT findings of infarction. Garcia-white differentiation is distinct. Extraaxial Spaces: Normal for age. No subdural or epidural collections identified. Ventricles: Normal in size and position. Sinuses and Orbits: Imaged paranasal sinuses, orbits, and mastoids show no significant abnormality. Bones: No evidence of fracture or calvarial defect. Other: None. IMPRESSION: Normal head CT. RADIA
--- NOTE | 2019-09-18 22:00 | XRAY Report ---
Reason: sz, chest pain Procedure Date: 09/18/2019 Accession Number: [id number] / [id number] Procedure: XR - Chest 1 View X-Ray CPT Code: 72079 Final Report FULL RESULT: EXAM: CHEST RADIOGRAPHY EXAM DATE: 09/18/2019 09:38 PM. CLINICAL HISTORY: Sz, chest pain. COMPARISON: CHEST 1 VIEW 08/20/2019 12:58 PM CERVICAL SPINE W/O 09/18/2019 9:28 PM. TECHNIQUE: 1 view. FINDINGS: There is grid artifact. Lungs/Pleura: No focal opacities evident. No visualized pleural effusion or pneumothorax. Mediastinum: Within exam limitations, the cardiomediastinal contour is normal. Other: None. IMPRESSION: No acute findings. RADIA
--- NOTE | 2019-09-18 22:01 | CT Report ---
Reason: sz, neck pain Procedure Date: 09/18/2019 Accession Number: [id number] / [id number] Procedure: CT - CERVICAL SPINE WO CPT Code: Final Report FULL RESULT: EXAM: CT CERVICAL SPINE WITHOUT CONTRAST DATE: 09/18/2019 09:32 PM. HISTORY: Sz, neck pain. COMPARISONS: CERVICAL SPINE W/O 09/03/2019 9:33 PM. TECHNIQUE: Thin-section axial images were acquired of the cervical spine without contrast. Post-processing: Coronal and sagittal reformats. Other: None. In accordance with CT protocol optimization, one or more of the following dose reduction techniques were utilized for this exam: automated exposure control, adjustment of mA and/or KV based on patient size, or use of iterative reconstructive technique. FINDINGS: Alignment: There is loss of the typical cervical or doses with relative straightening of the cervical spine. This is similar to the prior study and likely positional. Bones: No fractures nor subluxations have developed related to the patient's seizures. Interspace Levels/Facets: There are no discernible significant disk protrusions there is no canal nor foraminal stenosis. Musculature: Normal. No fatty atrophy. Other: The paravertebral and prevertebral soft tissues are unremarkable. The lung apices are clear. IMPRESSION: 1. Stable appearance of cervical spine. No acute findings. RADIA
[2019-09-18] MEDS ORDERED: DIVALPROEX ER 250 MG TABLET PO ONE (22:05)
[2019-09-18 22:07] LABS: ALBUMIN 3.7 g/dL (3.2-5.5); ALBUMIN/GLOBULIN RATIO 1.2 (1.0-2.2); BILIRUBIN,TOTAL 0.4 mg/dL (0.2-1.0); CALCIUM 8.7 mg/dL (8.5-10.3); CREATININE 0.8 mg/dL (0.6-1.2); TOTAL PROTEIN 6.7 g/dL (6.7-8.2)
[2019-09-18 22:08] VITALS: BP 115/84
[2019-09-19] MEDS ORDERED: DIVALPROEX ER 250 MG TABLET PO SCH (09:00)
== END 2019-09-18 22:56 | disposition home or self-care (01) ==
LOC: EDUNIT# → ED 18:58
DX: G40.909 Epilepsy, unspecified, not intractable, without status epilepticus (principal); F17.200 Nicotine dependence, unspecified, uncomplicated
CPT/HCPCS: 36415; 70450; 71045; 72125; 80053; 83690; 85025; 99283; 99284; A9270

== ENCOUNTER 2019-09-28 19:33 | Outpatient (CLI) | payer MEDICAID | END 2019-09-28 19:34 | disposition critical access hospital (66) | LOC: EMS 19:33 | PROVIDERS: ATTEND Surgery | DX: R56.9 Unspecified convulsions (principal) | CPT/HCPCS: A0425; A0427; A0999 ==

== ENCOUNTER 2019-09-28 19:49 | Emergency (ER) | payer MEDICAID ==
[2019-09-28] MEDS ORDERED: LORazepam 2 MG/ML VIAL IVP STA (20:06)
--- NOTE | 2019-09-28 20:15 | ED Physician Documentation ---
PD HPI SEIZURE - Stated complaint Stated Complaint: UNRESPONSIVE/ SIEZURE - Chief complaint Chief Complaint: Neuro - History obtained from History obtained from: Patient, EMS - History of Present Illness Timing - onset: Today Witnessed: Witnessed Number of seizures: Single, Recovered between seizure Description of seizure activity: Generalized Injury during seizure: None Associated symptoms: Other (persistent cough) History of seizures: Known seizure disorder, Prior EtOH wdrawal sz Contributing factors: Other (homeless) Similar symptoms before: Diagnosis (seizure and OM) Recently seen: Emergency Dept - Additional information Additional information: 33-year-old homeless male with a seizure disorder was at the [place] this evening when he felt an aura dropped to the ground and had a seizure. The ambulance was summoned the patient was not treated in route to the hospital he did have no postictal period associated with a seizure. He is well-known to the emergency department here and to [facility] for recurrent seizure disorder and medical noncompliance. He is on Keppra and Depakote and he indicates he did take his doses this morning. He has had a persistent cough for the past 5 weeks. He states that he did take some treatment with antibiotic 2 weeks ago. Review of Systems Constitutional: denies: Fever Eyes: denies: Decreased vision Ears: denies: Ear pain Nose: reports: Rhinorrhea / runny nose, Congestion Throat: denies: Sore throat Cardiac: denies: Chest pain / pressure, Palpitations Respiratory: reports: Cough. denies: Dyspnea GI: denies: Vomiting : denies: Dysuria Musculoskeletal: reports: Back pain. denies: Neck pain Neurologic: reports: Seizure. 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 07/18/19 10,500 Unit Cap] Nicotine 14 mg Patch [Nicoderm] 1 patch TOP DAILY #30 patch 07/18/19 09/06/19 Vit,Moo 74/Iron/Folic 1 each PO DAILY #30 tablet 07/18/19 09/06/19 [ Low Iron Tablet] Famotidine 20 mg PO DAILY #30 tablet 07/24/19 09/06/19 Promethazine [Phenergan] 25 mg PO Q6H PRN #20 tab 07/24/19 09/06/19 Lorazepam [Ativan] 1 mg PO TID PRN #10 tablet 07/29/19 09/06/19 Omeprazole 20 mg PO DAILY #30 capsule. 07/29/19 09/06/19 Famotidine [Pepcid] 20 mg PO BID #60 tablet 08/15/19 09/06/19 Levetiracetam [Keppra] 1,000 mg PO BID #60 tablet 08/15/19 09/06/19 Sucralfate [Carafate] 1 gm PO ACHS #60 tablet 08/15/19 09/06/19 Divalproex ER [Depakote ER] 250 mg PO BID #30 tablet 09/06/19 Lidocaine Viscous 2% [Xylocaine 5 ml PO Q4H PRN #100 ml 09/06/19 Viscous 2%] chlordiazePOXIDE [Librium] 25 mg PO Q6H PRN #25 capsule 09/06/19 Cefdinir 300 mg PO BID #20 capsule 09/29/19 - Allergies Allergies/Adverse Reactions: Allergies Allergy/AdvReac Type Severity Reaction Status Date / Time iodine Allergy Severe Respiratory Verified 09/28/19 19:56 Penicillins Allergy Unknown unk Verified 09/28/19 19:56 acetaminophen [From Vicodin] Allergy Itching Verified 09/28/19 19:56 hydrocodone [From Vicodin] Allergy Itching Verified 09/28/19 19:56 egg AdvReac Intermediate Emesis Verified 09/28/19 19:56 - Social History Does the pt smoke?: Yes Smoking Status: Current every day smoker Does the pt drink ETOH?: Yes Does the pt have substance abuse?: Yes - Immunizations Immunizations are current?: Yes - POLST Patient has POLST: No PD ED PE NORMAL - Vitals Vital signs reviewed: Yes - General General: No acute distress, Well developed/nourished, Other (The patient is actively seizing on exam. The eyes are rolled and blinking the neck extended ext are stiff. The seizure resolves and there is little of a post ictal period. ) - HEENT HEENT: Atraumatic, PERRL, EOMI, Other (both TM's are inflamed with indistinct landmarks. There is cerumen on the left and this is moved for exam. 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, No motor deficit, No sensory deficit, Normal speech Eye Opening: Spontaneous Motor: Obeys Commands Verbal: Oriented GCS Score: 15 - Psych Psych: Normal mood, Normal affect Results - Vitals Vitals: Vital Signs - 24 hr 09/28/19 09/28/19 09/28/19 19:50 20:16 21:10 Temperature 36.5 C 36.5 C Heart Rate 92 78 88 Respiratory 16 18 21 Rate Blood Pressure 136/83 H 125/82 H 126/71 O2 Saturation 95 97 96 09/28/19 09/29/19 09/29/19 23:00 01:00 02:43 Temperature Heart Rate 85 85 76 Respiratory 21 16 18 Rate Blood Pressure 126/88 H 124/75 123/79 O2 Saturation 95 96 94 Oxygen O2 Source Room air - Labs Labs: Laboratory Tests 09/28/19 09/28/19 09/28/19 20:10 20:20 20:20 WBC 5.7 RBC 4.84 Hgb 14.7 Hct 44.6 MCV 92.1 MCH 30.4 MCHC 33.0 RDW 15.8 H Plt Count 299 MPV 8.8 Neut # (Auto) 2.7 Lymph # (Auto) 2.3 [place] # (Auto) 0.4 Eos # (Auto) 0.2 Baso # (Auto) 0.1 Absolute Nucleated RBC 0.00 Nucleated RBC % 0.0 Sodium 141 Potassium 3.7 Chloride 105 Carbon Dioxide 23 Anion Gap 13.0 BUN 6 Creatinine 0.8 Estimated GFR (MDRD) 111 Glucose 90 Calcium 9.5 Total Bilirubin 0.8 AST 33 ALT 21 Alkaline Phosphatase 74 Total Protein 7.7 Albumin 4.3 Globulin 3.4 Albumin/Globulin Ratio 1.3 Lipase 50 Urine Color YELLOW Urine Clarity CLEAR Urine pH 6.5 Ur Specific [place] <=1.005 Urine Protein NEGATIVE Urine Glucose (UA) NEGATIVE Urine Ketones NEGATIVE Urine Occult Blood NEGATIVE Urine Nitrite NEGATIVE Urine Bilirubin NEGATIVE Urine Urobilinogen 0.2 (NORMAL) Ur Leukocyte Esterase NEGATIVE Ur Microscopic Review NOT INDICATED Urine Culture Comments NOT INDICATED Urine Opiates Screen NEGATIVE Ur Oxycodone Screen NEGATIVE Urine Methadone Screen NEGATIVE Ur Propoxyphene Screen NEGATIVE Ur Barbiturates Screen NEGATIVE Valproic Acid Ur Tricyclics Screen NEGATIVE Ur Phencyclidine Scrn NEGATIVE Ur Amphetamine Screen POSITIVE H U Methamphetamines Scrn POSITIVE H U Benzodiazepines Scrn POSITIVE H Urine Cocaine Screen NEGATIVE U Cannabinoids Screen POSITIVE H Ethyl Alcohol 228.7 09/28/19 20:20 WBC RBC Hgb Hct MCV MCH MCHC RDW Plt Count MPV Neut # (Auto) Lymph # (Auto) [place] # (Auto) Eos # (Auto) Baso # (Auto) Absolute Nucleated RBC Nucleated RBC % Sodium Potassium Chloride Carbon Dioxide Anion Gap BUN Creatinine Estimated GFR (MDRD) Glucose Calcium Total Bilirubin AST ALT Alkaline Phosphatase Total Protein Albumin Globulin Albumin/Globulin Ratio Lipase Urine Color Urine Clarity Urine pH Ur Specific [place] Urine Protein Urine Glucose (UA) Urine Ketones Urine Occult Blood Urine Nitrite Urine Bilirubin Urine Urobilinogen Ur Leukocyte Esterase Ur Microscopic Review Urine Culture Comments Urine Opiates Screen Ur Oxycodone Screen Urine Methadone Screen Ur Propoxyphene Screen Ur Barbiturates Screen Valproic Acid < 10.0 Ur Tricyclics Screen Ur Phencyclidine Scrn Ur Amphetamine Screen U Methamphetamines Scrn U Benzodiazepines Scrn Urine Cocaine Screen U Cannabinoids Screen Ethyl Alcohol - Rads (name of study) chest Radiology: Prelim report reviewed (Impression: Low lung volumes otherwise normal chest.), EMP read indepedently, See rad report PD MEDICAL DECISION MAKING - ED course Complexity details: reviewed old records, reviewed results, re-evaluated patient, considered differential, d/w patient ED course: 33-year-old male with a history of seizure on Depakote and Ke[place] when he had a seizure. He has had a second seizure here in the emergency department and is administered Ativan 2 mg IV. He is found to have otitis on exam again. I am uncertain whether this ever cleared up. He is administered dexamethasone and Rocephin intravenously. He had a hard time filling his prescription for azithromycin previously will change his antibiotic to Augmentin. The patient is hydrated in the department and eventually discharged. Departure - Departure Disposition: 01 Home, Self Care Clinical Impression: Recurrent seizures, Methamphetamine abuse Alcohol intoxication Qualifiers: Complication of substance-induced condition: uncomplicated Qualified Code(s): F10.920 - Alcohol use, unspecified with intoxication, uncomplicated Otitis media Qualifiers: Otitis media type: suppurative Chronicity: acute Laterality: bilateral Recurrence: recurrent Spontaneous tympanic membrane rupture: without spontaneous rupture Qualified Code(s): H66.006 - Acute suppurative otitis media without spontaneous rupture of ear drum, recurrent, bilateral Condition: Stable Instructions: ED Drug Abuse General, ED Alcohol Intoxication, ED Otitis Media Acute Adult, ED Seizure Recurrent Follow-Up: [facility] [Provider Group] Prescriptions: Cefdinir 300 mg PO BID #20 capsule Discharge Date/Time: 09/29/19 02:58
[2019-09-28] MEDS ORDERED: cefTRIAXone 1 GM in SODIUM CHLORIDE 0.9% MINIBAG 100 ML IV STA (20:18)
[2019-09-28] MEDS ORDERED: SODIUM CHLORIDE 0.9% 1,000 ML IV ONE (20:18)
[2019-09-28] MEDS ORDERED: DEXAMETHASONE 10 MG/ML VIAL IVP STA (20:18)
[2019-09-28 20:19] LABS: MUDS CUTOFF CONCENTRATIONS CUTOFF CONC BELOW:
[2019-09-28] MEDS ORDERED: LORazepam 2 MG/ML VIAL ONE (20:19)
[2019-09-28 20:24] LABS: BILIRUBIN,URINE NEGATIVE (NEGATIVE); GLUCOSE, URINE (UA) NEGATIVE (NEGATIVE); KETONES,URINE (UA) NEGATIVE (NEGATIVE); LEUKOCYTE ESTERASE, URINE NEGATIVE (NEGATIVE); NITRITE,URINE NEGATIVE (NEGATIVE); OCCULT BLOOD,URINE NEGATIVE (NEGATIVE); PH,URINE 6.5 PH (5.0-7.5); PROTEIN,URINE NEGATIVE (NEGATIVE); UROBILINOGEN,URINE 0.2 (NORMAL) E.U./dL (NORMAL)
[2019-09-28 20:25] LABS: CLARITY,URINE CLEAR (CLEAR)
[2019-09-28 20:28] LABS: BASOPHILS # (AUTO) 0.1 10^3/uL (0.0-0.1); BASOPHILS % (AUTO) 0.9 %; EOSINOPHILS # (AUTO) 0.2 10^3/uL (0.0-0.7); EOSINOPHILS % (AUTO) 3.8 %; HGB - HEMOGLOBIN 14.7 g/dL (14.0-18.0); LYMPHOCYTES # (AUTO) 2.3 10^3/uL (1.5-3.5); LYMPHOCYTES % (AUTO) 40.6 %; MEAN CORPUSCULAR HEMOGLOBIN 30.4 pg (27.0-31.0); MEAN CORPUSCULAR VOLUME 92.1 fL (80.0-94.0); MEAN PLATELET VOLUME 8.8 fL (7.4-11.4); MONOCYTES # (AUTO) 0.4 10^3/uL (0.0-1.0); MONOCYTES % (AUTO) 7.5 %; NEUTROPHILS # (AUTO) 2.7 10^3/uL (1.5-6.6); PLT - PLATELET COUNT 299 10^3/uL (130-450); RED BLOOD COUNT 4.84 10^6/uL (4.70-6.10); RED CELL DISTRIBUTION WIDTH 15.8 % (12.0-15.0); WHITE BLOOD COUNT 5.7 x10^3/uL (4.8-10.8)
[2019-09-28 20:37] LABS: AMPHETAMINE SCREEN,URINE POSITIVE (NEGATIVE); BENZODIAZEPINES SCREEN, URINE POSITIVE (NEGATIVE); COCAINE SCREEN URINE NEGATIVE (NEGATIVE); METHADONE SCREEN, URINE NEGATIVE (NEGATIVE); METHAMPHETAMINES SCREEN, URINE POSITIVE (NEGATIVE); OPIATE SCREEN, URINE NEGATIVE (NEGATIVE); OXYCODONE SCREEN, URINE NEGATIVE (NEGATIVE); PROPOXYPHENE SCREEN, URINE NEGATIVE (NEGATIVE); TRICYCLIC ANTIDEPRESSANT,URINE NEGATIVE (NEGATIVE)
[2019-09-28 20:40] LABS: ALBUMIN 4.3 g/dL (3.2-5.5); ALBUMIN/GLOBULIN RATIO 1.3 (1.0-2.2); BILIRUBIN,TOTAL 0.8 mg/dL (0.2-1.0); CALCIUM 9.5 mg/dL (8.5-10.3); CREATININE 0.8 mg/dL (0.6-1.2); TOTAL PROTEIN 7.7 g/dL (6.7-8.2)
[2019-09-28 20:45] LABS: VALPROIC ACID (DEPAKOTE) < 10.0 ug/mL
--- NOTE | 2019-09-28 20:48 | XRAY Report ---
Reason: persistent cough Procedure Date: 09/28/2019 Accession Number: [id number] / [id number] Procedure: XR - Chest 1 View X-Ray CPT Code: 84129 Final Report FULL RESULT: EXAM: CHEST RADIOGRAPHY EXAM DATE: 09/28/2019 08:25 PM. CLINICAL HISTORY: Persistent cough. COMPARISON: CHEST 1 VIEW 09/18/2019 9:28 PM. TECHNIQUE: 1 view. FINDINGS: Lungs/Pleura: No focal opacities evident. No pleural effusion. No pneumothorax. Decreased volumes Mediastinum: Within exam limitations, the cardiomediastinal contour is normal. Other: None. IMPRESSION: Low lung volumes otherwise normal chest. RADIA
[2019-09-29 02:44] VITALS: BP 123/79
== END 2019-09-29 02:58 | disposition home or self-care (01) ==
LOC: EDUNIT# → ED 19:49
DX: G40.909 Epilepsy, unspecified, not intractable, without status epilepticus (principal); H66.006 Acute suppurative otitis media without spontaneous rupture of ear drum, recurrent, bilateral; F15.10 Other stimulant abuse, uncomplicated; F10.920 Alcohol use, unspecified with intoxication, uncomplicated; Z59.0 Homelessness; F17.200 Nicotine dependence, unspecified, uncomplicated
CPT/HCPCS: 36415; 71045; 80053; 80164; 80177; 80306; 80320; 81003; 83690; 85025; 96365; 96375; 99283; 99284; J2060; 81001; 87086

== ENCOUNTER 2019-09-30 16:31 | Outpatient (CLI) | payer MEDICAID | END 2019-09-30 16:32 | disposition critical access hospital (66) | LOC: EMS 16:31 | PROVIDERS: ATTEND Surgery | DX: T42.4X2A Poisoning by benzodiazepines, intentional self-harm, initial encounter (principal) | CPT/HCPCS: A0425; A0429; A0999 ==

== ENCOUNTER 2019-10-28 10:54 | Emergency (ER) | payer MEDICAID ==
[2019-10-28 11:22] LABS: BASOPHILS # (AUTO) 0.1 10^3/uL (0.0-0.1); BASOPHILS % (AUTO) 1.1 %; EOSINOPHILS # (AUTO) 0.1 10^3/uL (0.0-0.7); EOSINOPHILS % (AUTO) 1.3 %; HGB - HEMOGLOBIN 15.4 g/dL (14.0-18.0); LYMPHOCYTES # (AUTO) 2.8 10^3/uL (1.5-3.5); LYMPHOCYTES % (AUTO) 43.8 %; MEAN CORPUSCULAR HEMOGLOBIN 29.9 pg (27.0-31.0); MEAN CORPUSCULAR HGB CONC 32.4 g/dL (32.0-36.0); MEAN CORPUSCULAR VOLUME 92.4 fL (80.0-94.0); MEAN PLATELET VOLUME 8.9 fL (7.4-11.4); MONOCYTES # (AUTO) 0.6 10^3/uL (0.0-1.0); MONOCYTES % (AUTO) 8.9 %; NEUTROPHILS # (AUTO) 2.8 10^3/uL (1.5-6.6); NEUTROPHILS % (AUTO) 44.3 %; PLT - PLATELET COUNT 304 10^3/uL (130-450); RED BLOOD COUNT 5.15 10^6/uL (4.70-6.10); RED CELL DISTRIBUTION WIDTH 15.5 % (12.0-15.0); WHITE BLOOD COUNT 6.4 x10^3/uL (4.8-10.8)
[2019-10-28 11:37] LABS: ACETAMINOPHEN < 10 ug/mL (10-30); ALBUMIN 4.9 g/dL (3.2-5.5); ALBUMIN/GLOBULIN RATIO 1.6 (1.0-2.2); ALKALINE PHOSPHATASE 51 IU/L (42-121); ALT ALANINE AMINOTRANSFERASE 24 IU/L (10-60); AST ASPARTATE AMINOTRANSFERASE 28 IU/L (10-42); BILIRUBIN,TOTAL 0.8 mg/dL (0.2-1.0); BUN - BLOOD UREA NITROGEN 10 mg/dL (6-20); CALCIUM 9.6 mg/dL (8.5-10.3); CARBON DIOXIDE - CO2 22 mmol/L (21-32); CHLORIDE 107 mmol/L (101-111); CREATININE 0.7 mg/dL (0.6-1.2); GFR - MDRD 129 (>89); GLUCOSE 98 mg/dL (70-100); LIPASE 27 U/L (22-51); SALICYLATE < 6.0 mg/dL; SODIUM 142 mmol/L (135-145)
[2019-10-28 11:48] LABS: MUDS CUTOFF CONCENTRATIONS CUTOFF CONC BELOW:
[2019-10-28 11:58] LABS: BILIRUBIN,URINE NEGATIVE (NEGATIVE); GLUCOSE, URINE (UA) NEGATIVE (NEGATIVE); KETONES,URINE (UA) NEGATIVE (NEGATIVE); LEUKOCYTE ESTERASE, URINE NEGATIVE (NEGATIVE); NITRITE,URINE NEGATIVE (NEGATIVE); OCCULT BLOOD,URINE NEGATIVE (NEGATIVE); PROTEIN,URINE NEGATIVE (NEGATIVE); UROBILINOGEN,URINE 0.2 (NORMAL) E.U./dL (NORMAL)
[2019-10-28 11:59] LABS: CLARITY,URINE CLEAR (CLEAR)
[2019-10-28 12:12] LABS: AMPHETAMINE SCREEN,URINE NEGATIVE (NEGATIVE); BENZODIAZEPINES SCREEN, URINE POSITIVE (NEGATIVE); COCAINE SCREEN URINE NEGATIVE (NEGATIVE); METHADONE SCREEN, URINE NEGATIVE (NEGATIVE); METHAMPHETAMINES SCREEN, URINE NEGATIVE (NEGATIVE); OPIATE SCREEN, URINE NEGATIVE (NEGATIVE); OXYCODONE SCREEN, URINE NEGATIVE (NEGATIVE); PROPOXYPHENE SCREEN, URINE NEGATIVE (NEGATIVE); TRICYCLIC ANTIDEPRESSANT,URINE NEGATIVE (NEGATIVE)
--- NOTE | 2019-10-28 12:38 | ED Physician Documentation ---
PD HPI MHE - Stated complaint Stated Complaint: MHE - Chief complaint Chief Complaint: MHE - History obtained from History obtained from: Patient - History of Present Illness Primary symptom: Suicidal ideation (thoughts of taking all of his pills to kill himself) Timing - onset: Today Severity Comments: moderate Contributing factors: Other (friends reportedly complaining to him about their problems stressed him out. Admits to drinking alcohol. Denies other drug use. States he gave away all his meds so he wouldn't overdose and kill himself.) Similar symptoms before: Diagnosis (hx of anxiety, bipolar, alochol abuse, depression) Recently seen: Other (was recently inpatient at [place], discharged 36 hours ago) - Treatment prior to arrival Treatment prior to arrival: none Review of Systems Ten Systems: 10 systems reviewed and negative Constitutional: denies: Fever Cardiac: denies: Chest pain / pressure Respiratory: denies: Dyspnea GI: reports: Nausea. denies: Abdominal Pain, Vomiting Skin: reports: Reviewed and negative Musculoskeletal: reports: Reviewed and negative Neurologic: reports: Reviewed and negative. 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 07/18/19 10,500 Unit Cap] Nicotine 14 mg Patch [Nicoderm] 1 patch TOP DAILY #30 patch 07/18/19 09/06/19 Vit,Moo 74/Iron/Folic 1 each PO DAILY #30 tablet 07/18/19 09/06/19 [ Low Iron Tablet] Famotidine 20 mg PO DAILY #30 tablet 07/24/19 09/06/19 Promethazine [Phenergan] 25 mg PO Q6H PRN #20 tab 07/24/19 09/06/19 Lorazepam [Ativan] 1 mg PO TID PRN #10 tablet 07/29/19 09/06/19 Omeprazole 20 mg PO DAILY #30 capsule. 07/29/19 09/06/19 Famotidine [Pepcid] 20 mg PO BID #60 tablet 08/15/19 09/06/19 Levetiracetam [Keppra] 1,000 mg PO BID #60 tablet 08/15/19 09/06/19 Sucralfate [Carafate] 1 gm PO ACHS #60 tablet 08/15/19 09/06/19 Divalproex ER [Depakote ER] 250 mg PO BID #30 tablet 09/06/19 Lidocaine Viscous 2% [Xylocaine 5 ml PO Q4H PRN #100 ml 09/06/19 Viscous 2%] chlordiazePOXIDE [Librium] 25 mg PO Q6H PRN #25 capsule 09/06/19 Cefdinir 300 mg PO BID #20 capsule 09/29/19 - Allergies Allergies/Adverse Reactions: Allergies Allergy/AdvReac Type Severity Reaction Status Date / Time iodine Allergy Severe Respiratory Verified 10/28/19 11:00 Penicillins Allergy Unknown unk Verified 10/28/19 11:00 acetaminophen [From Vicodin] Allergy Itching Verified 10/28/19 11:00 hydrocodone [From Vicodin] Allergy Itching Verified 10/28/19 11:00 egg AdvReac Intermediate Emesis Verified 10/28/19 11:00 - Social History Does the pt smoke?: Yes Smoking Status: Current every day smoker Does the pt drink ETOH?: Yes Does the pt have substance abuse?: Yes - Immunizations Immunizations are current?: Yes - POLST Patient has POLST: No PD ED PE NORMAL - Vitals Vital signs reviewed: Yes - General General: Alert and oriented X 3, No acute distress, Well developed/nourished, Other (unkempt ) - HEENT HEENT: Atraumatic, Moist mucous membranes - Neck Neck: Supple, no meningeal sign - Cardiac Cardiac: RRR - Respiratory Respiratory: No respiratory distress - Abdomen Abdomen: Non distended - Male Male : Deferred - Rectal Rectal: Deferred - Derm Derm: Normal color, Warm and dry, No rash - Extremities Extremities: No edema - Neuro Neuro: Alert and oriented X 3, No motor deficit, No sensory deficit, Normal speech Eye Opening: Spontaneous Motor: Obeys Commands Verbal: Oriented GCS Score: 15 - Psych Psych: Normal mood, Normal affect Results - Vitals Vitals: Vital Signs - 24 hr 10/28/19 11:00 Temperature 36.8 C Heart Rate 105 H Respiratory 20 Rate Blood Pressure 133/85 H O2 Saturation 97 Oxygen O2 Source Simple Mask - Labs Labs: Laboratory Tests 10/28/19 10/28/19 10/28/19 11:19 11:19 11:19 WBC 6.4 RBC 5.15 Hgb 15.4 Hct 47.6 MCV 92.4 MCH 29.9 MCHC 32.4 RDW 15.5 H Plt Count 304 MPV 8.9 Neut # (Auto) 2.8 Lymph # (Auto) 2.8 [place] # (Auto) 0.6 Eos # (Auto) 0.1 Baso # (Auto) 0.1 Absolute Nucleated RBC 0.00 Nucleated RBC % 0.0 Sodium 142 Potassium 3.9 Chloride 107 Carbon Dioxide 22 Anion Gap 13.0 BUN 10 Creatinine 0.7 Estimated GFR (MDRD) 129 Glucose 98 Calcium 9.6 Total Bilirubin 0.8 AST 28 ALT 24 Alkaline Phosphatase 51 Total Protein 8.0 Albumin 4.9 Globulin 3.1 Albumin/Globulin Ratio 1.6 Lipase 27 TSH 1.53 Urine Color Urine Clarity Urine pH Ur Specific [place] Urine Protein Urine Glucose (UA) Urine Ketones Urine Occult Blood Urine Nitrite Urine Bilirubin Urine Urobilinogen Ur Leukocyte Esterase Ur Microscopic Review Urine Culture Comments Last Dose Date Last Dose Time Salicylates < 6.0 Urine Opiates Screen Ur Oxycodone Screen Urine Methadone Screen Ur Propoxyphene Screen Acetaminophen < 10 L Ur Barbiturates Screen Valproic Acid Ur Tricyclics Screen Ur Phencyclidine Scrn Ur Amphetamine Screen U Methamphetamines Scrn U Benzodiazepines Scrn Urine Cocaine Screen U Cannabinoids Screen Ethyl Alcohol 111.6 10/28/19 10/28/19 11:19 11:44 WBC RBC Hgb Hct MCV MCH MCHC RDW Plt Count MPV Neut # (Auto) Lymph # (Auto) [place] # (Auto) Eos # (Auto) Baso # (Auto) Absolute Nucleated RBC Nucleated RBC % Sodium Potassium Chloride Carbon Dioxide Anion Gap BUN Creatinine Estimated GFR (MDRD) Glucose Calcium Total Bilirubin AST ALT Alkaline Phosphatase Total Protein Albumin Globulin Albumin/Globulin Ratio Lipase TSH Urine Color YELLOW Urine Clarity CLEAR Urine pH 7.0 Ur Specific [place] <=1.005 Urine Protein NEGATIVE Urine Glucose (UA) NEGATIVE Urine Ketones NEGATIVE Urine Occult Blood NEGATIVE Urine Nitrite NEGATIVE Urine Bilirubin NEGATIVE Urine Urobilinogen 0.2 (NORMAL) Ur Leukocyte Esterase NEGATIVE Ur Microscopic Review NOT INDICATED Urine Culture Comments NOT INDICATED Last Dose Date UNKNOWN Last Dose Time UNKNOWN Salicylates Urine Opiates Screen NEGATIVE Ur Oxycodone Screen NEGATIVE Urine Methadone Screen NEGATIVE Ur Propoxyphene Screen NEGATIVE Acetaminophen Ur Barbiturates Screen NEGATIVE Valproic Acid 52.6 Ur Tricyclics Screen NEGATIVE Ur Phencyclidine Scrn NEGATIVE Ur Amphetamine Screen NEGATIVE U Methamphetamines Scrn NEGATIVE U Benzodiazepines Scrn POSITIVE H Urine Cocaine Screen NEGATIVE U Cannabinoids Screen NEGATIVE Ethyl Alcohol PD MEDICAL DECISION MAKING - ED course Complexity details: reviewed old records, reviewed results, re-evaluated patient, considered differential, d/w eligibility consultant ED course: 33 y/o M with hx and exam as documented, reports depression SI however pt does not appear to be acutely suicidal. He has a hx of alcohol abuse, his alcohol level is only 111 and he is coherent and ambulatory. His labs are otherwise stable. He missed his keppra and depakote today for seizures and was given his regular doses here. Social work consulted and is working on placement. He is medically cleared for placement or discharge. Signed out pt's care to Dr. Flores with dispo pending Departure - Departure Clinical Impression: Alcohol abuse Depression Qualifiers: Depression Type: unspecified Qualified Code(s): F32.9 - Major depressive disorder, single episode, unspecified Condition: Stable Record reviewed to determine appropriate education?: Yes Instructions: ED Depression, ED Alcohol Abuse
[2019-10-28] MEDS ORDERED: levETIRAcetam 250 MG TABLET PO STA ×2 (12:41→23:56)
[2019-10-28 12:58] LABS: VALPROIC ACID (DEPAKOTE) 52.6 ug/mL
[2019-10-28] MEDS ORDERED: ONDANSETRON ODT 4 MG TABLET TL STA (13:22)
[2019-10-28] MEDS ORDERED: DIVALPROEX ER 250 MG TABLET PO STA (17:01)
--- NOTE | 2019-10-28 22:45 | ED Physician Documentation ---
ED Addendum - Addendum Addendum: 10/28/19 22:43 Social work was able to get the patient admitted to rehab program and a rrangements are made for him to have a medic a taxi bring him in the here this evening. Per social work he will be discharged from the department with instructions to go there. Diagnoses: Depression Alcohol abuse and dependence #3 6 history of seizure disorder Disposition: The patient is discharged stable from the ER to home and will be taking a taxi to a alcohol rehab program
[2019-10-29] MEDS ORDERED: DIVALPROEX ER 250 MG TABLET PO SCH (09:00)
[2019-10-29 12:18] VITALS: BP 125/81
== END 2019-10-29 12:12 | disposition home or self-care (01) ==
LOC: ED 10:54
DX: F10.10 Alcohol abuse, uncomplicated (principal); F32.9 Major depressive disorder, single episode, unspecified; F17.200 Nicotine dependence, unspecified, uncomplicated
CPT/HCPCS: 36415; 80053; 80164; 80306; 80307; 80320; 80329; 81003; 83690; 84443; 85025; 99283; 99284; A9270; Q0162; 81001; 87086

== ENCOUNTER 2019-11-03 18:30 | Outpatient (CLI) | payer MEDICAID | END 2019-11-03 18:31 | disposition critical access hospital (66) | LOC: EMS 18:30 | PROVIDERS: ATTEND Surgery | DX: R56.9 Unspecified convulsions (principal); R45.851 Suicidal ideations | CPT/HCPCS: A0425; A0429; A0999 ==

== ENCOUNTER 2019-11-03 18:48 | Emergency (ER) | payer MEDICAID ==
[2019-11-03 19:21] LABS: MUDS CUTOFF CONCENTRATIONS CUTOFF CONC BELOW:
[2019-11-03 19:22] LABS: BILIRUBIN,URINE NEGATIVE (NEGATIVE); GLUCOSE, URINE (UA) NEGATIVE (NEGATIVE); KETONES,URINE (UA) NEGATIVE (NEGATIVE); LEUKOCYTE ESTERASE, URINE NEGATIVE (NEGATIVE); NITRITE,URINE NEGATIVE (NEGATIVE); OCCULT BLOOD,URINE NEGATIVE (NEGATIVE); PH,URINE 6.5 PH (5.0-7.5); PROTEIN,URINE NEGATIVE (NEGATIVE); UROBILINOGEN,URINE 0.2 (NORMAL) E.U./dL (NORMAL)
[2019-11-03 19:24] LABS: CLARITY,URINE CLEAR (CLEAR)
[2019-11-03 19:27] LABS: BASOPHILS % (AUTO) 0.6 %; EOSINOPHILS # (AUTO) 0.2 10^3/uL (0.0-0.7); EOSINOPHILS % (AUTO) 2.6 %; HGB - HEMOGLOBIN 14.4 g/dL (14.0-18.0); LYMPHOCYTES # (AUTO) 3.2 10^3/uL (1.5-3.5); MEAN CORPUSCULAR HEMOGLOBIN 30.2 pg (27.0-31.0); MEAN CORPUSCULAR VOLUME 91.6 fL (80.0-94.0); MONOCYTES # (AUTO) 0.3 10^3/uL (0.0-1.0); MONOCYTES % (AUTO) 5.1 %; NEUTROPHILS # (AUTO) 2.5 10^3/uL (1.5-6.6); NEUTROPHILS % (AUTO) 40.4 %; PLT - PLATELET COUNT 286 10^3/uL (130-450); RED BLOOD COUNT 4.77 10^6/uL (4.70-6.10); RED CELL DISTRIBUTION WIDTH 15.4 % (12.0-15.0); WHITE BLOOD COUNT 6.3 x10^3/uL (4.8-10.8)
[2019-11-03 19:32] LABS: AMPHETAMINE SCREEN,URINE POSITIVE (NEGATIVE); COCAINE SCREEN URINE NEGATIVE (NEGATIVE); METHAMPHETAMINES SCREEN, URINE NEGATIVE (NEGATIVE); OPIATE SCREEN, URINE NEGATIVE (NEGATIVE)
[2019-11-03 19:33] LABS: BENZODIAZEPINES SCREEN, URINE NEGATIVE (NEGATIVE); METHADONE SCREEN, URINE NEGATIVE (NEGATIVE); OXYCODONE SCREEN, URINE NEGATIVE (NEGATIVE); PROPOXYPHENE SCREEN, URINE NEGATIVE (NEGATIVE); TRICYCLIC ANTIDEPRESSANT,URINE NEGATIVE (NEGATIVE)
[2019-11-03 19:48] LABS: ACETAMINOPHEN < 10 ug/mL (10-30); ALBUMIN 4.5 g/dL (3.2-5.5); ALBUMIN/GLOBULIN RATIO 1.4 (1.0-2.2); ALKALINE PHOSPHATASE 47 IU/L (42-121); ALT ALANINE AMINOTRANSFERASE 19 IU/L (10-60); AST ASPARTATE AMINOTRANSFERASE 26 IU/L (10-42); BILIRUBIN,TOTAL 0.8 mg/dL (0.2-1.0); BUN - BLOOD UREA NITROGEN 8 mg/dL (6-20); CALCIUM 9.2 mg/dL (8.5-10.3); CARBON DIOXIDE - CO2 25 mmol/L (21-32); CHLORIDE 105 mmol/L (101-111); CREATININE 0.7 mg/dL (0.6-1.2); GFR - MDRD 129 (>89); GLUCOSE 106 mg/dL (70-100); LIPASE 35 U/L (22-51); SALICYLATE < 6.0 mg/dL; SODIUM 141 mmol/L (135-145); TOTAL PROTEIN 7.7 g/dL (6.7-8.2)
--- NOTE | 2019-11-03 19:56 | ED Physician Documentation ---
History of Present Illness - Stated complaint Stated Complaint: SI/ SZ/ETOH DETOX - Chief complaint Chief Complaint: MHE - History obtained from History obtained from: Patient, EMS - History of Present Illness Timing: Chronic Pain level max: 7 Pain level now: 7 - Additonal information Additional information: 33-year-old male, well-known to this emergency department states that he had a seizure earlier today. No seizure activity witnessed by EMS. He is intoxicated. He is an alcoholic. He also uses methamphetamines regularly. He states that he has thoughts of harming himself. No plan. Nothing makes it better or worse. Patient states that he has not been taking his antiepileptic medications at home Review of Systems Ten Systems: 10 systems reviewed and negative Constitutional: denies: Fever, Chills Respiratory: denies: Cough GI: denies: Vomiting, Diarrhea Skin: denies: Rash Musculoskeletal: denies: Neck pain, Back pain Neurologic: denies: Headache PD PAST MEDICAL HISTORY - Past Medical History Cardiovascular: None Respiratory: None Neuro: Seizure disorder Endocrine/Autoimmune: None GI: Pancreatitis : None HEENT: Glaucoma Psych: Depression, Anxiety, Bipolar disorder Musculoskeletal: Chronic back pain Derm: None - Past Surgical History Past Surgical History: Yes 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 07/18/19 10/28/19 10,500 Unit Cap] Nicotine 14 mg Patch [Nicoderm] 1 patch TOP DAILY #30 patch 07/18/19 10/28/19 Vit,Moo 74/Iron/Folic 1 each PO DAILY #30 tablet 07/18/19 10/28/19 [ Low Iron Tablet] Famotidine 20 mg PO DAILY #30 tablet 07/24/19 10/28/19 Promethazine [Phenergan] 25 mg PO Q6H PRN #20 tab 07/24/19 10/28/19 Lorazepam [Ativan] 1 mg PO TID PRN #10 tablet 07/29/19 10/28/19 Omeprazole 20 mg PO DAILY #30 capsule. 07/29/19 10/28/19 Famotidine [Pepcid] 20 mg PO BID #60 tablet 08/15/19 10/28/19 Levetiracetam [Keppra] 1,000 mg PO BID #60 tablet 08/15/19 10/28/19 Sucralfate [Carafate] 1 gm PO ACHS #60 tablet 08/15/19 10/28/19 Divalproex ER [Depakote ER] 250 mg PO BID #30 tablet 09/06/19 10/28/19 Lidocaine Viscous 2% [Xylocaine 5 ml PO Q4H PRN #100 ml 09/06/19 10/28/19 Viscous 2%] chlordiazePOXIDE [Librium] 25 mg PO Q6H PRN #25 capsule 09/06/19 10/28/19 Cefdinir 300 mg PO BID #20 capsule 09/29/19 10/28/19 Divalproex ER [Depakote ER] 250 mg PO BID #30 tablet 10/28/19 Levetiracetam [Keppra] 1,000 mg PO BID #30 tablet 10/28/19 chlordiazePOXIDE [Librium] 25 mg PO Q6H PRN #15 capsule 10/28/19 - Allergies Allergies/Adverse Reactions: Allergies Allergy/AdvReac Type Severity Reaction Status Date / Time iodine Allergy Severe Respiratory Verified 10/28/19 11:00 Penicillins Allergy Unknown unk Verified 10/28/19 11:00 acetaminophen [From Vicodin] Allergy Itching Verified 10/28/19 11:00 hydrocodone [From Vicodin] Allergy Itching Verified 10/28/19 11:00 egg AdvReac Intermediate Emesis Verified 10/28/19 11:00 - Social History Does the pt smoke?: Yes Smoking Status: Current every day smoker Does the pt drink ETOH?: Yes Does the pt have substance abuse?: Yes - Immunizations Immunizations are current?: Yes - POLST Patient has POLST: No PD ED PE NORMAL - Vitals Vital signs reviewed: Yes - General General: Alert and oriented X 3, No acute distress, Well developed/nourished, Other (alcohol intoxication) - HEENT HEENT: Atraumatic, PERRL, Moist mucous membranes, Pharynx benign - Neck Neck: Supple, no meningeal sign, No bony TTP - Cardiac Cardiac: RRR, Strong equal pulses - Respiratory Respiratory: No respiratory distress, Clear bilaterally - Abdomen Abdomen: Soft, Non tender, Non distended - Derm Derm: Warm and dry - Extremities Extremities: No edema, No calf tenderness / cord - Neuro Neuro: Alert and oriented X 3 - Psych Psych: Normal mood, Normal affect Results - Vitals Vitals: Vital Signs - 24 hr 11/03/19 11/03/19 11/03/19 18:51 19:46 21:47 Temperature 36.9 C Heart Rate 90 78 85 Respiratory 18 15 19 Rate Blood Pressure 134/94 H 116/72 102/62 O2 Saturation 95 98 93 Oxygen O2 Source Room air - Labs Labs: Laboratory Tests 11/03/19 11/03/19 11/03/19 19:15 19:23 19:23 WBC 6.3 RBC 4.77 Hgb 14.4 Hct 43.7 MCV 91.6 MCH 30.2 MCHC 33.0 RDW 15.4 H Plt Count 286 MPV 9.0 Neut # (Auto) 2.5 Lymph # (Auto) 3.2 [place] # (Auto) 0.3 Eos # (Auto) 0.2 Baso # (Auto) 0.0 Absolute Nucleated RBC 0.00 Nucleated RBC % 0.0 Sodium 141 Potassium 3.5 Chloride 105 Carbon Dioxide 25 Anion Gap 11.0 BUN 8 Creatinine 0.7 Estimated GFR (MDRD) 129 Glucose 106 H Calcium 9.2 Total Bilirubin 0.8 AST 26 ALT 19 Alkaline Phosphatase 47 Total Protein 7.7 Albumin 4.5 Globulin 3.2 Albumin/Globulin Ratio 1.4 Lipase 35 TSH Urine Color YELLOW Urine Clarity CLEAR Urine pH 6.5 Ur Specific [place] <=1.005 Urine Protein NEGATIVE Urine Glucose (UA) NEGATIVE Urine Ketones NEGATIVE Urine Occult Blood NEGATIVE Urine Nitrite NEGATIVE Urine Bilirubin NEGATIVE Urine Urobilinogen 0.2 (NORMAL) Ur Leukocyte Esterase NEGATIVE Ur Microscopic Review NOT INDICATED Urine Culture Comments NOT INDICATED Salicylates < 6.0 Urine Opiates Screen NEGATIVE Ur Oxycodone Screen NEGATIVE Urine Methadone Screen NEGATIVE Ur Propoxyphene Screen NEGATIVE Acetaminophen < 10 L Ur Barbiturates Screen NEGATIVE Ur Tricyclics Screen NEGATIVE Ur Phencyclidine Scrn NEGATIVE Ur Amphetamine Screen POSITIVE H U Methamphetamines Scrn NEGATIVE U Benzodiazepines Scrn NEGATIVE Urine Cocaine Screen NEGATIVE U Cannabinoids Screen POSITIVE H Ethyl Alcohol 311.5 11/03/19 19:23 WBC RBC Hgb Hct MCV MCH MCHC RDW Plt Count MPV Neut # (Auto) Lymph # (Auto) [place] # (Auto) Eos # (Auto) Baso # (Auto) Absolute Nucleated RBC Nucleated RBC % Sodium Potassium Chloride Carbon Dioxide Anion Gap BUN Creatinine Estimated GFR (MDRD) Glucose Calcium Total Bilirubin AST ALT Alkaline Phosphatase Total Protein Albumin Globulin Albumin/Globulin Ratio Lipase TSH 1.09 Urine Color Urine Clarity Urine pH Ur Specific [place] Urine Protein Urine Glucose (UA) Urine Ketones Urine Occult Blood Urine Nitrite Urine Bilirubin Urine Urobilinogen Ur Leukocyte Esterase Ur Microscopic Review Urine Culture Comments Salicylates Urine Opiates Screen Ur Oxycodone Screen Urine Methadone Screen Ur Propoxyphene Screen Acetaminophen Ur Barbiturates Screen Ur Tricyclics Screen Ur Phencyclidine Scrn Ur Amphetamine Screen U Methamphetamines Scrn U Benzodiazepines Scrn Urine Cocaine Screen U Cannabinoids Screen Ethyl Alcohol PD MEDICAL DECISION MAKING - ED course Complexity details: reviewed old records, reviewed results, re-evaluated patient, considered differential, d/w patient ED course: Patient presents to the emergency department with his usual alcohol intoxication. He is vaguely suicidal, but no plan. We will reassess him when he is sober. He is sleeping in the emergency department. He was given a GI cocktail for his gastritis with good relief. Would recommend avoiding narcotics and benzodiazepines in this patient unless absolutely needed. Would trial Librium before benzos. Patient is signed out to the [facility] emergency department physician. This document was made in part using voice recognition software. While efforts are made to proofread this document, sound alike and grammatical errors may occur. 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
[2019-11-03] MEDS ORDERED: SUCRALFATE 1 GM/10 ML UDC PO STA (20:00)
[2019-11-03] MEDS ORDERED: MAG HYDROX/AL HYDROX/SIMETH 30 ML UDC PO STA (20:00)
[2019-11-03] MEDS ORDERED: FAMOTIDINE 20 MG TABLET PO STA (20:00)
[2019-11-04 09:44] LABS: VALPROIC ACID (DEPAKOTE) 37.7 ug/mL
--- NOTE | 2019-11-04 15:31 | ED Physician Documentation ---
ED Addendum - Addendum Addendum: [birth year] 33-year-old male with depression. He is accepted to [facility] by Dr. Willingham 1956. COBRA forms completed. This document was made in part using voice recognition software. While efforts are made to proofread this document, sound alike and grammatical errors may occur. Departure - Departure Disposition: 65 Psych Hosp/Unit DC/Xfer Clinical Impression: Alcoholism, Seizure disorder, Methamphetamine abuse Alcoholic gastritis Qualifiers: Chronicity: chronic Gastritis bleeding: without bleeding Qualified Code(s): K29.20 - Alcoholic gastritis without bleeding Depression Qualifiers: Depression Type: unspecified Qualified Code(s): F32.9 - Major depressive disorder, single episode, unspecified Condition: Stable Instructions: ED Depression
[2019-11-04] MEDS ORDERED: DIVALPROEX ER 250 MG TABLET PO STA (19:28)
[2019-11-04] MEDS ORDERED: levETIRAcetam 250 MG TABLET PO STA (19:28)
[2019-11-04 21:22] VITALS: BP 131/85
== END 2019-11-04 21:39 ==
LOC: EDUNIT# → ED 18:48
DX: G40.909 Epilepsy, unspecified, not intractable, without status epilepticus (principal); K29.20 Alcoholic gastritis without bleeding; F10.229 Alcohol dependence with intoxication, unspecified; F15.10 Other stimulant abuse, uncomplicated; F32.9 Major depressive disorder, single episode, unspecified; R45.851 Suicidal ideations; F17.200 Nicotine dependence, unspecified, uncomplicated
CPT/HCPCS: 36415; 80053; 80164; 80306; 80307; 80320; 80329; 81003; 83690; 84443; 85025; 99284; 99285; A9270; 81001; 87086

== ENCOUNTER 2019-12-05 23:38 | Outpatient (CLI) | payer MEDICAID | END 2019-12-05 23:59 | disposition critical access hospital (66) | LOC: EMS 23:38 | PROVIDERS: ATTEND Surgery | DX: R56.9 Unspecified convulsions (principal) | CPT/HCPCS: A0425; A0429; A0999 ==

== ENCOUNTER 2019-12-05 23:57 | Emergency (ER) | payer MEDICAID ==
[2019-12-06] MEDS ORDERED: KETOROLAC 15 MG/ML VIAL IVP STA (00:19)
[2019-12-06] MEDS ORDERED: SODIUM CHLORIDE 0.9% 1,000 ML IV ONE (00:19)
--- NOTE | 2019-12-06 00:19 | ED Physician Documentation ---
PD HPI SEIZURE - Stated complaint Stated Complaint: SZ/HBD/MARTINS - Chief complaint Chief Complaint: Neuro - History obtained from History obtained from: Patient, EMS - History of Present Illness Timing - onset: Today (30 minutes ago) Witnessed: Unwitnessed Number of seizures: Multiple (he says he had 2 seizures today. Had not taken his Depakote regularly. Taking Keppra regularly.) Description of seizure activity: Generalized Injury during seizure: Fell, Head injury, Neck injury. No: Bit tongue Associated symptoms: No: Headache, Chest pain, Nausea / vomiting History of seizures: Known seizure disorder Contributing factors: Substance abuse (alcohol). No: Out of meds, Changed meds, Fever, Sleep deprivation Similar symptoms before: Diagnosis (has had alcohol related seizures but also with primary seizures as well.) Recently seen: Clinic (He was just in a alcohol treatment program and discharged a few days ago and started drinking again today. He had had several drinks. He states he awoke on the floor believing he had had some seizures. He has had seizures in the past.) Review of Systems Constitutional: denies: Fever, Myalgias Nose: denies: Rhinorrhea / runny nose, Congestion Throat: denies: Sore throat Respiratory: denies: Cough GI: denies: Abdominal Pain, Nausea, Vomiting Skin: denies: Abrasion (s), Laceration (s) Neurologic: reports: Generalized weakness, Headache, Head injury. 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 07/18/19 10/28/19 10,500 Unit Cap] Nicotine 14 mg Patch [Nicoderm] 1 patch TOP DAILY #30 patch 07/18/19 10/28/19 Vit,Moo 74/Iron/Folic 1 each PO DAILY #30 tablet 07/18/19 10/28/19 [ Low Iron Tablet] Famotidine 20 mg PO DAILY #30 tablet 07/24/19 10/28/19 Promethazine [Phenergan] 25 mg PO Q6H PRN #20 tab 07/24/19 10/28/19 Lorazepam [Ativan] 1 mg PO TID PRN #10 tablet 07/29/19 10/28/19 Omeprazole 20 mg PO DAILY #30 capsule. 07/29/19 10/28/19 Famotidine [Pepcid] 20 mg PO BID #60 tablet 08/15/19 10/28/19 Levetiracetam [Keppra] 1,000 mg PO BID #60 tablet 08/15/19 10/28/19 Sucralfate [Carafate] 1 gm PO ACHS #60 tablet 08/15/19 10/28/19 Divalproex ER [Depakote ER] 250 mg PO BID #30 tablet 09/06/19 10/28/19 Lidocaine Viscous 2% [Xylocaine 5 ml PO Q4H PRN #100 ml 09/06/19 10/28/19 Viscous 2%] chlordiazePOXIDE [Librium] 25 mg PO Q6H PRN #25 capsule 09/06/19 10/28/19 Cefdinir 300 mg PO BID #20 capsule 09/29/19 10/28/19 Divalproex ER [Depakote ER] 250 mg PO BID #30 tablet 10/28/19 Levetiracetam [Keppra] 1,000 mg PO BID #30 tablet 10/28/19 chlordiazePOXIDE [Librium] 25 mg PO Q6H PRN #15 capsule 10/28/19 - Allergies Allergies/Adverse Reactions: Allergies Allergy/AdvReac Type Severity Reaction Status Date / Time iodine Allergy Severe Respiratory Verified 10/28/19 11:00 Penicillins Allergy Unknown unk Verified 10/28/19 11:00 acetaminophen [From Vicodin] Allergy Itching Verified 10/28/19 11:00 hydrocodone [From Vicodin] Allergy Itching Verified 10/28/19 11:00 egg AdvReac Intermediate Emesis Verified 10/28/19 11:00 - Social History Does the pt smoke?: Yes Smoking Status: Current every day smoker Does the pt drink ETOH?: Yes Does the pt have substance abuse?: Yes Substance Use and Type: Marijuana, Meth - Immunizations Immunizations are current?: Yes - POLST Patient has POLST: No PD ED PE NORMAL - Vitals Vital signs reviewed: Yes - General General: Alert and oriented X 3, Well developed/nourished - HEENT HEENT: Pharynx benign, Other (some tender on back of head). No: Moist mucous membranes, Dentition benign - Neck Neck: Supple, no meningeal sign, No adenopathy, Other (lower cervical tenderness without step-off nor deformity. ) - Cardiac Cardiac: RRR, No murmur - Respiratory Respiratory: Clear bilaterally, Other (no chestwall tenderness) - Abdomen Abdomen: Soft, Non tender - Back Back: No CVA TTP, Other (tender in the mid thoracic back without deformity) - Derm Derm: Normal color, Warm and dry - Extremities Extremities: No tenderness to palpate - Neuro Neuro: Alert and oriented X 3, No motor deficit, No sensory deficit, Normal speech Results - Vitals Vitals: Vital Signs - 24 hr 12/06/19 12/06/19 12/06/19 00:01 02:19 04:05 Temperature 36.5 C Heart Rate 94 87 92 Respiratory 18 16 14 Rate Blood Pressure 134/82 H 115/75 94/52 L O2 Saturation 97 96 92 Oxygen O2 Source Room air - Labs Labs: Laboratory Tests 12/06/19 12/06/19 12/06/19 01:10 01:10 01:10 WBC 8.0 RBC 5.08 Hgb 15.3 Hct 47.3 MCV 93.1 MCH 30.1 MCHC 32.3 RDW 14.3 Plt Count 283 MPV 9.3 Neut # (Auto) 4.8 Lymph # (Auto) 2.6 [place] # (Auto) 0.5 Eos # (Auto) 0.1 Baso # (Auto) 0.0 Absolute Nucleated RBC 0.00 Nucleated RBC % 0.0 Sodium 143 Potassium 3.6 Chloride 107 Carbon Dioxide 23 Anion Gap 13.0 BUN 12 Creatinine 0.8 Estimated GFR (MDRD) 110 Glucose 80 Calcium 9.0 Magnesium 2.2 Total Bilirubin 0.5 AST 32 ALT 37 Alkaline Phosphatase 45 Total Protein 7.7 Albumin 4.6 Globulin 3.1 Albumin/Globulin Ratio 1.5 Lipase 23 Last Dose Date 12/05/19 Last Dose Time 1500 Valproic Acid < 10.0 Ethyl Alcohol 287.0 - Rads (name of study) head CT Radiology: Prelim report reviewed (no acute process), See rad report cervical/thoracic CT Radiology: Prelim report reviewed (no fractures nor acute processes), See rad report PD MEDICAL DECISION MAKING - ED course Complexity details: reviewed results, re-evaluated patient (He slept at night and come morning he is awake and conversant and able to walk to the bathroom. It Saturday and the buses are not running. His plan is to have a taxi back to [place]. He has been staying at the [facility]. He is advised not to drink alcohol. He should continue his usual medicines. His Depakote level was 0 showing that he is not been taking that medicine. He had said he had not taken it regularly. He has been taking his Keppra. He does have the prescription so I did not need to write him another one.), considered differential, d/w patient Departure - Departure Disposition: 01 Home, Self Care Clinical Impression: Seizure, Strain of thoracic back region Alcohol intoxication Qualifiers: Complication of substance-induced condition: uncomplicated Qualified Code(s): F10.920 - Alcohol use, unspecified with intoxication, uncomplicated Strain of neck Qualifiers: Encounter type: initial encounter Qualified Code(s): S16.1XXA - Strain of muscle, fascia and tendon at neck level, initial encounter Condition: Stable Record reviewed to determine appropriate education?: Yes Comments: Avoid alcohol. Stay well-hydrated. Continue usual seizure medicines. Tylenol or ibuprofen if needed for pains.
[2019-12-06] MEDS ORDERED: KETOROLAC 30 MG/ML VIAL IM STA (01:18)
[2019-12-06 01:24] LABS: BASOPHILS % (AUTO) 0.5 %; EOSINOPHILS # (AUTO) 0.1 10^3/uL (0.0-0.7); EOSINOPHILS % (AUTO) 0.9 %; HGB - HEMOGLOBIN 15.3 g/dL (14.0-18.0); LYMPHOCYTES # (AUTO) 2.6 10^3/uL (1.5-3.5); LYMPHOCYTES % (AUTO) 32.1 %; MEAN CORPUSCULAR HEMOGLOBIN 30.1 pg (27.0-31.0); MEAN CORPUSCULAR HGB CONC 32.3 g/dL (32.0-36.0); MEAN CORPUSCULAR VOLUME 93.1 fL (80.0-94.0); MEAN PLATELET VOLUME 9.3 fL (7.4-11.4); MONOCYTES # (AUTO) 0.5 10^3/uL (0.0-1.0); MONOCYTES % (AUTO) 6.4 %; NEUTROPHILS # (AUTO) 4.8 10^3/uL (1.5-6.6); NEUTROPHILS % (AUTO) 59.7 %; PLT - PLATELET COUNT 283 10^3/uL (130-450); RED BLOOD COUNT 5.08 10^6/uL (4.70-6.10); RED CELL DISTRIBUTION WIDTH 14.3 % (12.0-15.0)
[2019-12-06 01:34] LABS: ALBUMIN 4.6 g/dL (3.2-5.5); ALBUMIN/GLOBULIN RATIO 1.5 (1.0-2.2); BILIRUBIN,TOTAL 0.5 mg/dL (0.2-1.0); CREATININE 0.8 mg/dL (0.6-1.2); MAGNESIUM 2.2 mg/dL (1.7-2.8); TOTAL PROTEIN 7.7 g/dL (6.7-8.2)
--- NOTE | 2019-12-06 02:02 | CT Report ---
Reason: fall/seizure; head and upper back pain Procedure Date: 12/06/2019 Accession Number: [id number] / [id number] Procedure: CT - HEAD WO CPT Code: Final Report FULL RESULT: EXAM: CT HEAD EXAM DATE: 12/06/2019 01:36 AM. CLINICAL HISTORY: Fall/seizure; head and upper back pain. COMPARISON: CERVICAL SPINE W/O 09/18/2019 9:28 PM HEAD W/O 09/18/2019 9:28 PM BRAIN W/O 07/17/2019 2:37 PM. TECHNIQUE: Multiaxial CT images were obtained from the foramen magnum to the vertex. Reformats: Sagittal and coronal. IV contrast: None. In accordance with CT protocol optimization, one or more of the following dose reduction techniques were utilized for this exam: automated exposure control, adjustment of mA and/or KV based on patient size, or use of iterative reconstructive technique. FINDINGS: Parenchyma: No intraparenchymal hemorrhage. No evidence of mass, midline shift, or CT findings of infarction. Garcia-white differentiation is distinct. Extraaxial Spaces: Normal for age. No subdural or epidural collections identified. Ventricles: Normal in size and position. Sinuses and Orbits: Imaged paranasal sinuses, orbits, and mastoids show no significant abnormality. Bones: No evidence of fracture or calvarial defect. Other: None. IMPRESSION: Normal head CT. RADIA
--- NOTE | 2019-12-06 02:03 | CT Report ---
Reason: fall/seizure; head and upper back pain Procedure Date: 12/06/2019 Accession Number: [id number] / [id number] Procedure: CT - THORACIC SPINE WO CPT Code: Final Report FULL RESULT: EXAM: CT THORACIC SPINE WITHOUT CONTRAST EXAM DATE: 12/06/2019 01:53 AM. CLINICAL HISTORY: Fall/seizure; head and upper back pain. COMPARISONS: None. TECHNIQUE: Thin-section axial images were acquired of the thoracic spine from C7 to L1 without contrast. Post-processing: Coronal and sagittal reformats. Other: None. In accordance with CT protocol optimization, one or more of the following dose reduction techniques were utilized for this exam: automated exposure control, adjustment of mA and/or KV based on patient size, or use of iterative reconstructive technique. FINDINGS: Alignment: No scoliosis or spondylolisthesis. Bones: No fractures nor subluxations. Disk Levels/Facets: Early marginal osteophytes are seen involving mid and lower thoracic disks. No compression fractures. No significant disk protrusions. Musculature: Normal. No fatty atrophy. Other: The visualized lungs, mediastinum, and abdominal cavity are unremarkable. IMPRESSION: Negative CT scan thoracic spine. RADIA
--- NOTE | 2019-12-06 02:05 | CT Report ---
Reason: fall/seizure; head and upper back pain Procedure Date: 12/06/2019 Accession Number: [id number] / [id number] Procedure: CT - CERVICAL SPINE WO CPT Code: Final Report FULL RESULT: EXAM: CT CERVICAL SPINE WITHOUT CONTRAST DATE: 12/06/2019 01:54 AM. HISTORY: Fall/seizure; head and upper back pain. COMPARISONS: CERVICAL SPINE W/O 09/18/2019 9:28 PM. TECHNIQUE: Thin-section axial images were acquired of the cervical spine without contrast. Post-processing: Coronal and sagittal reformats. Other: None. In accordance with CT protocol optimization, one or more of the following dose reduction techniques were utilized for this exam: automated exposure control, adjustment of mA and/or KV based on patient size, or use of iterative reconstructive technique. FINDINGS: Alignment: No scoliosis or spondylolisthesis. Bones: No fracture or bone lesion. Interspace Levels/Facets: No significant disk-based narrowing. No discernible disk protrusions. Musculature: Normal. No fatty atrophy. Other: The paravertebral and prevertebral soft tissues are unremarkable. The lung apices are clear. IMPRESSION: Negative CT scan cervical spine. RADIA
[2019-12-06 05:34] LABS: VALPROIC ACID (DEPAKOTE) < 10.0 ug/mL
[2019-12-06 06:15] VITALS: BP 107/56
== END 2019-12-06 06:14 | disposition home or self-care (01) ==
LOC: EDUNIT# → ED 23:57
DX: R56.9 Unspecified convulsions (principal); T42.6X6A Underdosing of other antiepileptic and sedative-hypnotic drugs, initial encounter; S29.012A Strain of muscle and tendon of back wall of thorax, initial encounter; X58.XXXA Exposure to other specified factors, initial encounter; F10.129 Alcohol abuse with intoxication, unspecified; F17.200 Nicotine dependence, unspecified, uncomplicated
CPT/HCPCS: 36415; 70450; 72125; 72128; 80053; 80164; 80320; 83690; 83735; 85025; 96372; 99284

== ENCOUNTER 2019-12-14 17:31 | Outpatient (CLI) | payer MEDICAID | END 2019-12-14 17:32 | disposition critical access hospital (66) | LOC: EMS 17:31 | PROVIDERS: ATTEND Surgery | DX: R56.9 Unspecified convulsions (principal) | CPT/HCPCS: A0425; A0427; A0999 ==

== ENCOUNTER 2019-12-14 17:45 | Emergency (ER) | payer MEDICAID ==
[2019-12-14 18:00] LABS: MUDS CUTOFF CONCENTRATIONS CUTOFF CONC BELOW:
--- NOTE | 2019-12-14 18:07 | ED Physician Documentation ---
PD HPI SEIZURE - Stated complaint Stated Complaint: SZ - Chief complaint Chief Complaint: Neuro - History obtained from History obtained from: Patient, EMS - History of Present Illness Timing - onset: Today Witnessed: Witnessed Number of seizures: Single, Lasted minutes (1) Description of seizure activity: Generalized, Tonic clonic Injury during seizure: None Pain level max: 0 Pain level now: 0 Associated symptoms: No: Headache, Vision changes, Chest pain, Palpitations, Diaphoresis, Dyspnea, Nausea / vomiting History of seizures: Known seizure disorder Contributing factors: Other (patient is a longstanding alcoholic and is non- compliant with his anti-epileptic medications.) Recently seen: Emergency Dept (several times for same.) Review of Systems Ten Systems: 10 systems reviewed and negative Constitutional: denies: Fever, Chills Cardiac: denies: Chest pain / pressure Respiratory: denies: Dyspnea, Cough Musculoskeletal: denies: Neck pain, Back pain Neurologic: denies: Headache PD PAST MEDICAL HISTORY - Past Medical History Cardiovascular: None Respiratory: None Neuro: Seizure disorder Endocrine/Autoimmune: None GI: Pancreatitis : None HEENT: Glaucoma Psych: Depression, Anxiety, Bipolar disorder Musculoskeletal: Chronic back pain Derm: None - Past Surgical History Past Surgical History: Yes 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 07/18/1910/06 10,500 Unit Cap] Nicotine 14 mg Patch [Nicoderm] 1 patch TOP DAILY #30 patch 07/18/19 10/28/19 Vit,Moo 74/Iron/Folic 1 each PO DAILY #30 tablet 07/18/19 10/28/19 [ Low Iron Tablet] Famotidine 20 mg PO DAILY #30 tablet 07/24/19 10/28/19 Promethazine [Phenergan] 25 mg PO Q6H PRN #20 tab 07/24/19 10/28/19 Lorazepam [Ativan] 1 mg PO TID PRN #10 tablet 07/29/19 10/28/19 Omeprazole 20 mg PO DAILY #30 capsule. 07/29/19 10/28/19 Famotidine [Pepcid] 20 mg PO BID #60 tablet 08/15/19 10/28/19 Levetiracetam [Keppra] 1,000 mg PO BID #60 tablet 08/15/19 10/28/19 Sucralfate [Carafate] 1 gm PO ACHS #60 tablet 08/15/19 10/28/19 Divalproex ER [Depakote ER] 250 mg PO BID #30 tablet 09/06/19 10/28/19 Lidocaine Viscous 2% [Xylocaine 5 ml PO Q4H PRN #100 ml 09/06/19 10/28/19 Viscous 2%] chlordiazePOXIDE [Librium] 25 mg PO Q6H PRN #25 capsule 09/06/19 10/28/19 Cefdinir 300 mg PO BID #20 capsule 09/29/19 10/28/19 Divalproex ER [Depakote ER] 250 mg PO BID #30 tablet 10/28/19 Levetiracetam [Keppra] 1,000 mg PO BID #30 tablet 10/28/19 chlordiazePOXIDE [Librium] 25 mg PO Q6H PRN #15 capsule 10/28/19 - Allergies Allergies/Adverse Reactions: Allergies Allergy/AdvReac Type Severity Reaction Status Date / Time iodine Allergy Severe Respiratory Verified 12/14/19 17:56 Penicillins Allergy Unknown unk Verified 12/14/19 17:56 acetaminophen [From Vicodin] Allergy Itching Verified 12/14/19 17:56 hydrocodone [From Vicodin] Allergy Itching Verified 12/14/19 17:56 egg AdvReac Intermediate Emesis Verified 12/14/19 17:56 - Social History Does the pt smoke?: Yes Smoking Status: Current every day smoker Does the pt drink ETOH?: Yes Does the pt have substance abuse?: Yes - Immunizations Immunizations are current?: Yes - POLST Patient has POLST: No PD ED PE NORMAL - Vitals Vital signs reviewed: Yes - General General: Alert and oriented X 3, No acute distress - HEENT HEENT: Atraumatic, PERRL, Moist mucous membranes - Neck Neck: Supple, no meningeal sign, No bony TTP - Cardiac Cardiac: RRR - Respiratory Respiratory: No respiratory distress, Clear bilaterally - Abdomen Abdomen: Soft, Non tender, Non distended - Derm Derm: Warm and dry - Neuro Neuro: Alert and oriented X 3 - Psych Psych: Normal mood, Normal affect Results - Vitals Vitals: Vital Signs - 24 hr 12/14/19 12/14/19 17:45 19:41 Temperature 36.8 C 36.9 C Heart Rate 90 95 Respiratory 14 14 Rate Blood Pressure 141/89 H 114/95 H O2 Saturation 96 95 Oxygen O2 Source Room air - Labs Labs: Laboratory Tests 12/14/19 12/14/19 12/14/19 17:52 18:11 18:11 WBC 10.0 RBC 4.34 L Hgb 13.3 L Hct 40.8 L MCV 94.0 MCH 30.6 MCHC 32.6 RDW 13.7 Plt Count 270 MPV 9.0 Neut # (Auto) 7.0 H Lymph # (Auto) 2.2 Smyth # (Auto) 0.7 Eos # (Auto) 0.1 Baso # (Auto) 0.1 Absolute Nucleated RBC 0.00 Nucleated RBC % 0.0 Sodium 138 Potassium 2.7 L Chloride 101 Carbon Dioxide 21 Anion Gap 16.0 H BUN 11 Creatinine 0.9 Estimated GFR (MDRD) 96 Glucose 95 Calcium 9.0 Total Bilirubin 1.0 AST 33 ALT 33 Alkaline Phosphatase 41 L Total Protein 7.0 Albumin 4.5 Globulin 2.5 Albumin/Globulin Ratio 1.8 Lipase 42 Urine Color YELLOW Urine Clarity CLEAR Urine pH 6.0 Ur Specific [place] <=1.005 Urine Protein NEGATIVE Urine Glucose (UA) NEGATIVE Urine Ketones NEGATIVE Urine Occult Blood NEGATIVE Urine Nitrite NEGATIVE Urine Bilirubin NEGATIVE Urine Urobilinogen 0.2 (NORMAL) Ur Leukocyte Esterase NEGATIVE Ur Microscopic Review NOT INDICATED Urine Culture Comments NOT INDICATED Last Dose Date Last Dose Time Urine Opiates Screen NEGATIVE Ur Oxycodone Screen NEGATIVE Urine Methadone Screen NEGATIVE Ur Propoxyphene Screen NEGATIVE Ur Barbiturates Screen NEGATIVE Valproic Acid Ur Tricyclics Screen NEGATIVE Ur Phencyclidine Scrn NEGATIVE Ur Amphetamine Screen NEGATIVE U Methamphetamines Scrn NEGATIVE U Benzodiazepines Scrn NEGATIVE Urine Cocaine Screen NEGATIVE U Cannabinoids Screen NEGATIVE Ethyl Alcohol 238.0 12/14/19 18:11 WBC RBC Hgb Hct MCV MCH MCHC RDW Plt Count MPV Neut # (Auto) Lymph # (Auto) Smyth # (Auto) Eos # (Auto) Baso # (Auto) Absolute Nucleated RBC Nucleated RBC % Sodium Potassium Chloride Carbon Dioxide Anion Gap BUN Creatinine Estimated GFR (MDRD) Glucose Calcium Total Bilirubin AST ALT Alkaline Phosphatase Total Protein Albumin Globulin Albumin/Globulin Ratio Lipase Urine Color Urine Clarity Urine pH Ur Specific [place] Urine Protein Urine Glucose (UA) Urine Ketones Urine Occult Blood Urine Nitrite Urine Bilirubin Urine Urobilinogen Ur Leukocyte Esterase Ur Microscopic Review Urine Culture Comments Last Dose Date UNKNOWN Last Dose Time UNKNOWN Urine Opiates Screen Ur Oxycodone Screen Urine Methadone Screen Ur Propoxyphene Screen Ur Barbiturates Screen Valproic Acid < 10.0 Ur Tricyclics Screen Ur Phencyclidine Scrn Ur Amphetamine Screen U Methamphetamines Scrn U Benzodiazepines Scrn Urine Cocaine Screen U Cannabinoids Screen Ethyl Alcohol - Rads (name of study) head CT Radiology: Prelim report reviewed, EMP read contemporaneously, See rad report (No acute abnormality) Cervical spine CT Radiology: Prelim report reviewed, EMP read contemporaneously, See rad report (No acute abnormality) PD MEDICAL DECISION MAKING - ED course Complexity details: reviewed old records, reviewed results, re-evaluated patient, considered differential, d/w patient ED course: No acute findings on head CT. No acute findings on cervical spine CT. Ambulating without difficulty. Tolerating p.o. without difficulty. Refuses oral potassium. Patient is not clinically intoxicated, he is a chronic alcoholic. Patient counseled regarding signs and symptoms for which I believe and urgent re-evaluation would be necessary. Patient with good understanding of and agreement to plan and is comfortable going home at this time This document was made in part using voice recognition software. While efforts are made to proofread this document, sound alike and grammatical errors may occur. Departure - Departure Disposition: 01 Home, Self Care Clinical Impression: Hypokalemia Alcohol intoxication Qualifiers: Complication of substance-induced condition: uncomplicated Qualified Code(s): F10.920 - Alcohol use, unspecified with intoxication, uncomplicated Condition: Good Instructions: ED Alcohol Intoxication Follow-Up: your,doctor in 1 week [Other] Comments: Follow-up with your doctor for further care. Your CAT scans do not show any acute abnormalities tonight. Discharge Date/Time: 12/14/19 19:41
[2019-12-14 18:11] LABS: BILIRUBIN,URINE NEGATIVE (NEGATIVE); GLUCOSE, URINE (UA) NEGATIVE (NEGATIVE); KETONES,URINE (UA) NEGATIVE (NEGATIVE); LEUKOCYTE ESTERASE, URINE NEGATIVE (NEGATIVE); NITRITE,URINE NEGATIVE (NEGATIVE); OCCULT BLOOD,URINE NEGATIVE (NEGATIVE); PROTEIN,URINE NEGATIVE (NEGATIVE); UROBILINOGEN,URINE 0.2 (NORMAL) E.U./dL (NORMAL)
[2019-12-14 18:15] LABS: BASOPHILS # (AUTO) 0.1 10^3/uL (0.0-0.1); BASOPHILS % (AUTO) 0.6 %; EOSINOPHILS # (AUTO) 0.1 10^3/uL (0.0-0.7); EOSINOPHILS % (AUTO) 0.5 %; HGB - HEMOGLOBIN 13.3 g/dL (14.0-18.0); LYMPHOCYTES # (AUTO) 2.2 10^3/uL (1.5-3.5); LYMPHOCYTES % (AUTO) 21.6 %; MEAN CORPUSCULAR HEMOGLOBIN 30.6 pg (27.0-31.0); MEAN CORPUSCULAR HGB CONC 32.6 g/dL (32.0-36.0); MONOCYTES # (AUTO) 0.7 10^3/uL (0.0-1.0); MONOCYTES % (AUTO) 6.9 %; PLT - PLATELET COUNT 270 10^3/uL (130-450); RED BLOOD COUNT 4.34 10^6/uL (4.70-6.10); RED CELL DISTRIBUTION WIDTH 13.7 % (12.0-15.0)
[2019-12-14 18:15] LABS: CLARITY,URINE CLEAR (CLEAR)
[2019-12-14 18:21] LABS: AMPHETAMINE SCREEN,URINE NEGATIVE (NEGATIVE); BENZODIAZEPINES SCREEN, URINE NEGATIVE (NEGATIVE); COCAINE SCREEN URINE NEGATIVE (NEGATIVE); METHADONE SCREEN, URINE NEGATIVE (NEGATIVE); METHAMPHETAMINES SCREEN, URINE NEGATIVE (NEGATIVE); OPIATE SCREEN, URINE NEGATIVE (NEGATIVE); OXYCODONE SCREEN, URINE NEGATIVE (NEGATIVE); PROPOXYPHENE SCREEN, URINE NEGATIVE (NEGATIVE); TRICYCLIC ANTIDEPRESSANT,URINE NEGATIVE (NEGATIVE)
[2019-12-14 18:28] LABS: ALBUMIN 4.5 g/dL (3.2-5.5); ALBUMIN/GLOBULIN RATIO 1.8 (1.0-2.2); CREATININE 0.9 mg/dL (0.6-1.2)
[2019-12-14 18:56] LABS: VALPROIC ACID (DEPAKOTE) < 10.0 ug/mL
--- NOTE | 2019-12-14 19:00 | CT Report ---
Reason: seizure, head/neck injury Procedure Date: 12/14/2019 Accession Number: [id number] / [id number] Procedure: CT - HEAD WO CPT Code: Final Report FULL RESULT: EXAM: CT HEAD EXAM DATE: 12/14/2019 06:34 PM. CLINICAL HISTORY: Seizure, head/neck injury. COMPARISON: CERVICAL SPINE W/O 12/06/2019 1:36 AM. TECHNIQUE: Multiaxial CT images were obtained from the foramen magnum to the vertex. Reformats: Sagittal and coronal. IV contrast: None. In accordance with CT protocol optimization, one or more of the following dose reduction techniques were utilized for this exam: automated exposure control, adjustment of mA and/or KV based on patient size, or use of iterative reconstructive technique. FINDINGS: Parenchyma: No mass-effect or midline shift. No evidence for edema. No evidence for acute intracranial hemorrhage. Extraaxial Spaces: Normal for age. No subdural or epidural collections identified. Ventricles: Normal in size and position. Sinuses and Orbits: Imaged paranasal sinuses, orbits, and mastoids show no significant abnormality. Bones: No evidence of fracture or calvarial defect. IMPRESSION: Normal head CT. RADIA
--- NOTE | 2019-12-14 19:04 | CT Report ---
Reason: seizure, head/neck injury Procedure Date: 12/14/2019 Accession Number: [id number] / [id number] Procedure: CT - CERVICAL SPINE WO CPT Code: Final Report FULL RESULT: EXAM: CT CERVICAL SPINE WITHOUT CONTRAST DATE: 12/14/2019 06:34 PM. HISTORY: Seizure, head/neck injury. COMPARISONS: CERVICAL SPINE W/O 12/06/2019 1:36 AM. TECHNIQUE: Thin-section axial images were acquired of the cervical spine without contrast. Post-processing: Coronal and sagittal reformats. Other: None. In accordance with CT protocol optimization, one or more of the following dose reduction techniques were utilized for this exam: automated exposure control, adjustment of mA and/or KV based on patient size, or use of iterative reconstructive technique. FINDINGS: Alignment: Within normal limits. No scoliosis or spondylolisthesis. Bones: No acute fractures. Disk spaces are maintained. Spinal Canal: No high grade narrowing. Other: The paravertebral and prevertebral soft tissues are unremarkable. Visualized thyroid is unremarkable. The partially imaged lung apices are clear. IMPRESSION: No acute cervical spine fractures. RADIA
[2019-12-14 19:43] VITALS: BP 114/95
== END 2019-12-14 19:41 | disposition home or self-care (01) ==
LOC: EDUNIT# → ED 17:45
DX: G40.909 Epilepsy, unspecified, not intractable, without status epilepticus (principal); E87.6 Hypokalemia; F10.229 Alcohol dependence with intoxication, unspecified; T42.6X6A Underdosing of other antiepileptic and sedative-hypnotic drugs, initial encounter; Z91.128 Patient's intentional underdosing of medication regimen for other reason; F17.200 Nicotine dependence, unspecified, uncomplicated
CPT/HCPCS: 36415; 70450; 72125; 80053; 80164; 80306; 80320; 81001; 81003; 83690; 85025; 87086; 99284

== ENCOUNTER 2019-12-14 21:43 | Outpatient (CLI) | payer MEDICAID | END 2019-12-14 21:44 | disposition critical access hospital (66) | LOC: EMS 21:43 | PROVIDERS: ATTEND Surgery | DX: R56.9 Unspecified convulsions (principal) | CPT/HCPCS: A0425; A0427; A0999 ==

== ENCOUNTER 2019-12-14 21:58 | Emergency (ER) | payer MEDICAID ==
--- NOTE | 2019-12-14 22:03 | ED Physician Documentation ---
History of Present Illness - Stated complaint Stated Complaint: SZ - Chief complaint Chief Complaint: Neuro - History obtained from History obtained from: Patient, EMS (Patient is a 34-year-old male who was just discharged from The emergency department, his etoh level was > 200. He presents via EMS with possible seizure after he was unable to get into a snf for the night. On previous discharge just about 1 hour ago patient had been in the emergency department for acute alcohol intoxication patient denies any recent falls or traumas MS reports that He possibly could have had a seizure so they gave him 2 mg of Versed.The patient's currently awake alert oriented and reports that he does not want to be here.The patient denies any trauma or recent falls.He has a known history of seizures and he is noncompliant with his medication.) Review of Systems Unable to obtain: Uncooperative PD PAST MEDICAL HISTORY - Past Medical History Cardiovascular: None Respiratory: None Neuro: Seizure disorder Endocrine/Autoimmune: None GI: Pancreatitis : None HEENT: Glaucoma Psych: Depression, Anxiety, Bipolar disorder Musculoskeletal: Chronic back pain Derm: None - Past Surgical History Past Surgical History: Yes 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 07/18/19 10/28/19 10,500 Unit Cap] Nicotine 14 mg Patch [Nicoderm] 1 patch TOP DAILY #30 patch 07/18/19 10/28/19 Vit,Moo 74/Iron/Folic 1 each PO DAILY #30 tablet 07/18/19 10/28/19 [ Low Iron Tablet] Famotidine 20 mg PO DAILY #30 tablet 07/24/19 10/28/19 Promethazine [Phenergan] 25 mg PO Q6H PRN #20 tab 07/24/19 10/28/19 Lorazepam [Ativan] 1 mg PO TID PRN #10 tablet 07/29/19 10/28/19 Omeprazole 20 mg PO DAILY #30 capsule. 07/29/19 10/28/19 Famotidine [Pepcid] 20 mg PO BID #60 tablet 08/15/19 10/28/19 Levetiracetam [Keppra] 1,000 mg PO BID #60 tablet 08/15/19 10/28/19 Sucralfate [Carafate] 1 gm PO ACHS #60 tablet 08/15/19 10/28/19 Divalproex ER [Depakote ER] 250 mg PO BID #30 tablet 09/06/19 10/28/19 Lidocaine Viscous 2% [Xylocaine 5 ml PO Q4H PRN #100 ml 09/06/19 10/28/19 Viscous 2%] chlordiazePOXIDE [Librium] 25 mg PO Q6H PRN #25 capsule 09/06/19 10/28/19 Cefdinir 300 mg PO BID #20 capsule 09/29/19 10/28/19 Divalproex ER [Depakote ER] 250 mg PO BID #30 tablet 10/28/19 Levetiracetam [Keppra] 1,000 mg PO BID #30 tablet 10/28/19 chlordiazePOXIDE [Librium] 25 mg PO Q6H PRN #15 capsule 10/28/19 - Allergies Allergies/Adverse Reactions: Allergies Allergy/AdvReac Type Severity Reaction Status Date / Time iodine Allergy Severe Respiratory Verified 12/14/19 17:56 Penicillins Allergy Unknown unk Verified 12/14/19 17:56 acetaminophen [From Vicodin] Allergy Itching Verified 12/14/19 17:56 hydrocodone [From Vicodin] Allergy Itching Verified 12/14/19 17:56 egg AdvReac Intermediate Emesis Verified 12/14/19 17:56 - Social History Does the pt smoke?: Yes Smoking Status: Current every day smoker Does the pt drink ETOH?: Yes Does the pt have substance abuse?: Yes - Immunizations Immunizations are current?: Yes - POLST Patient has POLST: No PD ED PE NORMAL - Vitals Vital signs reviewed: Yes - General General: Alert and oriented X 3, No acute distress - HEENT HEENT: PERRL - Neck Neck: Supple, no meningeal sign - Cardiac Cardiac: RRR, No murmur - Respiratory Respiratory: Clear bilaterally - Abdomen Abdomen: Normal bowel sounds, Soft, Non tender, Non distended - Derm Derm: Warm and dry - Extremities Extremities: No deformity - Neuro Neuro: Alert and oriented X 3, 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 challenge and is requesting to be discharged home at this time.) Departure - Departure Disposition: 01 Home, Self Care Clinical Impression: Seizure, Alcoholism Condition: Fair Instructions: Alcoholism Follow-Up: YOUR,DOCTOR [Other]
[2019-12-14] MEDS ORDERED: FOLIC ACID INJ 1 MG, THIAMINE INJ 100 MG, MAGNESIUM SULFATE 2 GM, MULTIVITAMIN 10 ML in... IV STA ×5 (22:22)
[2019-12-14] MEDS ORDERED: levETIRAcetam INJ 1,000 MG in SODIUM CHLORIDE 0.9% 100ML 100 ML IV STA (22:24)
[2019-12-14] MEDS ORDERED: THIAMINE 100 MG/1 ML 2 ML MDV ONE (22:28)
[2019-12-15 06:52] VITALS: BP 115/60
== END 2019-12-15 06:51 | disposition home or self-care (01) ==
LOC: EDUNIT# → ED 21:58
DX: G40.909 Epilepsy, unspecified, not intractable, without status epilepticus (principal); E87.6 Hypokalemia; F10.229 Alcohol dependence with intoxication, unspecified; Y90.7 Blood alcohol level of 200-239 mg/100 ml; T42.6X6A Underdosing of other antiepileptic and sedative-hypnotic drugs, initial encounter; Z91.128 Patient's intentional underdosing of medication regimen for other reason; F17.200 Nicotine dependence, unspecified, uncomplicated
CPT/HCPCS: 36415; 70450; 72125; 80053; 80164; 80306; 80320; 81003; 83690; 85025; 96365; 96366; 96375; 99281; 99284; J3411

== ENCOUNTER 2019-12-20 09:19 | Outpatient (CLI) | payer MEDICAID | END 2019-12-20 09:20 | disposition critical access hospital (66) | LOC: EMS 09:19 | PROVIDERS: ATTEND Surgery | DX: R56.9 Unspecified convulsions (principal) | CPT/HCPCS: A0425; A0429; A0999 ==

== ENCOUNTER 2019-12-20 09:33 | Emergency (ER) | payer MEDICAID ==
--- NOTE | 2019-12-20 09:40 | ED Physician Documentation ---
History of Present Illness - Stated complaint Stated Complaint: SEIZURE - Additonal information Additional information: This is a 34-year-old male who is known to me who presents after reported seizure. EMS reports that his friends called after he had a seizure, when they arrived patient was awake alert, responding normally. When in route he had 8 seconds of what they described as a pseudoseizure, he had very irregular movements and appeared to be aware of what was going on around him, and afterwards refused to answer questions. On arrival to the emergency department he again is awake alert and answering questions without issue. He states he has been compliant with his seizure medications. He is a known heavy alcohol user, last used last night. He denies any head pain, there is no reported history of trauma. His fingerstick glucose was normal Review of Systems Constitutional: denies: Fever Eyes: denies: Loss of vision Cardiac: denies: Chest pain / pressure Respiratory: denies: Dyspnea GI: denies: Abdominal Pain : denies: Dysuria Skin: denies: Rash Musculoskeletal: denies: Neck pain PD PAST MEDICAL HISTORY - Past Medical History Neuro: Seizure disorder - Present Medications Home Medications: Ambulatory Orders Medication Instructions Recorded Confirmed Lipase/Protease/Amylase [Pancreaze 1 each PO TIDWM #90 capsule. 07/18/19 10/28/19 10,500 Unit Cap] Nicotine 14 mg Patch [Nicoderm] 1 patch TOP DAILY #30 patch 07/18/19 10/28/19 Vit,Moo 74/Iron/Folic 1 each PO DAILY #30 tablet 07/18/19 10/28/19 [ Low Iron Tablet] Famotidine 20 mg PO DAILY #30 tablet 07/24/19 10/28/19 Promethazine [Phenergan] 25 mg PO Q6H PRN #20 tab 07/24/19 10/28/19 Lorazepam [Ativan] 1 mg PO TID PRN #10 tablet 07/29/19 10/28/19 Omeprazole 20 mg PO DAILY #30 capsule. 07/29/19 10/28/19 Famotidine [Pepcid] 20 mg PO BID #60 tablet 08/15/19 10/28/19 Levetiracetam [Keppra] 1,000 mg PO BID #60 tablet 08/15/19 10/28/19 Sucralfate [Carafate] 1 gm PO ACHS #60 tablet 08/15/19 10/28/19 Divalproex ER [Depakote ER] 250 mg PO BID #30 tablet 09/06/19 10/28/19 Lidocaine Viscous 2% [Xylocaine 5 ml PO Q4H PRN #100 ml 09/06/19 10/28/19 Viscous 2%] chlordiazePOXIDE [Librium] 25 mg PO Q6H PRN #25 capsule 09/06/19 10/28/19 Cefdinir 300 mg PO BID #20 capsule 09/29/19 10/28/19 Divalproex ER [Depakote ER] 250 mg PO BID #30 tablet 10/28/19 Levetiracetam [Keppra] 1,000 mg PO BID #30 tablet 10/28/19 chlordiazePOXIDE [Librium] 25 mg PO Q6H PRN #15 capsule 10/28/19 - Allergies Allergies/Adverse Reactions: Allergies Allergy/AdvReac Type Severity Reaction Status Date / Time iodine Allergy Severe Respiratory Verified 12/14/19 17:56 Penicillins Allergy Unknown unk Verified 12/14/19 17:56 acetaminophen [From Vicodin] Allergy Itching Verified 12/14/19 17:56 bee venom protein (honey bee) Allergy Anaphylaxis Unverified 12/20/19 09:47 hydrocodone [From Vicodin] Allergy Itching Verified 12/14/19 17:56 Sulfa (Sulfonamide Allergy Unknown Unverified 12/20/19 09:47 Antibiotics) egg AdvReac Intermediate Emesis Verified 12/14/19 17:56 - Living Situation Living Arrangement: reports: Homeless - Social History Does the pt drink ETOH?: Yes PD ED PE NORMAL - Vitals Vital signs reviewed: Yes - General General: Alert and oriented X 3, No acute distress - HEENT HEENT: Atraumatic, PERRL - Neck Neck: Supple, no meningeal sign, No bony TTP, Other (Normal ROM) - Cardiac Cardiac: RRR, No murmur - Respiratory Respiratory: No respiratory distress, Clear bilaterally - Abdomen Abdomen: Normal bowel sounds, Soft, Non tender, Non distended - Derm Derm: Warm and dry - Extremities Extremities: No deformity - Neuro Neuro: Alert and oriented X 3, 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 He is clinically sober, had what definitively sounds like a pseudo-seizure by EMS' description. Blood sugar normal. He has a seizure disorder but also has pseudo-seizures. EKG shows no signs of ischemia and dysrhytmia. His neuro exam is normal, no signs of head or neck trauma or other acute injury. He was observed in the ED with no mental status changes or further seizure activity. On repeat evaluation at 1400 patient is awake, alert, well-appearing no neuro deficits, is currently asymptomatic. He appears well enough for outpatient follow-up. I discussed alcohol cessation, seizure precautions, neurology follow up, taking his medications as prescribed, and he was discharged in the care of a friend. Departure - Departure Disposition: 01 Home, Self Care Clinical Impression: Seizure-like activity Condition: Good Instructions: ED Seizure Recurrent Follow-Up: Your,neurologist [Other] Comments: Please take your seizure medications as prescribed, and avoid drinking alcohol. Alcohol appears to be a trigger for your seizure episodes. Follow-up with a neurologist as soon as possible. If you are developing new or concerning symptoms return to the emergency department. Discharge Date/Time: 12/20/19 14:49
[2019-12-20 14:37] VITALS: BP 110/71
== END 2019-12-20 14:49 | disposition home or self-care (01) ==
LOC: EDUNIT# → ED 09:33
DX: R56.9 Unspecified convulsions (principal); Z59.0 Homelessness
CPT/HCPCS: 93005; 99283; 99284

== ENCOUNTER 2019-12-25 18:21 | Outpatient (CLI) | payer MEDICAID | END 2019-12-25 18:22 | disposition EMS.NT | LOC: EMS 18:21 | PROVIDERS: ATTEND Surgery | DX: R56.9 Unspecified convulsions (principal) ==

== ENCOUNTER 2019-12-25 19:52 | Outpatient (CLI) | payer MEDICAID | END 2019-12-25 19:53 | disposition critical access hospital (66) | LOC: EMS 19:52 | PROVIDERS: ATTEND Surgery | DX: R56.9 Unspecified convulsions (principal) | CPT/HCPCS: A0425; A0429; A0999 ==

== ENCOUNTER 2019-12-25 20:07 | Inpatient (IN) | payer MEDICAID ==
[2019-12-25] MEDS ORDERED: ETOMIDATE 40 MG/20 ML VIAL IVP ONE (20:13)
[2019-12-25] MEDS ORDERED: SUCCINYLCHOLINE 200 MG/10 ML VIAL ONE (20:14)
[2019-12-25] MEDS ORDERED: THIAMINE INJ 100 MG in SODIUM CHLORIDE 0.9% 50 ML IV STA (20:25)
[2019-12-25] MEDS ORDERED: ETOMIDATE 40 MG/20 ML VIAL IVP STA (20:26)
[2019-12-25] MEDS ORDERED: SUCCINYLCHOLINE 200 MG/10 ML VIAL IVP STA (20:26)
[2019-12-25] MEDS ORDERED: SODIUM CHLORIDE 0.9% 1,000 ML IV ONE (20:27)
[2019-12-25] MEDS ORDERED: PROPOFOL 1000 MG/100 ML 100 ML IV ONE (20:28)
--- NOTE | 2019-12-25 20:30 | ED Physician Documentation ---
PD HPI SEIZURE - Stated complaint Stated Complaint: SZ - Chief complaint Chief Complaint: Neuro - History obtained from History obtained from: EMS (34-year-old gentleman who is well-known to this emergency department. He is an alcoholic and has frequent seizures. I guess he had 3 seizures tonight, after the first he signed out AMA for the ambulance. Subsequent to that reportedly had 2 more seizures now presents by ambulance with in a coma. There was no report of trauma. 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 07/18/19 10/28/19 10,500 Unit Cap] Nicotine 14 mg Patch [Nicoderm] 1 patch TOP DAILY #30 patch 07/18/19 10/28/19 Vit,Moo 74/Iron/Folic 1 each PO DAILY #30 tablet 07/18/19 10/28/19 [ Low Iron Tablet] Famotidine 20 mg PO DAILY #30 tablet 07/24/19 10/28/19 Promethazine [Phenergan] 25 mg PO Q6H PRN #20 tab 07/24/19 10/28/19 Lorazepam [Ativan] 1 mg PO TID PRN #10 tablet 07/29/19 10/28/19 Omeprazole 20 mg PO DAILY #30 capsule. 07/29/19 10/28/19 Famotidine [Pepcid] 20 mg PO BID #60 tablet 08/15/19 10/28/19 Levetiracetam [Keppra] 1,000 mg PO BID #60 tablet 08/15/19 10/28/19 Sucralfate [Carafate] 1 gm PO ACHS #60 tablet 08/15/19 10/28/19 Divalproex ER [Depakote ER] 250 mg PO BID #30 tablet 09/06/19 10/28/19 Lidocaine Viscous 2% [Xylocaine 5 ml PO Q4H PRN #100 ml 09/06/19 10/28/19 Viscous 2%] chlordiazePOXIDE [Librium] 25 mg PO Q6H PRN #25 capsule 09/06/19 10/28/19 Cefdinir 300 mg PO BID #20 capsule 09/29/19 10/28/19 Divalproex ER [Depakote ER] 250 mg PO BID #30 tablet 10/28/19 Levetiracetam [Keppra] 1,000 mg PO BID #30 tablet 10/28/19 chlordiazePOXIDE [Librium] 25 mg PO Q6H PRN #15 capsule 10/28/19 - Allergies Allergies/Adverse Reactions: Allergies Allergy/AdvReac Type Severity Reaction Status Date / Time iodine Allergy Severe Respiratory Verified 12/25/19 21:29 Penicillins Allergy Unknown unk Verified 12/25/19 21:29 acetaminophen [From Vicodin] Allergy Itching Verified 12/25/19 21:29 bee venom protein (honey bee) Allergy Anaphylaxis Verified 12/25/19 21:29 hydrocodone [From Vicodin] Allergy Itching Verified 12/25/19 21:29 Sulfa (Sulfonamide Allergy Unknown Verified 12/25/19 21:29 Antibiotics) egg AdvReac Intermediate Emesis Verified 12/25/19 21:29 - Social History Does the pt smoke?: Yes Smoking Status: Current every day smoker Does the pt drink ETOH?: Yes Does the pt have substance abuse?: Yes - Immunizations Immunizations are current?: Yes - POLST Patient has POLST: No PD ED PE NORMAL - Vitals Vital signs reviewed: Yes - General General: Other (He is obtunded, unarousable. He does not respond to pain.) - HEENT HEENT: Other (Small but but not pinpoint sluggishly reactive pupils) - Neck Neck: Supple, no meningeal sign - Cardiac Cardiac: RRR, No murmur - Respiratory Respiratory: No respiratory distress, Clear bilaterally - Abdomen Abdomen: Non tender - Back Back: No CVA TTP, No spinal TTP - Derm Derm: Normal color, Warm and dry, No rash - Extremities Extremities: No edema, No calf tenderness / cord - Neuro Eye Opening: None Motor: Abnormal Flexion Verbal: None GCS Score: 5 Results - Vitals Vitals: Vital Signs - 24 hr 12/25/19 12/25/19 12/25/19 20:13 20:30 20:40 Temperature 36.6 C Heart Rate 84 116 H 140 H Respiratory 10 L 16 18 Rate Blood Pressure 125/70 200/116 H 208/138 H O2 Saturation 96 95 95 12/25/19 12/25/19 12/25/19 20:44 21:00 21:10 Temperature Heart Rate 117 H 80 85 Respiratory 16 16 Rate Blood Pressure 105/61 106/60 O2 Saturation 96 96 Oxygen O2 Source Mechanical ventilator Oxygen Flow Rate 15 - EKG (time done) 2052 Rate: Rate (enter#) (97) Rhythm: NSR [place]: Normal Intervals: Normal [place] QRS: Normal Ischemia: Non specific changes Computer interpretation: Agree with computer - Labs Labs: Laboratory Tests 12/25/19 12/25/19 12/25/19 20:20 20:20 20:20 WBC 4.5 L RBC 4.19 L Hgb 13.2 L Hct 38.9 L MCV 92.8 MCH 31.5 H MCHC 33.9 RDW 13.2 Plt Count 217 MPV 9.1 Neut # (Auto) 1.4 L Lymph # (Auto) 2.6 Kane # (Auto) 0.3 Eos # (Auto) 0.2 Baso # (Auto) 0.0 Absolute Nucleated RBC 0.00 Nucleated RBC % 0.0 PT 10.6 INR 0.9 Sodium 143 Potassium 3.2 L Chloride 105 Carbon Dioxide 23 Anion Gap 15.0 H BUN 8 Creatinine 0.9 Estimated GFR (MDRD) 96 Glucose 103 H Calcium 8.7 Phosphorus 3.7 Magnesium 2.3 Total Bilirubin 0.7 AST 28 ALT 23 Alkaline Phosphatase 57 Total Creatine Kinase 263 CK-MB (CK-2) Total Protein 6.7 Albumin 4.1 Globulin 2.6 Albumin/Globulin Ratio 1.6 Lipase 60 H TSH Urine Color Urine Clarity Urine pH Ur Specific [place] Urine Protein Urine Glucose (UA) Urine Ketones Urine Occult Blood Urine Nitrite Urine Bilirubin Urine Urobilinogen Ur Leukocyte Esterase Ur Microscopic Review Urine Culture Comments Last Dose Date Last Dose Time Salicylates < 6.0 Urine Opiates Screen Ur Oxycodone Screen Urine Methadone Screen Ur Propoxyphene Screen Acetaminophen < 10 L Ur Barbiturates Screen Valproic Acid Ur Tricyclics Screen Ur Phencyclidine Scrn Ur Amphetamine Screen U Methamphetamines Scrn U Benzodiazepines Scrn Urine Cocaine Screen U Cannabinoids Screen Ethyl Alcohol 210.8 12/25/19 12/25/19 12/25/19 20:20 20:20 20:20 WBC RBC Hgb Hct MCV MCH MCHC RDW Plt Count MPV Neut # (Auto) Lymph # (Auto) Kane # (Auto) Eos # (Auto) Baso # (Auto) Absolute Nucleated RBC Nucleated RBC % PT INR Sodium Potassium Chloride Carbon Dioxide Anion Gap BUN Creatinine Estimated GFR (MDRD) Glucose Calcium Phosphorus Magnesium Total Bilirubin AST ALT Alkaline Phosphatase Total Creatine Kinase CK-MB (CK-2) 4.8 Total Protein Albumin Globulin Albumin/Globulin Ratio Lipase TSH 0.57 Urine Color Urine Clarity Urine pH Ur Specific [place] Urine Protein Urine Glucose (UA) Urine Ketones Urine Occult Blood Urine Nitrite Urine Bilirubin Urine Urobilinogen Ur Leukocyte Esterase Ur Microscopic Review Urine Culture Comments Last Dose Date Unknown Last Dose Time Unknown Salicylates Urine Opiates Screen Ur Oxycodone Screen Urine Methadone Screen Ur Propoxyphene Screen Acetaminophen Ur Barbiturates Screen Valproic Acid 20.3 Ur Tricyclics Screen Ur Phencyclidine Scrn Ur Amphetamine Screen U Methamphetamines Scrn U Benzodiazepines Scrn Urine Cocaine Screen U Cannabinoids Screen Ethyl Alcohol 12/25/19 21:00 WBC RBC Hgb Hct MCV MCH MCHC RDW Plt Count MPV Neut # (Auto) Lymph # (Auto) Kane # (Auto) Eos # (Auto) Baso # (Auto) Absolute Nucleated RBC Nucleated RBC % PT INR Sodium Potassium Chloride Carbon Dioxide Anion Gap BUN Creatinine Estimated GFR (MDRD) Glucose Calcium Phosphorus Magnesium Total Bilirubin AST ALT Alkaline Phosphatase Total Creatine Kinase CK-MB (CK-2) Total Protein Albumin Globulin Albumin/Globulin Ratio Lipase TSH Urine Color YELLOW Urine Clarity CLEAR Urine pH 6.5 Ur Specific [place] <=1.005 Urine Protein NEGATIVE Urine Glucose (UA) NEGATIVE Urine Ketones NEGATIVE Urine Occult Blood NEGATIVE Urine Nitrite NEGATIVE Urine Bilirubin NEGATIVE Urine Urobilinogen 0.2 (NORMAL) Ur Leukocyte Esterase NEGATIVE Ur Microscopic Review NOT INDICATED Urine Culture Comments NOT INDICATED Last Dose Date Last Dose Time Salicylates Urine Opiates Screen NEGATIVE Ur Oxycodone Screen NEGATIVE Urine Methadone Screen NEGATIVE Ur Propoxyphene Screen NEGATIVE Acetaminophen Ur Barbiturates Screen NEGATIVE Valproic Acid Ur Tricyclics Screen POSITIVE H Ur Phencyclidine Scrn NEGATIVE Ur Amphetamine Screen NEGATIVE U Methamphetamines Scrn NEGATIVE U Benzodiazepines Scrn NEGATIVE Urine Cocaine Screen NEGATIVE U Cannabinoids Screen POSITIVE H Ethyl Alcohol Procedures - Intubation Provider: Emergency physician Medications: Etomidate (20mg IVP), Succinylcholine (200mg IVP) Blade: Dawn (4) Tube: Size-enter number (7.5), Cuffed, Marked at teeth-enter cm (23) Route: Oral Confirmation: Direct visualization, Bilateral breath sounds, No abdominal breath sound, End tidal CO2, Pulse ox, Chest xray Complications: No compications PD MEDICAL DECISION MAKING - ED course ED course: 34-year-old gentleman, well-known alcoholic to this emergency department presents with altered mental status and GCS of 5, presumed to be a combination of being post ictal and alcohol intoxication. He was observed for a bit hoping that his mental status would quickly improve thinking that it was just related to being postictal, but unfortunately his mental status did not quickly improve and given his GCS score the decision to intubate for airway protection was made. He was a technically easy intubation and he remained sedated while in the department. Work-up demonstrates only findings of alcoholism and a blood alcohol of 210. Head CT was normal. There is no evidence of trauma. Spoke with Dr. Kim for admission to the ICU. - Critical Care Time(min): 45 Time Includes: Direct patient care, Review records, Reassess patient, Document care, Coordinate care, Medical consult Data interpretation: Labs, Pulse ox, CXR Procedures included in critical care time: Peripheral IV Procedures excluded from critical care time: Intubation, EKG Departure - Departure Disposition: 66 [facility] DC/Xfer Clinical Impression: Alcoholism, Alcohol abuse, Seizure disorder Altered mental status Qualifiers: Altered mental status type: coma Coma depth: Sharmila coma 3-8 Coma timing: in the field (EMT or ambulance) Qualified Code(s): R40.2431 - [place] coma scale score 3-8, in the field [EMT or ambulance] Condition: Critical
[2019-12-25 20:32] LABS: BASOPHILS % (AUTO) 0.7 %; EOSINOPHILS # (AUTO) 0.2 10^3/uL (0.0-0.7); EOSINOPHILS % (AUTO) 3.8 %; HGB - HEMOGLOBIN 13.2 g/dL (14.0-18.0); LYMPHOCYTES # (AUTO) 2.6 10^3/uL (1.5-3.5); LYMPHOCYTES % (AUTO) 57.5 %; MEAN CORPUSCULAR HEMOGLOBIN 31.5 pg (27.0-31.0); MEAN CORPUSCULAR HGB CONC 33.9 g/dL (32.0-36.0); MEAN CORPUSCULAR VOLUME 92.8 fL (80.0-94.0); MEAN PLATELET VOLUME 9.1 fL (7.4-11.4); MONOCYTES # (AUTO) 0.3 10^3/uL (0.0-1.0); MONOCYTES % (AUTO) 6.3 %; NEUTROPHILS # (AUTO) 1.4 10^3/uL (1.5-6.6); NEUTROPHILS % (AUTO) 31.5 %; PLT - PLATELET COUNT 217 10^3/uL (130-450); RED BLOOD COUNT 4.19 10^6/uL (4.70-6.10); RED CELL DISTRIBUTION WIDTH 13.2 % (12.0-15.0); WHITE BLOOD COUNT 4.5 x10^3/uL (4.8-10.8)
[2019-12-25] MEDS: PROPOFOL 1000 MG/100 ML 100 ML IV STA (20:32)
[2019-12-25 20:39] LABS: INR 0.9 (0.8-1.2); PT - PROTHROMBIN TIME 10.6 secs (9.9-12.6)
[2019-12-25 20:43] LABS: ACETAMINOPHEN < 10 ug/mL (10-30); ALBUMIN 4.1 g/dL (3.2-5.5); ALBUMIN/GLOBULIN RATIO 1.6 (1.0-2.2); ALKALINE PHOSPHATASE 57 IU/L (42-121); ALT ALANINE AMINOTRANSFERASE 23 IU/L (10-60); AST ASPARTATE AMINOTRANSFERASE 28 IU/L (10-42); BILIRUBIN,TOTAL 0.7 mg/dL (0.2-1.0); BUN - BLOOD UREA NITROGEN 8 mg/dL (6-20); CALCIUM 8.7 mg/dL (8.5-10.3); CARBON DIOXIDE - CO2 23 mmol/L (21-32); CHLORIDE 105 mmol/L (101-111); CK- CREATINE KINASE 263 IU/L (22-269); CREATININE 0.9 mg/dL (0.6-1.2); GFR - MDRD 96 (>89); GLUCOSE 103 mg/dL (70-100); LIPASE 60 U/L (22-51); MAGNESIUM 2.3 mg/dL (1.7-2.8); PHOSPHORUS 3.7 mg/dL (2.5-4.6); SALICYLATE < 6.0 mg/dL; SODIUM 143 mmol/L (135-145); TOTAL PROTEIN 6.7 g/dL (6.7-8.2)
[2019-12-25] MEDS ORDERED: LORazepam 2 MG/ML VIAL ONE (20:46)
[2019-12-25] MEDS ORDERED: KETAMINE 500 MG/10 ML VIAL IVP STA (20:49)
--- NOTE | 2019-12-25 20:58 | XRAY Report ---
Reason: resp failure Procedure Date: 12/25/2019 Accession Number: [id number] / [id number] Procedure: XR - Chest 1 View X-Ray CPT Code: 44967 Final Report FULL RESULT: EXAM: CHEST RADIOGRAPHY EXAM DATE: 12/25/2019 08:43 PM. CLINICAL HISTORY: Respiratory failure. COMPARISON: CHEST 1 VIEW 09/28/2019 8:11 PM. TECHNIQUE: 1 view. FINDINGS: Lungs/Pleura: Scarring and/or atelectasis at the right lung base. The left lung is clear. No pleural effusion or pneumothorax. Mediastinum: The tip of endotracheal tube is 5 cm above the dani. Other: Old right clavicle fracture deformity. IMPRESSION: Right basilar atelectatic changes, otherwise unremarkable chest radiograph post intubation. RADIA
[2019-12-25 21:04] LABS: BILIRUBIN,URINE NEGATIVE (NEGATIVE); GLUCOSE, URINE (UA) NEGATIVE (NEGATIVE); KETONES,URINE (UA) NEGATIVE (NEGATIVE); LEUKOCYTE ESTERASE, URINE NEGATIVE (NEGATIVE); MUDS CUTOFF CONCENTRATIONS CUTOFF CONC BELOW:; NITRITE,URINE NEGATIVE (NEGATIVE); OCCULT BLOOD,URINE NEGATIVE (NEGATIVE); PH,URINE 6.5 PH (5.0-7.5); PROTEIN,URINE NEGATIVE (NEGATIVE); UROBILINOGEN,URINE 0.2 (NORMAL) E.U./dL (NORMAL)
[2019-12-25 21:06] LABS: CLARITY,URINE CLEAR (CLEAR)
[2019-12-25 21:16] LABS: AMPHETAMINE SCREEN,URINE NEGATIVE (NEGATIVE); BENZODIAZEPINES SCREEN, URINE NEGATIVE (NEGATIVE); COCAINE SCREEN URINE NEGATIVE (NEGATIVE); METHADONE SCREEN, URINE NEGATIVE (NEGATIVE); METHAMPHETAMINES SCREEN, URINE NEGATIVE (NEGATIVE); OPIATE SCREEN, URINE NEGATIVE (NEGATIVE); TRICYCLIC ANTIDEPRESSANT,URINE POSITIVE (NEGATIVE)
[2019-12-25 21:17] LABS: OXYCODONE SCREEN, URINE NEGATIVE (NEGATIVE); PROPOXYPHENE SCREEN, URINE NEGATIVE (NEGATIVE)
[2019-12-25] MEDS ORDERED: SODIUM CHLORIDE FLUSH 0.9% 10 ML SYRINGE IVP PRN (21:26)
[2019-12-25] MEDS ORDERED: MIDAZOLAM 50 MG/10 ML VIAL IVP PRN (21:31)
--- NOTE | 2019-12-25 21:31 | CT Report ---
Reason: coma Procedure Date: 12/25/2019 Accession Number: [id number] / [id number] Procedure: CT - HEAD WO CPT Code: Final Report FULL RESULT: EXAM: CT HEAD EXAM DATE: 12/25/2019 09:19 PM. CLINICAL HISTORY: Multiple seizures. Coma. COMPARISON: HEAD W/O 12/14/2019 6:27 PM. TECHNIQUE: Multiaxial CT images were obtained from the foramen magnum to the vertex. Reformats: Sagittal and coronal. IV contrast: None. In accordance with CT protocol optimization, one or more of the following dose reduction techniques were utilized for this exam: automated exposure control, adjustment of mA and/or KV based on patient size, or use of iterative reconstructive technique. FINDINGS: Parenchyma: No intraparenchymal hemorrhage. No evidence of mass, midline shift, or CT findings of infarction. Garcia-white differentiation is distinct. Extraaxial Spaces: Normal for age. No subdural or epidural collections identified. Ventricles: Normal in size and position. Sinuses and Orbits: Imaged paranasal sinuses, orbits, and mastoids show no significant abnormality. Bones: No evidence of fracture or calvarial defect. Other: OG tube and ET tube noted. IMPRESSION: Normal head CT. RADIA
[2019-12-25 21:42] LABS: VALPROIC ACID (DEPAKOTE) 20.3 ug/mL
--- NOTE | 2019-12-25 22:09 | HISTORY & PHYSICAL EXAMINATION ---
Chief Complaint - Chief Complaint Chief Complaint: Seizure History of Present Illness - Admitted From Admitted From:: Home - History Obtained From Records Reviewed: Yes History obtained from: ER Physician, EMR Exam Limitations: Patient is intubated - History of Present Illness HPI Comment/Other: This is a 34-year-old male with a history of seizure disorder, and alcohol use disorder who presents today after having seizures at home. History is obtained from the ER physician as the patient is intubated upon my examination. Patient reportedly had a seizure today and he called EMS. Upon EMS arrival, the patient stated that he felt fine did not want to go to the emergency department. He reportedly then had 2 more seizures and arrived to the emergency department obtunded. He does drink alcohol on a daily basis. He normally visits the emerge department 1-2 times a week for seizures. It is unclear when his last alcoholic beverage was. In the emergency department, he was intubated for airway protection as his GCS was around 5. He was started on propofol for sedation. A CT of the head was obtained which was unremarkable. His labs were unremarkable except for potassium of 3.2. His alcohol level was 210.8. His Depakote level was 20.3. His urine drug screen was positive for marijuana and tricyclics. He will be admitted to the intensive care unit for further management. 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 There is a history of glaucoma and stroke on his father's side. Also a history of malignancy on his mother's side. Social History Notes: Review of the chart revealed that he moved to [facility] this past year to be closer to his 19-year-old daughter. He previously lived in [place] and would spend part of his time here on [facility] for his [employer] business but is now living here permanently. He smokes about 6 cigars a day and has been smoking for most of his life. He has been drinking alcohol since the age of 6. Usually drinks 5-9 beers a day. Uses marijuana every couple days. Is a prior history of cocaine, meth, and heroin use but he denied recent use of those illicit drugs in the past. - Substance History Use: Uses substance without health or social issues: Tobacco, Cannabis Abuse: Recurrent use of substance despite neg consequences: Alcohol - POLST Patient has POLST: No Meds/Allgy - Home Medications Home Medications: Ambulatory Orders Medication Instructions Recorded Confirmed Lipase/Protease/Amylase [Pancreaze 1 each PO TIDWM #90 capsule. 07/18/19 10/28/19 10,500 Unit Cap] Nicotine 14 mg Patch [Nicoderm] 1 patch TOP DAILY #30 patch 07/18/19 10/28/19 Vit,Moo 74/Iron/Folic 1 each PO DAILY #30 tablet 07/18/19 10/28/19 [ Low Iron Tablet] Famotidine 20 mg PO DAILY #30 tablet 07/24/19 10/28/19 Promethazine [Phenergan] 25 mg PO Q6H PRN #20 tab 07/24/19 10/28/19 Lorazepam [Ativan] 1 mg PO TID PRN #10 tablet 07/29/19 10/28/19 Omeprazole 20 mg PO DAILY #30 capsule. 07/29/19 10/28/19 Famotidine [Pepcid] 20 mg PO BID #60 tablet 08/15/19 10/28/19 Levetiracetam [Keppra] 1,000 mg PO BID #60 tablet 08/15/19 10/28/19 Sucralfate [Carafate] 1 gm PO ACHS #60 tablet 08/15/19 10/28/19 Divalproex ER [Depakote ER] 250 mg PO BID #30 tablet 09/06/19 10/28/19 Lidocaine Viscous 2% [Xylocaine 5 ml PO Q4H PRN #100 ml 09/06/19 10/28/19 Viscous 2%] chlordiazePOXIDE [Librium] 25 mg PO Q6H PRN #25 capsule 09/06/19 10/28/19 Cefdinir 300 mg PO BID #20 capsule 09/29/19 10/28/19 Divalproex ER [Depakote ER] 250 mg PO BID #30 tablet 10/28/19 Levetiracetam [Keppra] 1,000 mg PO BID #30 tablet 10/28/19 chlordiazePOXIDE [Librium] 25 mg PO Q6H PRN #15 capsule 10/28/19 - Allergies Allergies/Adverse Reactions: Allergies Allergy/AdvReac Type Severity Reaction Status Date / Time iodine Allergy Severe Respiratory Verified 12/25/19 21:29 Penicillins Allergy Unknown unk Verified 12/25/19 21:29 acetaminophen [From Vicodin] Allergy Itching Verified 12/25/19 21:29 bee venom protein (honey bee) Allergy Anaphylaxis Verified 12/25/19 21:29 hydrocodone [From Vicodin] Allergy Itching Verified 12/25/19 21:29 Sulfa (Sulfonamide Allergy Unknown Verified 12/25/19 21:29 Antibiotics) egg AdvReac Intermediate Emesis Verified 12/25/19 21:29 Review of Systems - All Other Systems All Other Systems: reports: Other (Unable to obtain review of systems as patient is intubated.) Prior Level of Functionality: He is independent with his ADLs. Exam - Vital Signs Reviewed Vital Signs: Yes Vital Signs: Vital Signs x48h Temp Pulse Resp BP Pulse Ox 12/25/19 21:54 85 16 99/58 L 97 12/25/19 21:28 84 16 101/60 97 12/25/19 21:10 85 16 106/60 96 12/25/19 21:00 80 16 105/61 96 12/25/19 20:44 117 H 12/25/19 20:40 140 H 18 208/138 H 95 12/25/19 20:30 116 H 16 200/116 H 95 12/25/19 20:13 36.6 C 84 10 L 125/70 96 - Physical Exam General Appearance: positive: No acute distress, Other (Sedated and intubated on a ventilator.) Eyes Bilateral: positive: Normal inspection, Conjunctivae nml, Other (Pupils are constricted.) ENT: positive: Other (Endotracheal tube in place.) Neck: positive: Nml inspection Respiratory: positive: Breath sounds nml. negative: Wheezes, Rales, Rhonchi Cardiovascular: positive: Regular rate & rhythm, No murmur. negative: Tachyca rdia, Bradycardia, Systolic murmur, Diastolic murmur Abdomen: positive: Non-tender, No distention. negative: Tenderness Skin: positive: No rash, Warm, Dry Extremities: positive: No pedal edema Neurologic/Psychiatric: positive: Other (Unable to assess his neurologic status as he is sedated on a ventilator. No clonus present.) Conclusion/Plan - Problem List (1) Altered mental status Conclusion/Plan: This is likely secondary to him being post ictal due to his seizures. He was alert and oriented per EMS prior to his [address] of the head was negative. He was intubated for airway protection. We will keep him intubated and sedated on propofol with Versed as needed. Qualifiers: Altered mental status type: coma Coma depth: Sharmila coma 3-8 Coma timing: in the field (EMT or ambulance) Qualified Code(s): R40.2431 - [place] coma scale score 3-8, in the field [EMT or ambulance] (2) Seizure disorder Conclusion/Plan: He had 3 seizures today although it is unclear if this is secondary to his seizure disorder or alcohol withdrawal. He is on Keppra and valproic acid at home although his valproic acid level is not therapeutic. His alcohol level is also above 200. At this time, we will keep him intubated and start him on propofol with Versed as needed. We will resume his Keppra and valproic acid via IV. Seizure precautions. (3) On mechanically assisted ventilation Conclusion/Plan: Was intubated for airway protection given his GCS was 5. His vent settings are minimal. Will hope to extubate in the morning as his neurological status improves. (4) Alcohol abuse Conclusion/Plan: He has history of alcohol abuse and withdrawal in the past. Continues to drink on a daily basis and alcohol was greater than 200. Is unclear if his seizure secondary to alcohol withdrawal or his seizure disorder. He received thiamine in the emergency department. We will place him on a banana bag and watch him for withdrawal. He is on propofol and we will use Versed as needed. (5) Hypokalemia Conclusion/Plan: Potassium is low at 3.2 and this will be replaced intravenously - Lab Results Lab results reviewed: Yes Fish Bones: 12/25/19 20:20 12/25/19 20:20 - Diagnostic Imaging Results Diagnostic Imaging Results: positive: Final report reviewed Core Measures - Anticipated LOS I expect patient to be DC'd or transferred within 96 hours.: Yes - Issues Hospital Issues and Management Plan: This is a 34-year-old male with history of alcohol abuse and seizures who presents after having 3 seizures. He was intubated for airway protection. Unclear if his seizures are secondary to his disorder or alcohol withdrawal. We will sedate him with propofol and Versed as needed. We will attempt to wean off sedation in the morning for extubation. - DVT/VTE - Prophylaxis VTE/DVT Device ordered at admit?: Yes VTE/DVT Prophylaxis med ordered at admit?: Yes
[2019-12-25] MEDS: D5.45NS W/20 MEQ KCL 1,000 ML IV SCH (22:18)
[2019-12-25] MEDS ORDERED: SODIUM CHLORIDE 0.9% 100ML 100 ML IV ONE (22:27)
[2019-12-25] MEDS: levETIRAcetam INJ 1,000 MG in SODIUM CHLORIDE 0.9% 100ML 100 ML IV SCH (22:46)
[2019-12-25] MEDS ORDERED: LACTATED RINGERS 1,000 ML IV ONE (22:55)
[2019-12-25] MEDS: VALPROATE INJ 250 MG in SODIUM CHLORIDE 0.9% 100ML 100 ML IV SCH (23:05)
[2019-12-25] MEDS: PROPOFOL 1000 MG/100 ML 100 ML IV SCH (23:05)
[2019-12-26] MEDS: SODIUM CHLORIDE FLUSH 0.9% 10 ML SYRINGE IVP SCH ×3 (01:33→10:18)
[2019-12-26] MEDS: PROPOFOL 1000 MG/100 ML 100 ML IV SCH ×3 (01:56→09:26)
[2019-12-26 05:17] LABS: BASOPHILS % (AUTO) 0.8 %; EOSINOPHILS # (AUTO) 0.1 10^3/uL (0.0-0.7); EOSINOPHILS % (AUTO) 2.7 %; HGB - HEMOGLOBIN 11.6 g/dL (14.0-18.0); LYMPHOCYTES # (AUTO) 2.7 10^3/uL (1.5-3.5); LYMPHOCYTES % (AUTO) 71.5 %; MEAN CORPUSCULAR HEMOGLOBIN 30.4 pg (27.0-31.0); MEAN CORPUSCULAR VOLUME 94.8 fL (80.0-94.0); MEAN PLATELET VOLUME 9.4 fL (7.4-11.4); MONOCYTES # (AUTO) 0.2 10^3/uL (0.0-1.0); MONOCYTES % (AUTO) 5.6 %; NEUTROPHILS # (AUTO) 0.7 10^3/uL (1.5-6.6); NEUTROPHILS % (AUTO) 19.4 %; PLT - PLATELET COUNT 205 10^3/uL (130-450); RED BLOOD COUNT 3.82 10^6/uL (4.70-6.10); RED CELL DISTRIBUTION WIDTH 13.4 % (12.0-15.0); WHITE BLOOD COUNT 3.8 x10^3/uL (4.8-10.8)
[2019-12-26 05:27] LABS: CALCIUM 8.1 mg/dL (8.5-10.3); CREATININE 0.8 mg/dL (0.6-1.2); PHOSPHORUS 3.5 mg/dL (2.5-4.6)
[2019-12-26] MEDS ORDERED: MIDAZOLAM 2 MG/2 ML VIAL IVP PRN (06:50)
[2019-12-26] MEDS: D5.45NS W/20 MEQ KCL 1,000 ML IV SCH (06:51)
[2019-12-26] MEDS ORDERED: PANTOPRAZOLE 40 MG VIAL IVP SCH (07:00)
[2019-12-26] MEDS: PROPOFOL 1000 MG/100 ML 100 ML IV STA (08:00)
[2019-12-26] MEDS: ENOXAPARIN 40 MG/0.4 ML SYRINGE SUBQ SCH (08:47)
[2019-12-26] MEDS ORDERED: MULTIVITAMIN 10 ML, THIAMINE INJ 100 MG, FOLIC ACID INJ 1 MG in D5.45NS W/20 MEQ KCL 1,... IV SCH (09:00)
[2019-12-26] MEDS: levETIRAcetam INJ 1,000 MG in SODIUM CHLORIDE 0.9% 100ML 100 ML IV SCH ×2 (09:42→21:40)
[2019-12-26] MEDS: VALPROATE INJ 250 MG in SODIUM CHLORIDE 0.9% 100ML 100 ML IV SCH ×2 (10:05→22:16)
[2019-12-26 10:30] LABS: ABG BASE EXCESS -0.1 mmol/L (-2.0-3.0); ABG HCO3 23.7 mmol/L (22.0-26.0); ABG PCO2 35 mmHg (34-45); ABG PH 7.44 (7.35-7.45); ABG PO2 68 mmHg (80-100); ABG TCO2 24.8 MMOL/L (21.0-29.0)
[2019-12-26 10:31] LABS: ABG OXYGEN SATURATION 94 % (94-98); ALLEN TEST POSITIVE
[2019-12-26] MEDS ORDERED: PHENOL THROAT SPRAY 177 ML MM PRN (10:57)
--- NOTE | 2019-12-26 13:13 | PHARMACY PROGRESS NOTE ---
- Best Possible Medication History Admit Date and Time: 12/25/192125 Processed by: Pharmacy Medication History completed: Yes Patient Interview: Pt unable to participate Secondary Source(s): Pharmacy records, Insurance records As the person ultimately responsible for medication therapy, providers are able to order a medication from an existing home medication list in [facility] via the "Reconcile Routine" prior to Confirmation of that medication by applications support analyst. Such practice is discouraged except when the physician, in their clinical judgment, deems that a medical need exists for a medication without regard to previous use.
--- NOTE | 2019-12-26 15:34 | PROVIDER PROGRESS NOTE ---
Subjective - Prog Note Date Prog Note Date: 12/26/19 Prog Note Time: 15:34 - Subjective Subjective: he was weaned this morning and off the vent by early afternoon. Sleepy. Current Medications - Current Medications Current Medications: Active Medications Enoxaparin Sodium (Lovenox) 40 mg SUBQ DAILY [facility] Last Admin: 12/26/19 08:47 Dose: 40 mg Potassium Chloride/Dextrose/Sod Cl (D5.45ns W/20 Meq Kcl) 1,000 mls @ 125 mls/hr IV .Q8H [facility] Last Infusion: 12/26/19 10:30 Dose: 0 mls/hr Multivitamins 10 ml/ Thiamine HCl 100 mg/ Folic Acid 1 mg/Potassium Chlo ride/Dextrose/Sod Cl 1,011.2 mls @ 100 mls/hr IV DAILY [facility] Last Admin: 12/26/19 10:30 Dose: 100 mls/hr Propofol (Diprivan) 100 mls @ 4.082 mls/hr IV .[id number] [facility]; Protocol Last Titration: 12/26/19 10:20 Dose: 0 mcg/kg/min, 0 mls/hr Levetiracetam 1,000 mg/ Sodium (Chloride) 110 mls @ 400 mls/hr IV BID [facility] Last Infusion: 12/26/19 10:00 Dose: Infused Valproic Acid 250 mg/ Sodium (Chloride) 102.5 mls @ 100 mls/hr IV Q12H [facility] Last Infusion: 12/26/19 11:15 Dose: Infused Midazolam HCl (Versed) 4 mg IVP PRN PRN PRN Reason: Seizure Pantoprazole Sodium (Protonix) 40 mg IVP QDAC [facility] Last Admin: 12/26/19 06:51 Dose: 40 mg Phenol/Menthol (Chloraseptic) 2 sprays MM Q4HR PRN PRN Reason: Mouth Sore Pain Sodium Chloride (Normal Saline Flush 0.9%) 10 ml IVP 0100,0900,1700 [facility] Last Admin: 12/26/19 10:18 Dose: 10 ml Sodium Chloride (Normal Saline Flush 0.9%) 10 ml IVP PRN PRN PRN Reason: NEEDED PER PROVIDER ORDERS Dicyclomine [Bentyl] 10 mg PO QID PRN 12/26/19 Divalproex Sodium [Depakote] 500 mg PO BID 12/26/19 Lipase/Protease/Amylase [Creon Dr 12,000 Units Capsule] 1 cap PO TID 12/26/19 Quetiapine Fumarate [Seroquel] 300 mg PO QPM 12/26/19 Trazodone HCl 100 mg PO QPM 12/26/19 Objective - Vital Signs/Intake & Output Reviewed Vital Signs: Yes Vital Signs: Vital Signs x48h Temp Pulse Pulse Resp BP Pulse Ox 12/26/19 14:00 78 20 128/78 12/26/19 13:00 37.3 C 70 20 139/88 H 100 12/26/19 12:00 37.2 C 65 20 121/84 H 100 12/26/19 11:00 37.2 C 77 19 124/71 12/26/19 10:00 37.2 C 87 15 130/87 H 98 12/26/19 09:44 92 12/26/19 09:00 37.3 C 90 20 115/62 96 12/26/19 08:00 36.4 C L 94 23 122/64 98 Intake & Output: Intake & Output 12/23/19 12/24/19 12/25/19 12/26/19 23:59 23:59 23:59 23:59 Intake Total 1161 3180.321 Output Total 900 2020 Balance 261 1160.321 - Objective General Appearance: positive: No acute distress, Other (sleeping, wakes up and goes back to sleep.young white male looks dishevelled) Eyes Bilateral: positive: PERRL, EOMI ENT: positive: Pharynx nml Neck: positive: No JVD. negative: Carotid bruit Respiratory: positive: Chest non-tender, No respiratory distress. negative: Wheezes, Rales, Rhonchi Cardiovascular: positive: Regular rate & rhythm. negative: Gallop/S4, Friction rub Abdomen: positive: Non-tender, No organomegaly, Nml bowel sounds, No distention Skin: positive: Warm, Diaphoresis Extremities: positive: Non-tender, No pedal edema Neurologic/Psychiatric: positive: CN's nml (2-12), Motor nml, Disoriented to time - Lab Results Fish Bones: 12/26/19 04:39 12/26/19 04:39 Other Labs: Lab Results x24hrs 02/07/0712/26/19 12/26/19 Range/Units 10:20 04:39 04:39 WBC (4.8-10.8) x10^3/uL RBC (4.70-6.10) 10^6/uL Hgb (14.0-18.0) g/dL Hct (42.0-52.0) % MCV (80.0-94.0) fL MCH (27.0-31.0) pg MCHC (32.0-36.0) g/dL RDW (12.0-15.0) % Plt Count (130-450) 10^3/uL MPV (7.4-11.4) fL Neut # (Auto) (1.5-6.6) 10^3/uL Lymph # (Auto) (1.5-3.5) 10^3/uL [facility] # (Auto) (0.0-1.0) 10^3/uL Eos # (Auto) (0.0-0.7) 10^3/uL Baso # (Auto) (0.0-0.1) 10^3/uL Absolute Nucleated RBC x10^3/uL Nucleated RBC % /100WBC PT (9.9-12.6) secs INR (0.8-1.2) Bld Gas Analysis Time 1030 ABG pH 7.44 (7.35-7.45) ABG pCO2 35 (34-45) mmHg ABG pO2 68 L (80-100) mmHg ABG HCO3 23.7 (22.0-26.0) mmol/L ABG Total CO2 24.8 (21.0-29.0) MMOL/L ABG O2 Saturation 94 (94-98) % ABG Base Excess -0.1 (-2.0-3.0) mmol/L Amos Test POSITIVE O2 Delivery Device VENTILATOR FiO2 30.00 PEEP 5 cmH2O Pressure Support Vent 12 cmH2O Sodium 144 (135-145) mmol/L Potassium 3.8 (3.5-5.0) mmol/L Chloride 110 (101-111) mmol/L Carbon Dioxide 24 (21-32) mmol/L Anion Gap 10.0 (6-13) BUN 7 (6-20) mg/dL Creatinine 0.8 (0.6-1.2) mg/dL Estimated GFR (MDRD) 110 (>89) Glucose 100 (70-100) mg/dL Lactic Acid (0.5-2.2) mmol/L Calcium 8.1 L (8.5-10.3) mg/dL Phosphorus 3.5 (2.5-4.6) mg/dL Magnesium 2.0 (1.7-2.8) mg/dL Total Bilirubin (0.2-1.0) mg/dL AST (10-42) IU/L ALT (10-60) IU/L Alkaline Phosphatase (42-121) IU/L Total Creatine Kinase (22-269) IU/L CK-MB (CK-2) (0.6-6.3) ng/mL Total Protein (6.7-8.2) g/dL Albumin 3.5 (3.2-5.5) g/dL Globulin (2.1-4.2) g/dL Albumin/Globulin Ratio (1.0-2.2) Lipase (22-51) U/L TSH (0.34-5.60) uIU/mL Urine Color Urine Clarity (CLEAR) Urine pH (5.0-7.5) PH Ur Specific [place] (1.002-1.030) Urine Protein (NEGATIVE) mg/dL Urine Glucose (UA) (NEGATIVE) mg/dL Urine Ketones (NEGATIVE) mg/dL Urine Occult Blood (NEGATIVE) Urine Nitrite (NEGATIVE) Urine Bilirubin (NEGATIVE) Urine Urobilinogen (NORMAL) E.U./dL Ur Leukocyte Esterase (NEGATIVE) Ur Microscopic Review Urine Culture Comments Nasal Screen MRSA (PCR) (NEGATIVE) Last Dose Date Last Dose Time Salicylates mg/dL Urine Opiates Screen (NEGATIVE) Ur Oxycodone Screen (NEGATIVE) Urine Methadone Screen (NEGATIVE) Ur Propoxyphene Screen (NEGATIVE) Acetaminophen (10-30) ug/mL Ur Barbiturates Screen (NEGATIVE) Valproic Acid ug/mL Ur Tricyclics Screen (NEGATIVE) Ur Phencyclidine Scrn (NEGATIVE) Ur Amphetamine Screen (NEGATIVE) U Methamphetamines Scrn (NEGATIVE) U Benzodiazepines Scrn (NEGATIVE) Urine Cocaine Screen (NEGATIVE) U Cannabinoids Screen (NEGATIVE) Ethyl Alcohol mg/dL 12/26/19 12/25/19 12/25/19 Range/Units 04:39 23:31 21:41 WBC 3.8 L (4.8-10.8) x10^3/uL RBC 3.82 L (4.70-6.10) 10^6/uL Hgb 11.6 L (14.0-18.0) g/dL Hct 36.2 L (42.0-52.0) % MCV 94.8 H (80.0-94.0) fL MCH 30.4 (27.0-31.0) pg MCHC 32.0 (32.0-36.0) g/dL RDW 13.4 (12.0-15.0) % Plt Count 205 (130-450) 10^3/uL MPV 9.4 (7.4-11.4) fL Neut # (Auto) 0.7 L (1.5-6.6) 10^3/uL Lymph # (Auto) 2.7 (1.5-3.5) 10^3/uL [facility] # (Auto) 0.2 (0.0-1.0) 10^3/uL Eos # (Auto) 0.1 (0.0-0.7) 10^3/uL Baso # (Auto) 0.0 (0.0-0.1) 10^3/uL Absolute Nucleated RBC 0.00 x10^3/uL Nucleated RBC % 0.0 /100WBC PT (9.9-12.6) secs INR (0.8-1.2) Bld Gas Analysis Time ABG pH (7.35-7.45) ABG pCO2 (34-45) mmHg ABG pO2 (80-100) mmHg ABG HCO3 (22.0-26.0) mmol/L ABG Total CO2 (21.0-29.0) MMOL/L ABG O2 Saturation (94-98) % ABG Base Excess (-2.0-3.0) mmol/L Amos Test O2 Delivery Device FiO2 PEEP cmH2O Pressure Support Vent cmH2O Sodium (135-145) mmol/L Potassium (3.5-5.0) mmol/L Chloride (101-111) mmol/L Carbon Dioxide (21-32) mmol/L Anion Gap (6-13) BUN (6-20) mg/dL Creatinine (0.6-1.2) mg/dL Estimated GFR (MDRD) (>89) Glucose (70-100) mg/dL Lactic Acid 2.6 H (0.5-2.2) mmol/L Calcium (8.5-10.3) mg/dL Phosphorus (2.5-4.6) mg/dL Magnesium (1.7-2.8) mg/dL Total Bilirubin (0.2-1.0) mg/dL AST (10-42) IU/L ALT (10-60) IU/L Alkaline Phosphatase (42-121) IU/L Total Creatine Kinase (22-269) IU/L CK-MB (CK-2) (0.6-6.3) ng/mL Total Protein (6.7-8.2) g/dL Albumin (3.2-5.5) g/dL Globulin (2.1-4.2) g/dL Albumin/Globulin Ratio (1.0-2.2) Lipase (22-51) U/L TSH (0.34-5.60) uIU/mL Urine Color Urine Clarity (CLEAR) Urine pH (5.0-7.5) PH Ur Specific [place] (1.002-1.030) Urine Protein (NEGATIVE) mg/dL Urine Glucose (UA) (NEGATIVE) mg/dL Urine Ketones (NEGATIVE) mg/dL Urine Occult Blood (NEGATIVE) Urine Nitrite (NEGATIVE) Urine Bilirubin (NEGATIVE) Urine Urobilinogen (NORMAL) E.U./dL Ur Leukocyte Esterase (NEGATIVE) Ur Microscopic Review Urine Culture Comments Nasal Screen MRSA (PCR) NEGATIVE (NEGATIVE) Last Dose Date Last Dose Time Salicylates mg/dL Urine Opiates Screen (NEGATIVE) Ur Oxycodone Screen (NEGATIVE) Urine Methadone Screen (NEGATIVE) Ur Propoxyphene Screen (NEGATIVE) Acetaminophen (10-30) ug/mL Ur Barbiturates Screen (NEGATIVE) Valproic Acid ug/mL Ur Tricyclics Screen (NEGATIVE) Ur Phencyclidine Scrn (NEGATIVE) Ur Amphetamine Screen (NEGATIVE) U Methamphetamines Scrn (NEGATIVE) U Benzodiazepines Scrn (NEGATIVE) Urine Cocaine Screen (NEGATIVE) U Cannabinoids Screen (NEGATIVE) Ethyl Alcohol mg/dL 12/25/19 12/25/19 12/25/19 Range/Units 21:00 20:20 20:20 WBC (4.8-10.8) x10^3/uL RBC (4.70-6.10) 10^6/uL Hgb (14.0-18.0) g/dL Hct (42.0-52.0) % MCV (80.0-94.0) fL MCH (27.0-31.0) pg MCHC (32.0-36.0) g/dL RDW (12.0-15.0) % Plt Count (130-450) 10^3/uL MPV (7.4-11.4) fL Neut # (Auto) (1.5-6.6) 10^3/uL Lymph # (Auto) (1.5-3.5) 10^3/uL [facility] # (Auto) (0.0-1.0) 10^3/uL Eos # (Auto) (0.0-0.7) 10^3/uL Baso # (Auto) (0.0-0.1) 10^3/uL Absolute Nucleated RBC x10^3/uL Nucleated RBC % /100WBC PT (9.9-12.6) secs INR (0.8-1.2) Bld Gas Analysis Time ABG pH (7.35-7.45) ABG pCO2 (34-45) mmHg ABG pO2 (80-100) mmHg ABG HCO3 (22.0-26.0) mmol/L ABG Total CO2 (21.0-29.0) MMOL/L ABG O2 Saturation (94-98) % ABG Base Excess (-2.0-3.0) mmol/L Amos Test O2 Delivery Device FiO2 PEEP cmH2O Pressure Support Vent cmH2O Sodium (135-145) mmol/L Potassium (3.5-5.0) mmol/L Chloride (101-111) mmol/L Carbon Dioxide (21-32) mmol/L Anion Gap (6-13) BUN (6-20) mg/dL Creatinine (0.6-1.2) mg/dL Estimated GFR (MDRD) (>89) Glucose (70-100) mg/dL Lactic Acid (0.5-2.2) mmol/L Calcium (8.5-10.3) mg/dL Phosphorus (2.5-4.6) mg/dL Magnesium (1.7-2.8) mg/dL Total Bilirubin (0.2-1.0) mg/dL AST (10-42) IU/L ALT (10-60) IU/L Alkaline Phosphatase (42-121) IU/L Total Creatine Kinase (22-269) IU/L CK-MB (CK-2) (0.6-6.3) ng/mL Total Protein (6.7-8.2) g/dL Albumin (3.2-5.5) g/dL Globulin (2.1-4.2) g/dL Albumin/Globulin Ratio (1.0-2.2) Lipase (22-51) U/L TSH 0.57 (0.34-5.60) uIU/mL Urine Color YELLOW Urine Clarity CLEAR (CLEAR) Urine pH 6.5 (5.0-7.5) PH Ur Specific [place] <=1.005 (1.002-1.030) Urine Protein NEGATIVE (NEGATIVE) mg/dL Urine Glucose (UA) NEGATIVE (NEGATIVE) mg/dL Urine Ketones NEGATIVE (NEGATIVE) mg/dL Urine Occult Blood NEGATIVE (NEGATIVE) Urine Nitrite NEGATIVE (NEGATIVE) Urine Bilirubin NEGATIVE (NEGATIVE) Urine Urobilinogen 0.2 (NORMAL) (NORMAL) E.U./dL Ur Leukocyte Esterase NEGATIVE (NEGATIVE) Ur Microscopic Review NOT INDICATED Urine Culture Comments NOT INDICATED Nasal Screen MRSA (PCR) (NEGATIVE) Last Dose Date Unknown Last Dose Time Unknown Salicylates mg/dL Urine Opiates Screen NEGATIVE (NEGATIVE) Ur Oxycodone Screen NEGATIVE (NEGATIVE) Urine Methadone Screen NEGATIVE (NEGATIVE) Ur Propoxyphene Screen NEGATIVE (NEGATIVE) Acetaminophen (10-30) ug/mL Ur Barbiturates Screen NEGATIVE (NEGATIVE) Valproic Acid 20.3 ug/mL Ur Tricyclics Screen POSITIVE H (NEGATIVE) Ur Phencyclidine Scrn NEGATIVE (NEGATIVE) Ur Amphetamine Screen NEGATIVE (NEGATIVE) U Methamphetamines Scrn NEGATIVE (NEGATIVE) U Benzodiazepines Scrn NEGATIVE (NEGATIVE) Urine Cocaine Screen NEGATIVE (NEGATIVE) U Cannabinoids Screen POSITIVE H (NEGATIVE) Ethyl Alcohol mg/dL 12/25/19 12/25/19 12/25/19 Range/Units 20:20 20:20 20:20 WBC (4.8-10.8) x10^3/uL RBC (4.70-6.10) 10^6/uL Hgb (14.0-18.0) g/dL Hct (42.0-52.0) % MCV (80.0-94.0) fL MCH (27.0-31.0) pg MCHC (32.0-36.0) g/dL RDW (12.0-15.0) % Plt Count (130-450) 10^3/uL MPV (7.4-11.4) fL Neut # (Auto) (1.5-6.6) 10^3/uL Lymph # (Auto) (1.5-3.5) 10^3/uL [facility] # (Auto) (0.0-1.0) 10^3/uL Eos # (Auto) (0.0-0.7) 10^3/uL Baso # (Auto) (0.0-0.1) 10^3/uL Absolute Nucleated RBC x10^3/uL Nucleated RBC % /100WBC PT 10.6 (9.9-12.6) secs INR 0.9 (0.8-1.2) Bld Gas Analysis Time ABG pH (7.35-7.45) ABG pCO2 (34-45) mmHg ABG pO2 (80-100) mmHg ABG HCO3 (22.0-26.0) mmol/L ABG Total CO2 (21.0-29.0) MMOL/L ABG O2 Saturation (94-98) % ABG Base Excess (-2.0-3.0) mmol/L Amos Test O2 Delivery Device FiO2 PEEP cmH2O Pressure Support Vent cmH2O Sodium 143 (135-145) mmol/L Potassium 3.2 L (3.5-5.0) mmol/L Chloride 105 (101-111) mmol/L Carbon Dioxide 23 (21-32) mmol/L Anion Gap 15.0 H (6-13) BUN 8 (6-20) mg/dL Creatinine 0.9 (0.6-1.2) mg/dL Estimated GFR (MDRD) 96 (>89) Glucose 103 H (70-100) mg/dL Lactic Acid (0.5-2.2) mmol/L Calcium 8.7 (8.5-10.3) mg/dL Phosphorus 3.7 (2.5-4.6) mg/dL Magnesium 2.3 (1.7-2.8) mg/dL Total Bilirubin 0.7 (0.2-1.0) mg/dL AST 28 (10-42) IU/L ALT 23 (10-60) IU/L Alkaline Phosphatase 57 (42-121) IU/L Total Creatine Kinase 263 (22-269) IU/L CK-MB (CK-2) 4.8 (0.6-6.3) ng/mL Total Protein 6.7 (6.7-8.2) g/dL Albumin 4.1 (3.2-5.5) g/dL Globulin 2.6 (2.1-4.2) g/dL Albumin/Globulin Ratio 1.6 (1.0-2.2) Lipase 60 H (22-51) U/L TSH (0.34-5.60) uIU/mL Urine Color Urine Clarity (CLEAR) Urine pH (5.0-7.5) PH Ur Specific [place] (1.002-1.030) Urine Protein (NEGATIVE) mg/dL Urine Glucose (UA) (NEGATIVE) mg/dL Urine Ketones (NEGATIVE) mg/dL Urine Occult Blood (NEGATIVE) Urine Nitrite (NEGATIVE) Urine Bilirubin (NEGATIVE) Urine Urobilinogen (NORMAL) E.U./dL Ur Leukocyte Esterase (NEGATIVE) Ur Microscopic Review Urine Culture Comments Nasal Screen MRSA (PCR) (NEGATIVE) Last Dose Date Last Dose Time Salicylates < 6.0 mg/dL Urine Opiates Screen (NEGATIVE) Ur Oxycodone Screen (NEGATIVE) Urine Methadone Screen (NEGATIVE) Ur Propoxyphene Screen (NEGATIVE) Acetaminophen < 10 L (10-30) ug/mL Ur Barbiturates Screen (NEGATIVE) Valproic Acid ug/mL Ur Tricyclics Screen (NEGATIVE) Ur Phencyclidine Scrn (NEGATIVE) Ur Amphetamine Screen (NEGATIVE) U Methamphetamines Scrn (NEGATIVE) U Benzodiazepines Scrn (NEGATIVE) Urine Cocaine Screen (NEGATIVE) U Cannabinoids Screen (NEGATIVE) Ethyl Alcohol 210.8 mg/dL 12/25/19 Range/Units 20:20 WBC 4.5 L (4.8-10.8) x10^3/uL RBC 4.19 L (4.70-6.10) 10^6/uL Hgb 13.2 L (14.0-18.0) g/dL Hct 38.9 L (42.0-52.0) % MCV 92.8 (80.0-94.0) fL MCH 31.5 H (27.0-31.0) pg MCHC 33.9 (32.0-36.0) g/dL RDW 13.2 (12.0-15.0) % Plt Count 217 (130-450) 10^3/uL MPV 9.1 (7.4-11.4) fL Neut # (Auto) 1.4 L (1.5-6.6) 10^3/uL Lymph # (Auto) 2.6 (1.5-3.5) 10^3/uL [facility] # (Auto) 0.3 (0.0-1.0) 10^3/uL Eos # (Auto) 0.2 (0.0-0.7) 10^3/uL Baso # (Auto) 0.0 (0.0-0.1) 10^3/uL Absolute Nucleated RBC 0.00 x10^3/uL Nucleated RBC % 0.0 /100WBC PT (9.9-12.6) secs INR (0.8-1.2) Bld Gas Analysis Time ABG pH (7.35-7.45) ABG pCO2 (34-45) mmHg ABG pO2 (80-100) mmHg ABG HCO3 (22.0-26.0) mmol/L ABG Total CO2 (21.0-29.0) MMOL/L ABG O2 Saturation (94-98) % ABG Base Excess (-2.0-3.0) mmol/L Amos Test O2 Delivery Device FiO2 PEEP cmH2O Pressure Support Vent cmH2O Sodium (135-145) mmol/L Potassium (3.5-5.0) mmol/L Chloride (101-111) mmol/L Carbon Dioxide (21-32) mmol/L Anion Gap (6-13) BUN (6-20) mg/dL Creatinine (0.6-1.2) mg/dL Estimated GFR (MDRD) (>89) Glucose (70-100) mg/dL Lactic Acid (0.5-2.2) mmol/L Calcium (8.5-10.3) mg/dL Phosphorus (2.5-4.6) mg/dL Magnesium (1.7-2.8) mg/dL Total Bilirubin (0.2-1.0) mg/dL AST (10-42) IU/L ALT (10-60) IU/L Alkaline Phosphatase (42-121) IU/L Total Creatine Kinase (22-269) IU/L CK-MB (CK-2) (0.6-6.3) ng/mL Total Protein (6.7-8.2) g/dL Albumin (3.2-5.5) g/dL Globulin (2.1-4.2) g/dL Albumin/Globulin Ratio (1.0-2.2) Lipase (22-51) U/L TSH (0.34-5.60) uIU/mL Urine Color Urine Clarity (CLEAR) Urine pH (5.0-7.5) PH Ur Specific [place] (1.002-1.030) Urine Protein (NEGATIVE) mg/dL Urine Glucose (UA) (NEGATIVE) mg/dL Urine Ketones (NEGATIVE) mg/dL Urine Occult Blood (NEGATIVE) Urine Nitrite (NEGATIVE) Urine Bilirubin (NEGATIVE) Urine Urobilinogen (NORMAL) E.U./dL Ur Leukocyte Esterase (NEGATIVE) Ur Microscopic Review Urine Culture Comments Nasal Screen MRSA (PCR) (NEGATIVE) Last Dose Date Last Dose Time Salicylates mg/dL Urine Opiates Screen (NEGATIVE) Ur Oxycodone Screen (NEGATIVE) Urine Methadone Screen (NEGATIVE) Ur Propoxyphene Screen (NEGATIVE) Acetaminophen (10-30) ug/mL Ur Barbiturates Screen (NEGATIVE) Valproic Acid ug/mL Ur Tricyclics Screen (NEGATIVE) Ur Phencyclidine Scrn (NEGATIVE) Ur Amphetamine Screen (NEGATIVE) U Methamphetamines Scrn (NEGATIVE) U Benzodiazepines Scrn (NEGATIVE) Urine Cocaine Screen (NEGATIVE) U Cannabinoids Screen (NEGATIVE) Ethyl Alcohol mg/dL ABX Reporting Has patient been on IV antibiotics over the past 48 hours?: No Assessment/Plan - Problem List (1) Altered mental status Impression: Mostly resolved but still sleepy. Even after extubation but he is responsive. Apropriate. This is likely secondary to him being post ictal due to his seizures. He was alert and oriented per EMS prior to his [address] of the head was negative. He was intubated for airway protection and now extubated. Transfer to [facility] status later today or in am. In looking at his medical records he has been in the emergency room over 20 times since June. A lot of them related to a seizure disorder because of noncompliance with his medications and his alcohol abuse. I have asked social work to help me set up a care plan. Once he is more awake, I am going to have a DHR evaluation and go from there. Qualifiers: Altered mental status type: coma Coma depth: [place] coma 3-8 Coma timing: in the field (EMT or ambulance) Qualified Code(s): R40.2431 - [place] coma scale score 3-8, in the field [EMT or ambulance] (2) Seizure disorder Conclusion/Plan: He had 3 seizures on day of admission although it is unclear if this is secondary to his seizure disorder or alcohol withdrawal. He is on Keppra and valproic acid at home although his valproic acid level is not therapeutic. His alcohol level is also above 200. On Keppra and valproic acid IV as long as he is sleepy. Once more awake change to po. (3) On mechanically assisted ventilation Conclusion/Plan: Was intubated for airway protection given his GCS was 5. extubated today. Advance diet. Get him out of bed. (4) Alcohol abuse Conclusion/Plan: He has history of alcohol abuse and withdrawal in the past. Continues to drink on a daily basis and alcohol was greater than 200. Is unclear if his seizure secondary to alcohol withdrawal or his seizure disorder. He received thiamine in the emergency department. We will place him on a banana bag and watch him for withdrawal. (5) Hypokalemia Conclusion/Plan: Potassium is low at 3.2 and this will be replaced intravenously Qualifiers: Qualified Code(s): R40.2431 - [place] coma scale score 3-8, in the field [EMT or ambulance]
[2019-12-26] MEDS ORDERED: SODIUM CHLORIDE 0.9% 500 ML IV PRN (17:28)
[2019-12-26] MEDS ORDERED: BEER 355 ML BOTTLE PO PRN (19:18)
[2019-12-27] MEDS ORDERED: D5.45NS W/20 MEQ KCL 1,000 ML IV ONE (00:35)
[2019-12-27] MEDS: D5.45NS W/20 MEQ KCL 1,000 ML IV SCH (01:30)
[2019-12-27] MEDS: SODIUM CHLORIDE FLUSH 0.9% 10 ML SYRINGE IVP SCH ×3 (01:34→19:33)
[2019-12-27 05:39] LABS: BASOPHILS % (AUTO) 0.6 %; EOSINOPHILS # (AUTO) 0.1 10^3/uL (0.0-0.7); EOSINOPHILS % (AUTO) 1.7 %; LYMPHOCYTES # (AUTO) 1.5 10^3/uL (1.5-3.5); MEAN CORPUSCULAR HEMOGLOBIN 30.2 pg (27.0-31.0); MEAN CORPUSCULAR HGB CONC 31.9 g/dL (32.0-36.0); MEAN CORPUSCULAR VOLUME 94.7 fL (80.0-94.0); MEAN PLATELET VOLUME 9.7 fL (7.4-11.4); MONOCYTES # (AUTO) 0.3 10^3/uL (0.0-1.0); MONOCYTES % (AUTO) 6.1 %; NEUTROPHILS # (AUTO) 3.3 10^3/uL (1.5-6.6); NEUTROPHILS % (AUTO) 62.2 %; PLT - PLATELET COUNT 217 10^3/uL (130-450); RED CELL DISTRIBUTION WIDTH 13.4 % (12.0-15.0); WHITE BLOOD COUNT 5.2 x10^3/uL (4.8-10.8)
[2019-12-27 05:53] LABS: CALCIUM 8.7 mg/dL (8.5-10.3); CREATININE 0.7 mg/dL (0.6-1.2); MAGNESIUM 2.2 mg/dL (1.7-2.8); PHOSPHORUS 3.3 mg/dL (2.5-4.6)
[2019-12-27] MEDS ORDERED: DICYCLOMINE 10 MG CAPSULE PO PRN (07:56)
[2019-12-27] MEDS: levETIRAcetam 250 MG TABLET PO SCH ×2 (08:38→20:17)
[2019-12-27] MEDS: FOLIC ACID 1 MG TABLET PO SCH (08:39)
[2019-12-27] MEDS: DIVALPROEX DR 250 MG TABLET PO SCH ×2 (08:39→20:17)
[2019-12-27] MEDS: THIAMINE 100 MG TABLET PO SCH (08:40)
[2019-12-27] MEDS: ENOXAPARIN 40 MG/0.4 ML SYRINGE SUBQ SCH (08:40)
--- NOTE | 2019-12-27 08:43 | PROVIDER PROGRESS NOTE ---
Subjective - Prog Note Date Prog Note Date: 12/27/19 Prog Note Time: 15:19 - Subjective Subjective: he is now having abdominal pain similar to his pancreatitis Current Medications - Current Medications Current Medications: Active Medications Lipase/Protease/Amylase (Pancrelipase Dr 5,000/17,000/27,000 Residential) 2 cap PO TIDWM [facility] Beer (Beer) 355 ml PO TIDWM PRN PRN Reason: Alcohol Withdrawal Last Admin: 12/27/19 08:09 Dose: 355 ml Dicyclomine HCl (Bentyl) 10 mg PO QID PRN PRN Reason: Abdominal Pain Divalproex Sodium (Depakote Dr) 500 mg PO BID [facility] Last Admin: 12/27/19 08:39 Dose: 500 mg Enoxaparin Sodium (Lovenox) 40 mg SUBQ DAILY [facility] Last Admin: 12/27/19 08:40 Dose: 40 mg Folic Acid () 1 mg PO DAILY [facility] Last Admin: 12/27/19 08:39 Dose: 1 mg Levetiracetam (Keppra) 1,000 mg PO BID [facility] Last Admin: 12/27/19 08:38 Dose: 1,000 mg Phenol/Menthol (Chloraseptic) 2 sprays MM Q4HR PRN PRN Reason: Mouth Sore Pain Last Admin: 12/26/19 18:25 Dose: 2 sprays Quetiapine Fumarate (Seroquel) 300 mg PO QPM [facility] Sodium Chloride (Normal Saline Flush 0.9%) 10 ml IVP 0100,0900,1700 [facility] Last Admin: 12/27/19 01:34 Dose: Not Given Sodium Chloride (Normal Saline Flush 0.9%) 10 ml IVP PRN PRN PRN Reason: NEEDED PER PROVIDER ORDERS Thiamine HCl (Vitamin B-1) 100 mg PO DAILY [facility] Last Admin: 12/27/19 08:40 Dose: 100 mg Trazodone HCl (Desyrel) 100 mg PO QPM [facility] Dicyclomine [Bentyl] 10 mg PO QID PRN 12/26/19 Divalproex Sodium [Depakote] 500 mg PO BID 12/26/19 Lipase/Protease/Amylase [Creon Dr 12,000 Units Capsule] 1 cap PO TID 12/26/19 Quetiapine Fumarate [Seroquel] 300 mg PO QPM 12/26/19 Trazodone HCl 100 mg PO QPM 12/26/19 Objective - Vital Signs/Intake & Output Vital Signs: Vital Signs x48h Temp Pulse Resp BP Pulse Ox 12/27/19 07:00 49 L 26 H 136/66 H 96 12/27/19 06:00 57 L 17 141/86 H 98 12/27/19 05:00 52 L 16 134/67 H 95 12/27/19 04:00 36.7 C 52 L 16 123/88 H 94 12/27/19 03:00 45 L 16 127/78 96 12/27/19 02:00 51 L 15 128/84 H 96 12/27/19 01:00 52 L 17 112/98 H 96 Intake & Output: Intake & Output 12/24/19 12/25/19 12/26/19 12/27/19 23:59 23:59 23:59 23:59 Intake Total 1161 4604.021 693.75 Output Total 900 2410 600 Balance 261 2194.021 93.75 - Objective General Appearance: positive: Alert, Mild distress Eyes Bilateral: positive: PERRL, EOMI ENT: positive: Dry mucous membranes Neck: positive: No JVD Respiratory: positive: Chest non-tender. negative: Wheezes, Rales, Rhonchi Cardiovascular: positive: Regular rate & rhythm. negative: Gallop/S4, Friction rub Abdomen: positive: Nml bowel sounds. negative: Guarding, Rebound Skin: positive: Warm, Dry, Other (rough and reddened from wind/sun exposure where he isn't covered by clothing) Extremities: positive: Non-tender, No pedal edema Neurologic/Psychiatric: positive: Oriented x3, CN's nml (2-12), Motor nml, Depre ssed mood/affect - Lab Results Fish Bones: 12/27/19 04:55 12/27/19 04:55 Other Labs: Lab Results x24hrs 12/27/19 12/27/19 12/26/19 Range/Units 04:55 04:55 10:20 WBC 5.2 (4.8-10.8) x10^3/uL RBC 4.30 L (4.70-6.10) 10^6/uL Hgb 13.0 L (14.0-18.0) g/dL Hct 40.7 L (42.0-52.0) % MCV 94.7 H (80.0-94.0) fL MCH 30.2 (27.0-31.0) pg MCHC 31.9 L (32.0-36.0) g/dL RDW 13.4 (12.0-15.0) % Plt Count 217 (130-450) 10^3/uL MPV 9.7 (7.4-11.4) fL Neut # (Auto) 3.3 (1.5-6.6) 10^3/uL Lymph # (Auto) 1.5 (1.5-3.5) 10^3/uL [place] # (Auto) 0.3 (0.0-1.0) 10^3/uL Eos # (Auto) 0.1 (0.0-0.7) 10^3/uL Baso # (Auto) 0.0 (0.0-0.1) 10^3/uL Absolute Nucleated RBC 0.00 x10^3/uL Nucleated RBC % 0.0 /100WBC Bld Gas Analysis Time 1030 ABG pH 7.44 (7.35-7.45) ABG pCO2 35 (34-45) mmHg ABG pO2 68 L (80-100) mmHg ABG HCO3 23.7 (22.0-26.0) mmol/L ABG Total CO2 24.8 (21.0-29.0) MMOL/L ABG O2 Saturation 94 (94-98) % ABG Base Excess -0.1 (-2.0-3.0) mmol/L Amos Test POSITIVE O2 Delivery Device VENTILATOR FiO2 30.00 PEEP 5 cmH2O Pressure Support Vent 12 cmH2O Sodium 143 (135-145) mmol/L Potassium 3.5 (3.5-5.0) mmol/L Chloride 112 H (101-111) mmol/L Carbon Dioxide 25 (21-32) mmol/L Anion Gap 6.0 (6-13) BUN 6 (6-20) mg/dL Creatinine 0.7 (0.6-1.2) mg/dL Estimated GFR (MDRD) 128 (>89) Glucose 112 H (70-100) mg/dL Calcium 8.7 (8.5-10.3) mg/dL Phosphorus 3.3 (2.5-4.6) mg/dL Magnesium 2.2 (1.7-2.8) mg/dL ABX Reporting Has patient been on IV antibiotics over the past 48 hours?: No Assessment/Plan - Problem List (1) Post-ictal confusion Impression: He presented as confusion and lethargy after several seizures in 1 day. He was intubated to protect his airway. He was extubated on December 26 in the morning. All day long he has been sleeping. Hurts all over. But cooperative. Appropriate in his questions and request. He was alert and oriented per EMS prior to his [address] of the head was negative. Transfer to [facility] status this am. In looking at his medical records he has been in the emergency room over 27 times since June. A lot of them related to a seizure disorder because of noncompliance with his medications and his alcohol abuse. I have asked social work to help me set up a care plan. Once he is more awake, I am going to have a DHR evaluation and go from there. Qualifiers: Altered mental status type: coma Coma depth: Dunning coma 3-8 Coma timing: in the field (EMT or ambulance) Qualified Code(s): R40.2431 - Dunning coma scale score 3-8, in the field [EMT or ambulance] (2) Seizure disorder Conclusion/Plan: He had 3 seizures on day of admission although it is unclear if this is secondary to his seizure disorder or alcohol withdrawal. He is on Keppra and valproic acid at home although his valproic acid level is not therapeutic. His alcohol level is also above 200. On Keppra and valproic acid IV as long as he is sleepy. This morning, still sleepy, but appropriate. Eating. As such we will change medicines to p.o. (3) On mechanically assisted ventilation, Extubated December 26 Conclusion/Plan: On regular diet. Will need to get him up out of bed today. (4) Alcohol abuse Conclusion/Plan: He has history of alcohol abuse and withdrawal in the past. Continues to drink on a daily basis and alcohol was greater than 200. Is unclear if his seizure secondary to alcohol withdrawal or his seizure disorder. He received thiamine in the emergency department. Stop IV banana bag and switch him to oral folate and B12. He does not want to go through withdrawals. Has no intention of stopping drinking at this time. As such he is getting 1 beer with each meal. I am going to check amylase and lipase in case his pancreas is worse. (5) Hypokalemia resolved. Conclusion/Plan: Potassium was low at 3.2 and has been normal after supplements 12/26 and this morning. (2) Altered mental status Qualifiers: Qualified Code(s): R40.2431 - Sharmila coma scale score 3-8, in the field [EMT or ambulance]
[2019-12-27] MEDS: LIPASE/PROTEASE/AMYLASE CAPSULE PO SCH ×2 (12:00→16:49)
[2019-12-27] MEDS: BEER 355 ML BOTTLE PO PRN (12:01)
[2019-12-27 15:47] LABS: ALBUMIN 3.3 g/dL (3.2-5.5); BILIRUBIN,DIRECT 0.3 mg/dL (0.1-0.5); BILIRUBIN,TOTAL 1.3 mg/dL (0.2-1.0); TOTAL PROTEIN 5.7 g/dL (6.7-8.2)
[2019-12-27] MEDS ORDERED: QUEtiapine 100 MG TABLET PO SCH (21:00)
[2019-12-27] MEDS ORDERED: traZODone 50 MG TABLET PO SCH (21:00)
[2019-12-28] MEDS: SODIUM CHLORIDE FLUSH 0.9% 10 ML SYRINGE IVP SCH ×2 (00:13→07:29)
[2019-12-28 05:18] LABS: BASOPHILS % (AUTO) 0.7 %; EOSINOPHILS # (AUTO) 0.1 10^3/uL (0.0-0.7); EOSINOPHILS % (AUTO) 3.4 %; HGB - HEMOGLOBIN 12.9 g/dL (14.0-18.0); LYMPHOCYTES # (AUTO) 2.2 10^3/uL (1.5-3.5); LYMPHOCYTES % (AUTO) 52.7 %; MEAN CORPUSCULAR HEMOGLOBIN 29.8 pg (27.0-31.0); MEAN CORPUSCULAR HGB CONC 32.1 g/dL (32.0-36.0); MEAN CORPUSCULAR VOLUME 92.8 fL (80.0-94.0); MEAN PLATELET VOLUME 9.5 fL (7.4-11.4); MONOCYTES # (AUTO) 0.3 10^3/uL (0.0-1.0); MONOCYTES % (AUTO) 8.3 %; NEUTROPHILS # (AUTO) 1.4 10^3/uL (1.5-6.6); NEUTROPHILS % (AUTO) 34.7 %; PLT - PLATELET COUNT 205 10^3/uL (130-450); RED BLOOD COUNT 4.33 10^6/uL (4.70-6.10); RED CELL DISTRIBUTION WIDTH 13.4 % (12.0-15.0); WHITE BLOOD COUNT 4.1 x10^3/uL (4.8-10.8)
[2019-12-28 05:48] LABS: CALCIUM 9.1 mg/dL (8.5-10.3); CREATININE 0.8 mg/dL (0.6-1.2); MAGNESIUM 2.2 mg/dL (1.7-2.8); PHOSPHORUS 3.6 mg/dL (2.5-4.6)
[2019-12-28 08:21] VITALS: BP 123/81
--- NOTE | 2019-12-28 08:25 | Discharge Plan ---
Discharge Plan Problem Reviewed?: Yes Disposition: [facility]Unit DC/Xfer Condition: Good Diet: Regular Activity Restrictions: Activity as Tolerated Shower Restrictions: No Driving Restrictions: Yes (no driving bc of seizures) No Smoking: If you smoke, Please STOP! Call for help.
[2019-12-28] MEDS: BEER 355 ML BOTTLE PO PRN (09:15)
[2019-12-28] MEDS: ENOXAPARIN 40 MG/0.4 ML SYRINGE SUBQ SCH (09:58)
[2019-12-28] MEDS: DIVALPROEX DR 250 MG TABLET PO SCH (09:58)
[2019-12-28] MEDS: LIPASE/PROTEASE/AMYLASE CAPSULE PO SCH (09:58)
[2019-12-28] MEDS: FOLIC ACID 1 MG TABLET PO SCH (09:58)
[2019-12-28] MEDS: levETIRAcetam 250 MG TABLET PO SCH (09:59)
[2019-12-28] MEDS: THIAMINE 100 MG TABLET PO SCH (09:59)
--- NOTE | 2019-12-28 13:19 | DISCHARGE SUMMARY ---
"Discharge Summary Admit Date: 12/25/19 Discharge Date: 12/28/19 Condition at Discharge: Critical Discharge Disposition: [facility]/Unit DC/Xfer - DIAGNOSES Discharge Diagnoses with Status of Each Condition: 1. Post ictal confusion, Resolved 2. Seizure disorder 3. Noncompliance with medication 4. On mechanically assisted ventilation, resolved 5. Alcohol withdrawal, resolved 6. Hypokalemia 7. Homeless status - HPI History of Present Illness: This is a 34-year-old male with a history of seizure disorder, and alcohol use disorder who presents today after having seizures at home. History is obtained from the ER physician as the patient is intubated upon my examination. Patient reportedly had a seizure today and he called EMS. Upon EMS arrival, the patient stated that he felt fine did not want to go to the emergency department. He reportedly then had 2 more seizures and arrived to the emergency department obtunded. He does drink alcohol on a daily basis. He normally visits the emerge department 1-2 times a week for seizures. It is unclear when his last alcoholic beverage was. In the emergency department, he was intubated for airway protection as his GCS was around 5. He was started on propofol for sedation. A CT of the head was obtained which was unremarkable. His labs were unremarkable except for potassium of 3.2. His alcohol level was 210.8. His Depakote level was 20.3. His urine drug screen was positive for marijuana and tricyclics. He will be admitted to the intensive care unit for further management. Past Medical History Cardiovascular: reports: None Respiratory: reports: None Neuro: reports: Seizure disorder Endocrine/Autoimmune: reports: None GI: reports: Pancreatitis : reports: None HEENT: reports: Glaucoma Psych: reports: Depression, Anxiety, Bipolar disorder Musculoskeletal: reports: Chronic back pain Derm: reports: None MRSA Hx?: No Other Past Medical History: Alcohol abuse - CONSULTS | PROCEDURES Procedures: 1. Chest x-ray with old right clavicle deformity. Right basilar atelectasis, otherwise unremarkable, status post intubation 2. CT of the head that has no intraparenchymal hemorrhage, mass, midline shift, or CT findings of infarction. Sinus and orbits normal. 3. Mechanically assisted ventilation - HOSPITAL COURSE Hospital Course: This unfortunate young white male has been seen 27 times in our emergency room d ue to seizure disorder. He is firmly convinced that seizure medications do not do anything for him so he is noncompliant with taking medications. He also has traumatic brain injury, chronic musculoskeletal complaints. He uses alcohol to numb the pain. He does have a history of withdrawal in the past. This time he was admitted because of how severe his post ictal confusion and encephalopathy presented. He also had more seizures than usual. Was not waking up. EMS was called. He was intubated to protect his airway. He stayed intubated overnight once he was admitted to ICU. On the second morning of discharge, we began weaning parameters and he did quite well. He was able to be extubated without any difficulty or subsequent complications. He was very sleepy and sedated the first 48 hours and gradually started waking up. Electrolyte imbalance such as hypokalemia was treated with supplementation. At one point he felt like he was developing abdominal pain compatible with his his tory of pancreatitis from alcoholism but liver enzymes were normal, as were amylase and lipase. Abdominal exam was negative.Urine tox ring was positive for tricyclics and cannabinoids. But salicylates, acetaminophen, were negative. Alcohol level was 211 mg/dL. Initially his seizure medications were given to him IV because he was intubated. Those were transitioned to p.o. before discharge. 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 He also has a thought process where he feels like his seizure drugs do not help him so what is the point of taking them. And then on top of that he drinks to take care of pain which would then induce even more seizures. He was evaluated by DCR. We felt that he was a danger to himself because of his substance abuse history. He was felt to be a candidate for involuntary placement and was transferred to [facility]. At discharge temperature is 36.8, pulse 55, blood pressure 123/81, respirations 15 and 96% on room air. He is 5 foot 8 inches tall and weighs 72.5 kg. He is a disheveled badly groomed white male who looks 20 years older than his stated age. Shotty cervical adenopathy but not stiff. Lungs are clear to auscultation and percussion. No increased respiratory effort. PMI is normally placed with a regular rate and rhythm. The abdomen is soft, hypoactive bowel sounds, nontender and no masses. He has a few scratches on his body specifically over his arms and legs from where he is homeless and sleeps outside. But no clubbing cyanosis or edema. He is angry, stated so. Withdrawn. Refusing to take any medications at this time. Greater than 30 minutes was spent coordinating discharge. - ALLERGIES Allergies/Adverse Reactions: Allergies Allergy/AdvReac Type Severity Reaction Status Date / Time iodine Allergy Severe Respiratory Verified 12/25/19 21:29 Penicillins Allergy Unknown unk Verified 12/25/19 21:29 acetaminophen [From Vicodin] Allergy Itching Verified 12/25/19 21:29 bee venom protein (honey bee) Allergy Anaphylaxis Verified 12/25/19 21:29 hydrocodone [From Vicodin] Allergy Itching Verified 12/25/19 21:29 Sulfa (Sulfonamide Allergy Unknown Verified 12/25/19 21:29 Antibiotics) egg AdvReac Intermediate Emesis Verified 12/25/19 21:29 - MEDICATIONS Home Medications: Ambulatory Orders Medication Instructions Recorded Confirmed RX: Levetiracetam [Keppra] 1,000 mg PO BID #60 tablet 08/15/19 12/26/19 RX: Dicyclomine [Bentyl] 10 mg PO QID PRN 12/26/19 12/26/19 RX: Divalproex Sodium [Depakote] 500 mg PO BID 12/26/19 12/26/19 RX: Lipase/Protease/Amylase [Creon 1 cap PO TID 12/26/19 12/26/19 12,000 Units Capsule] RX: Quetiapine Fumarate [Seroquel] 300 mg PO QPM 12/26/19 12/26/19 RX: Trazodone HCl 100 mg PO QPM 12/26/19 12/26/19 RX: Thiamine [Vitamin B-1] 100 mg PO DAILY tablet 12/28/19 - LABS Result Diagrams: 12/28/19 04:45 12/28/19 04:45"
== END 2019-12-28 09:45 | DRG 101 ==
LOC: EDUNIT# → ED 20:07 → ICU 21:26
PROVIDERS: ADMIT Internal Medicine; ATTEND Specialist
PROC: 5A1935Z Respiratory Ventilation, Less than 24 Consecutive Hours (ICD-10-PCS; principal; 2019-12-25)
DX: G40.909 Epilepsy, unspecified, not intractable, without status epilepticus (principal); F10.239 Alcohol dependence with withdrawal, unspecified; R40.2432 Glasgow coma scale score 3-8, at arrival to emergency department; T42.6X6A Underdosing of other antiepileptic and sedative-hypnotic drugs, initial encounter; Z91.128 Patient's intentional underdosing of medication regimen for other reason; Y90.7 Blood alcohol level of 200-239 mg/100 ml; E87.6 Hypokalemia; R10.9 Unspecified abdominal pain; F17.290 Nicotine dependence, other tobacco product, uncomplicated; F10.229 Alcohol dependence with intoxication, unspecified; F41.9 Anxiety disorder, unspecified; F31.9 Bipolar disorder, unspecified; M54.9 Dorsalgia, unspecified; G89.29 Other chronic pain; Z79.899 Other long term (current) drug therapy; Z78.1 Physical restraint status; Z59.0 Homelessness; Z87.820 Personal history of traumatic brain injury; Z87.19 Personal history of other diseases of the digestive system
CPT/HCPCS: 31500; 36415; 36600; 70450; 71045; 80048; 80053; 80076; 80164; 80306; 80307; 80320; 80329; 81003; 82040; 82150; 82550; 82553; 82803; 83605; 83690; 83735; 84100; 84443; 85025; 85610; 87150; 93005; 94002; 94003; 96361; 96374; 99291; A9270; J0330; J1650; J2060; J3411; J7040; J7120; 81001; 87086; 94770

== ENCOUNTER 2020-01-16 00:55 | Outpatient (CLI) | payer MEDICAID | END 2020-01-16 00:56 | disposition critical access hospital (66) | LOC: EMS 00:55 | PROVIDERS: ATTEND Surgery | DX: R56.9 Unspecified convulsions (principal); R51 Headache | CPT/HCPCS: A0425; A0429; A0999 ==

== ENCOUNTER 2020-01-16 01:11 | Emergency (ER) | payer MEDICAID ==
--- NOTE | 2020-01-16 02:14 | ED Physician Documentation ---
PD HPI SEIZURE - Stated complaint Stated Complaint: SZ - Chief complaint Chief Complaint: Neuro - History obtained from History obtained from: Patient, EMS - History of Present Illness Timing - onset: Last night Witnessed: Witnessed Number of seizures: Multiple, Lasted - seconds, Recovered between seizure Description of seizure activity: Tonic Injury during seizure: None Pain level now: 0 Associated symptoms: None History of seizures: Known seizure disorder, Prior EtOH wdrawal sz Recently seen: Emergency Dept, Admitted, Transferred - Additional information Additional information: BIBA. reportedly has had 5 seizures over past 24 hours. known seizure d/o including alcohol withdrawal. he was released from inpatient rehab 3 days ago. he says his last drink was over 3 weeks ago and that he has been compliant with his medications Review of Systems Constitutional: reports: Reviewed and negative Cardiac: reports: Reviewed and negative Respiratory: reports: Reviewed and negative GI: reports: Reviewed and negative Neurologic: reports: Seizure. 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 Neuro: Other - Present Medications Home Medications: Ambulatory Orders Medication Instructions Recorded Confirmed Levetiracetam [Keppra] 1,000 mg PO BID #60 tablet 08/15/19 12/26/19 Dicyclomine [Bentyl] 10 mg PO QID PRN 12/26/19 12/26/19 Divalproex Sodium [Depakote] 500 mg PO BID 12/26/19 12/26/19 Lipase/Protease/Amylase [Creon Dr 1 cap PO TID 12/26/19 12/26/19 12,000 Units Capsule] Quetiapine Fumarate [Seroquel] 300 mg PO QPM 12/26/19 12/26/19 Trazodone HCl 100 mg PO QPM 12/26/19 12/26/19 Thiamine [Vitamin B-1] 100 mg PO DAILY tablet 12/28/19 - Allergies Allergies/Adverse Reactions: Allergies Allergy/AdvReac Type Severity Reaction Status Date / Time iodine Allergy Severe Respiratory Verified 12/25/19 21:29 Penicillins Allergy Unknown unk Verified 12/25/19 21:29 acetaminophen [From Vicodin] Allergy Itching Verified 12/25/19 21:29 bee venom protein (honey bee) Allergy Anaphylaxis Verified 12/25/19 21:29 hydrocodone [From Vicodin] Allergy Itching Verified 12/25/19 21:29 Sulfa (Sulfonamide Allergy Unknown Verified 12/25/19 21:29 Antibiotics) egg AdvReac Intermediate Emesis Verified 12/25/19 21:29 - Social History Does the pt smoke?: Yes Smoking Status: Current every day smoker Does the pt drink ETOH?: Yes Does the pt have substance abuse?: Yes Substance Use and Type: Marijuana - Immunizations Immunizations are current?: Yes - POLST Patient has POLST: No PD ED PE NORMAL - Vitals Vital signs reviewed: Yes - General General: Alert and oriented X 3, No acute distress, Well developed/nourished - HEENT HEENT: Moist mucous membranes, Pharynx benign (no tongue bite/bruise) - Neck Neck: Supple, no meningeal sign - Cardiac Cardiac: RRR, No murmur - Respiratory Respiratory: No respiratory distress, Clear bilaterally - Abdomen Abdomen: Soft, Non tender - Derm Derm: Normal color, Warm and dry - Neuro Neuro: Alert and oriented X 3, 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, No motor deficit, No sensory deficit, Normal speech Eye Opening: Spontaneous Motor: Obeys Commands Verbal: Oriented GCS Score: 15 - Psych Psych: Normal mood, Normal affect Results - Vitals Vitals: Oxygen O2 Source Room air - Labs Labs: Laboratory Tests 01/16/20 01/16/20 03:15 03:15 WBC 8.4 RBC 4.73 Hgb 14.7 Hct 43.8 MCV 92.6 MCH 31.1 H MCHC 33.6 RDW 13.3 Plt Count 298 MPV 8.8 Neut # (Auto) 4.2 Lymph # (Auto) 3.1 [place] # (Auto) 0.9 Eos # (Auto) 0.1 Baso # (Auto) 0.1 Absolute Nucleated RBC 0.00 Nucleated RBC % 0.0 Sodium 138 Potassium 3.3 L Chloride 102 Carbon Dioxide 24 Anion Gap 12.0 BUN 10 Creatinine 1.0 Estimated GFR (MDRD) 85 L Glucose 95 Calcium 9.3 Total Bilirubin 0.4 AST 58 H ALT 53 Alkaline Phosphatase 48 Total Protein 7.4 Albumin 4.5 Globulin 2.9 Albumin/Globulin Ratio 1.6 Lipase 24 Last Dose Date 01/15/20 Last Dose Time 2030 Valproic Acid < 10.0 PD MEDICAL DECISION MAKING - ED course Complexity details: reviewed old records, reviewed results, re-evaluated patient, considered differential, d/w patient ED course: no seizure activity during ED stay. depakote level undetectable and thus given 500mg IV load and 250mg PO prior to discharge Departure - Departure Disposition: 01 Home, Self Care Clinical Impression: Seizure Condition: Good Instructions: ED Seizure Recurrent Discharge Date/Time: 01/16/20 08:06
[2020-01-16] MEDS ORDERED: FOLIC ACID INJ 1 MG, THIAMINE INJ 100 MG, MAGNESIUM SULFATE 2 GM, MULTIVITAMIN 10 ML in... IV STA ×5 (03:10)
[2020-01-16] MEDS ORDERED: THIAMINE 100 MG/1 ML 2 ML MDV ONE (03:17)
[2020-01-16 03:23] LABS: BASOPHILS # (AUTO) 0.1 10^3/uL (0.0-0.1); BASOPHILS % (AUTO) 0.6 %; EOSINOPHILS # (AUTO) 0.1 10^3/uL (0.0-0.7); EOSINOPHILS % (AUTO) 1.1 %; HGB - HEMOGLOBIN 14.7 g/dL (14.0-18.0); LYMPHOCYTES # (AUTO) 3.1 10^3/uL (1.5-3.5); LYMPHOCYTES % (AUTO) 37.3 %; MEAN CORPUSCULAR HEMOGLOBIN 31.1 pg (27.0-31.0); MEAN CORPUSCULAR HGB CONC 33.6 g/dL (32.0-36.0); MEAN CORPUSCULAR VOLUME 92.6 fL (80.0-94.0); MEAN PLATELET VOLUME 8.8 fL (7.4-11.4); MONOCYTES # (AUTO) 0.9 10^3/uL (0.0-1.0); MONOCYTES % (AUTO) 10.4 %; NEUTROPHILS # (AUTO) 4.2 10^3/uL (1.5-6.6); NEUTROPHILS % (AUTO) 50.2 %; PLT - PLATELET COUNT 298 10^3/uL (130-450); RED BLOOD COUNT 4.73 10^6/uL (4.70-6.10); RED CELL DISTRIBUTION WIDTH 13.3 % (12.0-15.0); WHITE BLOOD COUNT 8.4 x10^3/uL (4.8-10.8)
[2020-01-16] MEDS ORDERED: MAGNESIUM SULFATE 1 GM/2 ML VIAL ONE (03:29)
[2020-01-16 03:44] LABS: ALBUMIN 4.5 g/dL (3.2-5.5); ALBUMIN/GLOBULIN RATIO 1.6 (1.0-2.2); ALKALINE PHOSPHATASE 48 IU/L (42-121); ALT ALANINE AMINOTRANSFERASE 53 IU/L (10-60); AST ASPARTATE AMINOTRANSFERASE 58 IU/L (10-42); BILIRUBIN,TOTAL 0.4 mg/dL (0.2-1.0); BUN - BLOOD UREA NITROGEN 10 mg/dL (6-20); CALCIUM 9.3 mg/dL (8.5-10.3); CARBON DIOXIDE - CO2 24 mmol/L (21-32); CHLORIDE 102 mmol/L (101-111); GFR - MDRD 85 (>89); GLUCOSE 95 mg/dL (70-100); LIPASE 24 U/L (22-51); SODIUM 138 mmol/L (135-145); TOTAL PROTEIN 7.4 g/dL (6.7-8.2)
[2020-01-16 03:59] LABS: VALPROIC ACID (DEPAKOTE) < 10.0 ug/mL
[2020-01-16] MEDS ORDERED: ONDANSETRON 4 MG/2 ML VIAL IVP STA (04:23)
[2020-01-16] MEDS ORDERED: VALPROATE INJ 500 MG in SODIUM CHLORIDE 0.9% 100ML 100 ML IV STA (05:43)
[2020-01-16] MEDS ORDERED: DIVALPROEX DR 125 MG TABLET PO STA (07:37)
[2020-01-16 07:41] VITALS: BP 123/76
[2020-01-16] MEDS ORDERED: DIVALPROEX DR 250 MG TABLET PO STA (07:41)
== END 2020-01-16 08:06 | disposition home or self-care (01) ==
LOC: EDUNIT# → ED 01:11
DX: G40.909 Epilepsy, unspecified, not intractable, without status epilepticus (principal); F17.200 Nicotine dependence, unspecified, uncomplicated
CPT/HCPCS: 36415; 80053; 80164; 83690; 85025; 96365; 96366; 96367; 96375; 99284; A9270; J3411

== ENCOUNTER 2020-01-26 19:06 | Emergency (ER) | payer MEDICAID ==
[2020-01-26] MEDS ORDERED: SODIUM CHLORIDE 0.9% 1,000 ML IV ONE (20:07)
[2020-01-26] MEDS ORDERED: ONDANSETRON 4 MG/2 ML VIAL IVP STA (20:07)
[2020-01-26] MEDS ORDERED: FAMOTIDINE 20 MG/2 ML VIAL IVP STA (20:07)
--- NOTE | 2020-01-26 20:08 | ED Physician Documentation ---
History of Present Illness - Stated complaint Stated Complaint: COLD SX, "TOOK BAD DRUGS" - Chief complaint Chief Complaint: Resp - Additonal information Additional information: This is a 34-year-old male who is well-known to me, he has a history of alcohol use, and seizure disorder as well as pseudoseizures, he presents with several complaints today. He states he has had several days of rhinorrhea and cough, and then today amphetamine and subsequently developed some epigastric discomfort so he drank a beer to try to help with this and this made it worse, he feels like he is burping up acid, His throat is uncomfortable, and he has an intermittent cough. He denies chest pain, denies diarrhea, he is not vomiting. He denies IV drug use. Review of Systems Constitutional: denies: Fever Nose: reports: Rhinorrhea / runny nose Cardiac: denies: Chest pain / pressure Respiratory: reports: Cough. 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 Neuro: Other - Present Medications Home Medications: Ambulatory Orders Medication Instructions Recorded Confirmed Levetiracetam [Keppra] 1,000 mg PO BID #60 tablet 08/15/19 12/26/19 Dicyclomine [Bentyl] 10 mg PO QID PRN 12/26/19 12/26/19 Divalproex Sodium [Depakote] 500 mg PO BID 12/26/19 12/26/19 Lipase/Protease/Amylase [Creon Dr 1 cap PO TID 12/26/19 12/26/19 12,000 Units Capsule] Quetiapine Fumarate [Seroquel] 300 mg PO QPM 12/26/19 12/26/19 Trazodone HCl 100 mg PO QPM 12/26/19 12/26/19 Thiamine [Vitamin B-1] 100 mg PO DAILY tablet 12/28/19 - Allergies Allergies/Adverse Reactions: Allergies Allergy/AdvReac Type Severity Reaction Status Date / Time iodine Allergy Severe Respiratory Verified 01/26/20 19:11 Penicillins Allergy Unknown unk Verified 01/26/20 19:11 acetaminophen [From Vicodin] Allergy Itching Verified 01/26/20 19:11 bee venom protein (honey bee) Allergy Anaphylaxis Verified 01/26/20 19:11 hydrocodone [From Vicodin] Allergy Itching Verified 01/26/20 19:11 Sulfa (Sulfonamide Allergy Unknown Verified 01/26/20 19:11 Antibiotics) egg AdvReac Intermediate Emesis Verified 01/26/20 19:11 - Social History Does the pt smoke?: Yes Smoking Status: Current every day smoker Does the pt drink ETOH?: Yes Does the pt have substance abuse?: Yes - Immunizations Immunizations are current?: Yes - POLST Patient has POLST: No PD ED PE NORMAL - Vitals Vital signs reviewed: Yes - General General: Alert and oriented X 3 - HEENT HEENT: Atraumatic, PERRL, Other (Mild posterior pharynx erythema. 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, No motor deficit, No sensory deficit, Normal speech Results - Vitals Vitals: Oxygen O2 Source Room air - Labs Labs: Laboratory Tests 01/26/20 01/26/20 20:15 20:15 WBC 8.1 RBC 5.02 Hgb 15.6 Hct 46.5 MCV 92.6 MCH 31.1 H MCHC 33.5 RDW 13.4 Plt Count 291 MPV 9.0 Neut # (Auto) 3.5 Lymph # (Auto) 3.5 [place] # (Auto) 0.7 Eos # (Auto) 0.3 Baso # (Auto) 0.1 Absolute Nucleated RBC 0.00 Nucleated RBC % 0.0 Sodium 138 Potassium 3.0 L Chloride 103 Carbon Dioxide 20 L Anion Gap 15.0 H BUN 5 L Creatinine 0.7 Estimated GFR (MDRD) 128 Glucose 89 Calcium 9.9 Total Bilirubin 0.6 AST 34 ALT 18 Alkaline Phosphatase 59 Total Protein 8.1 Albumin 5.0 Globulin 3.1 Albumin/Globulin Ratio 1.6 Lipase 25 PD MEDICAL DECISION MAKING - ED course Complexity details: considered differential (URI, sinusitis, intoxication, gastritis, PUD, GERD, PNA) ED course: Pt is overall well-appearing with unremarkable vital signs on arrival. His lungs are clear, O2 saturation normal, no signs of PNA. No fever, no purulent nasal drainage to suggest sinusitis. No chest pain or trouble breathing. The duration of his symptoms and exam suggests a viral URI. Regarding his epigastric discomfort, labs are unremarkable and after famotidine and GI cocktail he is feeling better, this is likely gastritis exacerbated by his alcohol use. He was observed for several hours in the ED until clinically sober and feeling improved, I discussed follow up, return precautions, avoidance of alcohol and drugs, and supportive care and he was discharged home. Departure - Departure Disposition: 01 Home, Self Care Clinical Impression: Drug use URI (upper respiratory infection) Qualifiers: URI type: unspecified viral URI Qualified Code(s): J06.9 - Acute upper respiratory infection, unspecified Condition: Good Instructions: ED URI Viral Comments: You appear to have an upper respiratory infection/cold, you also may have some mild gastritis or inflammation around your stomach. Please avoid using drugs or drinking alcohol. Drink plenty of fluids, get adequate rest, wash your hands. If you are having worsening symptoms such as severe abdominal pain, recurrent episodes of vomiting, or other concerning symptoms, return to the emergency de partment. Discharge Date/Time: 01/26/20 23:14
[2020-01-26 20:22] LABS: BASOPHILS # (AUTO) 0.1 10^3/uL (0.0-0.1); BASOPHILS % (AUTO) 0.7 %; EOSINOPHILS # (AUTO) 0.3 10^3/uL (0.0-0.7); EOSINOPHILS % (AUTO) 3.1 %; HGB - HEMOGLOBIN 15.6 g/dL (14.0-18.0); LYMPHOCYTES # (AUTO) 3.5 10^3/uL (1.5-3.5); LYMPHOCYTES % (AUTO) 43.1 %; MEAN CORPUSCULAR HEMOGLOBIN 31.1 pg (27.0-31.0); MEAN CORPUSCULAR HGB CONC 33.5 g/dL (32.0-36.0); MEAN CORPUSCULAR VOLUME 92.6 fL (80.0-94.0); MONOCYTES # (AUTO) 0.7 10^3/uL (0.0-1.0); MONOCYTES % (AUTO) 8.7 %; NEUTROPHILS # (AUTO) 3.5 10^3/uL (1.5-6.6); PLT - PLATELET COUNT 291 10^3/uL (130-450); RED BLOOD COUNT 5.02 10^6/uL (4.70-6.10); RED CELL DISTRIBUTION WIDTH 13.4 % (12.0-15.0); WHITE BLOOD COUNT 8.1 x10^3/uL (4.8-10.8)
[2020-01-26 20:36] LABS: ALBUMIN/GLOBULIN RATIO 1.6 (1.0-2.2); BILIRUBIN,TOTAL 0.6 mg/dL (0.2-1.0); CALCIUM 9.9 mg/dL (8.5-10.3); CREATININE 0.7 mg/dL (0.6-1.2); TOTAL PROTEIN 8.1 g/dL (6.7-8.2)
[2020-01-26] MEDS ORDERED: BENZONATATE 100 MG CAPSULE PO STA (22:04)
[2020-01-26] MEDS ORDERED: MAG HYDROX/AL HYDROX/SIMETH 30 ML UDC PO STA (22:04)
[2020-01-26 23:08] VITALS: BP 146/95
== END 2020-01-26 23:14 | disposition home or self-care (01) ==
LOC: ED 19:06
DX: F15.90 Other stimulant use, unspecified, uncomplicated (principal); F10.10 Alcohol abuse, uncomplicated; J06.9 Acute upper respiratory infection, unspecified; R10.13 Epigastric pain; G40.909 Epilepsy, unspecified, not intractable, without status epilepticus; F17.200 Nicotine dependence, unspecified, uncomplicated
CPT/HCPCS: 36415; 80053; 83690; 85025; 96374; 99283; 99284; A9270

== ENCOUNTER 2020-02-26 19:49 | Outpatient (CLI) | payer MEDICAID | END 2020-02-26 19:50 | disposition short-term general hospital (02) | LOC: EMS 19:49 | PROVIDERS: ATTEND Surgery | DX: R56.9 Unspecified convulsions (principal) | CPT/HCPCS: A0425; A0429; A0999 ==

== ENCOUNTER 2020-03-03 17:25 | Outpatient (CLI) | payer MEDICAID | END 2020-03-03 17:26 | disposition critical access hospital (66) | LOC: EMS 17:25 | PROVIDERS: ATTEND Surgery | DX: R56.9 Unspecified convulsions (principal); R07.81 Pleurodynia; M54.9 Dorsalgia, unspecified; M54.2 Cervicalgia; M25.561 Pain in right knee; M25.511 Pain in right shoulder; W14.XXXA Fall from tree, initial encounter | CPT/HCPCS: A0425; A0427; A0999 ==

== ENCOUNTER 2020-03-03 18:01 | Emergency (ER) | payer MEDICAID ==
--- NOTE | 2020-03-03 18:30 | ED Physician Documentation ---
History of Present Illness - Stated complaint Stated Complaint: FALL - Chief complaint Chief Complaint: General - History obtained from History obtained from: Patient (34-year-old male patient who is well known to this emergency department staff, presents today via EMS with chief complaint of having falling down in embankment, "some fifty feet". After climbing back up the embankment the patient states that he had a "seizure". This was not witnessed by anybody. EMS was called and brought him in. In route EMS gave him some fentanyl for pain that the patient was having on his right wrist right elbow and neck region. The patient was placed in a rigid c-collar, but no backboard. Patient denies losing consciousness, or hitting his head while he tumbled down the embankment. The pt also states that he is not longer taking his Dilantin for a couple of months now as he believes it is causing him to have seizures. he conts to drink alcohol, "three beers a day".) Review of Systems Constitutional: denies: Fever Eyes: denies: Loss of vision, Decreased vision Ears: denies: Loss of hearing, Tinnitus/ringing Nose: denies: Rhinorrhea / runny nose, Congestion, Sinus pressure / pain Cardiac: denies: Chest pain / pressure, Palpitations Respiratory: denies: Dyspnea, Cough, Wheezing GI: denies: Abdominal Pain, Nausea, Vomiting, Hematemesis : reports: Reviewed and negative. denies: Dysuria Skin: denies: Rash, Lesions, Laceration (s) Musculoskeletal: reports: Neck pain, Extremity pain (right wrist, right elbow.) Neurologic: reports: Seizure (pt states he had seizure today. pt states not taking his medcation for seizures for a couple o [facility] snow.). 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 Neuro: Other - Present Medications Home Medications: Ambulatory Orders Medication Instructions Recorded Confirmed Levetiracetam [Keppra] 1,000 mg PO BID #60 tablet 08/15/19 12/26/19 Dicyclomine [Bentyl] 10 mg PO QID PRN 12/26/19 12/26/19 Divalproex Sodium [Depakote] 500 mg PO BID 12/26/19 12/26/19 Lipase/Protease/Amylase [Creon Dr 1 cap PO TID 12/26/19 12/26/19 12,000 Units Capsule] Quetiapine Fumarate [Seroquel] 300 mg PO QPM 12/26/19 12/26/19 Trazodone HCl 100 mg PO QPM 12/26/19 12/26/19 Thiamine [Vitamin B-1] 100 mg PO DAILY tablet 12/28/19 - Allergies Allergies/Adverse Reactions: Allergies Allergy/AdvReac Type Severity Reaction Status Date / Time iodine Allergy Severe Respiratory Verified 03/03/20 18:17 Penicillins Allergy Unknown unk Verified 03/03/20 18:17 acetaminophen [From Vicodin] Allergy Itching Verified 03/03/20 18:17 bee venom protein (honey bee) Allergy Anaphylaxis Verified 03/03/20 18:17 hydrocodone [From Vicodin] Allergy Itching Verified 03/03/20 18:17 Sulfa (Sulfonamide Allergy Unknown Verified 03/03/20 18:17 Antibiotics) egg AdvReac Intermediate Emesis Verified 03/03/20 18:17 - Social History Does the pt smoke?: Yes Smoking Status: Current every day smoker Does the pt drink ETOH?: Yes Does the pt have substance abuse?: Yes - Immunizations Immunizations are current?: Yes - POLST Patient has POLST: No PD ED PE NORMAL - General General: Alert and oriented X 3, No acute distress, Well developed/nourished - HEENT HEENT: Atraumatic, PERRL, EOMI, Ears normal, Moist mucous membranes, Pharynx benign - Neck Neck: Supple, no meningeal sign, No adenopathy. No: No bony TTP - Cardiac Cardiac: RRR, No murmur - Respiratory Respiratory: No respiratory distress, Clear bilaterally - Abdomen Abdomen: Soft, Non tender, Non distended, No organomegaly - Male Male : Deferred - Rectal Rectal: Deferred - Back Back: No CVA TTP - Derm Derm: Normal color, Warm and dry, No rash - Extremities Extremities: No deformity, No edema. No: No tenderness to palpate - Neuro Neuro: Alert and oriented X 3, life enrichment specialist 2-12 intact, Normal speech Eye Opening: Spontaneous Motor: Obeys Commands Verbal: Oriented GCS Score: 15 - Psych Psych: Normal mood, Normal affect PD ED PE EXPANDED - Neck Neck: Bony TTP, Limited ROM - Extremities Extremities: Right shoulder (c/o pain, w/o crepitus, angulation, step offs, hematoma or ecchymosis. ), Right elbow (c/o pain, w/o crepitus, angulation, step offs, hematoma or ecchymosis. pt omar to flex and extend elbow. ), Right wrist (c/o pain, w/o crepitus, angulation, step offs, hematoma or ecchymosis. pt able to flex and extend wrist) Results - Vitals Vitals: Vital Signs - 24 hr 03/03/20 03/03/20 18:12 20:45 Temperature 36.9 C 36.5 C Heart Rate 83 84 Respiratory 20 17 Rate Blood Pressure 139/101 H 117/90 H O2 Saturation 94 95 Oxygen O2 Source Room air - Labs Labs: Laboratory Tests 03/03/20 03/03/20 18:24 18:24 WBC 5.6 RBC 4.97 Hgb 15.1 Hct 45.9 MCV 92.4 MCH 30.4 MCHC 32.9 RDW 14.5 Plt Count 246 MPV 8.8 Neut # (Auto) 2.0 Lymph # (Auto) 2.9 [place] # (Auto) 0.4 Eos # (Auto) 0.2 Baso # (Auto) 0.1 Absolute Nucleated RBC 0.00 Nucleated RBC % 0.0 Sodium 138 Potassium 3.3 L Chloride 104 Carbon Dioxide 25 Anion Gap 9.0 BUN 7 Creatinine 0.8 Estimated GFR (MDRD) 110 Glucose 96 Calcium 8.2 L Total Bilirubin 0.7 AST 31 ALT 19 Alkaline Phosphatase 71 Total Protein 7.9 Albumin 4.5 Globulin 3.4 Albumin/Globulin Ratio 1.3 Lipase 47 Phenytoin < 2.5 PD MEDICAL DECISION MAKING - ED course Complexity details: reviewed results (CT of the neck revealed no fractures C1 through C7.), re-evaluated patient, d/w patient, other (no seizure activity while in the ED. Dilantin level not detected, thus 1000 mg IV load initiated. The patient became anxious and wanting to leave, after roughly half the Dilantin will was accusing the patient's IV he demanded the IV be pulled out and leave. ) Departure - Departure Disposition: 01 Home, Self Care Clinical Impression: Seizure Condition: Good Instructions: ED Seizure Recurrent Comments: She started taking your Dilantin daily as prescribed. You to follow-up with your neurologist to get this dose adjustment of do not take Dilantin for 24 hours as you are received some IV today. I recommend that you cut back your drinking, with a goal of completely quitting within a month. You may have some soreness in your shoulders wrist and hand, you can take on Tylenol and ibuprofen for this and can also ice your wrist and shoulder for pain control.
[2020-03-03 18:35] LABS: BASOPHILS # (AUTO) 0.1 10^3/uL (0.0-0.1); BASOPHILS % (AUTO) 1.1 %; EOSINOPHILS # (AUTO) 0.2 10^3/uL (0.0-0.7); EOSINOPHILS % (AUTO) 3.4 %; HGB - HEMOGLOBIN 15.1 g/dL (14.0-18.0); LYMPHOCYTES # (AUTO) 2.9 10^3/uL (1.5-3.5); LYMPHOCYTES % (AUTO) 52.5 %; MEAN CORPUSCULAR HEMOGLOBIN 30.4 pg (27.0-31.0); MEAN CORPUSCULAR HGB CONC 32.9 g/dL (32.0-36.0); MEAN CORPUSCULAR VOLUME 92.4 fL (80.0-94.0); MEAN PLATELET VOLUME 8.8 fL (7.4-11.4); MONOCYTES # (AUTO) 0.4 10^3/uL (0.0-1.0); MONOCYTES % (AUTO) 7.1 %; NEUTROPHILS % (AUTO) 35.5 %; PLT - PLATELET COUNT 246 10^3/uL (130-450); RED BLOOD COUNT 4.97 10^6/uL (4.70-6.10); RED CELL DISTRIBUTION WIDTH 14.5 % (12.0-15.0); WHITE BLOOD COUNT 5.6 x10^3/uL (4.8-10.8)
[2020-03-03 18:49] LABS: ALBUMIN 4.5 g/dL (3.2-5.5); ALBUMIN/GLOBULIN RATIO 1.3 (1.0-2.2); ALKALINE PHOSPHATASE 71 IU/L (42-121); ALT ALANINE AMINOTRANSFERASE 19 IU/L (10-60); AST ASPARTATE AMINOTRANSFERASE 31 IU/L (10-42); BILIRUBIN,TOTAL 0.7 mg/dL (0.2-1.0); BUN - BLOOD UREA NITROGEN 7 mg/dL (6-20); CALCIUM 8.2 mg/dL (8.5-10.3); CARBON DIOXIDE - CO2 25 mmol/L (21-32); CHLORIDE 104 mmol/L (101-111); CREATININE 0.8 mg/dL (0.6-1.2); GLUCOSE 96 mg/dL (70-100); LIPASE 47 U/L (22-51); SODIUM 138 mmol/L (135-145); TOTAL PROTEIN 7.9 g/dL (6.7-8.2)
--- NOTE | 2020-03-03 18:57 | CT Report ---
Reason: fall down 50' embankment, neck pain w/ palp. Procedure Date: 03/03/2020 Accession Number: [id number] / [id number] Procedure: CT - CERVICAL SPINE WO CPT Code: Final Report FULL RESULT: EXAM: CT CERVICAL SPINE WITHOUT CONTRAST DATE: 03/03/2020 06:44 PM. HISTORY: Fall down 50 embankment, neck pain w/ palp. COMPARISONS: CERVICAL SPINE W/O 12/14/2019 6:27 PM. TECHNIQUE: Thin-section axial images were acquired of the cervical spine without contrast. Post-processing: Coronal and sagittal reformats. Other: None. In accordance with CT protocol optimization, one or more of the following dose reduction techniques were utilized for this exam: automated exposure control, adjustment of mA and/or KV based on patient size, or use of iterative reconstructive technique. FINDINGS: Minimal motion artifact is noted at C3-C4. Alignment: No scoliosis or spondylolisthesis. Bones: No fracture or bone lesion from the craniocervical junction through C7. Interspace Levels/Facets: Minimal osteoarthritis at the pre-dens interval. Disk space heights are preserved. Facets are unremarkable. Musculature: Normal. No fatty atrophy. Other: The paravertebral and prevertebral soft tissues are unremarkable. There is incompletely visualized mild bilateral maxillary sinus mucosal thickening. The lung apices are clear. IMPRESSION: No fracture or malalignment in the cervical spine. RADIA
[2020-03-03 19:00] LABS: PHENYTOIN (DILANTIN) < 2.5 ug/mL
[2020-03-03] MEDS ORDERED: KETOROLAC 30 MG/ML VIAL IVP STA (19:32)
[2020-03-03] MEDS ORDERED: PHENYTOIN INJ 1,000 MG in SODIUM CHLORIDE 0.9% 100ML 100 ML IV STA (19:32)
[2020-03-03 20:55] VITALS: BP 117/90
== END 2020-03-03 20:58 | disposition home or self-care (01) ==
LOC: EDUNIT# → ED 18:01
DX: R56.9 Unspecified convulsions (principal); T42.0X6A Underdosing of hydantoin derivatives, initial encounter; M25.511 Pain in right shoulder; M25.521 Pain in right elbow; M25.531 Pain in right wrist; W17.81XA Fall down embankment (hill), initial encounter; Y92.9 Unspecified place or not applicable; K85.90 Acute pancreatitis without necrosis or infection, unspecified; H40.9 Unspecified glaucoma; F31.9 Bipolar disorder, unspecified; F41.9 Anxiety disorder, unspecified; F17.200 Nicotine dependence, unspecified, uncomplicated
CPT/HCPCS: 36415; 72125; 80053; 80185; 83690; 85025; 96365; 96375; 99284

== ENCOUNTER 2020-03-07 13:32 | Outpatient (CLI) | payer MEDICAID | END 2020-03-07 13:33 | disposition critical access hospital (66) | LOC: EMS 13:32 | PROVIDERS: ATTEND Surgery | DX: L29.9 Pruritus, unspecified (principal); Z59.0 Homelessness | CPT/HCPCS: A0425; A0429 ==

== ENCOUNTER 2020-03-07 14:09 | Emergency (ER) | payer MEDICAID ==
[2020-03-07] MEDS: MUPIROCIN 2% OINT 1 GM TOP STA (15:07)
--- NOTE | 2020-03-07 15:07 | ED Physician Documentation ---
PD HPI SKIN - Stated complaint Stated Complaint: BUG BITES - Chief complaint Chief Complaint: Wound - History obtained from History obtained from: Patient - History of Present Illness Timing - onset: How many weeks ago (1) Timing - duration: Weeks (1) Timing - details: Gradual onset, Still present Location: Bodywide Quality / character: Itchy, Painful, Burning, Discolored Associated symptoms: Myalgias. No: Fever Contributing factors: Insect bite /sting Similar symptoms before: Diagnosis (scabies) Recently seen: Not recently seen - Additional information Additional information: 34-year-old male homeless well-known to the emergency department has developed some small sores throughout his entire body with that are itchy and painful. He has an area on his back that is particularly painful and a larger area.He has had similar symptoms previously with scabies.He feels the bugs are crawling all throughout his clothes. Review of Systems Constitutional: denies: Fever Eyes: denies: Decreased vision Ears: denies: Ear pain Nose: reports: Congestion Throat: denies: Sore throat Cardiac: denies: Chest pain / pressure, Palpitations Respiratory: reports: Cough. 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: 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, 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, 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 Neuro: Other - Present Medications Home Medications: Ambulatory Orders Medication Instructions Recorded Confirmed Levetiracetam [Keppra] 1,000 mg PO BID #60 tablet 08/15/19 12/26/19 Dicyclomine [Bentyl] 10 mg PO QID PRN 12/26/19 12/26/19 Divalproex Sodium [Depakote] 500 mg PO BID 12/26/19 12/26/19 Lipase/Protease/Amylase [Creon Dr 1 cap PO TID 12/26/19 12/26/19 12,000 Units Capsule] Quetiapine Fumarate [Seroquel] 300 mg PO QPM 12/26/19 12/26/19 Trazodone HCl 100 mg PO QPM 12/26/19 12/26/19 Thiamine [Vitamin B-1] 100 mg PO DAILY tablet 12/28/19 Ivermectin 5 tab PO ONCE #5 tablet 03/07/20 Mupirocin 1 gm TP BID #22 gm 03/07/20 Permethrin 5% Cream 30 gm TOP ONCE #60 gm 03/07/20 - Allergies Allergies/Adverse Reactions: Allergies Allergy/AdvReac Type Severity Reaction Status Date / Time iodine Allergy Severe Respiratory Verified 03/07/20 14:20 Penicillins Allergy Unknown unk Verified 03/07/20 14:20 acetaminophen [From Vicodin] Allergy Itching Verified 03/07/20 14:20 bee venom protein (honey bee) Allergy Anaphylaxis Verified 03/07/20 14:20 hydrocodone [From Vicodin] Allergy Itching Verified 03/07/20 14:20 Sulfa (Sulfonamide Allergy Unknown Verified 03/07/20 14:20 Antibiotics) egg AdvReac Intermediate Emesis Verified 03/07/20 14:20 - Social History Does the pt smoke?: Yes Smoking Status: Current every day smoker Does the pt drink ETOH?: Yes Does the pt have substance abuse?: Yes - Immunizations Immunizations are current?: Yes - POLST Patient has POLST: No PD ED PE NORMAL - Vitals Vital signs reviewed: Yes (tachy and hypertensive ) - General General: Alert and oriented X 3, Other (34-year-old unkempt homeless male with homeless hands and feet is complaining of itching all over and appaers uncomfortable) - HEENT HEENT: Atraumatic, PERRL, EOMI - Respiratory Respiratory: No respiratory distress - Derm Derm: Normal color, Warm and dry, Other (There are multiple shallow areas of erythema with a raised edge consistent with scabies infestation over the body. There is an area over the back with honey crusted erythema consistent with impetigo as well. This area appears isolated the remainder of the etched magana on the patient's body are consistent with scabies.) - Extremities Extremities: No deformity, Other (There is edema and hyperemia to the hands and feet (homeless hands/feet)) - Neuro Neuro: Alert and oriented X 3, flight control manager 2-12 intact, No motor deficit, No sensory deficit, Normal speech Eye Opening: Spontaneous Motor: Obeys Commands Verbal: Oriented GCS Score: 15 - Psych Psych: Normal mood, Normal affect Results - Vitals Vitals: Vital Signs - 24 hr 03/07/20 03/07/20 14:15 15:42 Temperature 36.8 C 36.8 C Heart Rate 106 H 102 H Respiratory 20 16 Rate Blood Pressure 139/82 H 125/87 H O2 Saturation 94 95 Oxygen O2 Source Room air PD MEDICAL DECISION MAKING - ED course Complexity details: reviewed old records, considered differential, d/w patient ED course: 34-year-old male comes in by ambulance with scabies and he does appear to be affected I initially intended to provide ivermectin here in the emergency department and this was not available. He is prescribed both ivermectin and permethrin as well as mupirocin for treatment of the impetigo on his back. Departure - Departure Disposition: 01 Home, Self Care Clinical Impression: Scabies, Impetigo Condition: Stable Instructions: ED Staph Infec Abx Tx Only, ED Scabies Follow-Up: [facility] [Provider Group] Prescriptions: Ivermectin 5 tab PO ONCE #5 tablet Mupirocin 1 gm TP BID #22 gm Permethrin 5% Cream 30 gm TOP ONCE #60 gm Discharge Date/Time: 03/07/20 15:45
[2020-03-07 15:43] VITALS: BP 125/87
== END 2020-03-07 15:45 | disposition home or self-care (01) ==
LOC: EDUNIT# → ED 14:09
DX: B86 Scabies (principal); L01.00 Impetigo, unspecified; R60.0 Localized edema; R68.89 Other general symptoms and signs; F17.200 Nicotine dependence, unspecified, uncomplicated; Z59.0 Homelessness
CPT/HCPCS: 99283; 99284; A9270

== ENCOUNTER 2020-03-21 18:30 | Outpatient (CLI) | payer MEDICAID | END 2020-03-21 18:31 | disposition critical access hospital (66) | LOC: EMS 18:30 | PROVIDERS: ATTEND Surgery | DX: R56.9 Unspecified convulsions (principal); R11.2 Nausea with vomiting, unspecified; Z59.0 Homelessness | CPT/HCPCS: A0425; A0427; A0999 ==

== ENCOUNTER 2020-03-21 19:01 | Emergency (ER) | payer MEDICAID ==
[2020-03-21] MEDS ORDERED: DIVALPROEX DR 125 MG TABLET PO STA (19:43)
[2020-03-21] MEDS ORDERED: levETIRAcetam 250 MG TABLET PO STA (19:43)
--- NOTE | 2020-03-21 19:46 | ED Physician Documentation ---
History of Present Illness - Stated complaint Stated Complaint: SEIZURE - Chief complaint Chief Complaint: Neuro - History obtained from History obtained from: Patient - History of Present Illness Timing: Today Pain level max: 0 Pain level now: 0 - Additonal information Additional information: 34-year-old male, well-known to the emergency department states that he had a seizure today. Has been out of his medications for the past month. He states that when he was diagnosed with scabies, he threw away all of his medications. He has not followed up with his doctor to get them refilled. He has started drinking alcohol again as well. He has been drinking today. No injuries. No abdominal pain. No vomiting. No headache. No tongue biting. Nothing makes it better or worse Review of Systems Ten Systems: 10 systems reviewed and negative Constitutional: denies: Fever, Chills GI: denies: Vomiting, Diarrhea Skin: denies: Rash Musculoskeletal: denies: Neck pain, Back pain Neurologic: denies: Confused, Altered mental status, Headache, Head injury, LOC PD PAST MEDICAL HISTORY - Past Medical History Cardiovascular: None Respiratory: None Neuro: Seizure disorder Endocrine/Autoimmune: None GI: Pancreatitis : None HEENT: Glaucoma Psych: Depression, Anxiety, Bipolar disorder Musculoskeletal: Chronic back pain Derm: Other - Past Surgical History Past Surgical History: Yes 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: Colonoscopy, 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, 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 Neuro: Other - Present Medications Home Medications: Ambulatory Orders Medication Instructions Recorded Confirmed Levetiracetam [Keppra] 1,000 mg PO BID #60 tablet 08/15/19 12/26/19 Dicyclomine [Bentyl] 10 mg PO QID PRN 12/26/19 12/26/19 Divalproex Sodium [Depakote] 500 mg PO BID 12/26/19 12/26/19 Lipase/Protease/Amylase [Creon Dr 1 cap PO TID 12/26/19 12/26/19 12,000 Units Capsule] Quetiapine Fumarate [Seroquel] 300 mg PO QPM 12/26/19 12/26/19 Trazodone HCl 100 mg PO QPM 12/26/19 12/26/19 Thiamine [Vitamin B-1] 100 mg PO DAILY tablet 12/28/19 Ivermectin 5 tab PO ONCE #5 tablet 03/07/20 Mupirocin 1 gm TP BID #22 gm 03/07/20 Permethrin 5% Cream 30 gm TOP ONCE #60 gm 03/07/20 Divalproex Sodium [Depakote] 500 mg PO BID #60 tablet. 03/21/20 Levetiracetam [Keppra] 1,000 mg PO BID #60 tablet 03/21/20 - Allergies Allergies/Adverse Reactions: Allergies Allergy/AdvReac Type Severity Reaction Status Date / Time iodine Allergy Severe Respiratory Verified 03/21/20 19:07 Penicillins Allergy Unknown unk Verified 03/21/20 19:07 acetaminophen [From Vicodin] Allergy Itching Verified 03/21/20 19:07 bee venom protein (honey bee) Allergy Anaphylaxis Verified 03/21/20 19:07 hydrocodone [From Vicodin] Allergy Itching Verified 03/21/20 19:07 Sulfa (Sulfonamide Allergy Unknown Verified 03/21/20 19:07 Antibiotics) egg AdvReac Intermediate Emesis Verified 03/21/20 19:07 - Social History Does the pt smoke?: Yes Smoking Status: Current every day smoker Does the pt drink ETOH?: Yes Does the pt have substance abuse?: Yes - Immunizations Immunizations are current?: Yes - POLST Patient has POLST: No PD ED PE NORMAL - Vitals Vital signs reviewed: Yes - General General: Alert and oriented X 3, No acute distress, Well developed/nourished - HEENT HEENT: Atraumatic, PERRL, Moist mucous membranes, Pharynx benign - Neck Neck: Supple, no meningeal sign, No bony TTP - Cardiac Cardiac: RRR, Strong equal pulses - Respiratory Respiratory: No respiratory distress, Clear bilaterally - Abdomen Abdomen: Soft, Non tender, Non distended - Back Back: No CVA TTP, No spinal TTP - Derm Derm: Warm and dry - Extremities Extremities: No deformity, Normal ROM s pain, No edema, No calf tenderness / cord - Neuro Neuro: Alert and oriented X 3, esol teacher assistant 2-12 intact, No motor deficit, No sensory deficit, Normal speech Eye Opening: Spontaneous Motor: Obeys Commands Verbal: Oriented GCS Score: 15 - Psych Psych: Normal mood, Normal affect Results - Vitals Vitals: Vital Signs - 24 hr 03/21/20 03/21/20 19:07 20:04 Temperature 37.2 C Heart Rate 102 H 76 Respiratory 20 16 Rate Blood Pressure 131/76 H 134/76 H O2 Saturation 95 96 Oxygen O2 Source Room air PD MEDICAL DECISION MAKING - ED course Complexity details: reviewed results, re-evaluated patient, considered differential, d/w patient ED course: We will restart him on his antiepileptic medications. Given Keppra here. The hospital is apparently out of Depakote at this time. No indication for blood work or imaging. No acute injuries. Patient counseled regarding signs and symptoms for which I believe and urgent re-evaluation would be necessary. P atient with good understanding of and agreement to plan and is comfortable going home at this time This document was made in part using voice recognition software. While efforts are made to proofread this document, sound alike and grammatical errors may occur. Departure - Departure Disposition: 01 Home, Self Care Clinical Impression: Seizure Alcohol intoxication Qualifiers: Complication of substance-induced condition: uncomplicated Qualified Code(s): F10.920 - Alcohol use, unspecified with intoxication, uncomplicated Condition: Good Instructions: ED Alcohol Intoxication, ED Seizure Recurrent Follow-Up: your,doctor in 1 week [Other] Prescriptions: Divalproex Sodium [Depakote] 500 mg PO BID #60 tablet. Levetiracetam [Keppra] 1,000 mg PO BID #60 tablet Comments: You need to take your medications as prescribed. You need to follow-up with your doctor for further refills. You also need to stop drinking alcohol. Discharge Date/Time: 03/21/20 20:04
[2020-03-21 20:05] VITALS: BP 134/76
== END 2020-03-21 20:04 | disposition home or self-care (01) ==
LOC: EDUNIT# → ED 19:01
DX: R56.9 Unspecified convulsions (principal); F10.129 Alcohol abuse with intoxication, unspecified; F17.200 Nicotine dependence, unspecified, uncomplicated; Z91.14 Patient's other noncompliance with medication regimen
CPT/HCPCS: 99283; 99284; A9270

== ENCOUNTER 2020-03-30 19:27 | Outpatient (CLI) | payer MEDICAID | END 2020-03-30 19:28 | disposition critical access hospital (66) | LOC: EMS 19:27 | PROVIDERS: ATTEND Surgery | DX: R06.00 Dyspnea, unspecified (principal); R11.2 Nausea with vomiting, unspecified; R19.7 Diarrhea, unspecified; R05 Cough | CPT/HCPCS: A0425; A0429; A0999 ==

== ENCOUNTER 2020-03-30 20:00 | Emergency (ER) | payer MEDICAID ==
--- NOTE | 2020-03-30 21:12 | XRAY Report ---
Reason: cough Procedure Date: 03/30/2020 Accession Number: [id number] / [id number] Procedure: XR - Chest 1 View X-Ray CPT Code: 16158 Final Report FULL RESULT: EXAM: CHEST RADIOGRAPHY EXAM DATE: 03/30/2020 09:02 PM. CLINICAL HISTORY: Cough. COMPARISON: CHEST 1 VIEW 12/25/2019 8:28 PM CHEST 1 VIEW 09/28/2019 8:11 PM CHEST 1 VIEW 09/18/2019 9:28 PM. TECHNIQUE: 1 view. FINDINGS: Lungs/Pleura: No infiltrates. No pleural effusions or pneumothorax. Mediastinum: Within exam limitations, the cardiomediastinal contour is normal. Other: None. IMPRESSION: No acute cardiopulmonary findings radiographically. RADIA
[2020-03-30 21:32] LABS: BASOPHILS # (AUTO) 0.1 10^3/uL (0.0-0.1); EOSINOPHILS # (AUTO) 0.1 10^3/uL (0.0-0.7); EOSINOPHILS % (AUTO) 1.2 %; HGB - HEMOGLOBIN 14.9 g/dL (14.0-18.0); LYMPHOCYTES # (AUTO) 2.5 10^3/uL (1.5-3.5); LYMPHOCYTES % (AUTO) 41.7 %; MEAN CORPUSCULAR HEMOGLOBIN 31.2 pg (27.0-31.0); MEAN CORPUSCULAR HGB CONC 34.6 g/dL (32.0-36.0); MEAN CORPUSCULAR VOLUME 90.2 fL (80.0-94.0); MEAN PLATELET VOLUME 8.6 fL (7.4-11.4); MONOCYTES # (AUTO) 0.5 10^3/uL (0.0-1.0); MONOCYTES % (AUTO) 8.1 %; NEUTROPHILS # (AUTO) 2.8 10^3/uL (1.5-6.6); NEUTROPHILS % (AUTO) 47.7 %; PLT - PLATELET COUNT 207 10^3/uL (130-450); RED BLOOD COUNT 4.78 10^6/uL (4.70-6.10); RED CELL DISTRIBUTION WIDTH 14.7 % (12.0-15.0); WHITE BLOOD COUNT 5.9 x10^3/uL (4.8-10.8)
[2020-03-30 21:46] LABS: ALBUMIN/GLOBULIN RATIO 1.3 (1.0-2.2); BILIRUBIN,TOTAL 1.1 mg/dL (0.2-1.0); CALCIUM 8.6 mg/dL (8.5-10.3); CREATININE 0.7 mg/dL (0.6-1.2)
--- NOTE | 2020-03-30 21:58 | ED Physician Documentation ---
History of Present Illness - Stated complaint Stated Complaint: SOA - Chief complaint Chief Complaint: Abd Pain - History obtained from History obtained from: Patient - History of Present Illness Timing: How many days ago (several days) Pain level max: 5 Pain level now: 5 - Additonal information Additional information: 34-year-old male states that he has had difficulty breathing for the past several days. Reports a fever and cough. He also has chronic abdominal pain. This is no different today than usual. Has not had any vomiting. He states that he does feel short of breath. Nothing makes it better or worse Review of Systems Constitutional: denies: Fever, Chills Cardiac: denies: Chest pain / pressure Respiratory: denies: Cough GI: denies: Vomiting, Diarrhea Skin: denies: Rash Musculoskeletal: denies: Neck pain, Back pain Neurologic: denies: Headache PD PAST MEDICAL HISTORY - Past Medical History Past Medical History: Yes Cardiovascular: None Respiratory: None Neuro: Seizure disorder Endocrine/Autoimmune: None GI: Pancreatitis : None HEENT: Glaucoma Psych: Depression, Anxiety, Bipolar disorder Musculoskeletal: Chronic back pain Derm: Other - Past Surgical History Past Surgical History: Yes General: Colonoscopy, EGD, 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 Neuro: Other - Present Medications Home Medications: Ambulatory Orders Medication Instructions Recorded Confirmed Levetiracetam [Keppra] 1,000 mg PO BID #60 tablet 08/15/19 12/26/19 Dicyclomine [Bentyl] 10 mg PO QID PRN 12/26/19 12/26/19 Divalproex Sodium [Depakote] 500 mg PO BID 12/26/19 12/26/19 Lipase/Protease/Amylase [Creon Dr 1 cap PO TID 12/26/19 12/26/19 12,000 Units Capsule] Quetiapine Fumarate [Seroquel] 300 mg PO QPM 12/26/19 12/26/19 Trazodone HCl 100 mg PO QPM 12/26/19 12/26/19 Thiamine [Vitamin B-1] 100 mg PO DAILY tablet 12/28/19 Ivermectin 5 tab PO ONCE #5 tablet 03/07/20 Mupirocin 1 gm TP BID #22 gm 03/07/20 Permethrin 5% Cream 30 gm TOP ONCE #60 gm 03/07/20 Divalproex Sodium [Depakote] 500 mg PO BID #60 tablet. 03/21/20 Levetiracetam [Keppra] 1,000 mg PO BID #60 tablet 03/21/20 - Allergies Allergies/Adverse Reactions: Allergies Allergy/AdvReac Type Severity Reaction Status Date / Time iodine Allergy Severe Respiratory Verified 03/30/20 20:16 Penicillins Allergy Unknown unk Verified 03/30/20 20:16 acetaminophen [From Vicodin] Allergy Itching Verified 03/30/20 20:16 bee venom protein (honey bee) Allergy Anaphylaxis Verified 03/30/20 20:16 hydrocodone [From Vicodin] Allergy Itching Verified 03/30/20 20:16 Sulfa (Sulfonamide Allergy Unknown Verified 03/30/20 20:16 Antibiotics) egg AdvReac Intermediate Emesis Verified 03/30/20 20:16 - Social History Does the pt smoke?: Yes Smoking Status: Current every day smoker Does the pt drink ETOH?: Yes Does the pt have substance abuse?: Yes - Immunizations Immunizations are current?: Yes - POLST Patient has POLST: No PD ED PE NORMAL - Vitals Vital signs reviewed: Yes - General General: Alert and oriented X 3, No acute distress, Well developed/nourished - HEENT HEENT: Ears normal, Moist mucous membranes, Pharynx benign - Neck Neck: Supple, no meningeal sign - Cardiac Cardiac: RRR, Strong equal pulses - Respiratory Respiratory: No respiratory distress, Clear bilaterally - Abdomen Abdomen: Soft, Non tender, Non distended - Derm Derm: Warm and dry - Neuro Neuro: Alert and oriented X 3 - Psych Psych: Normal mood, Normal affect Results - Vitals Vitals: Vital Signs - 24 hr 03/30/20 03/30/20 20:05 22:08 Temperature 37.0 C Heart Rate 77 85 Respiratory 18 20 Rate Blood Pressure 150/94 H 134/83 H O2 Saturation 96 97 Oxygen O2 Source Room air - Labs Labs: Laboratory Tests 03/30/20 03/30/20 21:25 21:25 WBC 5.9 RBC 4.78 Hgb 14.9 Hct 43.1 MCV 90.2 MCH 31.2 H MCHC 34.6 RDW 14.7 Plt Count 207 MPV 8.6 Neut # (Auto) 2.8 Lymph # (Auto) 2.5 [place] # (Auto) 0.5 Eos # (Auto) 0.1 Baso # (Auto) 0.1 Absolute Nucleated RBC 0.00 Nucleated RBC % 0.0 Sodium 134 L Potassium 2.6 L Chloride 99 L Carbon Dioxide 22 Anion Gap 13.0 BUN 5 L Creatinine 0.7 Estimated GFR (MDRD) 128 Glucose 97 Calcium 8.6 Total Bilirubin 1.1 H AST 98 H ALT 47 Alkaline Phosphatase 86 Total Protein 7.0 Albumin 4.0 Globulin 3.0 Albumin/Globulin Ratio 1.3 Lipase 42 - Rads (name of study) Chest x-ray Radiology: Prelim report reviewed, EMP read contemporaneously, See rad report (N o acute disease) PD MEDICAL DECISION MAKING - ED course Complexity details: reviewed results, re-evaluated patient (Resting comfortably. No respiratory distress. No dyspnea), considered differential, d/w patient ED course: Patient is well-appearing, nontoxic. Afebrile. No hypoxia. No respiratory distress. Lungs are clear to auscultation bilaterally. Chest x-ray is normal. Mild hypokalemia and given potassium. Patient counseled regarding signs and symptoms for which I believe and urgent re-evaluation would be necessary. Patient with good understanding of and agreement to plan and is comfortable going home at this time This document was made in part using voice recognition software. While efforts are made to proofread this document, sound alike and grammatical errors may occur. Departure - Departure Disposition: 01 Home, Self Care Clinical Impression: Hypokalemia Dyspnea Qualifiers: Dyspnea type: unspecified Qualified Code(s): R06.00 - Dyspnea, unspecified Condition: Good Instructions: ED Dyspnea Shortness of Breath Follow-Up: your,doctor in 3 days [Other] Comments: Return if you worsen. Follow-up with your doctor for further care. Discharge Date/Time: 03/30/20 22:17
[2020-03-30] MEDS: POTASSIUM CHLORIDE 20 MEQ TABLET PO STA (21:59)
[2020-03-30 22:09] VITALS: BP 134/83
== END 2020-03-30 22:17 | disposition home or self-care (01) ==
LOC: EDUNIT# → ED 20:00
DX: E87.6 Hypokalemia (principal); R06.00 Dyspnea, unspecified; F17.200 Nicotine dependence, unspecified, uncomplicated
CPT/HCPCS: 36415; 71045; 80053; 83690; 85025; 99284; A9270

== ENCOUNTER 2020-04-01 10:38 | Outpatient (CLI) | payer MEDICAID | END 2020-04-01 10:39 | disposition short-term general hospital (02) | LOC: EMS 10:38 | PROVIDERS: ATTEND Surgery | DX: R10.9 Unspecified abdominal pain (principal); R11.0 Nausea | CPT/HCPCS: A0425; A0427 ==

== ENCOUNTER 2020-05-09 21:08 | Outpatient (CLI) | payer MEDICAID | END 2020-05-09 21:09 | disposition critical access hospital (66) | LOC: EMS 21:08 | PROVIDERS: ATTEND Surgery | DX: R56.9 Unspecified convulsions (principal); R51 Headache | CPT/HCPCS: A0425; A0429; A0999 ==

== ENCOUNTER 2020-05-09 21:45 | Emergency (ER) | payer MEDICAID ==
[2020-05-09 22:35] LABS: BASOPHILS # (AUTO) 0.1 10^3/uL (0.0-0.1); BASOPHILS % (AUTO) 0.7 %; EOSINOPHILS % (AUTO) 0.5 %; HGB - HEMOGLOBIN 13.5 g/dL (14.0-18.0); LYMPHOCYTES # (AUTO) 3.4 10^3/uL (1.5-3.5); LYMPHOCYTES % (AUTO) 46.5 %; MEAN CORPUSCULAR HEMOGLOBIN 31.2 pg (27.0-31.0); MEAN CORPUSCULAR HGB CONC 34.4 g/dL (32.0-36.0); MEAN CORPUSCULAR VOLUME 90.8 fL (80.0-94.0); MEAN PLATELET VOLUME 8.3 fL (7.4-11.4); MONOCYTES # (AUTO) 0.4 10^3/uL (0.0-1.0); NEUTROPHILS # (AUTO) 3.5 10^3/uL (1.5-6.6); PLT - PLATELET COUNT 239 10^3/uL (130-450); RED BLOOD COUNT 4.33 10^6/uL (4.70-6.10); RED CELL DISTRIBUTION WIDTH 17.6 % (12.0-15.0); WHITE BLOOD COUNT 7.3 x10^3/uL (4.8-10.8)
[2020-05-09 22:53] LABS: ACETAMINOPHEN < 10 ug/mL (10-30); ALBUMIN 3.9 g/dL (3.2-5.5); ALBUMIN/GLOBULIN RATIO 1.3 (1.0-2.2); ALKALINE PHOSPHATASE 91 IU/L (42-121); ALT ALANINE AMINOTRANSFERASE 22 IU/L (10-60); AST ASPARTATE AMINOTRANSFERASE 38 IU/L (10-42); BUN - BLOOD UREA NITROGEN 8 mg/dL (6-20); CALCIUM 8.8 mg/dL (8.5-10.3); CARBON DIOXIDE - CO2 24 mmol/L (21-32); CHLORIDE 101 mmol/L (101-111); CK- CREATINE KINASE 147 IU/L (22-269); CREATININE 0.7 mg/dL (0.6-1.2); GLUCOSE 76 mg/dL (70-100); LIPASE 60 U/L (22-51); SALICYLATE < 6.0 mg/dL; SODIUM 140 mmol/L (135-145)
[2020-05-09 22:53] LABS: MUDS CUTOFF CONCENTRATIONS CUTOFF CONC BELOW:
[2020-05-09 22:54] LABS: BILIRUBIN,URINE NEGATIVE (NEGATIVE); GLUCOSE, URINE (UA) NEGATIVE (NEGATIVE); KETONES,URINE (UA) NEGATIVE (NEGATIVE); LEUKOCYTE ESTERASE, URINE NEGATIVE (NEGATIVE); NITRITE,URINE NEGATIVE (NEGATIVE); OCCULT BLOOD,URINE NEGATIVE (NEGATIVE); PROTEIN,URINE NEGATIVE (NEGATIVE); UROBILINOGEN,URINE 0.2 (NORMAL) E.U./dL (NORMAL)
[2020-05-09 22:56] LABS: CLARITY,URINE CLEAR (CLEAR)
[2020-05-09] MEDS ORDERED: SUCRALFATE 1 GM/10 ML UDC PO STA (22:57)
[2020-05-09] MEDS ORDERED: POTASSIUM CHLORIDE 20 MEQ TABLET PO STA (22:58)
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
[2020-05-09 23:05] LABS: AMPHETAMINE SCREEN,URINE NEGATIVE (NEGATIVE); BENZODIAZEPINES SCREEN, URINE NEGATIVE (NEGATIVE); COCAINE SCREEN URINE NEGATIVE (NEGATIVE); METHADONE SCREEN, URINE NEGATIVE (NEGATIVE); METHAMPHETAMINES SCREEN, URINE NEGATIVE (NEGATIVE); OPIATE SCREEN, URINE NEGATIVE (NEGATIVE); OXYCODONE SCREEN, URINE NEGATIVE (NEGATIVE); PROPOXYPHENE SCREEN, URINE NEGATIVE (NEGATIVE); TRICYCLIC ANTIDEPRESSANT,URINE NEGATIVE (NEGATIVE)
[2020-05-09] MEDS ORDERED: lamoTRIgine 25 MG TABLET PO STA (23:48)
[2020-05-10 00:14] VITALS: BP 108/56
== END 2020-05-10 01:15 | disposition home or self-care (01) ==
LOC: EDUNIT# → ED 21:45
DX: G40.909 Epilepsy, unspecified, not intractable, without status epilepticus (principal); K86.1 Other chronic pancreatitis; F10.20 Alcohol dependence, uncomplicated; F17.200 Nicotine dependence, unspecified, uncomplicated; Z59.0 Homelessness; Z91.14 Patient's other noncompliance with medication regimen; Z76.0 Encounter for issue of repeat prescription
CPT/HCPCS: 36415; 80053; 80306; 80307; 80320; 80329; 81003; 82550; 82553; 83690; 85025; 99284; 99285; A9270; 81001; 87086

== ENCOUNTER 2020-05-19 10:27 | Emergency (ER) | payer MEDICAID ==
[2020-05-19 10:35] VITALS: BP 148/103
--- NOTE | 2020-05-19 11:19 | ED Physician Documentation ---
History of Present Illness - Stated complaint Stated Complaint: DOG BITE - Chief complaint Chief Complaint: Wound - History obtained from History obtained from: Patient - History of Present Illness Timing: How many days ago (4) - Additonal information Additional information: 34-year-old homeless male was bit by dog 4 days ago on the back of his left leg and he has 2 areas where he was bitten 1 of the areas is getting some redness around it and is being more painful. The other wound appears to be healing. 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 Neuro: Other - Present Medications Home Medications: Ambulatory Orders Medication Instructions Recorded Confirmed Levetiracetam [Keppra] 1,000 mg PO BID #60 tablet 08/15/19 12/26/19 Dicyclomine [Bentyl] 10 mg PO QID PRN 12/26/19 12/26/19 Divalproex Sodium [Depakote] 500 mg PO BID 12/26/19 12/26/19 Lipase/Protease/Amylase [Calin Guy 1 cap PO TID 12/26/19 12/26/19 12,000 Units Capsule] Quetiapine Fumarate [Seroquel] 300 mg PO QPM 12/26/19 12/26/19 Trazodone HCl 100 mg PO QPM 12/26/19 12/26/19 Thiamine [Vitamin B-1] 100 mg PO DAILY tablet 12/28/19 Ivermectin 5 tab PO ONCE #5 tablet 03/07/20 Mupirocin 1 gm TP BID #22 gm 03/07/20 Permethrin 5% Cream 30 gm TOP ONCE #60 gm 03/07/20 Divalproex Sodium [Depakote] 500 mg PO BID #60 tablet. 03/21/20 Levetiracetam [Keppra] 1,000 mg PO BID #60 tablet 03/21/20 Gabapentin 100 mg PO TID #90 capsule 05/10/20 Levetiracetam [Keppra] 1,500 mg PO BID #90 tablet 05/10/20 Lipase/Protease/Amylase [Calin Guy 1 each PO TID #90 capsule. 05/10/20 6,000 Units Capsule] Omeprazole 40 mg PO DAILY #30 capsule. 05/10/20 Thiamine [Vitamin B-1] 100 mg PO DAILY #30 tablet 05/10/20 hydrOXYzine pamoate [Hydroxyzine 25 - 50 mg PO Q6HR PRN #30 capsule 05/10/20 Pamoate] lamoTRIgine [LaMICtal] 25 mg PO DAILY #50 tablet 05/10/20 Doxycycline Hyclate 100 mg PO BID #20 capsule 05/19/20 - Allergies Allergies/Adverse Reactions: Allergies Allergy/AdvReac Type Severity Reaction Status Date / Time iodine Allergy Severe Respiratory Verified 05/09/20 22:01 Penicillins Allergy Unknown unk Verified 05/09/20 22:01 acetaminophen [From Vicodin] Allergy Itching Verified 05/09/20 22:01 bee venom protein (honey bee) Allergy Anaphylaxis Verified 05/09/20 22:01 hydrocodone [From Vicodin] Allergy Itching Verified 05/09/20 22:01 Sulfa (Sulfonamide Allergy Unknown Verified 05/09/20 22:01 Antibiotics) egg AdvReac Intermediate Emesis Verified 05/09/20 22:01 - Social History Does the pt smoke?: Yes Smoking Status: Current every day smoker Does the pt drink ETOH?: Yes Does the pt have substance abuse?: Yes - Immunizations Immunizations are current?: Yes - POLST Patient has POLST: No PD ED PE NORMAL - Vitals Vital signs reviewed: Yes (Hypertensive) - General General: Alert and oriented X 3, No acute distress, Well developed/nourished - HEENT HEENT: Atraumatic, PERRL, EOMI - Respiratory Respiratory: No respiratory distress - Derm Derm: Normal color, Warm and dry, No rash - Extremities Extremities: Other (On the posterior aspect of the left calf over the popliteal fossa is a round area approximately 2 and half centimeters in diameter with granulation tissue in the center of it and erythema surrounding it. Looks like a superficially infected wound. There is a wound on the calf the mid calf healing.) Results - Vitals Vitals: Vital Signs - 24 hr 05/19/20 10:32 Temperature 36.9 C Heart Rate 67 Respiratory 18 Rate Blood Pressure 148/103 H O2 Saturation 99 Oxygen O2 Source Room air PD MEDICAL DECISION MAKING - ED course Complexity details: considered differential, d/w patient ED course: 34-year-old homeless male with a dog bite that is superficially infected we will place him on some doxycyline. Departure - Departure Disposition: 01 Home, Self Care Clinical Impression: Animal bite with open wound Condition: Stable Instructions: ED Staph Infec Abx Tx Only, ED Bite Animal General Follow-Up: [facility] [Provider Group] Prescriptions: Doxycycline Hyclate 100 mg PO BID #20 capsule
== END 2020-05-19 11:34 | disposition home or self-care (01) ==
LOC: ED 10:27
DX: S81.852A Open bite, left lower leg, initial encounter (principal); L08.9 Local infection of the skin and subcutaneous tissue, unspecified; W54.0XXA Bitten by dog, initial encounter; F17.200 Nicotine dependence, unspecified, uncomplicated; Z59.0 Homelessness
CPT/HCPCS: 99282; 99284

== ENCOUNTER 2020-05-30 12:30 | Outpatient (CLI) | payer MEDICAID | END 2020-05-30 12:31 | disposition critical access hospital (66) | LOC: EMS 12:30 | PROVIDERS: ATTEND Surgery | DX: R56.9 Unspecified convulsions (principal) | CPT/HCPCS: A0425; A0427; A0999 ==

== ENCOUNTER 2020-05-30 12:49 | Emergency (ER) | payer MEDICAID ==
[2020-05-30] MEDS ORDERED: SODIUM CHLORIDE 0.9% 1,000 ML IV STA (12:56)
--- NOTE | 2020-05-30 13:14 | ED Physician Documentation ---
History of Present Illness - Stated complaint Stated Complaint: SZ - Chief complaint Chief Complaint: Neuro - History obtained from History obtained from: Patient, EMS - History of Present Illness Timing: Today Pain level max: 0 Pain level now: 0 - Additonal information Additional information: EMS states that the patient had a seizure today. He has been drinking alcohol today. He is a longstanding alcoholic with a history of seizures. He states he has been taking his medication. Nothing made it better or worse. No pain. No trauma. No fevers. No tongue biting. No incontinence Review of Systems Ten Systems: 10 systems reviewed and negative Constitutional: denies: Fever, Chills Respiratory: denies: Cough GI: denies: Vomiting, Diarrhea Skin: denies: Rash Musculoskeletal: denies: Neck pain, Back pain Neurologic: denies: Focal weakness, Numbness, Confused, Headache PD PAST MEDICAL HISTORY - Past Medical History Cardiovascular: None Respiratory: None Neuro: Seizure disorder Endocrine/Autoimmune: None GI: Pancreatitis : None HEENT: Glaucoma Psych: Depression, Anxiety, Bipolar disorder Musculoskeletal: Chronic back pain Derm: Other - Past Surgical History Past Surgical History: Yes General: Colonoscopy, EGD, 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 Neuro: Other - Present Medications Home Medications: Ambulatory Orders Medication Instructions Recorded Confirmed Levetiracetam [Keppra] 1,000 mg PO BID #60 tablet 08/15/19 12/26/19 Dicyclomine [Bentyl] 10 mg PO QID PRN 12/26/19 12/26/19 Divalproex Sodium [Depakote] 500 mg PO BID 12/26/19 12/26/19 Lipase/Protease/Amylase [Calin Guy 1 cap PO TID 12/26/19 12/26/19 12,000 Units Capsule] Quetiapine Fumarate [Seroquel] 300 mg PO QPM 12/26/19 12/26/19 Trazodone HCl 100 mg PO QPM 12/26/19 12/26/19 Thiamine [Vitamin B-1] 100 mg PO DAILY tablet 12/28/19 Ivermectin 5 tab PO ONCE #5 tablet 03/07/20 Mupirocin 1 gm TP BID #22 gm 03/07/20 Permethrin 5% Cream 30 gm TOP ONCE #60 gm 03/07/20 Divalproex Sodium [Depakote] 500 mg PO BID #60 tablet. 03/21/20 Levetiracetam [Keppra] 1,000 mg PO BID #60 tablet 03/21/20 Gabapentin 100 mg PO TID #90 capsule 05/10/20 Levetiracetam [Keppra] 1,500 mg PO BID #90 tablet 05/10/20 Lipase/Protease/Amylase [Creon 1 each PO TID #90 capsule. 05/10/20 6,000 Units Capsule] Omeprazole 40 mg PO DAILY #30 capsule. 05/10/20 Thiamine [Vitamin B-1] 100 mg PO DAILY #30 tablet 05/10/20 hydrOXYzine pamoate [Hydroxyzine 25 - 50 mg PO Q6HR PRN #30 capsule 05/10/20 Pamoate] lamoTRIgine [LaMICtal] 25 mg PO DAILY #50 tablet 05/10/20 Doxycycline Hyclate 100 mg PO BID #20 capsule 05/19/20 Clindamycin HCl [Clindamycin 300MG 300 mg PO Q6H #28 capsule 05/30/20 CAP] - Allergies Allergies/Adverse Reactions: Allergies Allergy/AdvReac Type Severity Reaction Status Date / Time iodine Allergy Severe Respiratory Verified 05/30/20 13:00 Penicillins Allergy Unknown unk Verified 05/30/20 13:00 acetaminophen [From Vicodin] Allergy Itching Verified 05/30/20 13:00 bee venom protein (honey bee) Allergy Anaphylaxis Verified 05/30/20 13:00 hydrocodone [From Vicodin] Allergy Itching Verified 05/30/20 13:00 Sulfa (Sulfonamide Allergy Unknown Verified 05/30/20 13:00 Antibiotics) egg AdvReac Intermediate Emesis Verified 05/30/20 13:00 - Social History Does the pt smoke?: Yes Smoking Status: Current every day smoker Does the pt drink ETOH?: Yes Does the pt have substance abuse?: Yes - Immunizations Immunizations are current?: Yes - POLST Patient has POLST: No PD ED PE NORMAL - Vitals Vital signs reviewed: Yes - General General: Alert and oriented X 3, No acute distress - HEENT HEENT: Atraumatic, PERRL, Moist mucous membranes, Other (intoxicated) - Neck Neck: Supple, no meningeal sign - Cardiac Cardiac: RRR - Respiratory Respiratory: No respiratory distress, Clear bilaterally - Abdomen Abdomen: Soft, Non tender, Non distended - Back Back: No spinal TTP - Derm Derm: Warm and dry - Extremities Extremities: No edema - Neuro Neuro: Alert and oriented X 3 Results - Vitals Vitals: Vital Signs - 24 hr 05/30/20 05/30/20 05/30/20 12:58 14:00 16:01 Temperature 36.6 C Heart Rate 91 83 78 Respiratory 22 24 16 Rate Blood Pressure 126/76 121/70 118/72 O2 Saturation 94 94 96 Oxygen O2 Source Room air - Labs Labs: Laboratory Tests 05/30/20 05/30/20 05/30/20 13:25 13:25 13:25 WBC 8.0 RBC 4.22 L Hgb 13.3 L Hct 39.8 L MCV 94.3 H MCH 31.5 H MCHC 33.4 RDW 16.5 H Plt Count 258 MPV 8.5 Neut # (Auto) 4.9 Lymph # (Auto) 2.6 Harrison # (Auto) 0.4 Eos # (Auto) 0.1 Baso # (Auto) 0.1 Absolute Nucleated RBC 0.00 Nucleated RBC % 0.0 Sodium 139 Potassium 2.9 L Chloride 105 Carbon Dioxide 24 Anion Gap 10.0 BUN < 5 L Creatinine 0.7 Estimated GFR (MDRD) 128 Glucose 100 Calcium 8.2 L Total Bilirubin 0.8 AST 26 ALT 14 Alkaline Phosphatase 87 Total Protein 5.9 L Albumin 3.3 Globulin 2.6 Albumin/Globulin Ratio 1.3 Lipase 60 H TSH 0.41 Urine Color Urine Clarity Urine pH Ur Specific Hockley Urine Protein Urine Glucose (UA) Urine Ketones Urine Occult Blood Urine Nitrite Urine Bilirubin Urine Urobilinogen Ur Leukocyte Esterase Ur Microscopic Review Urine Culture Comments Salicylates < 6.0 Urine Opiates Screen Ur Oxycodone Screen Urine Methadone Screen Ur Propoxyphene Screen Acetaminophen < 10 L Ur Barbiturates Screen Ur Tricyclics Screen Ur Phencyclidine Scrn Ur Amphetamine Screen U Methamphetamines Scrn U Benzodiazepines Scrn Urine Cocaine Screen U Cannabinoids Screen Ethyl Alcohol 161.9 05/30/20 14:00 WBC RBC Hgb Hct MCV MCH MCHC RDW Plt Count MPV Neut # (Auto) Lymph # (Auto) Harrison # (Auto) Eos # (Auto) Baso # (Auto) Absolute Nucleated RBC Nucleated RBC % Sodium Potassium Chloride Carbon Dioxide Anion Gap BUN Creatinine Estimated GFR (MDRD) Glucose Calcium Total Bilirubin AST ALT Alkaline Phosphatase Total Protein Albumin Globulin Albumin/Globulin Ratio Lipase TSH Urine Color YELLOW Urine Clarity CLEAR Urine pH 6.5 Ur Specific H[place] <=1.005 Urine Protein NEGATIVE Urine Glucose (UA) NEGATIVE Urine Ketones NEGATIVE Urine Occult Blood NEGATIVE Urine Nitrite NEGATIVE Urine Bilirubin NEGATIVE Urine Urobilinogen 0.2 (NORMAL) Ur Leukocyte Esterase NEGATIVE Ur Microscopic Review NOT INDICATED Urine Culture Comments NOT INDICATED Salicylates Urine Opiates Screen NEGATIVE Ur Oxycodone Screen NEGATIVE Urine Methadone Screen NEGATIVE Ur Propoxyphene Screen NEGATIVE Acetaminophen Ur Barbiturates Screen NEGATIVE Ur Tricyclics Screen NEGATIVE Ur Phencyclidine Scrn NEGATIVE Ur Amphetamine Screen POSITIVE H U Methamphetamines Scrn POSITIVE H U Benzodiazepines Scrn NEGATIVE Urine Cocaine Screen NEGATIVE U Cannabinoids Screen POSITIVE H Ethyl Alcohol PD MEDICAL DECISION MAKING - ED course Complexity details: reviewed results, re-evaluated patient, considered differential, d/w patient ED course: Patient presents with alcohol intoxication and methamphetamine abuse. Slightly returned to his mental baseline. He is concerned about a dog bite to the posterior left knee. Minimal erythema, but we will place him back on antibiotics as the likely is going to have poor follow-up. Tetanus is up-to-date. He has a history of noncompliance with medication. He is well- appearing, nontoxic. Afebrile. Ambulating without difficulty and clear speech. Patient counseled regarding signs and symptoms for which I believe and urgent re-evaluation would be necessary. Patient with good understanding of and agreement to plan and is comfortable going home at this time This document was made in part using voice recognition software. While efforts are made to proofread this document, sound alike and grammatical errors may occur. Departure - Departure Disposition: 01 Home, Self Care Clinical Impression: Alcoholism, Methamphetamine abuse, Seizure Condition: Good Instructions: ED Drug Abuse General, ED Alcohol Intoxication Follow-Up: your,doctor in 3 days [Other] Prescriptions: Clindamycin HCl [Clindamycin 300MG CAP] 300 mg PO Q6H #28 capsule Comments: Follow up with your doctor for further care. you need to stop drinking alcohol. Continue your medications Discharge Date/Time: 05/30/20 16:39
[2020-05-30 13:31] LABS: BASOPHILS # (AUTO) 0.1 10^3/uL (0.0-0.1); BASOPHILS % (AUTO) 0.7 %; EOSINOPHILS # (AUTO) 0.1 10^3/uL (0.0-0.7); EOSINOPHILS % (AUTO) 0.7 %; HGB - HEMOGLOBIN 13.3 g/dL (14.0-18.0); LYMPHOCYTES # (AUTO) 2.6 10^3/uL (1.5-3.5); LYMPHOCYTES % (AUTO) 32.3 %; MEAN CORPUSCULAR HEMOGLOBIN 31.5 pg (27.0-31.0); MEAN CORPUSCULAR HGB CONC 33.4 g/dL (32.0-36.0); MEAN CORPUSCULAR VOLUME 94.3 fL (80.0-94.0); MEAN PLATELET VOLUME 8.5 fL (7.4-11.4); MONOCYTES # (AUTO) 0.4 10^3/uL (0.0-1.0); MONOCYTES % (AUTO) 5.1 %; NEUTROPHILS # (AUTO) 4.9 10^3/uL (1.5-6.6); NEUTROPHILS % (AUTO) 60.8 %; PLT - PLATELET COUNT 258 10^3/uL (130-450); RED BLOOD COUNT 4.22 10^6/uL (4.70-6.10); RED CELL DISTRIBUTION WIDTH 16.5 % (12.0-15.0)
[2020-05-30 13:54] LABS: ACETAMINOPHEN < 10 ug/mL (10-30); ALBUMIN 3.3 g/dL (3.2-5.5); ALBUMIN/GLOBULIN RATIO 1.3 (1.0-2.2); ALKALINE PHOSPHATASE 87 IU/L (42-121); ALT ALANINE AMINOTRANSFERASE 14 IU/L (10-60); AST ASPARTATE AMINOTRANSFERASE 26 IU/L (10-42); BILIRUBIN,TOTAL 0.8 mg/dL (0.2-1.0); BUN - BLOOD UREA NITROGEN < 5 mg/dL (6-20); CALCIUM 8.2 mg/dL (8.5-10.3); CARBON DIOXIDE - CO2 24 mmol/L (21-32); CHLORIDE 105 mmol/L (101-111); CREATININE 0.7 mg/dL (0.6-1.2); GLUCOSE 100 mg/dL (70-100); LIPASE 60 U/L (22-51); SALICYLATE < 6.0 mg/dL; SODIUM 139 mmol/L (135-145); TOTAL PROTEIN 5.9 g/dL (6.7-8.2)
[2020-05-30 14:28] LABS: MUDS CUTOFF CONCENTRATIONS CUTOFF CONC BELOW:
[2020-05-30 14:32] LABS: BILIRUBIN,URINE NEGATIVE (NEGATIVE); CLARITY,URINE CLEAR (CLEAR); GLUCOSE, URINE (UA) NEGATIVE (NEGATIVE); KETONES,URINE (UA) NEGATIVE (NEGATIVE); LEUKOCYTE ESTERASE, URINE NEGATIVE (NEGATIVE); NITRITE,URINE NEGATIVE (NEGATIVE); OCCULT BLOOD,URINE NEGATIVE (NEGATIVE); PH,URINE 6.5 PH (5.0-7.5); PROTEIN,URINE NEGATIVE (NEGATIVE); UROBILINOGEN,URINE 0.2 (NORMAL) E.U./dL (NORMAL)
[2020-05-30 14:42] LABS: AMPHETAMINE SCREEN,URINE POSITIVE (NEGATIVE); BENZODIAZEPINES SCREEN, URINE NEGATIVE (NEGATIVE); COCAINE SCREEN URINE NEGATIVE (NEGATIVE); METHADONE SCREEN, URINE NEGATIVE (NEGATIVE); METHAMPHETAMINES SCREEN, URINE POSITIVE (NEGATIVE); OPIATE SCREEN, URINE NEGATIVE (NEGATIVE); OXYCODONE SCREEN, URINE NEGATIVE (NEGATIVE); TRICYCLIC ANTIDEPRESSANT,URINE NEGATIVE (NEGATIVE)
[2020-05-30 14:43] LABS: PROPOXYPHENE SCREEN, URINE NEGATIVE (NEGATIVE)
[2020-05-30 16:02] VITALS: BP 118/72
== END 2020-05-30 16:39 | disposition home or self-care (01) ==
LOC: EDUNIT# → ED 12:49
DX: R56.9 Unspecified convulsions (principal); F10.129 Alcohol abuse with intoxication, unspecified; F15.10 Other stimulant abuse, uncomplicated; S81.052A Open bite, left knee, initial encounter; W54.0XXA Bitten by dog, initial encounter; F17.200 Nicotine dependence, unspecified, uncomplicated
CPT/HCPCS: 36415; 80053; 80306; 80307; 80320; 80329; 81001; 81003; 83690; 84443; 85025; 87086; 96360; 96361; 99284

== ENCOUNTER 2020-06-17 12:53 | Outpatient (CLI) | payer MEDICAID | END 2020-06-17 12:54 | disposition short-term general hospital (02) | LOC: EMS 12:53 | PROVIDERS: ATTEND Surgery | DX: R23.9 Unspecified skin changes (principal); R56.9 Unspecified convulsions; R52 Pain, unspecified; R05 Cough; R51 Headache | CPT/HCPCS: A0425; A0429; A0999 ==

== ENCOUNTER 2020-07-14 17:57 | Outpatient (CLI) | payer MEDICAID | END 2020-07-14 17:58 | disposition critical access hospital (66) | LOC: EMS 17:57 | PROVIDERS: ATTEND Surgery | DX: R29.6 Repeated falls (principal); Z72.89 Other problems related to lifestyle | CPT/HCPCS: A0425; A0429 ==

== ENCOUNTER 2020-07-14 18:32 | Emergency (ER) | payer MEDICAID ==
[2020-07-14 18:50] VITALS: BP 138/77
--- NOTE | 2020-07-14 19:13 | ED Physician Documentation ---
History of Present Illness - Stated complaint Stated Complaint: FELL X 3, ETOH, WEAKNESS - Chief complaint Chief Complaint: General - History obtained from History obtained from: Patient - Additonal information Additional information: Patient is a 34-year-old male who comes in by ambulance after reports he been drinking alcohol and is fallen multiple times he also reports she has a history of seizures.Patient denies any chest pain or shortness of breath or any fevers or any loss of consciousness or any neck pain.He is complaining of generalized weakness and unable to keep any fluids or his medicine down.Patient states he is undomiciled. 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 Neuro: Other - Present Medications Home Medications: Ambulatory Orders Medication Instructions Recorded Confirmed Levetiracetam [Keppra] 1,000 mg PO BID #60 tablet 08/15/19 12/26/19 Dicyclomine [Bentyl] 10 mg PO QID PRN 12/26/19 12/26/19 Divalproex Sodium [Depakote] 500 mg PO BID 12/26/19 12/26/19 Lipase/Protease/Amylase [Calin Guy 1 cap PO TID 12/26/19 12/26/19 12,000 Units Capsule] Quetiapine Fumarate [Seroquel] 300 mg PO QPM 12/26/19 12/26/19 Trazodone HCl 100 mg PO QPM 12/26/19 12/26/19 Thiamine [Vitamin B-1] 100 mg PO DAILY tablet 12/28/19 Ivermectin 5 tab PO ONCE #5 tablet 03/07/20 Mupirocin 1 gm TP BID #22 gm 03/07/20 Permethrin 5% Cream 30 gm TOP ONCE #60 gm 03/07/20 Divalproex Sodium [Depakote] 500 mg PO BID #60 tablet. 03/21/20 Levetiracetam [Keppra] 1,000 mg PO BID #60 tablet 03/21/20 Gabapentin 100 mg PO TID #90 capsule 05/10/20 Levetiracetam [Keppra] 1,500 mg PO BID #90 tablet 05/10/20 Lipase/Protease/Amylase [Creon Dr 1 each PO TID #90 capsule. 05/10/20 6,000 Units Capsule] Omeprazole 40 mg PO DAILY #30 capsule. 05/10/20 Thiamine [Vitamin B-1] 100 mg PO DAILY #30 tablet 05/10/20 hydrOXYzine pamoate [Hydroxyzine 25 - 50 mg PO Q6HR PRN #30 capsule 05/10/20 Pamoate] lamoTRIgine [LaMICtal] 25 mg PO DAILY #50 tablet 05/10/20 Doxycycline Hyclate 100 mg PO BID #20 capsule 05/19/20 Clindamycin HCl [Clindamycin 300MG 300 mg PO Q6H #28 capsule 05/30/20 CAP] Levetiracetam [Keppra] 1,000 mg PO BID #60 tablet 06/25/20 - Allergies Allergies/Adverse Reactions: Allergies Allergy/AdvReac Type Severity Reaction Status Date / Time iodine Allergy Severe Respiratory Verified 07/14/20 18:49 Penicillins Allergy Unknown unk Verified 07/14/20 18:49 acetaminophen [From Vicodin] Allergy Itching Verified 07/14/20 18:49 bee venom protein (honey bee) Allergy Anaphylaxis Verified 07/14/20 18:49 hydrocodone [From Vicodin] Allergy Itching Verified 07/14/20 18:49 Sulfa (Sulfonamide Allergy Unknown Verified 07/14/20 18:49 Antibiotics) egg AdvReac Intermediate Emesis Verified 07/14/20 18:49 - Social History Does the pt smoke?: Yes Smoking Status: Current every day smoker Does the pt drink ETOH?: Yes ETOH Use: Beer Does the pt have substance abuse?: Yes - Immunizations Immunizations are current?: Yes - POLST Patient has POLST: No PD ED PE NORMAL - Vitals Vital signs reviewed: Yes - General General: Alert and oriented X 3, No acute distress, Well developed/nourished (disheveled, poor hygiene.) - HEENT HEENT: Atraumatic, PERRL, EOMI, Ears normal, Moist mucous membranes, Pharynx benign, Dentition benign - Neck Neck: Supple, no meningeal sign, No bony TTP, No adenopathy, Thyroid normal, No JVD, No bruit - Cardiac Cardiac: RRR, No murmur, No gallop, No rub, Strong equal pulses - Respiratory Respiratory: No respiratory distress, Clear bilaterally - Abdomen Abdomen: Normal bowel sounds, Soft, Non tender, Non distended, No organomegaly, Other (No midline abdominal pulsatile mass) - Male Male : Deferred - Rectal Rectal: Deferred - Back Back: No CVA TTP, No spinal TTP - Derm Derm: Normal color, Warm and dry, No rash - Extremities Extremities: No deformity, No tenderness to palpate, No edema, No calf tenderness / cord - Neuro Neuro: Alert and oriented X 3, editor book 2-12 intact, No motor deficit, No sensory deficit, Normal speech - Psych Psych: Normal mood, Normal affect Results - Vitals Vitals: Vital Signs - 24 hr 07/14/20 07/14/20 18:34 19:08 Temperature 37 C Heart Rate 78 Respiratory 18 17 Rate Blood Pressure 138/77 H O2 Saturation 96 Oxygen O2 Source Room air PD MEDICAL DECISION MAKING - ED course Complexity details: considered differential (Dehydration, acute electrolyte derangement, alcohol intoxication, alcohol withdrawal, alcoholic ketoacidosis) Departure - Departure Disposition: ED Elope Clinical Impression: Alcohol intoxication Qualifiers: Complication of substance-induced condition: with unspecified complication Qualified Code(s): F10.929 - Alcohol use, unspecified with intoxication, unspecified Condition: Stable Discharge Date/Time: 07/14/20 19:24
[2020-07-14] MEDS ORDERED: FOLIC ACID INJ 1 MG, THIAMINE INJ 100 MG, MAGNESIUM SULFATE 2 GM, MULTIVITAMIN 10 ML in... IV STA ×5 (19:17)
[2020-07-14] MEDS ORDERED: ONDANSETRON 4 MG/2 ML VIAL IVP STA (19:25)
== END 2020-07-14 19:24 | disposition left against medical advice (07) ==
LOC: EDUNIT# → ED 18:32
DX: R29.6 Repeated falls (principal); R53.1 Weakness; F10.929 Alcohol use, unspecified with intoxication, unspecified; F17.200 Nicotine dependence, unspecified, uncomplicated; G40.909 Epilepsy, unspecified, not intractable, without status epilepticus
CPT/HCPCS: 99281; 99283; J3411; 80053; 80307; 80320; 80329; 82009; 82550; 82803; 83605; 83690; 83735; 84443; 85025

== ENCOUNTER 2020-08-07 19:53 | Outpatient (CLI) | payer MEDICAID | END 2020-08-07 19:54 | disposition EMS.NT | LOC: EMS 19:53 | PROVIDERS: ATTEND Surgery | DX: R56.9 Unspecified convulsions (principal) ==

== ENCOUNTER 2020-08-07 20:57 | Outpatient (CLI) | payer MEDICAID | END 2020-08-07 20:58 | disposition critical access hospital (66) | LOC: EMS 20:57 | PROVIDERS: ATTEND Surgery | DX: R56.9 Unspecified convulsions (principal) | CPT/HCPCS: A0425; A0429; A0999 ==

== ENCOUNTER 2020-08-07 21:19 | Emergency (ER) | payer MEDICAID ==
[2020-08-07] MEDS ORDERED: ONDANSETRON 4 MG/2 ML VIAL IVP STA (21:29)
[2020-08-07] MEDS ORDERED: SODIUM CHLORIDE 0.9% 1,000 ML IV STA (21:29)
[2020-08-07] MEDS ORDERED: PHENobarbital 65 MG/ML VIAL IV STA (21:29)
--- NOTE | 2020-08-07 21:31 | ED Physician Documentation ---
PD HPI SEIZURE - Stated complaint Stated Complaint: SZ - Chief complaint Chief Complaint: Neuro - History obtained from History obtained from: Patient, EMS - Additional information Additional information: Patient is brought to the emergency department by EMS after having 2 seizures this evening. [facility] the first seizure was witnessed. EMS was called and the patient refused transport. Medics state they were called 7 minutes later with report that the patient had seized again. They state the patient has been postictal in route. He had a normal blood sugar. No known triggers, other than that the patient is an alcoholic and also is noncompliant with his seizure medication. Patient is awake enough upon arrival to give some history and states that he is supposed to be on Keppra but has not been able to take it for the last week. He states his last drink was around 1700 today. He normally drinks about 4 x 25 ounce beers per day, but thinks he has had a little less than usual. Patient denies any recent head injuries. He has had a little vomiting and diarrhea and feels somewhat nauseated right now. No other complaints at this time. Review of Systems Ten Systems: 10 systems reviewed and negative Constitutional: reports: Reviewed and negative Eyes: reports: Reviewed and negative Ears: reports: Reviewed and negative Nose: reports: Reviewed and negative Throat: reports: Reviewed and negative Cardiac: reports: Reviewed and negative Respiratory: reports: Reviewed and negative GI: reports: Nausea, Vomiting, Diarrhea : reports: Reviewed and negative Skin: reports: Reviewed and negative Musculoskeletal: reports: Reviewed and negative Neurologic: reports: Seizure Psychiatric: reports: Reviewed and negative Endocrine: reports: Reviewed and negative Immunocompromised: reports: Reviewed and negative PD PAST MEDICAL HISTORY - Past Medical History Cardiovascular: None Respiratory: None Neuro: Seizure disorder Endocrine/Autoimmune: None GI: Pancreatitis : None HEENT: Glaucoma Psych: Depression, Anxiety, Bipolar disorder Musculoskeletal: Chronic back pain Derm: Other - Past Surgical History Past Surgical History: Yes 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: 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, 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, 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 Neuro: Other - Present Medications Home Medications: Ambulatory Orders Medication Instructions Recorded Confirmed Levetiracetam [Keppra] 1,000 mg PO BID #60 tablet 08/15/19 08/07/20 Dicyclomine [Bentyl] 10 mg PO QID PRN 12/26/19 08/07/20 Divalproex Sodium [Depakote] 500 mg PO BID 12/26/19 08/07/20 Lipase/Protease/Amylase [Calin Guy 1 cap PO TID 12/26/19 08/07/20 12,000 Units Capsule] Quetiapine Fumarate [Seroquel] 300 mg PO QPM 12/26/19 08/07/20 Trazodone HCl 100 mg PO QPM 12/26/19 08/07/20 Thiamine [Vitamin B-1] 100 mg PO DAILY tablet 12/28/19 08/07/20 Ivermectin 5 tab PO ONCE #5 tablet 03/07/20 08/07/20 Mupirocin 1 gm TP BID #22 gm 03/07/20 08/07/20 Permethrin 5% Cream 30 gm TOP ONCE #60 gm 03/07/20 08/07/20 Divalproex Sodium [Depakote] 500 mg PO BID #60 tablet. 03/21/20 08/07/20 Levetiracetam [Keppra] 1,000 mg PO BID #60 tablet 03/21/20 08/07/20 Gabapentin 100 mg PO TID #90 capsule 05/10/20 08/07/20 Levetiracetam [Keppra] 1,500 mg PO BID #90 tablet 05/10/20 08/07/20 Lipase/Protease/Amylase [Calin Guy 1 each PO TID #90 capsule. 05/10/20 08/07/20 6,000 Units Capsule] Omeprazole 40 mg PO DAILY #30 capsule. 05/10/20 08/07/20 Thiamine [Vitamin B-1] 100 mg PO DAILY #30 tablet 05/10/20 08/07/20 hydrOXYzine pamoate [Hydroxyzine 25 - 50 mg PO Q6HR PRN #30 capsule 05/10/20 08/07/20 Pamoate] lamoTRIgine [LaMICtal] 25 mg PO DAILY #50 tablet 05/10/20 08/07/20 Doxycycline Hyclate 100 mg PO BID #20 capsule 05/19/20 08/07/20 Clindamycin HCl [Clindamycin 300MG 300 mg PO Q6H #28 capsule 05/30/20 08/07/20 CAP] Levetiracetam [Keppra] 1,000 mg PO BID #60 tablet 06/25/20 08/07/20 levETIRAcetam [Keppra] 250 mg PO BID #60 tablet 08/07/20 - Allergies Allergies/Adverse Reactions: Allergies Allergy/AdvReac Type Severity Reaction Status Date / Time iodine Allergy Severe Respiratory Verified 08/07/20 21:30 Penicillins Allergy Unknown unk Verified 08/07/20 21:30 acetaminophen [From Vicodin] Allergy Itching Verified 08/07/20 21:30 bee venom protein (honey bee) Allergy Anaphylaxis Verified 08/07/20 21:30 hydrocodone [From Vicodin] Allergy Itching Verified 08/07/20 21:30 Sulfa (Sulfonamide Allergy Unknown Verified 08/07/20 21:30 Antibiotics) egg AdvReac Intermediate Emesis Verified 08/07/20 21:30 - Social History Does the pt smoke?: Yes Smoking Status: Current every day smoker Does the pt drink ETOH?: Yes Does the pt have substance abuse?: Yes - Immunizations Immunizations are current?: Yes - POLST Patient has POLST: No PD ED PE NORMAL - Vitals Vital signs reviewed: Yes - General General: Alert and oriented X 3, No acute distress, Other (Disheveled) - HEENT HEENT: Atraumatic, PERRL, EOMI, Moist mucous membranes - Neck Neck: Supple, no meningeal sign - Cardiac Cardiac: RRR, No murmur, Strong equal pulses - Respiratory Respiratory: No respiratory distress, Clear bilaterally - Abdomen Abdomen: Soft, Non tender, Non distended - Derm Derm: Normal color, Warm and dry, No rash - Extremities Extremities: No deformity - Neuro Neuro: Alert and oriented X 3, cable puller 2-12 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, No motor deficit, No sensory deficit - Psych Psych: Normal mood, Normal affect Results - Vitals Vitals: Vital Signs - 24 hr 08/07/20 08/07/20 21:26 23:15 Temperature 37.7 C H 36.5 C Heart Rate 90 72 Respiratory 16 16 Rate Blood Pressure 124/71 103/56 L O2 Saturation 99 97 Oxygen O2 Source Room air - Labs Labs: Laboratory Tests 08/07/20 08/07/20 21:52 21:52 WBC 4.8 RBC 4.13 L Hgb 12.8 L Hct 39.0 L MCV 94.4 H MCH 31.0 MCHC 32.8 RDW 15.5 H Plt Count 237 MPV 8.4 Neut # (Auto) 1.7 Lymph # (Auto) 2.7 [place] # (Auto) 0.3 Eos # (Auto) 0.0 Baso # (Auto) 0.0 Absolute Nucleated RBC 0.00 Nucleated RBC % 0.0 Sodium 141 Potassium 3.3 L Chloride 105 Carbon Dioxide 21 Anion Gap 15.0 H BUN 9 Creatinine 1.0 Estimated GFR (MDRD) 85 L Glucose 115 H Calcium 8.5 Total Bilirubin 0.5 AST 61 H ALT 36 Alkaline Phosphatase 85 Total Protein 6.4 L Albumin 3.6 Globulin 2.8 Albumin/Globulin Ratio 1.3 Lipase 35 PD MEDICAL DECISION MAKING - ED course Complexity details: reviewed old records, reviewed results, re-evaluated patient, considered differential, d/w patient ED course: Patient was treated with IV fluids, Zofran, and phenobarbital. He remained stable throughout his stay in the emergency department and did not have any seizure activity while here. I given patient a dose of his Keppra and a prescription for a refill on his Keppra. We have discussed the need for follow- up and the usual indications for return. Departure - Departure Disposition: 01 Home, Self Care Clinical Impression: Breakthrough seizure, Alcohol abuse Condition: Stable Instructions: ED Seizure Recurrent Prescriptions: levETIRAcetam [Keppra] 250 mg PO BID #60 tablet Discharge Date/Time: 08/07/20 23:19
[2020-08-07 22:03] LABS: BASOPHILS % (AUTO) 0.6 %; EOSINOPHILS % (AUTO) 0.8 %; HGB - HEMOGLOBIN 12.8 g/dL (14.0-18.0); LYMPHOCYTES # (AUTO) 2.7 10^3/uL (1.5-3.5); LYMPHOCYTES % (AUTO) 57.3 %; MEAN CORPUSCULAR HGB CONC 32.8 g/dL (32.0-36.0); MEAN CORPUSCULAR VOLUME 94.4 fL (80.0-94.0); MEAN PLATELET VOLUME 8.4 fL (7.4-11.4); MONOCYTES # (AUTO) 0.3 10^3/uL (0.0-1.0); MONOCYTES % (AUTO) 6.1 %; NEUTROPHILS # (AUTO) 1.7 10^3/uL (1.5-6.6); NEUTROPHILS % (AUTO) 34.8 %; PLT - PLATELET COUNT 237 10^3/uL (130-450); RED BLOOD COUNT 4.13 10^6/uL (4.70-6.10); RED CELL DISTRIBUTION WIDTH 15.5 % (12.0-15.0); WHITE BLOOD COUNT 4.8 x10^3/uL (4.8-10.8)
[2020-08-07 22:14] LABS: ALBUMIN 3.6 g/dL (3.2-5.5); ALBUMIN/GLOBULIN RATIO 1.3 (1.0-2.2); BILIRUBIN,TOTAL 0.5 mg/dL (0.2-1.0); CALCIUM 8.5 mg/dL (8.5-10.3); TOTAL PROTEIN 6.4 g/dL (6.7-8.2)
[2020-08-07] MEDS ORDERED: levETIRAcetam 250 MG TABLET PO STA (22:37)
[2020-08-07 23:18] VITALS: BP 103/56
== END 2020-08-07 23:19 | disposition home or self-care (01) ==
LOC: EDUNIT# → ED 21:19
DX: G40.909 Epilepsy, unspecified, not intractable, without status epilepticus (principal); T42.6X6A Underdosing of other antiepileptic and sedative-hypnotic drugs, initial encounter; Y92.89 Other specified places as the place of occurrence of the external cause; F10.10 Alcohol abuse, uncomplicated; F17.200 Nicotine dependence, unspecified, uncomplicated
CPT/HCPCS: 36415; 80053; 83690; 85025; 96361; 96374; 99283; 99284; A9270

== ENCOUNTER 2020-09-04 09:24 | Outpatient (CLI) | payer MEDICAID | END 2020-09-04 09:25 | disposition critical access hospital (66) | LOC: EMS 09:24 | PROVIDERS: ATTEND Surgery | DX: R56.9 Unspecified convulsions (principal); Z59.0 Homelessness | CPT/HCPCS: A0425; A0429; A0999 ==

== ENCOUNTER 2020-09-04 09:58 | Emergency (ER) | payer MEDICAID ==
[2020-09-04] MEDS ORDERED: ONDANSETRON ODT 4 MG TABLET TL STA (10:25)
[2020-09-04] MEDS ORDERED: HYDROmorphone 2 MG/ML VIAL IM STA (10:26)
[2020-09-04] MEDS ORDERED: levETIRAcetam 250 MG TABLET PO STA (10:26)
--- NOTE | 2020-09-04 10:27 | ED Physician Documentation ---
PD HPI NVD - Stated complaint Stated Complaint: SZ - Chief complaint Chief Complaint: General - History obtained from History obtained from: Patient - History of Present Illness Timing - onset: How many days ago (He states he has had 2 to 3 days of nausea vomiting and upper abdominal pain and unable to take food or fluids well. He states he has had several seizures over the last few days as well. He states he has been taking his usual medicines except for yesterday.) Timing - duration: Days (few days of nausea and vomiting, feeling weak, less PO intake.) Timing - details: Gradual onset Associated symptoms: Abdominal pain (upper abdomen, feeling c/w his pancreatitis.), Loss of appetite. No: Hematemesis, Near syncope / syncope Contributing factors: Alcohol use, Other (also states meth and cocaine use, snf heroin.Feeling depressed due to loss of family members over the past 1/2 year, and states his daughter this past week. (He did not want to give details).). No: Sick contact, Bad food Similar symptoms before: Diagnosis (alcoholism, depression, substance use, gastritis, pancreatitis.) Recently seen: Clinic (he states he sees PCP regularly for his Rx meds.) Review of Systems Constitutional: reports: Chills, Myalgias. denies: Fever Nose: denies: Rhinorrhea / runny nose, Congestion Throat: denies: Sore throat Cardiac: denies: Chest pain / pressure Respiratory: reports: Cough. denies: Dyspnea, Wheezing GI: reports: Abdominal Pain, Nausea, Vomiting. denies: Diarrhea, Hematemesis Skin: denies: Rash, Lesions Neurologic: reports: Generalized weakness, Seizure (he ststes several). denies: Focal weakness, Numbness, Altered mental status, Headache, Head injury Psychiatric: reports: Depressed, Suicidal (ideation without plan nor gesture at this point.). 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 Neuro: Other - Present Medications Home Medications: Ambulatory Orders Medication Instructions Recorded Confirmed Levetiracetam [Keppra] 1,000 mg PO BID #60 tablet 08/15/19 08/07/20 Dicyclomine [Bentyl] 10 mg PO QID PRN 12/26/19 08/07/20 Divalproex Sodium [Depakote] 500 mg PO BID 12/26/19 08/07/20 Lipase/Protease/Amylase [Calin Guy 1 cap PO TID 12/26/19 08/07/20 12,000 Units Capsule] Quetiapine Fumarate [Seroquel] 300 mg PO QPM 12/26/19 08/07/20 Trazodone HCl 100 mg PO QPM 12/26/19 08/07/20 Thiamine [Vitamin B-1] 100 mg PO DAILY tablet 12/28/19 08/07/20 Ivermectin 5 tab PO ONCE #5 tablet 03/07/20 08/07/20 Mupirocin 1 gm TP BID #22 gm 03/07/20 08/07/20 Permethrin 5% Cream 30 gm TOP ONCE #60 gm 03/07/20 08/07/20 Divalproex Sodium [Depakote] 500 mg PO BID #60 tablet. 03/21/20 08/07/20 Levetiracetam [Keppra] 1,000 mg PO BID #60 tablet 03/21/20 08/07/20 Gabapentin 100 mg PO TID #90 capsule 05/10/20 08/07/20 Levetiracetam [Keppra] 1,500 mg PO BID #90 tablet 05/10/20 08/07/20 Lipase/Protease/Amylase [Calin Guy 1 each PO TID #90 capsule. 05/10/20 08/07/20 6,000 Units Capsule] Omeprazole 40 mg PO DAILY #30 capsule. 05/10/20 08/07/20 Thiamine [Vitamin B-1] 100 mg PO DAILY #30 tablet 05/10/20 08/07/20 hydrOXYzine pamoate [Hydroxyzine 25 - 50 mg PO Q6HR PRN #30 capsule 05/10/20 08/07/20 Pamoate] lamoTRIgine [LaMICtal] 25 mg PO DAILY #50 tablet 05/10/20 08/07/20 Doxycycline Hyclate 100 mg PO BID #20 capsule 07/02/20 09/20/20 Clindamycin HCl [Clindamycin 300MG 300 mg PO Q6H #28 capsule 05/30/20 08/07/20 CAP] Levetiracetam [Keppra] 1,000 mg PO BID #60 tablet 06/25/20 08/07/20 levETIRAcetam [Keppra] 250 mg PO BID #60 tablet 08/07/20 - Allergies Allergies/Adverse Reactions: Allergies Allergy/AdvReac Type Severity Reaction Status Date / Time iodine Allergy Severe Respiratory Verified 09/04/20 10:19 Penicillins Allergy Unknown unk Verified 09/04/20 10:19 acetaminophen [From Vicodin] Allergy Itching Verified 09/04/20 10:19 bee venom protein (honey bee) Allergy Anaphylaxis Verified 09/04/20 10:19 hydrocodone [From Vicodin] Allergy Itching Verified 09/04/20 10:19 Sulfa (Sulfonamide Allergy Unknown Verified 09/04/20 10:19 Antibiotics) egg AdvReac Intermediate Emesis Verified 09/04/20 10:19 - Social History Does the pt smoke?: Yes Smoking Status: Current every day smoker Does the pt drink ETOH?: Yes Does the pt have substance abuse?: Yes - Immunizations Immunizations are current?: Yes - POLST Patient has POLST: No PD ED PE NORMAL - Vitals Vital signs reviewed: Yes - General General: Well developed/nourished - HEENT HEENT: Atraumatic, Pharynx benign, Other (no tongue lesions). No: Moist mucous membranes - Neck Neck: Supple, no meningeal sign, No adenopathy - Cardiac Cardiac: RRR, No murmur - Respiratory Respiratory: Clear bilaterally - Abdomen Abdomen: No organomegaly, Other (Tender with local guarding in the epigastric and right upper quadrant area. No percussion or rebound tenderness. Lower abdomen is nontender.). No: Normal bowel sounds (diminished) - Male Male : Deferred - Rectal Rectal: Deferred - Back Back: No CVA TTP - Derm Derm: No: Normal color (mild pallor) - Extremities Extremities: No tenderness to palpate, Normal ROM s pain, No edema, No calf tenderness / cord Results - Vitals Vitals: Vital Signs - 24 hr 09/04/20 09/04/20 09/04/20 10:11 13:06 15:43 Temperature 36.9 C Heart Rate 82 98 71 Respiratory 16 21 10 L Rate Blood Pressure 123/83 H 139/72 H O2 Saturation 97 95 95 Oxygen O2 Source Room air - Labs Labs: Laboratory Tests 09/04/20 09/04/20 09/04/20 10:51 10:51 10:51 WBC 5.8 RBC 4.88 Hgb 15.5 Hct 45.9 MCV 94.1 H MCH 31.8 H MCHC 33.8 RDW 16.0 H Plt Count 247 MPV 9.2 Neut # (Auto) 3.4 Lymph # (Auto) 2.0 [place] # (Auto) 0.3 Eos # (Auto) 0.0 Baso # (Auto) 0.0 Absolute Nucleated RBC 0.00 Nucleated RBC % 0.0 Sodium 140 Potassium 4.1 Chloride 103 Carbon Dioxide 23 Anion Gap 14.0 H BUN 9 Creatinine 0.6 Estimated GFR (MDRD) 153 Glucose 96 Calcium 9.0 Magnesium 2.2 Total Bilirubin 1.2 H AST 169 H ALT 117 H Alkaline Phosphatase 103 Total Protein 7.4 Albumin 4.2 Globulin 3.2 Albumin/Globulin Ratio 1.3 Lipase 27 Last Dose Date UNK Last Dose Time UNK Salicylates < 6.0 Urine Opiates Screen Ur Oxycodone Screen Urine Methadone Screen Ur Propoxyphene Screen Acetaminophen < 10 L Ur Barbiturates Screen Valproic Acid < 10.0 Ur Tricyclics Screen Ur Phencyclidine Scrn Ur Amphetamine Screen U Methamphetamines Scrn U Benzodiazepines Scrn Urine Cocaine Screen U Cannabinoids Screen Ethyl Alcohol 245.3 09/04/20 11:25 WBC RBC Hgb Hct MCV MCH MCHC RDW Plt Count MPV Neut # (Auto) Lymph # (Auto) [place] # (Auto) Eos # (Auto) Baso # (Auto) Absolute Nucleated RBC Nucleated RBC % Sodium Potassium Chloride Carbon Dioxide Anion Gap BUN Creatinine Estimated GFR (MDRD) Glucose Calcium Magnesium Total Bilirubin AST ALT Alkaline Phosphatase Total Protein Albumin Globulin Albumin/Globulin Ratio Lipase Last Dose Date Last Dose Time Salicylates Urine Opiates Screen NEGATIVE Ur Oxycodone Screen NEGATIVE Urine Methadone Screen NEGATIVE Ur Propoxyphene Screen NEGATIVE Acetaminophen Ur Barbiturates Screen NEGATIVE Valproic Acid Ur Tricyclics Screen NEGATIVE Ur Phencyclidine Scrn NEGATIVE Ur Amphetamine Screen NEGATIVE U Methamphetamines Scrn NEGATIVE U Benzodiazepines Scrn POSITIVE H Urine Cocaine Screen NEGATIVE U Cannabinoids Screen POSITIVE H Ethyl Alcohol PD MEDICAL DECISION MAKING - ED course Complexity details: reviewed results, re-evaluated patient (The patient is starting to have some withdrawal type symptoms and is given Librium p.o. Also some pain medicine for his upper abdominal pain. Social work talked with him and felt the higher concern was the suicidality and will need to reevaluate him when he is legally sober.), considered differential (Patient is given IV fluids for hydration and antiemetics as well. At this point he is not yet having any withdrawal type symptoms but will likely have some soon and will anticipate giving meds for that. At this point I think he needs detox and does describe some depression. We will have SW see.), d/w patient Departure - Departure Clinical Impression: Polysubstance abuse, Dehydration, Recurrent seizures, Suicidal ideation, Alcoholism Nausea and vomiting Qualifiers: Vomiting type: unspecified Vomiting Intractability: non-intractable Qualified Code(s): R11.2 - Nausea with vomiting, unspecified Depression Qualifiers: Depression Type: unspecified Qualified Code(s): F32.9 - Major depressive disorder, single episode, unspecified Condition: Stable Record reviewed to determine appropriate education?: Yes
[2020-09-04 11:06] LABS: BASOPHILS % (AUTO) 0.7 %; EOSINOPHILS % (AUTO) 0.5 %; HGB - HEMOGLOBIN 15.5 g/dL (14.0-18.0); MEAN CORPUSCULAR HEMOGLOBIN 31.8 pg (27.0-31.0); MEAN CORPUSCULAR HGB CONC 33.8 g/dL (32.0-36.0); MEAN CORPUSCULAR VOLUME 94.1 fL (80.0-94.0); MEAN PLATELET VOLUME 9.2 fL (7.4-11.4); MONOCYTES # (AUTO) 0.3 10^3/uL (0.0-1.0); NEUTROPHILS # (AUTO) 3.4 10^3/uL (1.5-6.6); NEUTROPHILS % (AUTO) 58.6 %; PLT - PLATELET COUNT 247 10^3/uL (130-450); RED BLOOD COUNT 4.88 10^6/uL (4.70-6.10); WHITE BLOOD COUNT 5.8 x10^3/uL (4.8-10.8)
[2020-09-04 11:18] LABS: ACETAMINOPHEN < 10 ug/mL (10-30); ALBUMIN 4.2 g/dL (3.2-5.5); ALBUMIN/GLOBULIN RATIO 1.3 (1.0-2.2); ALKALINE PHOSPHATASE 103 IU/L (42-121); ALT ALANINE AMINOTRANSFERASE 117 IU/L (10-60); AST ASPARTATE AMINOTRANSFERASE 169 IU/L (10-42); BILIRUBIN,TOTAL 1.2 mg/dL (0.2-1.0); BUN - BLOOD UREA NITROGEN 9 mg/dL (6-20); CARBON DIOXIDE - CO2 23 mmol/L (21-32); CHLORIDE 103 mmol/L (101-111); CREATININE 0.6 mg/dL (0.6-1.2); GLUCOSE 96 mg/dL (70-100); LIPASE 27 U/L (22-51); MAGNESIUM 2.2 mg/dL (1.7-2.8); SALICYLATE < 6.0 mg/dL; SODIUM 140 mmol/L (135-145); TOTAL PROTEIN 7.4 g/dL (6.7-8.2)
[2020-09-04 11:31] LABS: MUDS CUTOFF CONCENTRATIONS CUTOFF CONC BELOW:
[2020-09-04 11:32] LABS: VALPROIC ACID (DEPAKOTE) < 10.0 ug/mL
[2020-09-04 11:50] LABS: BENZODIAZEPINES SCREEN, URINE POSITIVE (NEGATIVE)
[2020-09-04 11:51] LABS: AMPHETAMINE SCREEN,URINE NEGATIVE (NEGATIVE); COCAINE SCREEN URINE NEGATIVE (NEGATIVE); METHADONE SCREEN, URINE NEGATIVE (NEGATIVE); METHAMPHETAMINES SCREEN, URINE NEGATIVE (NEGATIVE); OPIATE SCREEN, URINE NEGATIVE (NEGATIVE); OXYCODONE SCREEN, URINE NEGATIVE (NEGATIVE); PROPOXYPHENE SCREEN, URINE NEGATIVE (NEGATIVE); TRICYCLIC ANTIDEPRESSANT,URINE NEGATIVE (NEGATIVE)
[2020-09-04] MEDS ORDERED: chlordiazePOXIDE 25 MG CAPSULE PO STA (13:07)
[2020-09-04] MEDS ORDERED: SODIUM CHLORIDE 0.9% 1,000 ML IV STA (13:08)
[2020-09-04] MEDS ORDERED: PHENobarbital 65 MG/ML VIAL IV STA (14:22)
[2020-09-04] MEDS ORDERED: HYDROmorphone 1 MG/ML CARPUJECT IVP STA (14:22)
[2020-09-04] MEDS ORDERED: NICOTINE 21 MG PATCH TOP STA (17:31)
[2020-09-05] MEDS ORDERED: chlordiazePOXIDE 25 MG CAPSULE PO STA (06:45)
--- NOTE | 2020-09-05 10:10 | ED Physician Documentation ---
ED Addendum - Addendum Addendum: 09/05/20 10:09 Seen by the DCR and director of social services. Per the DCR there is no indication for involuntary treatment. A plan was formulated for his out reach counselor to come pick him up and take him to [facility]. Patient appears stable. Complaining of withdrawal but not visibly shaky except when he is asked specifically about that, vital signs are unremarkable. 09/05/20 10:11 Disposition discharged Accompanied by his out reach counselor, condition stable.
[2020-09-05 10:19] VITALS: BP 143/77
== END 2020-09-05 10:30 | disposition home or self-care (01) ==
LOC: EDUNIT# → ED 09:58
DX: F19.229 Other psychoactive substance dependence with intoxication, unspecified (principal); F10.229 Alcohol dependence with intoxication, unspecified; F32.9 Major depressive disorder, single episode, unspecified; R45.851 Suicidal ideations; R11.2 Nausea with vomiting, unspecified; E86.0 Dehydration; R56.9 Unspecified convulsions; F17.200 Nicotine dependence, unspecified, uncomplicated; Z20.828 Contact with and (suspected) exposure to other viral communicable diseases
CPT/HCPCS: 36415; 80053; 80164; 80306; 80307; 80320; 80329; 83690; 83735; 85025; 87635; 96361; 96372; 96374; 99283; 99284; A9270; J1170; Q0162

== ENCOUNTER 2020-09-16 16:45 | Outpatient (CLI) | payer MEDICAID | END 2020-09-16 16:46 | disposition critical access hospital (66) | LOC: EMS 16:45 | PROVIDERS: ATTEND Surgery | DX: T40.1X1A Poisoning by heroin, accidental (unintentional), initial encounter (principal) | CPT/HCPCS: A0425; A0429; A0999 ==

== ENCOUNTER 2020-09-16 17:07 | Emergency (ER) | payer MEDICAID ==
--- NOTE | 2020-09-16 17:25 | ED Physician Documentation ---
History of Present Illness - Stated complaint Stated Complaint: OD - Chief complaint Chief Complaint: General - History obtained from History obtained from: Patient - History of Present Illness Timing: Today Pain level max: 10 Pain level now: 10 - Additonal information Additional information: states took heroin about 6 hours ago. States concerned about possible overdose. Patient states he is not suicidal or homicidal. Is not psychotic. Has not had seizures. Currently asymptomatic. Review of Systems Constitutional: denies: Fever, Chills Throat: denies: Sore throat Cardiac: denies: Chest pain / pressure, Palpitations Respiratory: denies: Dyspnea, Cough GI: reports: Abdominal Pain (Chronic and unchanged). 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 Neuro: Other - Present Medications Home Medications: Ambulatory Orders Medication Instructions Recorded Confirmed Levetiracetam [Keppra] 1,000 mg PO BID #60 tablet 08/15/19 08/07/20 Dicyclomine [Bentyl] 10 mg PO QID PRN 12/26/19 08/07/20 Divalproex Sodium [Depakote] 500 mg PO BID 12/26/19 08/07/20 Lipase/Protease/Amylase [[place]on Dr 1 cap PO TID 12/26/19 08/07/20 12,000 Units Capsule] Quetiapine Fumarate [Seroquel] 300 mg PO QPM 12/26/19 08/07/20 Trazodone HCl 100 mg PO QPM 12/26/19 08/07/20 Thiamine [Vitamin B-1] 100 mg PO DAILY tablet 12/28/19 08/07/20 Ivermectin 5 tab PO ONCE #5 tablet 03/07/20 08/07/20 Mupirocin 1 gm TP BID #22 gm 03/07/20 08/07/20 Permethrin 5% Cream 30 gm TOP ONCE #60 gm 04/20/20 09/20/20 Divalproex Sodium [Depakote] 500 mg PO BID #60 tablet. 03/21/20 08/07/20 Levetiracetam [Keppra] 1,000 mg PO BID #60 tablet 03/21/20 08/07/20 Gabapentin 100 mg PO TID #90 capsule 05/10/20 08/07/20 Levetiracetam [Keppra] 1,500 mg PO BID #90 tablet 05/10/20 08/07/20 Lipase/Protease/Amylase [Calin Guy 1 each PO TID #90 capsule. 05/10/20 08/07/20 6,000 Units Capsule] Omeprazole 40 mg PO DAILY #30 capsule. 05/10/20 08/07/20 Thiamine [Vitamin B-1] 100 mg PO DAILY #30 tablet 05/10/20 08/07/20 hydrOXYzine pamoate [Hydroxyzine 25 - 50 mg PO Q6HR PRN #30 capsule 05/10/20 08/07/20 Pamoate] lamoTRIgine [LaMICtal] 25 mg PO DAILY #50 tablet 05/10/20 08/07/20 Doxycycline Hyclate 100 mg PO BID #20 capsule 05/19/20 08/07/20 Clindamycin HCl [Clindamycin 300MG 300 mg PO Q6H #28 capsule 05/30/20 08/07/20 CAP] Levetiracetam [Keppra] 1,000 mg PO BID #60 tablet 06/25/20 08/07/20 levETIRAcetam [Keppra] 250 mg PO BID #60 tablet 08/07/20 - Allergies Allergies/Adverse Reactions: Allergies Allergy/AdvReac Type Severity Reaction Status Date / Time iodine Allergy Severe Respiratory Verified 09/16/20 17:10 Penicillins Allergy Unknown unk Verified 09/16/20 17:10 acetaminophen [From Vicodin] Allergy Itching Verified 09/16/20 17:10 bee venom protein (honey bee) Allergy Anaphylaxis Verified 09/16/20 17:10 hydrocodone [From Vicodin] Allergy Itching Verified 09/16/20 17:10 Sulfa (Sulfonamide Allergy Unknown Verified 09/16/20 17:10 Antibiotics) egg AdvReac Intermediate Emesis Verified 09/16/20 17:10 - Social History Does the pt smoke?: Yes Smoking Status: Current every day smoker Does the pt drink ETOH?: Yes Does the pt have substance abuse?: Yes - Immunizations Immunizations are current?: Yes - POLST Patient has POLST: No PD ED PE NORMAL - Vitals Vital signs reviewed: Yes - General General: Alert and oriented X 3, No acute distress - HEENT HEENT: Moist mucous membranes, Pharynx benign - Neck Neck: Supple, no meningeal sign - Cardiac Cardiac: RRR, Strong equal pulses - Respiratory Respiratory: No respiratory distress, Clear bilaterally - Abdomen Abdomen: Soft, Non distended, Other (Mild diffuse tenderness to palpation without peritoneal signs. Consistent with his normal exam) - Derm Derm: Warm and dry - Extremities Extremities: No edema - Neuro Neuro: Alert and oriented X 3, sandblaster stone 2-12 intact, No motor deficit, No sensory deficit, Normal speech - Psych Psych: Normal mood, Normal affect Results - Vitals Vitals: Vital Signs - 24 hr 09/16/20 17:08 Temperature 36.6 C Heart Rate 81 Respiratory 18 Rate Blood Pressure 136/105 H O2 Saturation 99 Oxygen O2 Source Room air PD MEDICAL DECISION MAKING - ED course Complexity details: considered differential, d/w patient ED course: 34-year-old male states that he took heroin approximately 6 hours ago. Concerned about overdose. Asymptomatic currently. Discussed the importance of rehab, detox. He was given information for self-referral to [facility] on Saturday. He states he will show up at 8 AM to go to his detox appointment. He is not suicidal or homicidal currently. Patient is awake, alert, oriented. Ambulating well. Patient counseled regarding signs and symptoms for which I believe and urgent re-evaluation would be necessary. Patient with good understanding of and agreement to plan and is comfortable going home at this time This document was made in part using voice recognition software. While efforts are made to proofread this document, sound alike and grammatical errors may occur. Departure - Departure Disposition: 01 Home, Self Care Clinical Impression: Alcohol abuse, Polysubstance abuse, Methamphetamine abuse, Opiate abuse, continuous Condition: Good Instructions: ED Drug Abuse General Follow-Up: your,doctor in 1 week [Other] Comments: Follow-up with [facility] on Saturday. Their number is [phone]. They have open access intake appointments, Saturday, Saturday, at 8 AM. It is located at [address] [place] [address] [address] You can show up at 8 AM and they will have an intake appointment for you.
[2020-09-16 17:51] VITALS: BP 120/96
== END 2020-09-16 17:48 | disposition home or self-care (01) ==
LOC: EDUNIT# → ED 17:07
DX: F11.10 Opioid abuse, uncomplicated (principal); F10.10 Alcohol abuse, uncomplicated; F15.10 Other stimulant abuse, uncomplicated; F19.10 Other psychoactive substance abuse, uncomplicated; F17.200 Nicotine dependence, unspecified, uncomplicated
CPT/HCPCS: 99283

== ENCOUNTER 2020-09-30 18:24 | Outpatient (CLI) | payer MEDICAID | END 2020-09-30 18:25 | disposition critical access hospital (66) | LOC: EMS 18:24 | PROVIDERS: ATTEND Surgery | DX: R56.9 Unspecified convulsions (principal); S60.417A Abrasion of left little finger, initial encounter; X58.XXXA Exposure to other specified factors, initial encounter; Z59.0 Homelessness | CPT/HCPCS: A0425; A0429; A0999 ==

== ENCOUNTER 2020-09-30 19:00 | Emergency (ER) | payer MEDICAID ==
[2020-09-30] MEDS ORDERED: KETOROLAC 30 MG/ML VIAL IVP STA (19:16)
[2020-09-30 19:20] VITALS: BP 119/96
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
== END 2020-09-30 20:50 | disposition home or self-care (01) ==
LOC: EDUNIT# → ED 19:00
DX: S60.512A Abrasion of left hand, initial encounter (principal); V09.9XXA Pedestrian injured in unspecified transport accident, initial encounter; X58.XXXA Exposure to other specified factors, initial encounter; F10.920 Alcohol use, unspecified with intoxication, uncomplicated; R45.5 Hostility; G40.909 Epilepsy, unspecified, not intractable, without status epilepticus; F17.200 Nicotine dependence, unspecified, uncomplicated
CPT/HCPCS: 70450; 72125; 96374; 99284

== ENCOUNTER 2020-10-01 19:26 | Outpatient (CLI) | payer MEDICAID | END 2020-10-01 19:27 | disposition critical access hospital (66) | LOC: EMS 19:26 | PROVIDERS: ATTEND Surgery | DX: Z04.89 Encounter for examination and observation for other specified reasons (principal); Z59.0 Homelessness | CPT/HCPCS: A0425; A0429; A0999 ==

== ENCOUNTER 2020-10-01 19:39 | Emergency (ER) | payer MEDICAID ==
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
[2020-10-01 21:36] LABS: BASOPHILS % (AUTO) 0.6 %; EOSINOPHILS % (AUTO) 0.2 %; LYMPHOCYTES # (AUTO) 1.5 10^3/uL (1.5-3.5); LYMPHOCYTES % (AUTO) 30.8 %; MEAN CORPUSCULAR HEMOGLOBIN 32.5 pg (27.0-31.0); MEAN CORPUSCULAR HGB CONC 33.1 g/dL (32.0-36.0); MEAN CORPUSCULAR VOLUME 98.1 fL (80.0-94.0); MEAN PLATELET VOLUME 8.7 fL (7.4-11.4); MONOCYTES # (AUTO) 0.2 10^3/uL (0.0-1.0); MONOCYTES % (AUTO) 3.8 %; NEUTROPHILS # (AUTO) 3.2 10^3/uL (1.5-6.6); NEUTROPHILS % (AUTO) 64.2 %; PLT - PLATELET COUNT 194 10^3/uL (130-450); RED BLOOD COUNT 4.31 10^6/uL (4.70-6.10); RED CELL DISTRIBUTION WIDTH 15.9 % (12.0-15.0)
[2020-10-01 21:44] LABS: CALCIUM 8.4 mg/dL (8.5-10.3); CREATININE 0.7 mg/dL (0.6-1.2)
[2020-10-02 04:24] LABS: MUDS CUTOFF CONCENTRATIONS CUTOFF CONC BELOW:
[2020-10-02 04:37] LABS: AMPHETAMINE SCREEN,URINE POSITIVE (NEGATIVE); BENZODIAZEPINES SCREEN, URINE NEGATIVE (NEGATIVE); COCAINE SCREEN URINE NEGATIVE (NEGATIVE); METHADONE SCREEN, URINE NEGATIVE (NEGATIVE); METHAMPHETAMINES SCREEN, URINE POSITIVE (NEGATIVE); OPIATE SCREEN, URINE NEGATIVE (NEGATIVE); OXYCODONE SCREEN, URINE NEGATIVE (NEGATIVE); PROPOXYPHENE SCREEN, URINE NEGATIVE (NEGATIVE); TRICYCLIC ANTIDEPRESSANT,URINE POSITIVE (NEGATIVE)
[2020-10-02] MEDS ORDERED: LORazepam 0.5 MG TABLET PO STA (06:20)
[2020-10-02 06:27] VITALS: BP 120/68
== END 2020-10-02 06:29 | disposition home or self-care (01) ==
LOC: EDUNIT# → ED 19:39
DX: R41.0 Disorientation, unspecified (principal); F10.921 Alcohol use, unspecified with intoxication delirium; G40.909 Epilepsy, unspecified, not intractable, without status epilepticus; F17.200 Nicotine dependence, unspecified, uncomplicated
CPT/HCPCS: 80048; 80306; 80320; 85025; 99281; 99283; A9270

== ENCOUNTER 2020-10-02 17:42 | Outpatient (CLI) | payer MEDICAID | END 2020-10-02 17:43 | disposition critical access hospital (66) | LOC: EMS 17:42 | PROVIDERS: ATTEND Surgery | DX: R10.9 Unspecified abdominal pain (principal) | CPT/HCPCS: A0425; A0429 ==

== ENCOUNTER 2020-10-02 18:14 | Emergency (ER) | payer MEDICAID ==
[2020-10-02] MEDS ORDERED: ONDANSETRON 4 MG/2 ML VIAL IVP STA (18:21)
[2020-10-02] MEDS ORDERED: ACETAMINOPHEN 1,000 MG/100 ML 100 ML IV ONE (18:21)
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
[2020-10-02 18:34] LABS: BASOPHILS % (AUTO) 0.7 %; EOSINOPHILS % (AUTO) 0.3 %; HGB - HEMOGLOBIN 14.9 g/dL (14.0-18.0); LYMPHOCYTES # (AUTO) 2.7 10^3/uL (1.5-3.5); LYMPHOCYTES % (AUTO) 46.9 %; MEAN CORPUSCULAR HEMOGLOBIN 33.1 pg (27.0-31.0); MEAN CORPUSCULAR HGB CONC 34.7 g/dL (32.0-36.0); MEAN CORPUSCULAR VOLUME 95.3 fL (80.0-94.0); MEAN PLATELET VOLUME 8.6 fL (7.4-11.4); MONOCYTES # (AUTO) 0.4 10^3/uL (0.0-1.0); MONOCYTES % (AUTO) 7.3 %; NEUTROPHILS # (AUTO) 2.6 10^3/uL (1.5-6.6); NEUTROPHILS % (AUTO) 44.6 %; PLT - PLATELET COUNT 248 10^3/uL (130-450); RED CELL DISTRIBUTION WIDTH 15.6 % (12.0-15.0); WHITE BLOOD COUNT 5.8 x10^3/uL (4.8-10.8)
[2020-10-02 18:47] LABS: ALBUMIN 4.2 g/dL (3.2-5.5); ALBUMIN/GLOBULIN RATIO 1.3 (1.0-2.2); BILIRUBIN,TOTAL 1.2 mg/dL (0.2-1.0); CREATININE 0.7 mg/dL (0.6-1.2); MAGNESIUM 2.3 mg/dL (1.7-2.8); TOTAL PROTEIN 7.4 g/dL (6.7-8.2)
[2020-10-02] MEDS: POTASSIUM CHLORIDE 20 MEQ TABLET PO STA ×2 (19:08→19:13)
[2020-10-02] MEDS: THIAMINE 100 MG TABLET PO STA ×2 (19:09→19:13)
--- NOTE | 2020-10-02 20:20 | XRAY Report ---
PROCEDURE: Elbow 3 View LT INDICATIONS: elbow inj TECHNIQUE: 3 views of the elbow were acquired. COMPARISON: None FINDINGS: Bones: No fractures or dislocations. No suspicious bony lesions. Soft tissues: No elbow joint effusion. No suspicious soft tissue calcifications. IMPRESSION: No visible fractures. Reviewed by: Catie Orta MD on 10/02/2020 8:19 PM PST Approved by: Catie Orta MD on 10/02/2020 8:19 PM [facility] Station ID: [id number]
--- NOTE | 2020-10-02 21:08 | CT Report ---
PROCEDURE: HEAD WO INDICATIONS: head inj TECHNIQUE: Noncontrast 4.5 mm thick angled axial sections acquired from the foramen magnum to the vertex. For r adiation dose reduction, the following was used: automated exposure control, adjustment of mA and/or kV according to patient size. COMPARISON: 09/30/2020, 12/25/2019 FINDINGS: Image quality: Excellent. CSF spaces: Basal cisterns are patent. No extra-axial fluid collections. Ventricles are normal in size and shape. Brain: No midline shift. No intracranial masses or hemorrhage. Garcia-white matter interface is norm al. Skull and face: Calvarium and visualized facial bones are intact, without suspicious lesions. Sinuses: Visualized sinuses and mastoids are clear. IMPRESSION: 1. No CT evidence of acute intracranial process. Reviewed by: Catie Orta MD on 10/02/2020 9:07 PM PST Approved by: Catie Orta MD on 10/02/2020 9:07 PM PST Station ID: [id number]
--- NOTE | 2020-10-02 21:11 | CT Report ---
PROCEDURE: CERVICAL SPINE WO INDICATIONS: head inj, etoh TECHNIQUE: Noncontrast 3 mm thick sections acquired from the skull base to the T4 level. Sagittal and coronal r eformats were then constructed. For radiation dose reduction, the following was used: automated exp osure control, adjustment of mA and/or kV according to patient size. COMPARISON: 09/30/2020, 03/03/2020 FINDINGS: Image quality: Excellent. Bones: No fractures or dislocations. Visualized superior ribs are intact. Soft tissues: Prevertebral soft tissues are normal in thickness. No paravertebral hematomas. No ap ical pneumothoraces. IMPRESSION: No CT evidence of cervical spine fracture or malalignment. Reviewed by: Catie Orta MD on 10/02/2020 9:10 PM PST Approved by: Catie Orta MD on 10/02/2020 9:10 PM PST Station ID: [id number]
[2020-10-03] MEDS ORDERED: chlordiazePOXIDE 25 MG CAPSULE PO STA (08:16)
[2020-10-03] MEDS ORDERED: chlordiazePOXIDE 25 MG CAPSULE PO SCH (10:00)
[2020-10-03 11:26] LABS: C. PNEUMONIAE- RESP PCR PANEL NOT DETECTED
[2020-10-03] MEDS ORDERED: LORazepam 1 MG TABLET PO STA (15:25)
[2020-10-03] MEDS ORDERED: levETIRAcetam 250 MG TABLET PO STA (15:25)
[2020-10-03] MEDS ORDERED: PANTOPRAZOLE 40 MG TABLET PO STA (15:25)
[2020-10-03] MEDS ORDERED: THIAMINE 100 MG TABLET PO STA (15:25)
--- NOTE | 2020-10-03 15:29 | ED Physician Documentation ---
ED Addendum - Addendum Addendum: 10/03/20 15:28 A bed was found for him at a detox center. He did need prescriptions for his routine medications and I clarified dosing and frequency with him and these were written. 10/03/20 19:23 Disposition discharged to detox center Condition stable
[2020-10-03] MEDS ORDERED: POTASSIUM CHLORIDE 20 MEQ TABLET PO STA (16:20)
[2020-10-03 18:47] VITALS: BP 138/66
== END 2020-10-03 18:56 | disposition home or self-care (01) ==
LOC: EDUNIT# → ED 18:14
DX: F10.229 Alcohol dependence with intoxication, unspecified (principal); S09.90XA Unspecified injury of head, initial encounter; S19.9XXA Unspecified injury of neck, initial encounter; S50.02XA Contusion of left elbow, initial encounter; V03.90XA Pedestrian on foot injured in collision with car, pick-up truck or van, unspecified whether traffic or nontraffic accident, initial encounter; R10.13 Epigastric pain; F17.200 Nicotine dependence, unspecified, uncomplicated; R41.0 Disorientation, unspecified; G40.909 Epilepsy, unspecified, not intractable, without status epilepticus
CPT/HCPCS: 0202U; 36415; 70450; 72125; 73080; 80048; 80053; 80306; 80320; 83690; 83735; 85025; 96365; 96375; 99281; 99283; 99285; A9270; J0131; J8499